=== PATIENT | male | born 1945 | race Caucasian/White ===

== ENCOUNTER 2017-08-08 07:07 | Outpatient (CLI) | payer MEDICARE ==
--- NOTE | 2017-08-08 11:40 | PRG ---
DATE OF SERVICE: 08/08/2017 SUBJECTIVE: This is a 71-year-old male who returns today for right plantar foot ulceration. He has doing well with leaving the dressing in place. Has had Epifix application with Mepitel foam, Aquac el, and Coban. No problems since last week. He did have his transcutaneous oxygen measurement test this morning. OBJECTIVE: Ulceration, right plantar mid foot measuring 1.1 cm x 0.9 cm x 0.3 cm, 100% granulation tissue. Minimal periwound maceration has improved since last visit. No probing to the deeper tissu es or bone. No periwound erythema, edema or warmth. ASSESSMENT: 1. Chronic ulceration to the plantar aspect of the mid foot, right foot with fat layer exposed. 2. Diabetes with foot ulceration. PLAN: 1. Full thickness debridement of subcutaneous tissue layer was performed with the dermal curet and then application of the Epifix, dehydrated amniotic member was applied, nonadherent Adaptic touch dr rock applied over top and then foam dressing with Aquacel, gauze and Coban. 2. He had his transcutaneous oxygen measurements showed some decrease in cutaneous oxygen. This wi ll be evaluated by Dr. Gates and determine if any treatment is deemed necessary or any further jeronimo ting. 3. He will leave this dressing in place for 1 week and follow up with me in 1 week.
--- NOTE | 2017-08-12 13:26 | TCOM ---
TRANSCUTANEOUS OXIMETRY ASSESSMENT DATE OF STUDY: 08/08/2017 CLINICAL INFORMATION: Mr. Braden Brady Jr. is a 71-year-old gentleman with a past medical hist ory significant for diabetes mellitus, hypertension, obstructive sleep apnea, chronic kidney disease , cor pulmonale, and COPD. The patient has an ulceration of the plantar surface of the right midfoo t. He is referred for transcutaneous oxygen mapping of the distal right lower extremity. IMPRESSION: The chest reference value is depressed consistent with a central oxygenation deficiency . All transcutaneous oxygen values of the right foot reflect hypoxia under ambient conditions. The re sponse of all values to hyperoxic challenge is consistent with significant regional ischemia. The above study suggests the healing of the ulceration may be complicated by a compromise in oxygen- dependent wound healing. In view of the marginal response to hyperoxic challenge, vascular evaluati on appears warranted prior to beginning a trial of hyperbaric oxygen therapy.
== END 2017-08-08 07:08 | disposition home or self-care (01) ==
LOC: WCC 07:07
PROVIDERS: ATTEND Podiatrist Foot & Ankle Surgery
DX: E11.621 Type 2 diabetes mellitus with foot ulcer (principal); L97.412 Non-pressure chronic ulcer of right heel and midfoot with fat layer exposed
CPT/HCPCS: 15275; 93923; 97139; C9363

== ENCOUNTER 2017-08-22 07:41 | Outpatient (CLI) | payer MEDICARE ==
--- NOTE | 2017-08-22 09:09 | PRG ---
DATE OF SERVICE: 08/22/2017 SUBJECTIVE: This is a 71-year-old male who returns today for followup of plantar right foot ulcerat ions. They have been doing home dressings, now changing with Aquacel AG 3 times a week. Denies any nausea, vomiting, fevers or chills. They have not received a call from Dr. Kwan's office regardin g his vascular workup, declines any other concerns at this time. OBJECTIVE: Ulceration, plantar midfoot over the right foot measuring 1.1 cm x 1.4 cm x 0.2 cm, 100% granular wound base, less maceration on this visit. Wound does not probe to deeper tissues or bone . No periwound erythema or warmth and no drainage or other signs of infection. ASSESSMENT: 1. Non-pressure chronic ulceration to the right plantar midfoot with fat layer exposed. 2. Diabetes with peripheral neuropathy and foot ulceration. PLAN: Full thickness debridement of subcutaneous tissue layer with dermal curette, removing all non viable tissue, biofilm from the wound base and down to a bleeding granular wound base, approximately 2 mL of blood loss. The patient tolerated the procedure well. Bandage will be applied again today with Aquacel AG, gauze, Kerlix, and Coban. The patient changes the dressing 3 times a week and fol low up with me in 1 week. We did talk with Dr. Kwan's office and they are going to try again to ge t in touch with them in regards with setting up his vascular evaluation.
[2017-08-22] MEDS ORDERED: Sodium Chloride 0.9% 15 ML NEB ONE (11:11)
== END 2017-08-22 07:42 | disposition home or self-care (01) ==
LOC: WCC 07:41
PROVIDERS: ATTEND Podiatrist Foot & Ankle Surgery
DX: E11.621 Type 2 diabetes mellitus with foot ulcer (principal); L97.421 Non-pressure chronic ulcer of left heel and midfoot limited to breakdown of skin; E11.51 Type 2 diabetes mellitus with diabetic peripheral angiopathy without gangrene
CPT/HCPCS: 11042; 36416; A4218

== ENCOUNTER 2017-08-29 07:48 | Outpatient (CLI) | payer MEDICARE ==
--- NOTE | 2017-08-29 10:25 | PRG ---
DATE OF SERVICE: 08/29/2017 SUBJECTIVE: This is a 71-year-old male returns today for followup right foot plantar ulceration. H e has been doing well with Aquacel AG dressing changes 3 times a week. They relate they have seen Jake Kwan, he has evaluated his blood flow and stated that it was sufficient to the right lower extre mity. The patient denies nausea, vomiting, fevers or chills at this time. PHYSICAL EXAMINATION: Ulceration, right plantar foot measuring 1.1 cm x 1.1 cm x 0.2 cm of depth, 1 00% granular wound base. Minimal periwound maceration which has improved since last appointment. N o periwound erythema, edema or warmth. ASSESSMENT: 1. Non-pressure chronic ulceration to the right plantar midfoot. 2. Diabetes with peripheral neuropathy and ulceration. PLAN: 1. Discussed with the patient treatment options including need for hyperbaric oxygen to help with h is microvascular disease. They state that they will be unable to accommodate the [address] [facility] schedule for the hyperbarics. I explained to them that the risks including nonhealing of the w ound, long-term open wound could result in worsening infection and possibly amputation. They unders tand the risks. In the meantime we will continue to perform conservative wound care therapy and hop e to facilitate wound closure. 2. Full thickness debridement of the subcutaneous tissue layer with a dermal curet and removed all periwound hyperkeratotic tissue down to a bleeding granular wound base, approximately 3 mL of blood loss. The patient tolerated the procedure well. 3. We will apply Promogran to the wound base and Aquacel AG covering and then gauze and wrap. The patient will have to this changed twice a week and follow up with me next Friday.
[2017-08-29] MEDS ORDERED: Sodium Chloride 0.9% 15 ML NEB ONE (13:44)
== END 2017-08-29 07:49 | disposition home or self-care (01) ==
LOC: WCC 07:48
PROVIDERS: ATTEND Podiatrist Foot & Ankle Surgery
DX: E11.621 Type 2 diabetes mellitus with foot ulcer (principal); L97.419 Non-pressure chronic ulcer of right heel and midfoot with unspecified severity; E11.51 Type 2 diabetes mellitus with diabetic peripheral angiopathy without gangrene
CPT/HCPCS: 11042; A4218

== ENCOUNTER 2017-09-05 07:43 | Outpatient (CLI) | payer MEDICARE ==
--- NOTE | 2017-09-05 09:13 | PRG ---
DATE OF SERVICE: 09/05/2017 SUBJECTIVE: This 71-year-old male returns today for followup of right plantar foot wound, has been doing dressing changes as I have ordered, Friday and Friday, consisting of Promogran, Aquacel Ag, 4 x 4s, Kerlix, and Coban. We have not started the hyperbaric oxygen treatments as of yet, because of transportation issues with the patient. Patient denies nausea, vomiting, fevers, or chills. PHYSICAL EXAMINATION: Ulcer, right plantar midfoot, full thickness wound, measuring 0.9 cm x 0.9 cm x 0.1 cm. No undermining, no periwound, hyperkeratosis or maceration, no erythema or warmth, no dr hood, does not probe to deep tissues or bone. ASSESSMENT: 1. Non-pressure chronic ulceration to the right plantar midfoot with fat layer exposed. 2. Diabetes with peripheral neuropathy. PLAN: 1. Full thickness debridement of the subcutaneous tissue layer with the dermal curet and 15-blade d own to a bleeding granular wound base, removing all biofilm and nonviable tissue within the wound. 2. I still feel the marked vascular circulation is a hindrance in this wound, although it has impro chelsey in the last week. We will continue to see if there is some place closer to where they live to p doraue the hyperbaric oxygen therapy. 3. Otherwise, he will follow up with me in 2 weeks.
[2017-09-05] MEDS ORDERED: Sodium Chloride 0.9% 15 ML NEB ONE (17:31)
== END 2017-09-05 07:44 | disposition home or self-care (01) ==
LOC: WCC 07:43
PROVIDERS: ATTEND Podiatrist Foot & Ankle Surgery
DX: E11.621 Type 2 diabetes mellitus with foot ulcer (principal); L97.414 Non-pressure chronic ulcer of right heel and midfoot with necrosis of bone; E11.51 Type 2 diabetes mellitus with diabetic peripheral angiopathy without gangrene
CPT/HCPCS: 11042; A4218

== ENCOUNTER 2017-09-26 07:43 | Outpatient (CLI) | payer MEDICARE ==
--- NOTE | 2017-09-26 09:36 | PRG ---
DATE OF SERVICE: 09/26/2017 SUBJECTIVE: This is a 71-year-old male, who returns today for followup of right plantar foot ulcera tion, has been doing daily Promogran and Aquacel Ag dressing changes, has had no problems with the d ressing changes. Denies nausea, vomiting, fevers, or chills. We gave them some secondary options f or places to do hyperbarics, but they continued to refuse to follow through with those appointments. PHYSICAL EXAMINATION: Ulceration of the right plantar midfoot, measuring 0.6 cm x 0.9 x 0.4 cm of d epth, 100% granular wound base. No periwound erythema, edema, or warmth. There is actually less ma ceration this visit than previously. No signs of bacterial infection. ASSESSMENT: Non-pressure chronic ulceration to the right plantar midfoot. PLAN: 1. Full thickness debridement of the subcutaneous tissue layers utilizing dermal curette and tissue nippers down to a bleeding granular base, removing all nonviable tissue and biofilm from the wound surface and at the subcutaneous tissue level. We will continue with daily Promogran, Aquacel Ag, an d gauze dressing changes. 2. I again explained the need for the hyperbaric treatment, which they understand. They also under stand that it may delay the wound healing if this is not carried out. 3. He will follow up with me in 2 weeks.
[2017-09-26] MEDS ORDERED: Sodium Chloride 0.9% 15 ML NEB ONE (17:09)
== END 2017-09-26 07:44 | disposition home or self-care (01) ==
LOC: WCC 07:43
PROVIDERS: ATTEND Podiatrist Foot & Ankle Surgery
DX: L97.419 Non-pressure chronic ulcer of right heel and midfoot with unspecified severity (principal)
CPT/HCPCS: 11042; 36416; A4218

== ENCOUNTER 2017-10-10 07:19 | Outpatient (CLI) | payer MEDICARE ==
--- NOTE | 2017-10-10 08:45 | PRG ---
DATE OF SERVICE: 10/10/2017 SUBJECTIVE: The patient follows up for right plantar midfoot ulceration. No real change since last appointment. Denies nausea, vomiting, fevers, or chills. Still refuses to go to hyperbaric oxygen t reatments. Has done 3 times a week Promogran and Aquacel Ag dressing changes. PHYSICAL EXAMINATION: Ulceration, plantar aspect of the right midfoot, measuring 1.5 cm x 1.8 cm x 0 .4 cm with 0.5 cm of undermining in the 6-12 o'clock position, 100% granular wound base, some minor p eriwound maceration. No malodor, no drainage, no periwound erythema, edema, or warmth. ASSESSMENT: 1. Non-pressure chronic ulceration to the right plantar midfoot. 2. Diabetes with peripheral neuropathy. PLAN: 1. Again, I reiterated that I do not feel that this wound would heal without hyperbaric oxygen treat ment. So, at this time, we are performing palliative care including routine debridements in order to reduce the bacterial load and prevent infection. 2. Full thickness debridement of the subcutaneous tissue layer down to bleeding granular wound base, removing all biofilm from the wound, and all undermining from the periwound area. Patient tolerated the procedure well. 3. We will continue with Promogran and Aquacel Ag dressing changes 3 times a week, and he will follo w up with me in 3 weeks for palliative wound care.
[2017-10-10] MEDS ORDERED: Sodium Chloride 0.9% 15 ML NEB ONE (14:53)
== END 2017-10-10 07:20 | disposition home or self-care (01) ==
LOC: WCC 07:19
PROVIDERS: ATTEND Podiatrist Foot & Ankle Surgery
DX: E11.621 Type 2 diabetes mellitus with foot ulcer (principal); L97.429 Non-pressure chronic ulcer of left heel and midfoot with unspecified severity; E11.51 Type 2 diabetes mellitus with diabetic peripheral angiopathy without gangrene
CPT/HCPCS: 36416; A4218

== ENCOUNTER 2017-10-31 09:27 | Outpatient (CLI) | payer MEDICARE ==
--- NOTE | 2017-10-31 13:01 | PRG ---
DATE OF SERVICE: 10/31/2017 SUBJECTIVE: A 71-year-old male returns today for right plantar foot ulceration. He states last week the foot was increasing in pain and the patient went to urgent care, had blood work done which showe d no leukocytosis and he was placed on Bactrim for 10 days and has been on that for about a week and says that it has felt much better since then. Denies any nausea, vomiting, fevers or chills at this time. PHYSICAL EXAMINATION: Ulceration of the right plantar midfoot measures 2 cm x 2 cm x 0.8 cm of depth . There was a new blistered area over the lateral aspect of the foot which was deroofed and noted ne w epithelium to this area, but no full thickness wound, granular base to the wound is 100% post-debri rivera. No periwound erythema, edema, or warmth, no drainage at this time. He does not probe to yuliya per tissues or bone. ASSESSMENT: 1. Non-pressure chronic ulceration to the right foot. 2. Diabetes with peripheral neuropathy. PLAN: 1. Finished antibiotics. 2. Start just plain Aquacel AG, gauze and Kerlix dressing changes on an every other day basis. 3. Monitor for signs of worsening infection and return immediately if he encounters any. Otherwise, follow up in 1 week.
== END 2017-10-31 09:28 | disposition home or self-care (01) ==
LOC: WCC 09:27
PROVIDERS: ATTEND Podiatrist Foot & Ankle Surgery
DX: E11.621 Type 2 diabetes mellitus with foot ulcer (principal); E11.42 Type 2 diabetes mellitus with diabetic polyneuropathy; L97.519 Non-pressure chronic ulcer of other part of right foot with unspecified severity

== ENCOUNTER 2017-11-07 09:39 | Outpatient (CLI) | payer MEDICARE ==
--- NOTE | 2017-11-07 15:52 | PRG ---
DATE OF SERVICE: 11/07/2017 SUBJECTIVE: A 71-year-old male who returns today for followup of right foot plantar ulceration. ____ _last visit and had just Aquacel AG and dressing changes. He has been taking Cipro for the last week . He has had a little bit of pain on the lateral aspect of the foot. Patient denies nausea, vomitin g, fevers, or chills. PHYSICAL EXAMINATION: Ulceration on the plantar aspect of 1.7 x 1.6 x 0.2 50% granulati on. No periwound erythema, edema, or warmth. The lateral wound is measuring 2.1 x . No periwo und erythema, edema, or warmth. The surrounding tissues do have a bit of fluctuant feel to them. I am not certain if there is a subcutaneous abscess or not that may need to be further evaluated. ASSESSMENT: 1. Non-pressure chronic ulceration to the right plantar foot x2. 2. Diabetes with peripheral neuropathy. 3. Possibility of subcutaneous abscess. PLAN: 1. Full thickness debridement both wounds, removing all nonviable tissue and biofilm from the wound base base. Patient tolerated the procedure well. 2. Continue with Aquacel Ag dressing changes on an [id number] basis. 3. The patient is being sent for MRI of the right foot to evaluate for any possible abscess in the a jessica. He does have some kidney failure. Therefore, we will have to do this MRI without contrast. 4. He will follow up with me in 2 weeks, although if I get his results from his MRI before then and there is anything that we need to change on the treatment plan, I will contact them.
== END 2017-11-07 09:40 | disposition home or self-care (01) ==
LOC: WCC 09:39
PROVIDERS: ATTEND Podiatrist Foot & Ankle Surgery
DX: E11.621 Type 2 diabetes mellitus with foot ulcer (principal); L97.519 Non-pressure chronic ulcer of other part of right foot with unspecified severity; E11.42 Type 2 diabetes mellitus with diabetic polyneuropathy

== ENCOUNTER 2017-11-28 09:51 | Outpatient (CLI) | payer MEDICARE ==
--- NOTE | 2017-11-28 12:18 | PRG ---
DATE OF SERVICE: 11/28/2017 SUBJECTIVE: This 72-year-old male returns for right plantar foot ulceration, doing well since last v isit. He has been continuing to use Aquacel AG dressing changes so that it is no longer hurting and has had no signs of infections since last visit. We have been unable to get his MRI authorized [facility] he does not appear to be having the problems that he was previously which were going to require t he MRI. PHYSICAL EXAMINATION: Ulceration, right plantar midfoot measuring 1.8 cm x 2.0 cm x 0.2 cm of depth, 90% granular tissue, 10% slough. No signs of infection or fluctuance to the foot. ASSESSMENT: 1. Non-pressure chronic ulceration to the right plantar midfoot. 2. Diabetes with peripheral neuropathy. PLAN: 1. Full thickness debridement of the subcutaneous tissue layer removing all nonviable tissue and bio film from the wound base. 2. This wound has been improving over the last several weeks and no longer appears to have any deep tissue abscess, so I will cancel the MRI I ordered. 3. Continue with Aquacel AG dressing changes and follow up with me in 3 weeks.
== END 2017-11-28 09:52 | disposition home or self-care (01) ==
LOC: WCC 09:51
PROVIDERS: ATTEND Podiatrist Foot & Ankle Surgery
DX: E11.621 Type 2 diabetes mellitus with foot ulcer (principal); E11.42 Type 2 diabetes mellitus with diabetic polyneuropathy; L97.419 Non-pressure chronic ulcer of right heel and midfoot with unspecified severity
CPT/HCPCS: 11042

== ENCOUNTER 2017-12-19 09:57 | Outpatient (CLI) | payer MEDICARE ==
--- NOTE | 2017-12-19 11:24 | PRG ---
DATE OF SERVICE: 12/19/2017 SUBJECTIVE: This is a 72-year-old male returns today for followup on multiple right foot ulcerations , nothing has changed since previous visit. They are still unable to go for the hyperbaric oxygen tr eatments. I have been using Aquacel AG, gauze, Kerlix, and Coban since last visit. PHYSICAL EXAMINATION: Ulceration of the right plantar midfoot centrally #1, measuring 1.6 cm x 1.5 c m x 0.2 cm, 80% granulation tissue, 20% slough. No periwound erythema, edema, or warmth. Right plan tar midfoot ulceration on the lateral aspect measuring 1.0 cm x 1.3 cm x 0.2 cm, 80% granulation tiss ue, 20% slough. No periwound erythema, edema, or warmth. Right plantar great toe limited to the lenny akdown of the skin, 90% epithelium measuring 1 cm x 1 cm. No periwound erythema, edema or warmth. ASSESSMENT: 1. Non-pressure chronic ulcerations to the right foot. 2. Diabetes with peripheral neuropathy. PLAN: 1. I again stressed the need for the hyperbaric oxygen treatment, which they are not willing to do. 2. Full thickness debridement of the wound down to a bleeding granular wound base, removing all nonv iable tissue and biofilm from the wound base with dermal curette. The patient tolerated the procedur e well. 3. Continue with Aquacel AG dressing changes and follow up with me in 3-4 weeks.
[2017-12-19] MEDS ORDERED: Sodium Chloride 0.9% 15 ML NEB ONE (15:42)
== END 2017-12-19 09:58 | disposition home or self-care (01) ==
LOC: WCC 09:57
PROVIDERS: ATTEND Podiatrist Foot & Ankle Surgery
DX: E11.621 Type 2 diabetes mellitus with foot ulcer (principal); L97.419 Non-pressure chronic ulcer of right heel and midfoot with unspecified severity; L97.519 Non-pressure chronic ulcer of other part of right foot with unspecified severity; E11.42 Type 2 diabetes mellitus with diabetic polyneuropathy
CPT/HCPCS: A4218

== ENCOUNTER 2018-02-19 21:33 | Inpatient (IN) | payer MEDICARE ==
[2018-02-19] MEDS ORDERED: fentaNYL Citrate/PF 2,000 MCG in Sodium Chloride 0.9% 60 ML IV SCH (21:44)
[2018-02-19 22:29] LABS: pH, Arterial 7.26 (7.35-7.45)
[2018-02-19 22:30] LABS: Actual Bicarbonate (HCO3a) 32.4 mEq/L (22-26); Base Excess (BEa) 3.2 mEq/L (0 (+/-) 2.5); CO2 Tension 74.4 mmHg (35.0-45.0); Hematocrit-ABG 45.1 % (42.0-52.0)
[2018-02-19 22:31] LABS: Analyzer IN Cardio ER; Calcium, Ionized 1.1 mmol/L (1.12-1.30); Hemoglobin (Hb) 12.8 g/dL (14.0-18.0); Puncture Site LRA
[2018-02-19 22:51] LABS: Bilirubin Negative (Negative); Blood, Urine Negative (Negative); Clarity CLOUDY (Clear); Glucose, Urine (Dipstick) Negative (Negative); Leukocyte Small (Negative); Nitrite Negative (Negative); Protein, Urine (Dipstick) 30 mg/dL (Neg-Trace)
[2018-02-19 22:55] LABS: Bacteria/HPF None Seen HPF (None Seen); Pathc Cast-AUWi Flag 29.07 (0-2.49); Yeast-AUWi Flag 152.9 (0-25.0)
[2018-02-19 22:57] LABS: Yeast-All Forms None Seen HPF (None Seen)
[2018-02-19] MEDS ORDERED: Piperacillin/Tazobactam 3.375 GM in Sodium Chloride 0.9% 100 ML IVPB SCH (23:00)
[2018-02-19 23:09] LABS: Actual Bicarbonate (HCO3a) 32.2 mEq/L (22-26); Base Excess (BEa) 3.3 mEq/L (0 (+/-) 2.5); Hemoglobin (Hb) 12.6 g/dL (14.0-18.0); O2 Tension (PaO2) 85.3 mmHg (80.0-100.0); pH, Arterial 7.27 (7.35-7.45)
[2018-02-19 23:10] LABS: Analyzer IN Cardio ER; Calcium, Ionized 1.1 mmol/L (1.12-1.30); Puncture Site LRA
[2018-02-19] MEDS ORDERED: Furosemide 40 MG/4 ML VIAL ONE (23:10)
[2018-02-19] MEDS ORDERED: Acetaminophen 650 MG Suppository ONE (23:10)
[2018-02-19] MEDS ORDERED: Acetaminophen 325 MG Suppository ONE (23:10)
[2018-02-19 23:21] LABS: INR-International Normal Ratio 1.1; PTT 32.6 SEC (22.9-36.1); Prothrombin Time 14.8 SEC (12.0-14.7)
--- NOTE | 2018-02-19 23:37 | RAD ---
SINGLE VIEW OF THE CHEST: 02/19/18 COMPARISON: 02/19/18 HISTORY: Central line placement. FINDINGS: Single view of the chest shows an enlarged cardiomediastinal silhouette. The endotracheal tube appear s unchanged in position. There is a right IJ central venous catheter with its tip in the superior simeon a cava. An NG tube is seen within the stomach. No pneumothorax is seen. There is no evidence of conso lidation, mass or pleural effusion. IMPRESSION: Appropriate position of lines and tubes. POS: JOE
[2018-02-20] MEDS ORDERED: Lorazepam 2 MG/ML VIAL SLOW IVP PRN ×3 (01:23→02:52)
[2018-02-20] MEDS ORDERED: Propofol 1,000 MG/100 ML VIAL IV PRN (01:23)
[2018-02-20] MEDS ORDERED: Morphine 2 MG/ML SYRINGE SLOW IVP PRN ×2 (01:23→02:52)
[2018-02-20] MEDS ORDERED: DISCONTINUE PREVIOUS NARCOTIC PAIN MEDICATIONS AND BENZODIAZEPINES FS SCH ×4 (01:23→02:52)
[2018-02-20] MEDS ORDERED: Fentanyl BOLUS 250 ML IVPB PRN ×4 (01:23→02:52)
[2018-02-20] MEDS ORDERED: Ondansetron ODT 4 MG TAB SL PRN (01:24)
[2018-02-20] MEDS ORDERED: Ondansetron HCl/PF 4 MG/2 ML Vial IVP PRN ×2 (01:24→02:47)
[2018-02-20] MEDS ORDERED: Acetaminophen 325 MG TAB PO PRN (01:24)
[2018-02-20] MEDS ORDERED: Morphine 4 MG/ML VIAL SLOW IVP PRN ×2 (01:30→02:54)
[2018-02-20] MEDS ORDERED: Norepinephrine 8 MG/0.9% NS 250 ML ONE (01:31)
[2018-02-20] MEDS ORDERED: Norepinephrine 8 MG/250 ML BAG IVPB PRN (01:50)
[2018-02-20] MEDS ORDERED: Sodium Chloride 0.9% 1,000 ML IV SCH ×4 (02:00→03:00)
[2018-02-20] MEDS ORDERED: Ondansetron ODT 4 MG TAB PO PRN (02:47)
[2018-02-20] MEDS ORDERED: Dextrose 5% in Water 1,000 ML IV PRN (02:47)
[2018-02-20] MEDS ORDERED: Ventilator Sedation Protocol 1 EACH FS SCH (02:47)
[2018-02-20] MEDS ORDERED: Dextrose 50% Abboject 50 ML SYRINGE SLOW IVP PRN (02:47)
[2018-02-20] MEDS ORDERED: VANCOMYCIN IVPB PRN (03:15)
[2018-02-20] MEDS: Cefepime 1 GM, Admixture Fee 1 EACH in Sodium Chloride 0.9% 10 ML SLOW IVP SCH ×2 (03:16→18:07)
[2018-02-20 03:20] LABS: Band 13 % (5-11); Hemoglobin 11.7 g/dL (14.0-18.0); Lymphocytes 5 % (21-51); MDiff Complete? YES; Mean Corpuscular HGB CONC 31.9 g/dL (32.0-36.0); Mean Corpuscular Volume 87.7 fl (80.0-94.0); Mean Platelet Volume 6.8 fL (7.4-10.4); Monocytes 3 % (0-10); Neutrophil 79 % (42-75); Platelet Count 173 thou/uL (130-400); Red Blood Cell (RBC) Count 4.18 mill/uL (4.70-6.10); White Blood Cell (WBC) Count 15.2 thou/uL (4.8-10.8)
[2018-02-20 03:38] LABS: ALT (SGPT) 22 U/L (8-55); AST (SGOT) 26 U/L (5-34); Albumin 3.2 g/dL (3.4-4.8); Alkaline Phosphatase 45 U/L (40-150); Anion Gap 12 mmol/L (10-20); BUN (Urea Nitrogen) 66 mg/dL (8.4-25.7); Bilirubin, Total 0.4 mg/dL (0.2-1.2); Calc. Creatinine Clearance 39 mL/min (70-130); Carbon Dioxide 30 mmol/L (23-31); Chloride 100 mmol/L (98-107); Estimated GFR-MDRD 17; Globulin 2.6 g/dL (2.4-3.5); Glucose 247 mg/dL (83-110); Potassium 4.2 mmol/L (3.5-5.1); Protein, Total 5.8 g/dL (5.8-8.1); Sodium 138 mmol/L (136-145)
[2018-02-20 03:48] LABS: Troponin I 1.111 ng/mL (< 0.028)
[2018-02-20] MEDS: Clindamycin/D5W 600 MG in Premix Bag 1 BAG IVPB SCH ×3 (04:10→20:15)
[2018-02-20] MEDS: HumaLOG 300 UNITS/3 ML VIAL SC PRN ×5 (04:14→20:57)
--- NOTE | 2018-02-20 05:06 | HP ---
DATE OF ADMISSION: 02/20/2018 PRIMARY CARE PROVIDER: Lisset Hadely M.D. CHIEF COMPLAINT: Altered mental status and lethargy. HISTORY OF PRESENT ILLNESS: This is a 72-year-old male who presents to [facility] Emergency Department by [facility] after patient was noted with increasing lethargy, altered mentation and unresponsiveness per 's report. The patient is obtained after review of [facility] medical records from the emergency room as well as discussions with the at the bedside. The patient apparently had been doing fairly well at home, but over the last several days, had been increasingly lethargic with disrupted sleep patterns. The patient with a history of obstructive sle ep apnea on nocturnal CPAP as well as chronic oxygen supplementation at 3 liters per minute by nasal cannula. denied any recent fever, new medications, travel history or family members with simila r symptoms or illness. The patient had been compliant with his chronic medication regimen according to the . The patient became increasingly lethargic and was evaluated by EMS personnel. The licha ent apparently was noted in respiratory distress and intubated in the field. The patient was placed on [facility] and transferred to [facility] Emergency Room. The patient did receive IV Lasix and nitroglycerin prior to arrival per the flight crew documentation. In the emerge ncy room, patient underwent general evaluation with ET tube in place, placed on mechanical ventilatio n. The patient received broad spectrum IV antibiotic coverage including Zosyn and vancomycin after c oncern for sepsis. The patient received intravenous fluids x1 liter, IV Lasix for a total of 80 mg, Tylenol and fentanyl injections. Portable chest x-ray imaging did not reveal any acute infiltrate wi th chronic changes and appropriate positioning of the endotracheal tube. The patient underwent a rig ht internal jugular vein central catheter placement and placed on Levophed after patient was noted hy potensive. The patient was transferred to the Critical Care Unit for further evaluation and monitori ng. PAST MEDICAL HISTORY: 1. Obstructive sleep apnea on nocturnal CPAP. 2. Chronic hypoxic hypercapnic respiratory failure with oxygen supplementation at 3 liters per minut e by nasal cannula. 3. Morbid obesity. 4. History of pneumonia. 5. Chronic obstructive pulmonary disease. 6. Cor pulmonale. 7. Diabetes mellitus type 2, insulin requiring. 8. Chronic venous stasis with ulcerations to bilateral feet and lower extremities with chronic wound care. 9. Chronic venous insufficiency of the lower extremities. 10. History of ventricular tachycardia status post radiofrequency ablation. 11. Dyslipidemia. 12. Chronic kidney disease stage 3. 13. History of colon cancer. PAST SURGICAL HISTORY: 1. Status post radiofrequency ablation. 2. Status post right hemicolectomy. 3. Status post open reduction and internal fixation of right wrist fracture. 4. Status post multiple debridements of bilateral feet and right foot ulcerations. CURRENT MEDICATIONS: Based on previous admissions in the electronic medical record. 1. Ventolin HFA 2 puffs inhaled q.i.d. p.r.n. 2. Aspirin 81 mg p.o. at bedtime. 3. Symbicort 160/4.5 one puff inhaled at bedtime. 4. Fenofibrate 160 mg p.o. daily. 5. Lasix 40 mg 1 tab p.o. daily. 6. Gabapentin 300 mg p.o. t.i.d. 7. Hydralazine 50 mg p.o. t.i.d. 8. Glargine insulin 40 units subcutaneously daily. 9. Victoza 1.8 mg subcutaneously daily. 10. Lovastatin 20 mg p.o. at bedtime. 11. Meloxicam 7.5 mg p.o. daily. 12. Spiriva HandiHaler 18 mcg inhale at bedtime. ALLERGIES: No known drug allergies. FAMILY HISTORY: Positive for hypertension and diabetes. SOCIAL HISTORY: Greater than [id number] history of smoking, quitting over 15 years prior to this e valuation. No alcohol or illicit drug use. and resides in the [place], [place] area. 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 REVIEW OF SYSTEMS: Unobtainable as patient is on current mechanical ventilation and sedation. PHYSICAL EXAMINATION: VITAL SIGNS: Currently, blood pressure 105/56, pulse 74, respiratory rate 24 on mechanical ventilati on, temperature 97.9 degrees Fahrenheit, O2 saturation 99% on 100% FiO2. GENERAL APPEARANCE: This is a 72-year-old male on current mechanical ventilation and sedat e. HEENT: Pupils are minimally reactive to light and accommodation. No scleral icterus, no conjunctiva l injection. Nares patent. OP is clear. ET tube and OGT tube in place. Nares patent. Scalp atrau matic. NECK: Supple. Right internal jugular central venous catheter in place. No palpable mass. No menin geal signs appreciated. CHEST: Diminished breath sounds in all lung nicole. CARDIOVASCULAR: S1 and S2 distant. ABDOMEN: Obese with difficult to palpate landmarks due to body habitus. No rebound or guarding appr eciated. EXTREMITIES: Warm and dry with fair turgor. Chronic hyperpigmentation changes and venous stasis ronald nges to the lower extremities. A chronic superficial ulceration of the anterior right hager noted. H yperkeratotic changes of bilateral feet on the plantar, lateral and medial aspects of feet. Dystroph ic nails noted. Questionable dry gangrenous changes at multiple distal aspects of the toes. Open ul ceration of the right foot plantar aspect. Pulses are diminished at the dorsalis pedis, posterior ti bial and popliteal arteries. NEUROLOGIC: Sedate on current mechanical ventilation. Occasional spontaneous movement of the right lower extremity noted. PERTINENT LABORATORY DATA AND X-RAY FINDINGS: Sodium 137, potassium 4.7, chloride 95, CO2 of 28, BUN 62, creatinine 3.73 with estimated GFR of 16, glucose 364. Lactic acid level 1.3. Calcium 8.6. LF Ts within normal limits. Troponin I is 1.012. BNP 1076, previously noted 789 on 02/19/2018. CBC sh owed white blood cell count of 12.8, hemoglobin 12.5, hematocrit 40, platelet count 181 with 85% neut rophilia. PT 14.8, INR 1.1, PTT 32.6. ABG dated 02/19/2018 at 2300 showed pH 7.27, pCO2 of 72, pO2 of 85, bicarbonate 32, O2 saturation 96% on 100% FiO2, SIMV. Urinalysis dated 02/19/2018 showed smal l bilirubin, 7-10 wbc's per high powered field and 11-20 hyaline casts. Portable chest x-ray dated 0 02/19/2018 showed appropriate position of lines and tubes. No pneumothorax. No evidence of consolida tion, mass or pleural effusion. Telemetry monitoring shows sinus mechanism with heart rates in the 7 0s. EKG dated 02/19/2018 by my interpretation shows a sinus mechanism with heart rates in the 90s. Premature ventricular complexes noted. Attenuated R waves noted in the precordial leads. Left axis deviation. Normal axis. Q-waves in leads III and F. ASSESSMENT AND PLAN: 1. Septic shock. We will admit to the critical care unit. We will continue sepsis protocol. Mandy l saline bolus x1 liter now. We will continue Levophed infusion to maintain systolic blood pressures greater than 100. We will continue fluid replacement and monitor clinical response. Continue broad spectrum IV antibiotic coverage with vancomycin, cefepime and additional clindamycin after concern f or possible skin etiology. Continue serial lactate monitoring. 2. Acute on chronic hypoxic hypercapnic respiratory failure. We will continue SIMV with ABG monitor ing. Consult Pulmonology Service in the a.m. for ongoing ventilatory management. Repeat ABG in the a.m. Repeat portable chest x-ray in the a.m. Suspect patient's underlying chronic hypoxic respirato ry failure. We will initiate DuoNebs q.4 hours. Consider Solu-Medrol. 3. Acute kidney injury on chronic kidney disease stage 3. We will continue intravenous fluids as ou tlined previously. Avoid nephrotoxic agents and CONTRAST MEDIA. Repeat creatinine in the a.m. Fole y catheter in place. 4. Acute metabolic encephalopathy. Suspect multifactorial given patient's profound sepsis and respi ratory failure. Continue general supportive measures as outlined previously. 5. Diabetes mellitus type 2, insulin requiring. We will provide insulin sliding scale for reflexive coverage. Serial Accu-Cheks. ADA diet when appropriate for p.o. intake. 6. Morbid obesity. Consider dietitian counseling. 7. Chronic venous stasis with chronic ulceration, diabetic ulcers of the bilateral feet. We will co ult Wound Care service for evaluation and local care. 8. Prophylaxis. Sequential compression devices will be held due to lower extremity edema. Heparin 5000 units subcutaneously b.i.d. and Pepcid 20 mg IV q.12 hours. Update pneumonia and flu vaccinatio n. 9. Code status is FULL. Surrogate medical decision maker is patient's spouse. Total critical care time is 60 minutes.
[2018-02-20] MEDS ORDERED: Vancomycin HCl 1.5 GM in Sodium Chloride 0.9% 250 ML 300 ML IVPB SCH (06:00)
[2018-02-20 06:53] LABS: Troponin I 1.203 ng/mL (< 0.028)
[2018-02-20] MEDS ORDERED: Ipratropium Bromide 2.5 ml Neb NEB SCH (07:00)
[2018-02-20 07:47] LABS: Actual Bicarbonate (HCO3a) 31.2 mEq/L (22-26); Base Excess (BEa) 4.9 mEq/L (0 (+/-) 2.5); CO2 Tension 54.7 mmHg (35.0-45.0); Hematocrit-ABG 39.5 % (42.0-52.0); Hemoglobin (Hb) 11.4 g/dL (14.0-18.0); O2 Tension (PaO2) 62.2 mmHg (80.0-100.0); pH, Arterial 7.37 (7.35-7.45)
[2018-02-20 07:48] LABS: ALV-art Gradient 439.825 (0-20); Puncture Site RBA
[2018-02-20] MEDS ORDERED: Cefepime 1 GM in Sodium Chloride 0.9% 100 ML IVPB SCH (09:00)
[2018-02-20] MEDS ORDERED: Vancomycin HCl 1 GM in Sodium Chloride 0.9% 250 ML 250 ML IVPB SCH (09:00)
[2018-02-20] MEDS ORDERED: FLU VACC TS2017-18 (>65YR) 0.5 ML SYRINGE IM ONE (09:00)
[2018-02-20] MEDS ORDERED: Heparin 5,000 UNITS/ML VIAL SC SCH ×2 (09:00)
[2018-02-20] MEDS ORDERED: Prevnar 13-Val Conj/PF 0.5 ML SYRINGE IM ONE (09:00)
[2018-02-20] MEDS: Famotidine 40 MG/4 ML VIAL SLOW IVP SCH (09:15)
--- NOTE | 2018-02-20 09:32 | RAD ---
PORTABLE CHEST 1 VIEW: Date: 02/20/18 Time: 0520 hours HISTORY: Respiratory failure. FINDINGS/IMPRESSION: There has been interval improvement of atelectatic change in right lung base since the previous day's study. Remainder of exam is otherwise stable. POS: JOE
[2018-02-20] MEDS: Propofol 1,000 MG/100 ML VIAL IV PRN (11:29)
--- NOTE | 2018-02-20 11:46 | PQF ---
DATE: 02-24-18 ATTN: DR. LOREN METZGER / DR. DE ANDA Please exercise your independent, professional judgment in responding to the clarification form. Clinical indicators are provided on the bottom of this form for your review Please check appropriate box(s): [ ] Septic Shock related to UTI with Indwelling Catheter [ ] UTI - please specify if due to or related to (as applicable): [ ] Indwelling catheter [ ] Unable to determine etiology [ ] Contaminated urine specimen without UTI [ x ] Other diagnosis _sepsis from cellulitis and mssa bacteremia [ ] Unable to determine In addition, please specify: Present on Admission (POA): [ x ] Yes [ ] No [ ] Unable to determine For continuity of documentation, please document condition throughout progress notes and discharge summary. Thank You. CLINICAL INDICATORS - SIGNS / SYMPTOMS / LABS ER DOCUMENTATION: STARK IN PLACE BY MATHEW,URINE COLLECTED FROM PORT URINE: 02-19-18: URINE PROTEIN 30 H UR LEUKOCYTE ESTERASE SMALL H URINE WBC 7-10 H UR SQUAMOUS EPITH CELLS 7-10 H HYALINE CASTS 11-20 HYALINE CASTS H TEMP: (ER) 100.0, 100.2, 100.4, 100.8, 100.9, 101.1, 101.3, 02-20-18: 100.3, 100.2 RISK FACTORS: ER DOCUMENTATION: STARK IN PLACE BY MATHEW,URINE COLLECTED FROM PORT H&P: SEPTIC SHOCK, ACUTE ENCEPHALOPATHY, ACUTE ON CHRONIC RESP FAILURE, CL[place]ON TREATMENT: (MAR) CLEOCIN, MAXIPIME, VANCOMYCIN, IVF (This form is maintained as a part of the permanent medical record) 2014 [employer]. All Rights Reserved ENRIQUE [email or web address] Office: [phone] LINETTE
--- NOTE | 2018-02-20 12:44 | CON ---
DATE OF CONSULTATION: 02/20/2018 SERVICE: Pulmonary Medicine. REASON FOR CONSULTATION: ICU patient. HISTORY OF PRESENT ILLNESS: The patient is a 72-year-old -[place] male with past medical his tory significant for multiple comorbidities including chronic respiratory failure, morbid obesity, co r pulmonale, and chronic venous stasis changes. He was in his usual state of health until he was fou nd unresponsive. EMS services were contacted and he was subsequently intubated in the field and brou ght to the Emergency Department at [place]. He got 1 dose of Lasix and some nitroglycerin because of elevated blood pressure. He was stuck into the ICU and initiated on broad-spectrum antibiotics, presumptively treating septic shock. Ultimately, he cannot provide any additional elements of the hi story. His oxygen requirements remained quite elevated. PAST MEDICAL HISTORY: 1. Chronic hypoxic respiratory failure. 2. Morbid obesity. 3. Obstructive sleep apnea. 4. Chronic obstructive pulmonary disease. 5. Pulmonary hypertension with history of cor pulmonale. 6. Type 2 diabetes mellitus. 7. History of ventricular tachycardia, status post radiofrequency ablation. 8. Dyslipidemia. 9. History of colon cancer. 10. Chronic kidney disease, stage 3. PAST SURGICAL HISTORY: 1. Right hemicolectomy. 2. Radiofrequency ablation of the ventricle. 3. Open reduction and internal fixation of the right wrist fracture. 4. Debridements of bilateral feet, multiple. ALLERGIES: No known drug allergies. MEDICATIONS: List of his inpatient medications were reviewed. No specific updates were made at this time. FAMILY HISTORY: Noncontributory. SOCIAL HISTORY: He has an extensive smoking history. There is no report of alcohol or illicit drugs . 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 REVIEW OF SYSTEMS: This cannot be obtained as the patient is currently intubated and sedated. PHYSICAL EXAMINATION: VITAL SIGNS: Afebrile with a T-max of 100.3. Pulse 69, blood pressure 110/58, respirations 21, satu ration 96% on 80% FiO2 and a PEEP of 5. GENERAL: The patient is intubated and sedated. HEENT: Normocephalic and atraumatic. Sclerae are white, conjunctivae pink. Oral and nasal mucosa i s moist without lesions. LUNGS: Decent air entry. Dependent crackles are present. There is no wheezing or rhonchi present, however. HEART: Normal rate and regular. ABDOMEN: Soft. Distended. There is no rebound or guarding present. Bowel sounds are present. MUSCULOSKELETAL: No cyanosis or clubbing. Chronic stasis changes are present throughout bilateral l bindu nicole with lesions that have some purulence to him. NEUROLOGIC: Grossly nonfocal. LABORATORY DATA: WBC 15.2, hemoglobin 11.7 and platelets 173,000. INR 1.1. PH of 7.37, pCO2 of 54 and PO2 of 62. This is on 80% FiO2 and a PEEP of 5. Creatinine 3.55. Basic metabolic profile and l iver function studies are otherwise unremarkable. Troponin 1.2 and cortisol 19. Lactate was 1.3. U rinalysis is essentially unremarkable. Blood cultures x2 are unremarkable. IMAGING DATA: There is truthfully not much in the way of massive volume overload. Cardiomegaly is c urrently evident. There was previously atelectasis of the right base, which has resolved. Endotrach eal tube is in good position, 4 cm above the letty. There is an enteric catheter that courses infer iorly, but I cannot see where it terminates. A right IJ terminates in good position. ASSESSMENT: 1. Acute on chronic hypoxic respiratory failure. 2. Septic shock secondary to possible cellulitis. 3. Acute kidney injury on chronic kidney disease stage 3. 4. Metabolic encephalopathy. PLAN: I truthfully cannot explain why the patient's oxygen requirements are so incredibly elevated. The chest x-ray really does not look too terribly concerning. He does have a non-ST elevation NC, b ut it appears that his heart is holding up just fine. He does have a history of cor pulmonale. I am going to empirically initiate him on anticoagulation directed at a pulmonary embolism. Once he stab ilizes or if his oxygen requirements improve, we can consider doing a VQ scan or a CTA of the chest, which I am not currently interested in doing given the fact that he is not currently clinically stabl e enough to leave the ICU. If we cannot turn this around, will be expected during this [facility] stay. Multiple adjustments to the ventilator have been made. We will see if we can wean sedation as much as the patient can tolerate. CRITICAL CARE TIME: 30 minutes.
[2018-02-20] MEDS: Sodium Chloride 0.45% 1,000 ML IV SCH (12:52)
[2018-02-20] MEDS: Norepinephrine 8 MG/0.9% NS 250 ML IVPB SCH ×2 (12:54→23:19)
--- NOTE | 2018-02-20 12:56 | CON ---
DATE OF CONSULTATION: 02/20/2018 CRITICAL CARE NOTE TIME: 30 minutes. HISTORY OF PRESENT ILLNESS: The patient is a 72-year-old gentleman who presents for evaluation of respiratory failure. The patient has a previous history of nonsustained ventricular tachycardia. In 2016, he underwent ablation for ventricular tachycardia. He subsequently had been doing well. The patient' s states that yesterday he started becoming dyspneic. He apparently did not have any fevers or chills. He suddenly developed severe respiratory distress and was brought to the emergency room. He was emergently intubated. The patient did not report having any chest discomfort. PAST MEDICAL HISTORY: 1. History of cor pulmonale. 2. Sleep apnea. 3. Hypertension. 4. Diabetes mellitus. 5. Chronic venous stasis ulcers. 6. Chronic renal failure. PAST SURGICAL HISTORY: Hemicolectomy and debridement of his foot and wounds. MEDICATIONS: See nursing list. ALLERGIES: None. PHYSICAL EXAMINATION: GENERAL/VITAL SIGNS: This is an obese gentleman who is intubated with a blood pressure of 110/58. NECK: Full. LUNGS: Coarse breath sounds bilateral. HEART: Regular rate and rhythm. Normal S1 and S2. ABDOMEN: Distended. EXTREMITIES: Showed severe bilateral edema with chronic wound infections. LABORATORY DATA: Sodium 138, potassium 4.2, chloride 100, bicarbonate 30, BUN 66 and creatinine 3.5. Troponin was 1.2. His white blood cell count is 15.2, hemoglobin 11.7, hematocrit 36.7 and platelet 173. His INR was 1.1. IMAGING DATA: EKG is pending. IMPRESSION: 1. Septic shock. 2. Cor pulmonale. 3. Elevated troponin level, probably secondary to demand ischemia. 4. Diabetes mellitus. 5. Hypertension. 6. Morbid obesity. 7. Chronic wound infection. PLAN: This gentleman presents with septic shock. He is on Levophed and has an evidence of possible infection from his wounds. From a cardiac standpoint, we will check the patient's echocardiogram. We will review the patient's EKG. His elevated troponin level is more likely secondary to his chronic renal failure and demand ischemia rather than an acute myocardial infarction. We will follow this patient with you through his hospitalization. TOTAL TIME SPENT: 30 minutes. LINETTE
[2018-02-20] MEDS: Heparin 10,000 UNITS/ 10 ML VIAL SLOW IVP SCH (12:59)
--- NOTE | 2018-02-20 13:26 | PDOC.PN ---
- Subjective Encounter Start Date: 02/20/18 Encounter Start Time: 13:24 Mr. Brady was seen today in follow-up of respiratory failure and sepsis. He is intubated, but will awake to voice, he did not follow commnads, but was moving all extremities, and appears a bit agitated. - Objective Resuscitation Status: Resuscitation Status FULL:Full Resuscitation MAR Reviewed: Yes Vital Signs & Weight: Vital Signs (12 hours) Temp Pulse Resp BP Pulse Ox 02/20/18 12:00 70 116/55 L 02/20/18 11:54 70 22 H 95 02/20/18 07:45 100.2 F H 71 24 H 94 L 02/20/18 07:30 71 100/50 L 02/20/18 07:18 71 24 H 95 02/20/18 04:00 24 H 02/20/18 03:38 100.3 F H 72 24 H 99 02/20/18 02:15 72 Weight Weight 325 lb 2.909 oz Most Recent Monitor Data Heart Rate from ECG 69 NIBP 110/58 NIBP BP-Mean 67 Respiration from ECG 21 SpO2 96 I&O: 02/19/18 02/20/18 02/21/18 06:59 06:59 06:59 Intake Total 1298 0 Output Total 695 166 Balance 603 -166 Result Diagrams: 02/20/18 02:57 02/20/18 02:57 Additional Labs: Accuchecks 02/20/18 07:34 POC Glucose 235 H Phys Exam - Physical Examination HEENT: PERRLA Respiratory: no wheezing rales at the bases Cardiovascular: RRR, no significant murmur, no rub Gastrointestinal: soft, no distention, positive bowel sounds Musculoskeletal: edema present pedal edema, legs are dressed, mild erythema Dx/Plan (1) Acute respiratory failure with hypoxia and hypercapnia Code(s): J96.01 - ACUTE RESPIRATORY FAILURE WITH HYPOXIA; J96.02 - ACUTE RESPIRATORY FAILURE WITH HYPERCAPNIA Status: Acute (2) Sepsis Code(s): A41.9 - SEPSIS, UNSPECIFIED ORGANISM Status: Acute (3) Diabetes mellitus type 2 in obese Code(s): E11.69 - TYPE 2 DIABETES MELLITUS WITH OTHER SPECIFIED COMPLICATION; E66.9 - OBESITY, UNSPECIFIED Status: Acute (4) Morbid obesity Code(s): E66.01 - MORBID (SEVERE) OBESITY DUE TO EXCESS CALORIES Status: Acute (5) Hypertension Code(s): I10 - ESSENTIAL (PRIMARY) HYPERTENSION Status: Chronic - Plan * Acute respiratory failure - patient currently requires Ventilator support- continue to wean as tolerated by Background Investigator * Patient is empirically being treated for Pulmonary Embolus, until he is more stable to undergo VQ- Heparin drip * NSTEMI- as per Cardiology- this is likely NSTEMI type 2 from demand ischemia- await Echo results * Sepsis- the source of which is from Cellulitis of his lower extremities- Continue Broad Spectrum Antibiotics, including Cefepime, Vancomycin, and Clindamycin, and await culture results- he has required pressor support as well * DM- blood glucose is still elevated- will add a low dose long acting insulin * CKD stage 4- stable * Morbid Obesity- severe with possible Obesity hypoventilation - will complicate his recovery
[2018-02-20] MEDS: Heparin 25,000 units/D5W 500 ML IVPB SCH (13:53)
[2018-02-20] MEDS: fentaNYL Citrate/PF 2,000 MCG in Sodium Chloride 0.9% 60 ML IV SCH (14:42)
[2018-02-20] MEDS ORDERED: Mometasone/Formoterol 120 PUFF INHALER INH SCH (21:00)
[2018-02-21] MEDS: HumaLOG 300 UNITS/3 ML VIAL SC PRN ×5 (00:16→21:12)
[2018-02-21] MEDS: Clindamycin/D5W 600 MG in Premix Bag 1 BAG IVPB SCH ×4 (04:00→20:46)
[2018-02-21] MEDS: Cefepime 1 GM, Admixture Fee 1 EACH in Sodium Chloride 0.9% 10 ML SLOW IVP SCH ×3 (05:00→16:27)
[2018-02-21 06:36] LABS: PTT 115.7 SEC (22.9-36.1)
[2018-02-21 06:38] LABS: Eosinophils 2 % (0-10); Hemoglobin 11.3 g/dL (14.0-18.0); Lymphocytes 9 % (21-51); MDiff Complete? YES; Mean Corpuscular HGB CONC 31.7 g/dL (32.0-36.0); Mean Corpuscular Volume 88.3 fl (80.0-94.0); Mean Platelet Volume 6.8 fL (7.4-10.4); Monocytes 10 % (0-10); Neutrophil 79 % (42-75); Platelet Count 186 thou/uL (130-400); RBC Distribution Width 13.3 % (11.5-14.5); Red Blood Cell (RBC) Count 4.04 mill/uL (4.70-6.10); White Blood Cell (WBC) Count 9.4 thou/uL (4.8-10.8)
[2018-02-21 06:42] LABS: Anion Gap 12 mmol/L (10-20); BUN (Urea Nitrogen) 62 mg/dL (8.4-25.7); Calc. Creatinine Clearance 51 mL/min (70-130); Calcium 8.1 mg/dL (7.8-10.44); Carbon Dioxide 32 mmol/L (23-31); Chloride 100 mmol/L (98-107); Estimated GFR-MDRD 24; Glucose 201 mg/dL (83-110); Magnesium 2.3 mg/dL (1.6-2.6); Phosphorus 4.1 mg/dL (2.3-4.7); Potassium 4.6 mmol/L (3.5-5.1); Sodium 139 mmol/L (136-145)
--- NOTE | 2018-02-21 08:30 | RAD ---
CHEST 1 VIEW: HISTORY: Respiratory failure. COMPARISON: Chest radiograph prior day. FINDINGS: Central venous catheter tip inferior SVC. Heart size is enlarged. Moderate effusions. Mild pulmona ry venous congestion. No large pneumothorax. Endotracheal tube tip is above the letty approximately 3.5 cm. IMPRESSION: 1. Enlarging effusions. Cardiomegaly is similar. Followup recommended. 2. Enteric tube is not well seen. POS: [facility]
--- NOTE | 2018-02-21 09:05 | PDOC.PN ---
- Subjective Encounter Start Date: 02/21/18 Encounter Start Time: 09:03 Mr. Brady was seen today in follow-up. He is intubated, and he will open his eyes to voice, but does not follow commands. - Objective Resuscitation Status: Resuscitation Status FULL:Full Resuscitation MAR Reviewed: Yes Vital Signs & Weight: Vital Signs (12 hours) Temp Pulse Resp BP Pulse Ox 02/21/18 07:50 89 23 H 124/77 97 02/21/18 04:00 100.6 F H 19 02/21/18 02:21 67 18 97 02/21/18 00:00 97.5 F L 21 H 02/20/18 22:17 68 19 96 02/20/18 22:00 19 Weight Admit Weight 325 lb 2.896 oz Weight 332 lb 10.841 oz Most Recent Monitor Data Heart Rate from ECG 67 NIBP 127/68 NIBP BP-Mean 76 Respiration from ECG 19 SpO2 97 I&O: 02/20/18 02/21/18 02/22/18 06:59 06:59 06:59 Intake Total 1298 1230.9 Output Total 695 1421 Balance 603 -190.1 Result Diagrams: 02/21/18 06:00 02/21/18 06:00 Additional Labs: Accuchecks 02/21/18 02/20/18 02/20/18 00:03 20:35 16:56 POC Glucose 210 H 186 H 175 H 02/20/18 13:51 POC Glucose 174 H Phys Exam - Physical Examination HEENT: PERRLA Cardiovascular: RRR, no significant murmur, no rub Gastrointestinal: soft, non-tender, positive bowel sounds Musculoskeletal: edema present + low extremity edema. and chornic venous stasis changes Dx/Plan (1) Acute respiratory failure with hypoxia and hypercapnia Code(s): J96.01 - ACUTE RESPIRATORY FAILURE WITH HYPOXIA; J96.02 - ACUTE RESPIRATORY FAILURE WITH HYPERCAPNIA Status: Acute (2) Sepsis Code(s): A41.9 - SEPSIS, UNSPECIFIED ORGANISM Status: Acute (3) Diabetes mellitus type 2 in obese Code(s): E11.69 - TYPE 2 DIABETES MELLITUS WITH OTHER SPECIFIED COMPLICATION; E66.9 - OBESITY, UNSPECIFIED Status: Acute (4) Morbid obesity Code(s): E66.01 - MORBID (SEVERE) OBESITY DUE TO EXCESS CALORIES Status: Acute (5) Hypertension Code(s): I10 - ESSENTIAL (PRIMARY) HYPERTENSION Status: Chronic (6) [id number] kidney injury Code(s): N17.9 - ACUTE KIDNEY FAILURE, UNSPECIFIED; N18.9 - CHRONIC KIDNEY DISEASE, UNSPECIFIED Status: Acute - Plan * Acute respiratory failure- continue vent support- his oxygen requirements have diminished * Possible Pulmonary Embolus- continue empiric Heparin drip * Sepsis- due to Staph Aureus- Continue Vancomycin, await sensitivities- source probably from the skin- from Cellulitis and leg wounds * Acute on chronic kidney injury- improved * DM- blood glucose has improved- will continue SSI * Nutritional Support?
[2018-02-21] MEDS: Vancomycin HCl 1.5 GM in Sodium Chloride 0.9% 250 ML 300 ML IVPB SCH (09:27)
[2018-02-21] MEDS: Famotidine 40 MG/4 ML VIAL SLOW IVP SCH (09:28)
[2018-02-21] MEDS: fentaNYL Citrate/PF 2,000 MCG in Sodium Chloride 0.9% 60 ML IV SCH (09:30)
[2018-02-21] MEDS: Sodium Chloride 0.45% 1,000 ML IV SCH (09:37)
[2018-02-21] MEDS: Heparin 10,000 UNITS/ 10 ML VIAL SLOW IVP SCH (13:25)
--- NOTE | 2018-02-21 13:49 | PRG ---
DATE OF SERVICE: 02/21/2018 SERVICE: Pulmonary Medicine. INTERVAL HISTORY: The patient is doing a little bit better from a respiratory and neurologic standpo int. His oxygen requirements are improving slightly. He cannot register any specific complaints. T here are no nursing events reported. PHYSICAL EXAMINATION: VITAL SIGNS: T-max 100.6, pulse 100, blood pressure 117/77, respirations 20, saturation 97% on 61% F iO2 and a PEEP of 7 at this point. HEENT: Normocephalic, atraumatic. Sclerae are white, conjunctivae pink. Oral mucosa is moist witho ut lesions. He turns his head seemingly appropriately. He will spontaneously open his eyes. LUNGS: Decent air entry. No crackles, wheezing or rhonchi are present. HEART: Normal rate, regular. ABDOMEN: Soft, nontender, and nondistended. Bowel sounds are positive. MUSCULOSKELETAL: No cyanosis or clubbing. There is no pitting in the bilateral lower extremities. NEUROLOGIC: Grossly nonfocal. LABORATORY DATA: WBC of 9.4, hemoglobin 11.3, and platelets 186,000. Creatinine 2.66 and down trend ing, BUN 66. Basic metabolic profile is otherwise unremarkable. Magnesium and phosphorus fall withi n normal limits. Staph aureus is growing in 2 out of 2 blood cultures. IMAGING: Echocardiogram demonstrates normal ejection fraction of 50%-55%. The left atrium is mildly dilated. Moderately enlarged right ventricle. Aortic stenosis is present. Mild tricuspid regurgit ation. No specific notation of whether or not they were vegetations. Chest x-ray demonstrates impre ssive cardiomegaly, bilateral effusions. Enteric catheter is in place. There is an endotracheal tub e that terminates roughly 4 cm above the level of the letty. ASSESSMENT: 1. Acute on chronic hypoxic respiratory failure. 2. Septic shock secondary to cellulitis and bacteremia. 3. Bacteremia secondary to Staphylococcus aureus, sensitivities pending. 4. Acute kidney injury on chronic kidney disease 3, improving. 5. Metabolic encephalopathy. PLAN: We will continue to wean away the oxygen if tolerated. He will remain on his heparin drip for the time being. I will repeat cultures with any additional fevers. If he is persistently bacteremi c, MESSI will need to be performed as we did not have good visualization of the valves on the transthor acic study. Empiric antibiotics will be continued for the time being to cover MRSA. We are awaiting sensitivities. I will back off on our assistance on mechanical ventilation. He will need to remain on the ventilator for the next 24-48 hours. CRITICAL CARE TIME: 30 minutes.
[2018-02-21] MEDS: Propofol 1,000 MG/100 ML VIAL IV PRN ×2 (13:54→20:00)
[2018-02-21] MEDS: Acetaminophen 650 MG Suppository PR PRN (14:41)
[2018-02-21] MEDS: Heparin 25,000 units/D5W 500 ML IVPB SCH (18:27)
[2018-02-21] MEDS: Norepinephrine 8 MG/0.9% NS 250 ML IVPB SCH (19:50)
[2018-02-22 03:07] LABS: Anion Gap 11 mmol/L (10-20); BUN (Urea Nitrogen) 57 mg/dL (8.4-25.7); Calc. Creatinine Clearance 63 mL/min (70-130); Calcium 8.4 mg/dL (7.8-10.44); Carbon Dioxide 31 mmol/L (23-31); Chloride 104 mmol/L (98-107); Estimated GFR-MDRD 29; Glucose 182 mg/dL (83-110); Potassium 4.9 mmol/L (3.5-5.1); Sodium 141 mmol/L (136-145)
[2018-02-22 03:08] LABS: Band 5 % (5-11); Lymphocytes 11 % (21-51); MDiff Complete? YES; Mean Corpuscular Volume 87.7 fl (80.0-94.0); Mean Platelet Volume 6.6 fL (7.4-10.4); Monocytes 6 % (0-10); Neutrophil 78 % (42-75); Platelet Count 174 thou/uL (130-400); Red Blood Cell (RBC) Count 3.92 mill/uL (4.70-6.10); White Blood Cell (WBC) Count 8.9 thou/uL (4.8-10.8)
[2018-02-22] MEDS: Cefepime 1 GM, Admixture Fee 1 EACH in Sodium Chloride 0.9% 10 ML SLOW IVP SCH (03:26)
[2018-02-22] MEDS: Clindamycin/D5W 600 MG in Premix Bag 1 BAG IVPB SCH (03:36)
[2018-02-22] MEDS: Sodium Chloride 0.45% 1,000 ML IV SCH ×2 (03:40→20:10)
[2018-02-22] MEDS: fentaNYL Citrate/PF 2,000 MCG in Sodium Chloride 0.9% 60 ML IV SCH (06:19)
[2018-02-22] MEDS: Heparin 25,000 units/D5W 500 ML IVPB SCH ×2 (06:25→15:08)
[2018-02-22] MEDS: Vancomycin HCl 1.5 GM in Sodium Chloride 0.9% 250 ML 300 ML IVPB SCH (08:48)
--- NOTE | 2018-02-22 09:15 | RAD ---
CHEST 1 VIEW: HISTORY: Respiratory failure. COMPARISON: Chest 1 view from the prior day. FINDINGS: The patient is intubated with endotracheal tube tip at the level of the clavicles in good position. Enteric tube at the level below the diaphragm out of field of view. Right IJ central venous catheter is in good position. Cardiomegaly is similar as well as layering effusions. Mild edema. IMPRESSION: No significant change in radiographic appearance of the chest. POS: [facility]
[2018-02-22] MEDS: HumaLOG 300 UNITS/3 ML VIAL SC PRN ×4 (09:18→20:58)
[2018-02-22] MEDS: Acetaminophen 650 MG Suppository PR PRN ×2 (09:31→23:01)
[2018-02-22] MEDS ORDERED: Famotidine/PF 20 mg/2ml Vial SLOW IVP SCH (09:45)
[2018-02-22] MEDS ORDERED: Furosemide 40 MG/4 ML VIAL SLOW IVP SCH (11:00)
--- NOTE | 2018-02-22 11:11 | PRG ---
DATE OF SERVICE: 02/22/2018 SERVICE: Pulmonary Medicine. INTERVAL HISTORY: The patient is doing fine from a respiratory standpoint. His oxygen requirements are improving, albeit slightly over the last 24 hours. There has been no interval change to his cond ition today. His blood cultures from yesterday were growing MRSA. As such, he is now on contact pre cautions. There were no overnight events. OBJECTIVE: VITAL SIGNS: Afebrile currently with a T-max of 100.9, pulse 78, blood pressure 130/62, respirations 21, saturation 91% on 47% FiO2 and a PEEP of 7. GENERAL: The patient is intubated and sedated. HEENT: Normocephalic, atraumatic. Sclerae are white, conjunctivae pink. Oral mucosa is moist witho ut lesions. LUNGS: Decent air entry. Crackles are present. HEART: Normal rate, regular. ABDOMEN: Soft, nontender, nondistended. Bowel sounds are positive. MUSCULOSKELETAL: No cyanosis or clubbing. There is no pitting in the bilateral lower extremities. NEUROLOGIC: Grossly nonfocal. LABORATORY DATA: WBC 8.9, hemoglobin 11.0, platelets 174,000. Neutrophil count has improved to 78% with only 5% bands now. PTT 123. Creatinine 2.23 which continues to trend downward, BUN 57 and also down trending. Basic metabolic profile is otherwise unremarkable. Staph aureus is growing in 2 out of 2 blood cultures. Repeat blood cultures are currently pending. This was a methicillin-sensitive organism. IMAGING: Chest x-ray demonstrates no significant change. Bilateral layering effusions are evident. Endotracheal tube remains in good position. ASSESSMENT: 1. Acute on chronic hypoxic respiratory failure. 2. Septic shock secondary to cellulitis and bacteremia. 3. Bacteremia secondary to methicillin-susceptible Staphylococcus aureus. 4. Acute kidney injury on chronic kidney disease 3, resolving to baseline. 5. Metabolic encephalopathy. PLAN: We will continue making efforts at weaning sedation. We will give him a dose of Lasix. Repea t cultures are currently pending. If he fails to clear his MSSA bacteremia, MESSI will be required. Masoud muñoz is currently on a heparin drip empirically treating a pulmonary embolism because I did not have a b trista cause for his severe hypoxemic respiratory failure. I will start a daily dose of Lasix today. We will feed him. I have changed him over to pressure control ventilation as he seems to tolerate t hese settings a touch better. CRITICAL CARE TIME: 30 minutes.
[2018-02-22] MEDS: Nafcillin 2 GM in Sodium Chloride 0.9% 100 ML IVPB SCH ×4 (11:48→23:01)
[2018-02-22] MEDS: Dextrose 5% in Water 1,000 ML IV SCH (12:29)
--- NOTE | 2018-02-22 13:52 | PDOC.PN ---
- Subjective Encounter Start Date: 02/22/18 Encounter Start Time: 12:25 Subjective: on vent, at bedside -: awakens to touch but not oriented - Objective Resuscitation Status: Resuscitation Status FULL:Full Resuscitation MAR Reviewed: Yes Vital Signs & Weight: Vital Signs (12 hours) Temp Pulse Resp BP Pulse Ox 02/22/18 12:00 21 H 92 L 02/22/18 11:40 75 131/60 02/22/18 11:25 74 23 H 90 L 02/22/18 10:00 22 H 02/22/18 08:00 100.9 F H 86 24 H 92 L 02/22/18 06:32 78 123/65 02/22/18 06:27 78 27 H 94 L 02/22/18 06:00 24 H 02/22/18 04:00 20 02/22/18 02:26 72 25 H 95 02/22/18 02:00 20 Weight Admit Weight 325 lb 2.896 oz Weight 330 lb 4.039 oz Most Recent Monitor Data Heart Rate from ECG 75 NIBP 131/62 NIBP BP-Mean 82 Respiration from ECG 20 SpO2 92 I&O: 02/21/18 02/22/18 02/23/18 06:59 06:59 06:59 Intake Total 1230.9 2913.2 812 Output Total 1421 1621 415 Balance -190.1 1292.2 397 Result Diagrams: 02/22/18 02:19 02/22/18 02:19 Additional Labs: Accuchecks 02/22/18 02/22/18 02/22/18 11:42 08:59 00:39 POC Glucose 175 H 181 H 170 H 02/21/18 02/21/18 21:05 16:27 POC Glucose 151 H 184 H Phys Exam - Physical Examination HEENT: PERRLA, sclera anicteric Neck: no JVD, supple Respiratory: no wheezing rhonchi++ Cardiovascular: RRR, no significant murmur Gastrointestinal: soft, non-tender, positive bowel sounds Musculoskeletal: pulses present, edema present Neurological: non-focal, moves all 4 limbs Dx/Plan (1) Acute respiratory failure with hypoxia and hypercapnia Code(s): J96.01 - ACUTE RESPIRATORY FAILURE WITH HYPOXIA; J96.02 - ACUTE RESPIRATORY FAILURE WITH HYPERCAPNIA Status: Acute (2) Sepsis Code(s): A41.9 - SEPSIS, UNSPECIFIED ORGANISM Status: Acute Qualifiers: Sepsis type: methicillin susceptible Staphylococcus aureus Qualified Code(s ): A41.01 - Sepsis due to Methicillin susceptible Staphylococcus aureus (3) MSSA bacteremia Code(s): R78.81 - BACTEREMIA Status: Acute (4) Cellulitis Code(s): L03.90 - CELLULITIS, UNSPECIFIED Status: Acute Qualifiers: Site of cellulitis: extremity Site of cellulitis of extremity: lower extremity Laterality: unspecified laterality Qualified Code(s): L03.119 - Cellulitis of unspecified part of limb (5) [id number]-[id number] kidney injury Code(s): N17.9 - ACUTE KIDNEY FAILURE, UNSPECIFIED; N18.9 - CHRONIC KIDNEY DISEASE, UNSPECIFIED Status: Acute Qualifiers: Acute renal failure type: unspecified (6) Diabetes mellitus type 2 in obese Code(s): E11.69 - TYPE 2 DIABETES MELLITUS WITH OTHER SPECIFIED COMPLICATION; E66.9 - OBESITY, UNSPECIFIED Status: Chronic (7) Morbid obesity Code(s): E66.01 - MORBID (SEVERE) OBESITY DUE TO EXCESS CALORIES Status: Chronic (8) Hypertension Code(s): I10 - ESSENTIAL (PRIMARY) HYPERTENSION Status: Chronic Qualifiers: Hypertension type: essential hypertension Qualified Code(s): I10 - Essential (primary) hypertension - Plan is on clindamycin, vanc and cefepime -: 1/2 NS, enteral nutrition -: bun/cr 57/2.2, is on heparin drip for susp PE due to hypoxia with failure -: gave updates to at bedside -: weaning per pulm advice * . Review of Systems - Medications/Allergies Allergies/Adverse Reactions: Allergies Allergy/AdvReac Type Severity Reaction Status Date / Time No Known Allergies Allergy Verified 02/20/18 01:35 Medications: Current Medications Acetaminophen (Tylenol) 650 mg [place] Q4H PRN PRN Reason: Headache/Fever or Mild Pain Last Admin: 02/22/18 09:31 Dose: 650 mg Albuterol/Ipratropium (Duoneb) 3 ml NEB [id number] MARTA Last Admin: 02/22/18 11:25 Dose: 3 ml Aspirin (Aspirin Chewable) 81 mg PO DAILY MARTA Dextrose/Water (Dextrose 50%) 25 gm SLOW IVP PRN PRN PRN Reason: Hypoglycemia Famotidine (Pepcid) 20 mg PO DAILY MARTA Furosemide (Lasix) 40 mg SLOW IVP 0600 MARTA Glucagon (Glucagon) 1 mg IM PRN PRN PRN Reason: Hypoglycemia Heparin Sodium (Porcine) (Heparin 1,000 Units/Ml (10 Ml)) 0 units SLOW IVP ASDIR MARTA PRN Reason: Protocol Last Admin: 02/21/18 13:25 Dose: 5,900 unit Dextrose/Water (D5w) 1,000 mls @ 0 mls/hr IV .Q0M PRN; As Directed PRN Reason: Hypoglycemia Fentanyl Citrate 2,000 mcg/ (Sodium Chloride) 100 mls @ 0 mls/hr IV INF MARTA; Per Protocol PRN Reason: Protocol Stop: 03/22/18 02:52 Last Admin: 02/22/18 06:19 Dose: 100 mls Fentanyl Citrate (Fentanyl Bolus) 250 mls @ 0 mls/hr IVPB PRN PRN; As Directed PRN Reason: Breakthrough pain Stop: 03/22/18 02:52 Heparin Sodium/Dextrose (Heparin 25,000 Units/D5w 500 Ml) 500 mls @ 0 mls/hr IVPB INF MARTA; Per Protocol PRN Reason: Protocol Last Admin: 02/22/18 06:25 Dose: 500 mls Dextrose/Water (D5w) 1,000 mls @ 50 mls/hr IV .Q20H MARTA Last Admin: 02/22/18 12:29 Dose: 1,000 mls Nafcillin Sodium 2 gm/ Sodium (Chloride) 100 mls @ 100 mls/hr IVPB Q4H [facility] Last Admin: 02/22/18 11:48 Dose: 100 mls Insulin Human Lispro (Humalog) 0 units SC .MILD SLIDING SCALE PRN PRN Reason: Mild Correctional Scale Last Admin: 02/22/18 11:47 Dose: 2 unit Insulin Human Lispro (Humalog) 0 units SC .BEDTIME SLIDING SC PRN PRN Reason: Bedtime Correctional Scale Miscellaneous Medication (Pharmacy To Dose) 1 each IVPB PRN PRN PRN Reason: BACTEREMIA Ondansetron HCl (Zofran Odt) 4 mg PO Q6H PRN PRN Reason: Nausea/Vomiting Ondansetron HCl (Zofran) 4 mg IVP Q6H PRN PRN Reason: Nausea/Vomiting Propofol (Diprivan) 1,000 mg IV INF PRN; Protocol PRN Reason: TO ACHIEVE SHETTY SCORE 2-3 Stop: 03/22/18 02:52 Last Admin: 02/21/18 20:00 Dose: 1,000 mg
[2018-02-22] MEDS: Famotidine 40 MG/4 ML VIAL SLOW IVP SCH (20:10)
[2018-02-22] MEDS: Propofol 1,000 MG/100 ML VIAL IV PRN (23:01)
[2018-02-23] MEDS: Heparin 25,000 units/D5W 500 ML IVPB SCH ×3 (01:55→21:27)
[2018-02-23] MEDS: Nafcillin 2 GM in Sodium Chloride 0.9% 100 ML IVPB SCH ×4 (03:07→21:26)
[2018-02-23] MEDS: Propofol 1,000 MG/100 ML VIAL IV PRN ×5 (05:01→21:26)
[2018-02-23] MEDS: HumaLOG 300 UNITS/3 ML VIAL SC PRN ×4 (05:02→21:30)
[2018-02-23] MEDS: Dextrose 5% in Water 1,000 ML IV SCH ×2 (05:15→21:50)
[2018-02-23 05:59] LABS: Anion Gap 12 mmol/L (10-20); BUN (Urea Nitrogen) 82 mg/dL (8.4-25.7); Calc. Creatinine Clearance 45 mL/min (70-130); Calcium 8.1 mg/dL (7.8-10.44); Carbon Dioxide 32 mmol/L (23-31); Chloride 102 mmol/L (98-107); Estimated GFR-MDRD 20; Glucose 216 mg/dL (83-110); Magnesium 2.7 mg/dL (1.6-2.6); Phosphorus 6.6 mg/dL (2.3-4.7); Potassium 4.7 mmol/L (3.5-5.1); Sodium 141 mmol/L (136-145)
[2018-02-23] MEDS ORDERED: Furosemide 40 MG/4 ML VIAL SLOW IVP SCH (06:00)
[2018-02-23] MEDS ORDERED: Famotidine/PF 20 mg/2ml Vial SLOW IVP SCH (09:00)
[2018-02-23] MEDS ORDERED: cefTRIAXone\\ROCEPHIN 1 GM in Sodium Chloride 0.9% 100 ML IVPB SCH (09:00)
[2018-02-23] MEDS: Famotidine 20 MG TAB PO SCH (09:12)
[2018-02-23] MEDS: cefTRIAXone\\ROCEPHIN 1 GM, Syringe 0.4 ML in Sterile Water 9.6 ML SLOW IVP SCH (09:44)
--- NOTE | 2018-02-23 09:44 | CON ---
DATE OF CONSULTATION: 02/23/2018 He is a 72-year-old morbidly obese gentleman, intubated on the vent, progressive respiratory failure. He has a diagnosis of diastolic dysfunction and recent echo done and once again shows EF 55%, moderat denzel enlarged right ventricular cavity. His states he has limitation to activity because of his severe sores on his feet. Though he has been walking with the help of a walker. His states that as per his previous history he has smoked, but none recently. Quit smoking in 1999, a pack a day smoker. Denies any coughing or wheezing. He was diagnosed with sleep apnea. Nocturnal CPAP he is compliant with it. PAST MEDICAL HISTORY: COPD, sleep apnea, cor pulmonale, diabetes, chronic stasis. Previous history of cardiac arrhythmia, status post ablation by [place] physician, renal failure, colon cancer. PAST SURGICAL HISTORY: Ablation, colectomy for colon cancer, multiple feet related surgeries, wrist fracture. ALLERGIES: None. 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 MEDICATIONS: He has a list of medicine from home includes Naprosyn, aspirin, albuterol, tramadol, Sp iriva, Mobic, lovastatin, Victoza, insulin, gabapentin, Lasix, TriCor, Symbicort. REVIEW OF SYSTEMS: Otherwise 10 point unremarkable. His is here at the bedside gives all histo ry. PHYSICAL EXAMINATION: VITAL SIGNS: Sats 100%, pulse 70, blood pressure 130/60. CHEST: Decreased breath sounds, no wheezing. CARDIAC: Normal S1, S2, no gallops. ABDOMEN: Soft. No masses. LABORATORY: His last chest x-ray shows a questionable right-sided infiltrate. His creatinine is elevated at 3, baseline creatinine is about 1.5. He is barely having nutrition on board. Additional lab, his glucose is 216, PTT 72. IMPRESSION: 1. Respiratory failure. 2. Morbid obesity. 3. Sleep apnea. 4. Diastolic dysfunction. 5. Status post ablation. 6. Diabetes. 7. Renal failure. PLAN: He is on nafcillin 2 grams q.4h., this needs to be just for his renal failure. Clindamycin wa s discontinued. He is on Lasix daily. His EF was normal. As noted has got right-sided failure. I would hold his Lasix for the time being. He is on a heparin drip, unclear the reason for the heparin . The vent is being adjusted. He is not weanable at this time. Will follow. Nutrition and PT. One-half hour critical care time.
[2018-02-23 10:36] LABS: Actual Bicarbonate (HCO3a) 30.5 mEq/L (22-26); Base Excess (BEa) 4.5 mEq/L (0 (+/-) 2.5); CO2 Tension 52.1 mmHg (35.0-45.0); Hematocrit-ABG 34.5 % (42.0-52.0); Hemoglobin (Hb) 10.5 g/dL (14.0-18.0); O2 Tension (PaO2) 56.1 mmHg (80.0-100.0); pH, Arterial 7.39 (7.35-7.45)
[2018-02-23 10:37] LABS: ALV-art Gradient 126.575 (0-20); Puncture Site LR
--- NOTE | 2018-02-23 13:21 | PDOC.PN ---
- Subjective Encounter Start Date: 02/23/18 Encounter Start Time: 11:40 Subjective: on vent, not awake - Objective Resuscitation Status: Resuscitation Status FULL:Full Resuscitation MAR Reviewed: Yes Vital Signs & Weight: Vital Signs (12 hours) Temp Pulse Resp BP Pulse Ox 02/23/18 13:14 85 161/56 H 02/23/18 12:00 34 H 02/23/18 10:24 80 144/57 H 02/23/18 10:00 30 H 02/23/18 08:56 35 H 02/23/18 08:00 99.5 F 71 27 H 92 L 02/23/18 07:24 83 140/62 02/23/18 06:00 24 H 02/23/18 04:00 24 H 02/23/18 02:17 65 16 99 02/23/18 02:00 16 Weight Admit Weight 325 lb 2.896 oz Weight 330 lb 4.039 oz Most Recent Monitor Data Heart Rate from ECG 84 NIBP 161/56 NIBP BP-Mean 78 Respiration from ECG 18 SpO2 94 I&O: 02/22/18 02/23/18 02/24/18 06:59 06:59 06:59 Intake Total 2913.2 4670.9 Output Total 1621 2467 1055 Balance 1292.2 2203.9 -1055 Result Diagrams: 02/22/18 02:19 02/23/18 04:45 Additional Labs: Accuchecks 02/23/18 02/23/18 02/23/18 11:59 08:17 04:48 POC Glucose 199 H 190 H 188 H 02/23/18 02/22/18 02/22/18 00:35 20:59 17:20 POC Glucose 163 H 170 H 196 H Phys Exam - Physical Examination HEENT: PERRLA, moist MMs Neck: no JVD, supple Respiratory: no wheezing, no rales Cardiovascular: RRR, no significant murmur Gastrointestinal: soft, non-tender, positive bowel sounds Musculoskeletal: pulses present b/l chronic ulcers over leg, has thickening of skin over toes and plantar Neurological: non-focal Dx/Plan (1) Acute respiratory failure with hypoxia and hypercapnia Code(s): J96.01 - ACUTE RESPIRATORY FAILURE WITH HYPOXIA; J96.02 - ACUTE RESPIRATORY FAILURE WITH HYPERCAPNIA Status: Acute (2) Sepsis Code(s): A41.9 - SEPSIS, UNSPECIFIED ORGANISM Status: Acute Qualifiers: Sepsis type: methicillin susceptible Staphylococcus aureus Qualified Code(s ): A41.01 - Sepsis due to Methicillin susceptible Staphylococcus aureus (3) MSSA bacteremia Code(s): R78.81 - BACTEREMIA Status: Acute (4) Cellulitis Code(s): L03.90 - CELLULITIS, UNSPECIFIED Status: Acute Qualifiers: Site of cellulitis: extremity Site of cellulitis of extremity: lower extremity Laterality: unspecified laterality Qualified Code(s): L03.119 - Cellulitis of unspecified part of limb (5) Zjesn-et-payrtzo kidney injury Code(s): N17.9 - ACUTE KIDNEY FAILURE, UNSPECIFIED; N18.9 - CHRONIC KIDNEY DISEASE, UNSPECIFIED Status: Acute Qualifiers: Acute renal failure type: unspecified (6) Diabetes mellitus type 2 in obese Code(s): E11.69 - TYPE 2 DIABETES MELLITUS WITH OTHER SPECIFIED COMPLICATION; E66.9 - OBESITY, UNSPECIFIED Status: Chronic (7) Morbid obesity Code(s): E66.01 - MORBID (SEVERE) OBESITY DUE TO EXCESS CALORIES Status: Chronic (8) Hypertension Code(s): I10 - ESSENTIAL (PRIMARY) HYPERTENSION Status: Chronic Qualifiers: Hypertension type: essential hypertension Qualified Code(s): I10 - Essential (primary) hypertension - Plan is on nafcillin 2g q6h and ceftriaxone -: on asp, lasix -: renal function gradually worsoning, renal consult -: prognosis guarded, on heparin drip for suspected PE -: weaning per pulm advice * . Review of Systems - Medications/Allergies Allergies/Adverse Reactions: Allergies Allergy/AdvReac Type Severity Reaction Status Date / Time No Known Allergies Allergy Verified 02/20/18 01:35 Medications: Current Medications Acetaminophen (Tylenol) 650 mg AR Q4H PRN PRN Reason: Headache/Fever or Mild Pain Last Admin: 02/22/18 23:01 Dose: 650 mg Albuterol/Ipratropium (Duoneb) 3 ml NEB [id number] MARTA Last Admin: 02/23/18 10:23 Dose: 3 ml Aspirin (Aspirin Chewable) 81 mg PO DAILY MARTA Last Admin: 02/23/18 09:12 Dose: 81 mg Dextrose/Water (Dextrose 50%) 25 gm SLOW IVP PRN PRN PRN Reason: Hypoglycemia Famotidine (Pepcid) 20 mg PO DAILY MARTA Last Admin: 02/23/18 09:12 Dose: 20 mg Glucagon (Glucagon) 1 mg IM PRN PRN PRN Reason: Hypoglycemia Heparin Sodium (Porcine) (Heparin 1,000 Units/Ml (10 Ml)) 0 units SLOW IVP ASDIR MARTA PRN Reason: Protocol Last Admin: 02/21/18 13:25 Dose: 5,900 unit Dextrose/Water (D5w) 1,000 mls @ 0 mls/hr IV .Q0M PRN; As Directed PRN Reason: Hypoglycemia Fentanyl Citrate 2,000 mcg/ (Sodium Chloride) 100 mls @ 0 mls/hr IV INF MARTA; Per Protocol PRN Reason: Protocol Stop: 03/22/18 02:52 Last Admin: 02/22/18 06:19 Dose: 100 mls Fentanyl Citrate (Fentanyl Bolus) 250 mls @ 0 mls/hr IVPB PRN PRN; As Directed PRN Reason: Breakthrough pain Stop: 03/22/18 02:52 Heparin Sodium/Dextrose (Heparin 25,000 Units/D5w 500 Ml) 500 mls @ 0 mls/hr IVPB INF MARTA; Per Protocol PRN Reason: Protocol Last Admin: 02/23/18 11:03 Dose: 500 mls Dextrose/Water (D5w) 1,000 mls @ 50 mls/hr IV .Q20H MARTA Last Admin: 02/23/18 05:15 Dose: 1,000 mls Nafcillin Sodium 2 gm/ Sodium (Chloride) 100 mls @ 100 mls/hr IVPB 0200,0800, 1400,2000 MARTA Ceftriaxone Sodium 1 gm/ (Syringe 0.4 ml/ Sterile Water) 10 mls @ 120 mls/hr SLOW IVP 0900 MARTA Last Admin: 02/23/18 09:44 Dose: 10 mls Insulin Human Lispro (Humalog) 0 units SC .MILD SLIDING SCALE PRN PRN Reason: Mild Correctional Scale Last Admin: 02/23/18 11:58 Dose: 2 unit Insulin Human Lispro (Humalog) 0 units SC .BEDTIME SLIDING SC PRN PRN Reason: Bedtime Correctional Scale Ondansetron HCl (Zofran Odt) 4 mg PO Q6H PRN PRN Reason: Nausea/Vomiting Ondansetron HCl (Zofran) 4 mg IVP Q6H PRN PRN Reason: Nausea/Vomiting Propofol (Diprivan) 1,000 mg IV INF PRN; Protocol PRN Reason: TO ACHIEVE SHETTY SCORE 2-3 Stop: 03/22/18 02:52 Last Admin: 02/23/18 11:55 Dose: 1,000 mg
[2018-02-24] MEDS: Metoclopramide HCl 10 MG/2 ML VIAL IVP SCH ×4 (00:41→21:11)
[2018-02-24] MEDS: Nafcillin 2 GM in Sodium Chloride 0.9% 100 ML IVPB SCH ×3 (02:45→14:22)
[2018-02-24] MEDS: HumaLOG 300 UNITS/3 ML VIAL SC PRN ×4 (04:39→22:29)
[2018-02-24 05:46] LABS: #Eosinphils 0.2 thou/uL (0.0-0.7); #Lymphocytes 0.6 thou/uL (1.20-3.40); #Monocytes 0.6 thou/uL (0.11-0.59); #Neutrophils 6.3 thou/uL (1.40-6.50); %Basophils 0.3 % (0.0-1.0); %Eosinophils 3.2 % (0.0-10.0); %Lymphocytes 8.3 % (21.0-51.0); %Monocytes 7.4 % (0.0-10.0); %Neutrophils 80.9 % (42.0-75.0); Hemoglobin 10.3 g/dL (14.0-18.0); Mean Corpuscular HGB CONC 30.9 g/dL (32.0-36.0); Mean Corpuscular Hemoglobin 27.7 pg (27.0-31.0); Mean Corpuscular Volume 89.7 fl (80.0-94.0); Mean Platelet Volume 7.1 fL (7.4-10.4); Platelet Count 186 thou/uL (130-400); RBC Distribution Width 12.9 % (11.5-14.5); White Blood Cell (WBC) Count 7.8 thou/uL (4.8-10.8)
[2018-02-24 05:48] LABS: Anion Gap 16 mmol/L (10-20); BUN (Urea Nitrogen) 83 mg/dL (8.4-25.7); Calc. Creatinine Clearance 41 mL/min (70-130); Calcium 8.1 mg/dL (7.8-10.44); Carbon Dioxide 30 mmol/L (23-31); Chloride 101 mmol/L (98-107); Estimated GFR-MDRD 18; Glucose 171 mg/dL (83-110); Magnesium 2.6 mg/dL (1.6-2.6); Phosphorus 6.6 mg/dL (2.3-4.7); Potassium 4.7 mmol/L (3.5-5.1); Sodium 142 mmol/L (136-145)
[2018-02-24 07:08] LABS: CO2 Tension 54.9 mmHg (35.0-45.0); pH, Arterial 7.39 (7.35-7.45)
[2018-02-24 07:09] LABS: Actual Bicarbonate (HCO3a) 32.2 mEq/L (22-26); Hemoglobin (Hb) 10.7 g/dL (14.0-18.0); O2 Tension (PaO2) 61.7 mmHg (80.0-100.0)
[2018-02-24 07:10] LABS: ALV-art Gradient 154.875 (0-20); Puncture Site L.R.
[2018-02-24] MEDS: Heparin 25,000 units/D5W 500 ML IVPB SCH ×2 (07:43→16:49)
--- NOTE | 2018-02-24 07:51 | RAD ---
SINGLE VIEW CHEST: Date: 02/24/18 COMPARISON: 02/22/18. HISTORY: Ventilated patient with respiratory failure. FINDINGS: Single view of chest shows an enlarged, but stable cardiomediastinal silhouette. Lines and tubes are unchanged in position. There is a moderate right pleural effusion. No significant change has occurred compared to the prior exam. IMPRESSION: Cardiomegaly and right pleural effusion. POS: [facility]
[2018-02-24] MEDS ORDERED: DC Sedation Protocol FS ONE (09:18)
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
[2018-02-24] MEDS: cefTRIAXone\\ROCEPHIN 1 GM, Syringe 0.4 ML in Sterile Water 9.6 ML SLOW IVP SCH (09:40)
[2018-02-24] MEDS: Albumin 25% 25 GM/100 ML BOT IVPB SCH ×2 (12:09→18:03)
[2018-02-24] MEDS: Famotidine 20 MG TAB PO SCH (12:09)
[2018-02-24] MEDS: Dextrose 5 %-0.45 % NaCl 1,000 ML IV SCH (12:12)
[2018-02-24] MEDS: hydrALAZINE 20 MG/ML VIAL SLOW IVP PRN ×3 (12:23→22:30)
--- NOTE | 2018-02-24 12:48 | PDOC.PN ---
- Subjective Encounter Start Date: 02/24/18 Encounter Start Time: 12:00 Subjective: got extubated this am -: not oriented -: has cough+ - Objective Resuscitation Status: Resuscitation Status FULL:Full Resuscitation MAR Reviewed: Yes Vital Signs & Weight: Vital Signs (12 hours) Temp Pulse Pulse Pulse Resp BP BP 02/24/18 12:23 82 02/24/18 11:13 77 78 198/71 H 02/24/18 11:09 77 34 H 02/24/18 11:06 77 34 H 02/24/18 08:10 99.1 F 81 30 H 02/24/18 06:51 81 185/63 H 02/24/18 06:49 79 29 H 02/24/18 04:00 32 H 02/24/18 02:29 71 159/57 H 02/24/18 02:00 26 H BP Pulse Ox Pulse Ox Pulse Ox 02/24/18 12:23 02/24/18 11:13 202/94 H 94 L 94 L 02/24/18 11:09 97 02/24/18 11:06 97 02/24/18 08:10 92 L 02/24/18 06:51 02/24/18 06:49 96 02/24/18 04:00 02/24/18 02:29 02/24/18 02:00 Weight Admit Weight 325 lb 2.896 oz Weight 324 lb 8.327 oz Most Recent Monitor Data Heart Rate from ECG 80 NIBP 198/71 NIBP BP-Mean 128 Respiration from ECG 36 SpO2 90 I&O: 02/23/18 02/24/18 02/25/18 06:59 06:59 06:59 Intake Total 4670.9 4238.1 100 Output Total 2467 5400 1080 Balance 2203.9 -1161.9 -980 Result Diagrams: 02/24/18 04:09 02/24/18 04:09 Additional Labs: Accuchecks 02/24/18 02/24/18 02/24/18 08:28 04:09 00:58 POC Glucose 180 H 165 H 138 H 02/23/18 02/23/18 21:26 16:22 POC Glucose 151 H 198 H Phys Exam - Physical Examination HEENT: PERRLA, sclera anicteric dry mucosa Neck: no JVD, supple Respiratory: no wheezing, no rales rhonchi+ Cardiovascular: RRR, no significant murmur Gastrointestinal: soft, non-tender, positive bowel sounds Musculoskeletal: pulses present, edema present Neurological: non-focal, moves all 4 limbs Dx/Plan (1) Acute respiratory failure with hypoxia and hypercapnia Code(s): J96.01 - ACUTE RESPIRATORY FAILURE WITH HYPOXIA; J96.02 - ACUTE RESPIRATORY FAILURE WITH HYPERCAPNIA Status: Acute Comment: extubated (2) Sepsis Code(s): A41.9 - SEPSIS, UNSPECIFIED ORGANISM Status: Acute Qualifiers: Sepsis type: methicillin susceptible Staphylococcus aureus Qualified Code(s ): A41.01 - Sepsis due to Methicillin susceptible Staphylococcus aureus (3) MSSA bacteremia Code(s): R78.81 - BACTEREMIA Status: Acute (4) Cellulitis Code(s): L03.90 - CELLULITIS, UNSPECIFIED Status: Acute Qualifiers: Site of cellulitis: extremity Site of cellulitis of extremity: lower extremity Laterality: unspecified laterality Qualified Code(s): L03.119 - Cellulitis of unspecified part of limb (5) [id number] kidney injury Code(s): N17.9 - ACUTE KIDNEY FAILURE, UNSPECIFIED; N18.9 - CHRONIC KIDNEY DISEASE, UNSPECIFIED Status: Acute Qualifiers: Acute renal failure type: unspecified (6) Diabetes mellitus type 2 in obese Code(s): E11.69 - TYPE 2 DIABETES MELLITUS WITH OTHER SPECIFIED COMPLICATION; E66.9 - OBESITY, UNSPECIFIED Status: Chronic (7) Morbid obesity Code(s): E66.01 - MORBID (SEVERE) OBESITY DUE TO EXCESS CALORIES Status: Chronic (8) Hypertension Code(s): I10 - ESSENTIAL (PRIMARY) HYPERTENSION Status: Chronic Qualifiers: Hypertension type: essential hypertension Qualified Code(s): I10 - Essential (primary) hypertension - Plan gentle iv hydration -: watch for resp status, is lethargic and not oriented, awakens easily though -: on heparin drip for suspected PE per pulm advice -: nafcillin 2g qid and ceftriaxone -: d/w , aspiration precautions, prognosis guarded * . Review of Systems - Medications/Allergies Allergies/Adverse Reactions: Allergies Allergy/AdvReac Type Severity Reaction Status Date / Time No Known Allergies Allergy Verified 02/20/18 01:35 Medications: Current Medications Acetaminophen (Tylenol) 650 mg MI Q4H PRN PRN Reason: Headache/Fever or Mild Pain Last Admin: 02/22/18 23:01 Dose: 650 mg Albumin Human (Albumin 25%) 25 gm IVPB Q6HR [facility] Stop: 02/26/18 12:01 Last Admin: 02/24/18 12:09 Dose: 25 gm Albuterol/Ipratropium (Duoneb) 3 ml NEB [id number] [facility] Last Admin: 02/24/18 11:09 Dose: 3 ml Aspirin (Ecotrin) 81 mg PO HS [facility] Dextrose/Water (Dextrose 50%) 25 gm SLOW IVP PRN PRN PRN Reason: Hypoglycemia Famotidine (Pepcid) 20 mg PO DAILY [facility] Last Admin: 02/24/18 12:09 Dose: Not Given Gabapentin (Neurontin) 300 mg PO TID [facility] Glucagon (Glucagon) 1 mg IM PRN PRN PRN Reason: Hypoglycemia Heparin Sodium (Porcine) (Heparin 1,000 Units/Ml (10 Ml)) 0 units SLOW IVP ASDIR [facility] PRN Reason: Protocol Last Admin: 02/21/18 13:25 Dose: 5,900 unit Hydralazine HCl (Apresoline) 50 mg PO TID [facility] Hydralazine HCl (Apresoline) 10 mg SLOW IVP Q4H PRN PRN Reason: Blood Pressure Last Admin: 02/24/18 12:23 Dose: 10 mg Dextrose/Water (D5w) 1,000 mls @ 0 mls/hr IV .Q0M PRN; As Directed PRN Reason: Hypoglycemia Heparin Sodium/Dextrose (Heparin 25,000 Units/D5w 500 Ml) 500 mls @ 0 mls/hr IVPB INF MARTA; Per Protocol PRN Reason: Protocol Last Admin: 02/24/18 07:43 Dose: 500 mls Nafcillin Sodium 2 gm/ Sodium (Chloride) 100 mls @ 100 mls/hr IVPB 0200,0800, 1400,2000 [facility] Last Admin: 02/24/18 09:40 Dose: 100 mls Ceftriaxone Sodium 1 gm/ (Syringe 0.4 ml/ Sterile Water) 10 mls @ 120 mls/hr SLOW IVP 0900 [facility] Last Admin: 02/24/18 09:40 Dose: 10 mls Dextrose/Sodium Chloride (D5 1/2 Ns) 1,000 mls @ 75 mls/hr IV .[id number] [facility] Last Admin: 02/24/18 12:12 Dose: 1,000 mls Insulin Human Lispro (Humalog) 0 units SC .MILD SLIDING SCALE PRN PRN Reason: Mild Correctional Scale Last Admin: 02/24/18 12:44 Dose: 3 unit Insulin Human Lispro (Humalog) 0 units SC .BEDTIME SLIDING SC PRN PRN Reason: Bedtime Correctional Scale Metoclopramide HCl (Reglan) 10 mg IVP Q8HR [facility] Last Admin: 02/24/18 06:21 Dose: 10 mg Ondansetron HCl (Zofran Odt) 4 mg PO Q6H PRN PRN Reason: Nausea/Vomiting Ondansetron HCl (Zofran) 4 mg IVP Q6H PRN PRN Reason: Nausea/Vomiting
[2018-02-24 14:27] LABS: pH, Arterial 7.42 (7.35-7.45)
[2018-02-24 14:28] LABS: Actual Bicarbonate (HCO3a) 30.4 mEq/L (22-26); CO2 Tension 48.5 mmHg (35.0-45.0); Hematocrit-ABG 33.8 % (42.0-52.0); O2 Tension (PaO2) 67.6 mmHg (80.0-100.0)
[2018-02-24 14:29] LABS: Calcium, Ionized 1.1 mmol/L (1.12-1.30); Hemoglobin (Hb) 10.7 g/dL (14.0-18.0)
[2018-02-24 14:30] LABS: ALV-art Gradient 99.935 (0-20); Puncture Site L.B.
[2018-02-24] MEDS: hydrALAZINE 25 MG TAB PO SCH ×2 (14:30→20:52)
[2018-02-24] MEDS: Gabapentin 300 MG CAP PO SCH ×2 (14:30→20:51)
[2018-02-24] MEDS: Aspirin 81 mg Enteric Coated Tablet PO SCH (20:51)
[2018-02-25] MEDS ORDERED: Lorazepam 2 MG/ML VIAL ONE (00:11)
[2018-02-25 00:26] LABS: Actual Bicarbonate (HCO3a) 29.6 mEq/L (22-26); CO2 Tension 48.8 mmHg (35.0-45.0); Calcium, Ionized 1.1 mmol/L (1.12-1.30); Hematocrit-ABG 34.2 % (42.0-52.0); Hemoglobin (Hb) 10.8 g/dL (14.0-18.0); O2 Tension (PaO2) 69.8 mmHg (80.0-100.0); Puncture Site LRA
[2018-02-25] MEDS ORDERED: Lorazepam 2 MG/ML VIAL SLOW IVP SCH (00:30)
[2018-02-25] MEDS ORDERED: Amiodarone HCl 150 MG, Admixture Fee 1 EACH in Dextrose 5% in Water 100 ML IVPB SCH ×3 (02:00)
[2018-02-25] MEDS: Amiodarone HCl 450 MG, Admixture Fee 1 EACH in Dextrose 5% in Water 250 ML IVPB SCH ×6 (02:46→09:23)
[2018-02-25] MEDS: Albumin 25% 25 GM/100 ML BOT IVPB SCH ×5 (03:36→23:28)
[2018-02-25] MEDS: Heparin 25,000 units/D5W 500 ML IVPB SCH (03:36)
[2018-02-25] MEDS: Dextrose 5 %-0.45 % NaCl 1,000 ML IV SCH ×2 (04:08→13:57)
[2018-02-25 06:18] LABS: #Eosinphils 0.3 thou/uL (0.0-0.7); #Lymphocytes 0.7 thou/uL (1.20-3.40); #Monocytes 0.7 thou/uL (0.11-0.59); %Basophils 0.3 % (0.0-1.0); %Lymphocytes 7.8 % (21.0-51.0); %Monocytes 7.8 % (0.0-10.0); %Neutrophils 80.1 % (42.0-75.0); Hemoglobin 11.1 g/dL (14.0-18.0); Mean Corpuscular HGB CONC 31.3 g/dL (32.0-36.0); Mean Corpuscular Hemoglobin 27.6 pg (27.0-31.0); Mean Corpuscular Volume 88.1 fl (80.0-94.0); Mean Platelet Volume 6.7 fL (7.4-10.4); Platelet Count 210 thou/uL (130-400); RBC Distribution Width 13.2 % (11.5-14.5); Red Blood Cell (RBC) Count 4.01 mill/uL (4.70-6.10); White Blood Cell (WBC) Count 8.7 thou/uL (4.8-10.8)
[2018-02-25 06:36] LABS: Anion Gap 17 mmol/L (10-20); BUN (Urea Nitrogen) 77 mg/dL (8.4-25.7); Calc. Creatinine Clearance 44 mL/min (70-130); Calcium 8.7 mg/dL (7.8-10.44); Carbon Dioxide 28 mmol/L (23-31); Chloride 104 mmol/L (98-107); Estimated GFR-MDRD 19; Glucose 242 mg/dL (83-110); Magnesium 2.8 mg/dL (1.6-2.6); Phosphorus 5.4 mg/dL (2.3-4.7); Potassium 3.9 mmol/L (3.5-5.1); Sodium 145 mmol/L (136-145)
[2018-02-25] MEDS: Metoclopramide HCl 10 MG/2 ML VIAL IVP SCH (07:32)
[2018-02-25] MEDS: Famotidine 20 MG TAB PO SCH (07:32)
[2018-02-25] MEDS: Gabapentin 300 MG CAP PO SCH ×4 (07:33→20:26)
[2018-02-25] MEDS: hydrALAZINE 25 MG TAB PO SCH ×4 (07:33→20:26)
--- NOTE | 2018-02-25 08:15 | PRG ---
DATE OF SERVICE: 02/25/2018 Mr. Brady had a rough day yesterday multiple times with agitation and confusion, off and on BiPAP . This morning he has been on BiPAP overnight. PHYSICAL EXAMINATION: VITAL SIGNS: Sats are 95-96%, taken on the BiPAP 4 liters sats are 94, blood pressure is 150/63, res pirations 35. He is afebrile. His I's and O's are 4238 in, 5400 out. CHEST: Chest reveals decreased breath sounds without any wheezing. CARDIAC: Normal S1, S2. ABDOMEN: Soft, no masses. LABORATORY: White count 8000, H&H 9 and 34, platelet count 210. His blood gas yesterday showed a PO 2 69, pCO2 40%. He was agitated on BiPAP. Creatinine 3.16. BUN 77. BNP is 496. IMPRESSION: 1. Azotemia, somewhat improved. 2. Renal failure, acute on chronic. 3. Congestive heart failure. 4. Cor pulmonale. 5. Diastolic dysfunction. 6. Morbid obesity. 7. Sleep apnea. 8. Sepsis syndrome. PLAN: He is on Rocephin for his sepsis. Amiodarone for his SVT and neb treatments, steroids. Start diet, PT and supportive care. I will follow. This is a one-half hour critical care time.
--- NOTE | 2018-02-25 08:44 | RAD ---
CHEST 1 VIEW: HISTORY: Dyspnea. Followup. COMPARISON: 02/24/18. FINDINGS: Cardiac silhouette remains magnified and enlarged. Pulmonary vasculature remains engorged with patch y bilateral perihilar and bibasilar infiltrates. Mediastinum is midline. Endotracheal catheter and nasogastric tube are no longer visible. Right internal jugular central venous catheter remains in pl bria. traffic monitor specialist leads overlie the chest. IMPRESSION: 1. Interval removal of the endotracheal catheter and nasogastric tube. 2. Cardiomegaly and pulmonary vascular congestion are unchanged. POS: [facility]
[2018-02-25] MEDS: HumaLOG 300 UNITS/3 ML VIAL SC PRN ×5 (08:59→23:33)
[2018-02-25] MEDS: hydrALAZINE 20 MG/ML VIAL SLOW IVP PRN ×2 (09:02→13:52)
--- NOTE | 2018-02-25 09:16 | PRG ---
DATE OF SERVICE: 02/24/2018 SUBJECTIVE: He is intubated on the vent, awake, alert, and responsive. OBJECTIVE: VITAL SIGNS: Sats 93%, 5 of PEEP. Blood pressure 185/65, respiratory rate 18. I's and O's are 4238 in, 5400 out. GENERAL: Awake, responsive. Denies any pain. CHEST: Decreased breath sounds, no wheezing. CARDIAC: Normal S1 and S2. No gallops. ABDOMEN: Soft. No masses. LABORATORY DATA: Blood culture is growing Staph aureus, sensitive to nafcillin and Rocephin. Platelet count 186. PO2 of 56, pCO2 52, pH 7.39. BUN and creatinine 83 and 3.6 respectively. Glucose 171. X-ray shows a small right-sided pleural effusion. IMPRESSION: 1. Morbid obesity, chronic obstructive pulmonary disease, sleep apnea. 2. Respiratory failure. 3. Acute on chronic renal failure. 4. sepsis.syndrome 5. Legs cellulitis. PLAN: He will be extubated today. Continue antibiotics, Rocephin and nafcillin. Slow hydration. Nocturnal BiPAP. We will follow. [id number] critical care time. [facility]
[2018-02-25] MEDS: cefTRIAXone\\ROCEPHIN 1 GM, Syringe 0.4 ML in Sterile Water 9.6 ML SLOW IVP SCH (09:23)
--- NOTE | 2018-02-25 09:41 | PRG ---
DATE OF SERVICE: 02/25/2018 RENAL MEDICINE SUBJECTIVE: Mr. Brady is a 72-year-old white male who was initially admitted for mental status c hange, lethargy with subsequent bacteremia and CHF. We were consulted for his acute kidney injury. At that time, I felt that he had some prerenal azotemia. We started him on salt poor albumin 25 gram s IV q.6. Due to his CHF/COPD, he was managed conservatively. No new complaints today. He sStill has this baseline shortness of breath. PHYSICAL EXAMINATION: VITAL SIGNS: Blood pressure is 183/76 with heart rate of 90, respiratory rate 14, pulse ox 99%. GENERAL: The patient is awake, sitting, morbidly obese. SKIN: Adequate turgor. HEENT: He has pinkish conjunctivae. Anicteric sclerae. NECK: No neck mass, no carotid bruits, no JVD. CHEST: No deformities. LUNGS: Decreased breath sounds. Positive for wheezing. HEART: Normal sinus rhythm. No murmurs, no gallops, no rubs. ABDOMEN: Globular, soft, nontender, no masses. EXTREMITIES: Positive for edema and chronic venous stasis. MEDICATIONS: Medications of 02/25/2018 reviewed. LABORATORY DATA: Laboratories of 02/25/2018; white count 8.7, hemoglobin 11.1. Sodium 145, potassiu m 3.9, chloride 104, carbon dioxide 28, BUN 77, creatinine 3.16, glucose 242, phosphorus 5.4, magnesi um 2.8 and BNP 495. ASSESSMENT AND PLAN: 1. Acute kidney injury - this is hemodynamically mediated renal dysfunction. Currently, on salt poo r albumin IV q.6. Creatinine is slightly improved from value of 3.36 to most recent value of 3.16. We will continue current management. No indication for any dialytic intervention. 2. Shortness of breath - multifactorial - most likely from an underlying chronic obstructive pulmona ry disease exacerbation. The chest x-ray on 02/25/2018 still showed some increased lung markings. F or the moment, we will continue current management. I have not excluded in restarting back on low do se Lasix. Overall, agree with current management.
[2018-02-25] MEDS: Heparin 5,000 UNITS/ML VIAL SC SCH ×6 (10:27→20:26)
[2018-02-25] MEDS: predniSONE 20 MG TAB PO SCH ×2 (11:33→17:40)
[2018-02-25] MEDS: Furosemide 40 MG/4 ML VIAL SLOW IVP SCH (12:26)
--- NOTE | 2018-02-25 12:52 | PDOC.PN ---
- Subjective Encounter Start Date: 02/25/18 Encounter Start Time: 12:25 Subjective: is awake, not fully oriented -: responds to few questions but mostly doesn't -: at bedside - Objective Resuscitation Status: Resuscitation Status FULL:Full Resuscitation MAR Reviewed: Yes Vital Signs & Weight: Vital Signs (12 hours) Temp Pulse Pulse Pulse Resp BP BP 02/25/18 11:00 98.4 F 02/25/18 10:41 90 29 H 02/25/18 09:02 97 02/25/18 08:58 100 133 H 183/76 H 198/97 H 02/25/18 08:00 99.0 F 97 36 H 02/25/18 07:33 97 02/25/18 06:39 97 35 H 02/25/18 06:38 109 H 39 H 02/25/18 03:00 101 H 36 H Pulse Ox Pulse Ox Pulse Ox Pulse Ox 02/25/18 11:00 02/25/18 10:41 95 02/25/18 09:02 02/25/18 08:58 88 L 90 L 90 L 02/25/18 08:00 88 L 02/25/18 07:33 02/25/18 06:39 95 02/25/18 06:38 94 L 02/25/18 03:00 98 Weight Admit Weight 325 lb 2.896 oz Weight 326 lb 8.073 oz Most Recent Monitor Data Heart Rate from ECG 74 NIBP 148/60 NIBP BP-Mean 86 Respiration from ECG 31 SpO2 96 I&O: 02/24/18 02/25/18 02/26/18 06:59 06:59 06:59 Intake Total 4238.1 1588 1993 Output Total 5400 3090 695 Balance -1161.9 -1502 1298 Result Diagrams: 02/25/18 06:11 02/25/18 06:11 Additional Labs: Accuchecks 02/25/18 02/25/18 02/24/18 08:56 04:45 21:40 POC Glucose 236 H 220 H 215 H 02/24/18 02/24/18 16:48 12:45 POC Glucose 177 H 204 H Phys Exam - Physical Examination HEENT: PERRLA, moist MMs Neck: no JVD, supple Respiratory: no wheezing, no rales rhonchi++ Cardiovascular: RRR, no significant murmur Gastrointestinal: soft, non-tender, positive bowel sounds Musculoskeletal: pulses present, edema present Neurological: non-focal, moves all 4 limbs Dx/Plan (1) Acute respiratory failure with hypoxia and hypercapnia Code(s): J96.01 - ACUTE RESPIRATORY FAILURE WITH HYPOXIA; J96.02 - ACUTE RESPIRATORY FAILURE WITH HYPERCAPNIA Status: Acute Comment: extubated (2) Sepsis Code(s): A41.9 - SEPSIS, UNSPECIFIED ORGANISM Status: Acute Qualifiers: Sepsis type: methicillin susceptible Staphylococcus aureus Qualified Code(s ): A41.01 - Sepsis due to Methicillin susceptible Staphylococcus aureus (3) MSSA bacteremia Code(s): R78.81 - BACTEREMIA Status: Acute (4) Cellulitis Code(s): L03.90 - CELLULITIS, UNSPECIFIED Status: Acute Qualifiers: Site of cellulitis: extremity Site of cellulitis of extremity: lower extremity Laterality: unspecified laterality Qualified Code(s): L03.119 - Cellulitis of unspecified part of limb (5) Zpevq-ip-lumvics kidney injury Code(s): N17.9 - ACUTE KIDNEY FAILURE, UNSPECIFIED; N18.9 - CHRONIC KIDNEY DISEASE, UNSPECIFIED Status: Acute Qualifiers: Acute renal failure type: unspecified (6) Diabetes mellitus type 2 in obese Code(s): E11.69 - TYPE 2 DIABETES MELLITUS WITH OTHER SPECIFIED COMPLICATION; E66.9 - OBESITY, UNSPECIFIED Status: Chronic (7) Morbid obesity Code(s): E66.01 - MORBID (SEVERE) OBESITY DUE TO EXCESS CALORIES Status: Chronic (8) Hypertension Code(s): I10 - ESSENTIAL (PRIMARY) HYPERTENSION Status: Chronic Qualifiers: Hypertension type: essential hypertension Qualified Code(s): I10 - Essential (primary) hypertension - Plan is on ceftriaxone -: off and on bipap -: still has encephalopathy -: on amiodarone drip from last night, gentle iv hydration -: asp, nebs, hydralazine tid * . d/w and gave an update, revisited code status, she wants everything done for now Prognosis guarded Review of Systems - Medications/Allergies Allergies/Adverse Reactions: Allergies Allergy/AdvReac Type Severity Reaction Status Date / Time No Known Allergies Allergy Verified 02/20/18 01:35 Medications: Current Medications Acetaminophen (Tylenol) 650 mg MO Q4H PRN PRN Reason: Headache/Fever or Mild Pain Last Admin: 02/22/18 23:01 Dose: 650 mg Albumin Human (Albumin 25%) 25 gm IVPB Q6HR [facility] Stop: 02/26/18 12:01 Last Admin: 02/25/18 12:27 Dose: 25 gm Albuterol/Ipratropium (Duoneb) 3 ml NEB [id number] [facility] Last Admin: 02/25/18 10:41 Dose: 3 ml Aspirin (Ecotrin) 81 mg PO HS [facility] Last Admin: 02/24/18 20:51 Dose: Not Given Dextrose/Water (Dextrose 50%) 25 gm SLOW IVP PRN PRN PRN Reason: Hypoglycemia Famotidine (Pepcid) 20 mg PO DAILY [facility] Last Admin: 02/25/18 07:32 Dose: Not Given Furosemide (Lasix) 40 mg SLOW IVP 0600,1400 [facility] Last Admin: 02/25/18 12:26 Dose: 40 mg Gabapentin (Neurontin) 300 mg PO TID [facility] Last Admin: 02/25/18 07:33 Dose: Not Given Glucagon (Glucagon) 1 mg IM PRN PRN PRN Reason: Hypoglycemia Heparin Sodium (Porcine) (Heparin) 5,000 units SC TID [facility] Last Admin: 02/25/18 10:27 Dose: Not Given Hydralazine HCl (Apresoline) 50 mg PO TID [facility] Last Admin: 02/25/18 07:33 Dose: Not Given Hydralazine HCl (Apresoline) 10 mg SLOW IVP Q4H PRN PRN Reason: Blood Pressure Last Admin: 02/25/18 09:02 Dose: 10 mg Dextrose/Water (D5w) 1,000 mls @ 0 mls/hr IV .Q0M PRN; As Directed PRN Reason: Hypoglycemia Ceftriaxone Sodium 1 gm/ (Syringe 0.4 ml/ Sterile Water) 10 mls @ 120 mls/hr SLOW IVP 0900 [facility] Last Admin: 02/25/18 09:23 Dose: 10 mls Dextrose/Sodium Chloride (D5 1/2 Ns) 1,000 mls @ 75 mls/hr IV .[id number] [facility] Last Admin: 02/25/18 04:08 Dose: 1,000 mls Amiodarone HCl 450 mg/Miscellaneous Medication 1 each/ Dextrose/Water 259 mls @ 0 mls/hr IVPB INF MARTA; As Directed PRN Reason: Protocol Last Admin: 02/25/18 09:23 Dose: 259 mls Insulin Human Lispro (Humalog) 0 units SC .MILD SLIDING SCALE PRN PRN Reason: Mild Correctional Scale Last Admin: 02/25/18 12:42 Dose: 3 unit Insulin Human Lispro (Humalog) 0 units SC .BEDTIME SLIDING SC PRN PRN Reason: Bedtime Correctional Scale Last Admin: 02/24/18 22:29 Dose: 2 unit Mometasone Furoate/Formoterol Fumar (Dulera 200 Mcg/5 Mcg Inhaler) 2 puff INH BID-RT [facility] Ondansetron HCl (Zofran Odt) 4 mg PO Q6H PRN PRN Reason: Nausea/Vomiting Ondansetron HCl (Zofran) 4 mg IVP Q6H PRN PRN Reason: Nausea/Vomiting Prednisone (Prednisone) 20 mg PO QAM-[facility] Last Admin: 02/25/18 11:33 Dose: Not Given
[2018-02-25] MEDS: Mometasone/Formoterol 120 PUFF INHALER INH SCH (18:24)
[2018-02-25] MEDS: Aspirin 81 mg Enteric Coated Tablet PO SCH (20:26)
[2018-02-26] MEDS: Amiodarone HCl 450 MG, Admixture Fee 1 EACH in Dextrose 5% in Water 250 ML IVPB SCH ×6 (02:08→15:40)
[2018-02-26] MEDS: Dextrose 5 %-0.45 % NaCl 1,000 ML IV SCH ×2 (02:11→14:32)
[2018-02-26] MEDS: HumaLOG 300 UNITS/3 ML VIAL SC PRN ×5 (03:37→20:39)
[2018-02-26 04:40] LABS: #Eosinphils 0.2 thou/uL (0.0-0.7); #Lymphocytes 0.5 thou/uL (1.20-3.40); #Monocytes 0.5 thou/uL (0.11-0.59); %Basophils 0.1 % (0.0-1.0); %Eosinophils 3.4 % (0.0-10.0); %Lymphocytes 8.1 % (21.0-51.0); %Monocytes 8.4 % (0.0-10.0); Mean Corpuscular HGB CONC 31.4 g/dL (32.0-36.0); Mean Corpuscular Hemoglobin 27.8 pg (27.0-31.0); Mean Corpuscular Volume 88.4 fl (80.0-94.0); Mean Platelet Volume 6.9 fL (7.4-10.4); Platelet Count 193 thou/uL (130-400); RBC Distribution Width 13.1 % (11.5-14.5); White Blood Cell (WBC) Count 6.3 thou/uL (4.8-10.8)
[2018-02-26 04:53] LABS: Anion Gap 14 mmol/L (10-20); BUN (Urea Nitrogen) 73 mg/dL (8.4-25.7); Calc. Creatinine Clearance 50 mL/min (70-130); Calcium 8.8 mg/dL (7.8-10.44); Carbon Dioxide 32 mmol/L (23-31); Chloride 105 mmol/L (98-107); Estimated GFR-MDRD 23; Glucose 220 mg/dL (83-110); Potassium 3.9 mmol/L (3.5-5.1); Sodium 147 mmol/L (136-145)
[2018-02-26] MEDS: hydrALAZINE 20 MG/ML VIAL SLOW IVP PRN ×2 (05:06→22:09)
[2018-02-26] MEDS: Furosemide 40 MG/4 ML VIAL SLOW IVP SCH ×2 (05:26→09:46)
[2018-02-26] MEDS: Albumin 25% 25 GM/100 ML BOT IVPB SCH ×2 (05:26→12:25)
[2018-02-26] MEDS: Mometasone/Formoterol 120 PUFF INHALER INH SCH ×2 (08:03→19:29)
[2018-02-26] MEDS: predniSONE 20 MG TAB PO SCH (09:00)
[2018-02-26] MEDS: hydrALAZINE 25 MG TAB PO SCH ×3 (09:00→20:17)
[2018-02-26] MEDS: Gabapentin 300 MG CAP PO SCH ×3 (09:03→20:17)
[2018-02-26] MEDS: Famotidine 20 MG TAB PO SCH (09:04)
[2018-02-26] MEDS: Heparin 5,000 UNITS/ML VIAL SC SCH ×6 (09:04→20:16)
[2018-02-26] MEDS: cefTRIAXone\\ROCEPHIN 1 GM, Syringe 0.4 ML in Sterile Water 9.6 ML SLOW IVP SCH (09:33)
--- NOTE | 2018-02-26 09:34 | PRG ---
DATE OF SERVICE: 02/26/2018 SUBJECTIVE: Mr. Brady is a 72-year-old white man initially admitted for mental status change, shen bsequent bacteremia and was found to have congestive heart failure. We were also consulted for his a cute kidney injury on top of his chronic renal failure. We have started him on salt poor albumin wit h some improvement in the renal function. This morning he tells me he is breathing better. No new c omplaints. PHYSICAL EXAMINATION: VITAL SIGNS: Blood pressure is 175/80 with a heart rate of 85, respiratory rate 29, pulse ox 100%, t emperature 98.4. GENERAL: Awake, supine, comfortable, obese, not in overt distress. SKIN: Adequate turgor. HEENT: Pinkish conjunctivae, anicteric sclerae. NECK: No neck mass, no carotid bruits, no JVD. CHEST: No deformities. LUNGS: Decreased breath sounds, occasional wheezing. HEART: Normal sinus rhythm. No murmur, no gallops, no rubs. ABDOMEN: Globular, soft, nontender, no masses. EXTREMITIES: Positive for edema. Positive for chronic venous stasis. MEDICATIONS: 02/26/2018 - Reviewed. LABORATORIES: 02/26/2018 - White count 6.3, hemoglobin 10. Sodium 147, potassium 4.9, chloride 105 , carbon dioxide 32, BUN 73, creatinine 2.69, glucose 220, calcium 8.8. ASSESSMENT AND PLAN: 1. Shortness of breath, much improved. I would suggest we decrease the Lasix to 40 mg IV daily. 2. Acute kidney injury on top of his chronic renal failure. Superimposed prerenal azotemia. Slowly improving renal function. Continue salt poor albumin and decrease Lasix to 40 mg IV daily. 3. Mild hypernatremia. Continue to observe. Increase free water intake. 4. Shortness of breath. Again, this is multifactorial - underlying chronic obstructive pulmonary di sease and congestive heart failure.
--- NOTE | 2018-02-26 10:10 | RAD ---
SINGLE VIEW CHEST: Date: 02/26/18 INDICATION: Intubation. COMPARISON: None. FINDINGS: Since the comparison study dated 02/25/18, cardiomegaly and pulmonary vascular congestion is worse. T here is now worsening small right pleural effusion. There is increased atelectasis in the right lung base. No pneumothorax is evident. IMPRESSION: 1. Findings suggesting either worsening volume overload or decompensated CHF. 2. Stable right IJ central venous catheter. POS: [facility]
--- NOTE | 2018-02-26 10:44 | PRG ---
DATE OF SERVICE: 02/26/2018 SUBJECTIVE: Mr. Tiffani Brady remains intubated on the vent. He is on BiPAP for at least 12 hours a day if not more. This morning, he is off the BiPAP. He denie d any pain or discomfort. He said he was hungry. OBJECTIVE: VITAL SIGNS: His sats are 96% on supplemental oxygen, pulse 86, blood pressure is 165/59. His I's a nd O's show that he has got 1588 in, 3090 out. CHEST: Chest reveals decreased breath sounds, prolonged expiration. No crackles. CARDIAC: Normal S1, S2. No gallops. ABDOMEN: Massive. NOSE AND THROAT: Unremarkable. EXTREMITIES: Reveal 2+ edema. NEUROLOGIC: He is awake, responsive. Grossly obese. LABORATORY DATA AND X-RAY FINDINGS: X-ray shows right-sided pneumonia. White count 6000, H&H is 10 and 31, platelet count 193, creatinine is 2.6. IMPRESSION: 1. Staph aureus in his blood, not methicillin resistant Staphylococcus aureus, sensitive to Rocephin , which is on just for his renal failure. 2. Staph sepsis probably secondary to cellulitis, morbid obesity, sleep apnea, chronic obstructive pu lmonary disease. 3. Renal failure. 4. Supraventricular tachycardia 5. Pneumonia. 6. Severe deconditioning. PLAN: The patient remains marginal. He can be transferred out of the ICU. He is on amiodarone, Dilan ephin, antibiotics, steroids. He wants all supportive care. His discussed with her at length. If condition gets worse, he wa nts to be intubated, more than likely, we will trach him at that time. Continue to follow up in the ICU. One-half hour of critical care time.
--- NOTE | 2018-02-26 14:08 | PDOC.PN ---
- Subjective Encounter Start Date: 02/26/18 Encounter Start Time: 11:15 Subjective: is sitting in neuro chair -: is more alert and awake -: at bedside - Objective Resuscitation Status: Resuscitation Status FULL:Full Resuscitation MAR Reviewed: Yes Vital Signs & Weight: Vital Signs (12 hours) Temp Pulse Resp BP Pulse Ox 02/26/18 12:00 96 02/26/18 10:43 82 22 H 02/26/18 09:00 85 181/84 H 02/26/18 08:03 88 23 H 02/26/18 08:00 98.4 F 82 24 H 02/26/18 05:06 96 02/26/18 04:28 96 25 H 100 02/26/18 04:00 25 H 98 02/26/18 02:08 74 30 H 96 Weight Admit Weight 325 lb 2.896 oz Weight 321 lb 3.416 oz Most Recent Monitor Data Heart Rate from ECG 78 NIBP 172/72 NIBP BP-Mean 107 Respiration from ECG 22 SpO2 97 I&O: 02/25/18 02/26/18 02/27/18 06:59 06:59 06:59 Intake Total 1588 4868 370 Output Total 3090 3291 770 Balance -1502 1577 -400 Result Diagrams: 02/26/18 04:32 02/26/18 04:32 Additional Labs: Accuchecks 02/26/18 02/26/18 02/26/18 11:33 08:33 03:36 POC Glucose 269 H 212 H 219 H 02/25/18 02/25/18 02/25/18 23:33 20:26 17:37 POC Glucose 214 H 210 H 198 H Phys Exam - Physical Examination HEENT: PERRLA dry mucosa Neck: no JVD, supple Respiratory: no wheezing, no rales rhonchi++ Cardiovascular: RRR, no significant murmur Gastrointestinal: soft, non-tender, positive bowel sounds Musculoskeletal: pulses present, edema present Neurological: non-focal, moves all 4 limbs Dx/Plan (1) Acute respiratory failure with hypoxia and hypercapnia Code(s): J96.01 - ACUTE RESPIRATORY FAILURE WITH HYPOXIA; J96.02 - ACUTE RESPIRATORY FAILURE WITH HYPERCAPNIA Status: Acute Comment: extubated (2) Sepsis Code(s): A41.9 - SEPSIS, UNSPECIFIED ORGANISM Status: Acute Qualifiers: Sepsis type: methicillin susceptible Staphylococcus aureus Qualified Code(s ): A41.01 - Sepsis due to Methicillin susceptible Staphylococcus aureus (3) MSSA bacteremia Code(s): R78.81 - BACTEREMIA Status: Acute (4) Cellulitis Code(s): L03.90 - CELLULITIS, UNSPECIFIED Status: Acute Qualifiers: Site of cellulitis: extremity Site of cellulitis of extremity: lower extremity Laterality: unspecified laterality Qualified Code(s): L03.119 - Cellulitis of unspecified part of limb (5) Jksti-ob-lnudofa kidney injury Code(s): N17.9 - ACUTE KIDNEY FAILURE, UNSPECIFIED; N18.9 - CHRONIC KIDNEY DISEASE, UNSPECIFIED Status: Acute Qualifiers: Acute renal failure type: unspecified (6) Diabetes mellitus type 2 in obese Code(s): E11.69 - TYPE 2 DIABETES MELLITUS WITH OTHER SPECIFIED COMPLICATION; E66.9 - OBESITY, UNSPECIFIED Status: Chronic (7) Morbid obesity Code(s): E66.01 - MORBID (SEVERE) OBESITY DUE TO EXCESS CALORIES Status: Chronic (8) Hypertension Code(s): I10 - ESSENTIAL (PRIMARY) HYPERTENSION Status: Chronic Qualifiers: Hypertension type: essential hypertension Qualified Code(s): I10 - Essential (primary) hypertension - Plan is on ceftriaxone -: nebs, gentle iv hydration, sod is 147 -: renal function is slowly trending down -: gave a full update to at bedside, d/w his PCP over phone -: mentation appears to be better this am, still has multiple organ issues/obe * . -sity and severe deconditioning. Finished course of alb infusions, has started him on iv lasix daily PT to mobilize and work on exercises on bed, to keep him more awake. May try nephro if he likes 1 can tid. At baseline pt has sob on min exertion due to morbid obesity per who knows pt well. His encephalopathy is clearing up and hopefully he will participate more with PT Review of Systems - Medications/Allergies Allergies/Adverse Reactions: Allergies Allergy/AdvReac Type Severity Reaction Status Date / Time No Known Allergies Allergy Verified 02/20/18 01:35 Medications: Current Medications Acetaminophen (Tylenol) 650 mg VA Q4H PRN PRN Reason: Headache/Fever or Mild Pain Last Admin: 02/22/18 23:01 Dose: 650 mg Albuterol/Ipratropium (Duoneb) 3 ml NEB [id number] [facility] Last Admin: 02/26/18 10:43 Dose: 3 ml Aspirin (Ecotrin) 81 mg PO HS [facility] Last Admin: 02/25/18 20:26 Dose: 81 mg Dextrose/Water (Dextrose 50%) 25 gm SLOW IVP PRN PRN PRN Reason: Hypoglycemia Famotidine (Pepcid) 20 mg PO DAILY [facility] Last Admin: 02/26/18 09:04 Dose: 20 mg Furosemide (Lasix) 40 mg SLOW IVP DAILY [facility] Last Admin: 02/26/18 09:46 Dose: Not Given Gabapentin (Neurontin) 300 mg PO TID [facility] Last Admin: 02/26/18 09:03 Dose: 300 mg Glucagon (Glucagon) 1 mg IM PRN PRN PRN Reason: Hypoglycemia Heparin Sodium (Porcine) (Heparin) 5,000 units SC TID [facility] Last Admin: 02/26/18 09:04 Dose: 5,000 units Hydralazine HCl (Apresoline) 50 mg PO TID [facility] Last Admin: 02/26/18 09:00 Dose: 50 mg Hydralazine HCl (Apresoline) 10 mg SLOW IVP Q4H PRN PRN Reason: Blood Pressure Last Admin: 02/26/18 05:06 Dose: 10 mg Dextrose/Water (D5w) 1,000 mls @ 0 mls/hr IV .Q0M PRN; As Directed PRN Reason: Hypoglycemia Ceftriaxone Sodium 1 gm/ (Syringe 0.4 ml/ Sterile Water) 10 mls @ 120 mls/hr SLOW IVP 0900 [facility] Last Admin: 02/26/18 09:33 Dose: 10 mls Dextrose/Sodium Chloride (D5 1/2 Ns) 1,000 mls @ 75 mls/hr IV .[id number] [facility] Last Admin: 02/26/18 02:11 Dose: 1,000 mls Amiodarone HCl 450 mg/Miscellaneous Medication 1 each/ Dextrose/Water 259 mls @ 0 mls/hr IVPB INF [facility]; As Directed PRN Reason: Protocol Last Admin: 02/26/18 02:08 Dose: 259 mls Insulin Human Lispro (Humalog) 0 units SC .MILD SLIDING SCALE PRN PRN Reason: Mild Correctional Scale Last Admin: 02/26/18 12:04 Dose: 4 unit Insulin Human Lispro (Humalog) 0 units SC .BEDTIME SLIDING SC PRN PRN Reason: Bedtime Correctional Scale Last Admin: 02/26/18 03:37 Dose: 2 unit Mometasone Furoate/Formoterol Fumar (Dulera 200 Mcg/5 Mcg Inhaler) 2 puff INH BID-RT [facility] Last Admin: 02/26/18 08:03 Dose: 2 puff Ondansetron HCl (Zofran Odt) 4 mg PO Q6H PRN PRN Reason: Nausea/Vomiting Ondansetron HCl (Zofran) 4 mg IVP Q6H PRN PRN Reason: Nausea/Vomiting Prednisone (Prednisone) 20 mg PO QAM[facility] Last Admin: 02/26/18 09:00 Dose: 20 mg
[2018-02-26] MEDS: Aspirin 81 mg Enteric Coated Tablet PO SCH (20:17)
[2018-02-27] MEDS: HumaLOG 300 UNITS/3 ML VIAL SC PRN ×6 (00:40→21:28)
[2018-02-27] MEDS: hydrALAZINE 20 MG/ML VIAL SLOW IVP PRN ×5 (03:30→21:45)
[2018-02-27 04:55] LABS: #Eosinphils 0.4 thou/uL (0.0-0.7); #Lymphocytes 0.7 thou/uL (1.20-3.40); #Monocytes 0.6 thou/uL (0.11-0.59); #Neutrophils 8.2 thou/uL (1.40-6.50); %Basophils 0.2 % (0.0-1.0); %Eosinophils 4.3 % (0.0-10.0); %Lymphocytes 6.8 % (21.0-51.0); %Monocytes 6.3 % (0.0-10.0); %Neutrophils 82.4 % (42.0-75.0); Hemoglobin 10.5 g/dL (14.0-18.0); Mean Corpuscular HGB CONC 31.1 g/dL (32.0-36.0); Mean Corpuscular Hemoglobin 27.7 pg (27.0-31.0); Mean Corpuscular Volume 89.1 fl (80.0-94.0); Mean Platelet Volume 6.8 fL (7.4-10.4); Platelet Count 242 thou/uL (130-400); RBC Distribution Width 13.2 % (11.5-14.5)
[2018-02-27 05:01] LABS: Anion Gap 11 mmol/L (10-20); BUN (Urea Nitrogen) 66 mg/dL (8.4-25.7); Calc. Creatinine Clearance 57 mL/min (70-130); Calcium 9.2 mg/dL (7.8-10.44); Carbon Dioxide 34 mmol/L (23-31); Chloride 104 mmol/L (98-107); Estimated GFR-MDRD 27; Glucose 239 mg/dL (83-110); Potassium 3.9 mmol/L (3.5-5.1); Sodium 145 mmol/L (136-145)
[2018-02-27] MEDS: Mometasone/Formoterol 120 PUFF INHALER INH SCH ×2 (07:13→18:38)
--- NOTE | 2018-02-27 08:23 | PRG ---
DATE OF SERVICE: 02/27/2018 He is awake, alert, responsive on the BiPAP. PHYSICAL EXAMINATION: VITAL SIGNS: Blood pressure is 190/70, sats 93% with 3 liters nasal O2, respiratory 15, temperature 98. I's and O's are 486 in, 3291 out. CHEST: Chest revealed decreased breath sounds without wheezing. CARDIAC: Normal S1-S2. No gallops. ABDOMEN: Soft. No masses. IMPRESSION: 1. Morbid obesity. 2. Sleep apnea. 3. Staph sepsis. 4. Right lung pneumonia. 5. Renal failure. PLAN: Continue nocturnal ventilation. Avoid BiPAP during the daytime. Aggressive PT, supportive care. He is still not ready to be transferred out of the ICU. We will fol low. One-half hour of critical care time.
[2018-02-27] MEDS: Furosemide 40 MG/4 ML VIAL SLOW IVP SCH (08:24)
[2018-02-27] MEDS: Gabapentin 300 MG CAP PO SCH ×3 (08:25→21:19)
[2018-02-27] MEDS: predniSONE 20 MG TAB PO SCH (08:25)
[2018-02-27] MEDS: hydrALAZINE 25 MG TAB PO SCH ×3 (08:25→21:19)
[2018-02-27] MEDS: Famotidine 20 MG TAB PO SCH (08:26)
[2018-02-27] MEDS: Heparin 5,000 UNITS/ML VIAL SC SCH ×6 (08:26→21:20)
[2018-02-27] MEDS: Dextrose 5 %-0.45 % NaCl 1,000 ML IV SCH ×2 (08:27→18:21)
[2018-02-27] MEDS: cefTRIAXone\\ROCEPHIN 1 GM, Syringe 0.4 ML in Sterile Water 9.6 ML SLOW IVP SCH (08:29)
--- NOTE | 2018-02-27 09:49 | PDOC.PN ---
- Subjective Encounter Start Date: 02/27/18 Encounter Start Time: 09:47 Mr. Brady was seen today in follow-up. He is up with PT now. He does not have any complaints. - Objective Resuscitation Status: Resuscitation Status FULL:Full Resuscitation MAR Reviewed: Yes Vital Signs & Weight: Vital Signs (12 hours) Temp Pulse Resp BP Pulse Ox 02/27/18 08:26 75 195/81 H 02/27/18 08:25 75 195/81 H 02/27/18 07:38 98.9 F 75 25 H 90 L 02/27/18 07:12 96 02/27/18 07:10 75 24 H 95 02/27/18 04:00 98.4 F 02/27/18 03:30 80 190/90 H 02/27/18 02:46 78 23 H 96 02/27/18 00:00 98.8 F 02/26/18 22:39 63 24 H 94 L 02/26/18 22:09 66 242/92 H Weight Admit Weight 325 lb 2.896 oz Weight 322 lb 8.58 oz Most Recent Monitor Data Heart Rate from ECG 78 NIBP 191/75 NIBP BP-Mean 108 Respiration from ECG 23 SpO2 93 I&O: 02/26/18 02/27/18 02/28/18 06:59 06:59 06:59 Intake Total 4868 3272 Output Total 3291 2155 Balance 1577 1117 Result Diagrams: 02/27/18 04:41 02/27/18 04:41 Additional Labs: Accuchecks 02/27/18 02/27/18 02/27/18 09:06 04:12 00:20 POC Glucose 265 H 211 H 223 H 02/26/18 02/26/18 02/26/18 20:26 18:14 11:33 POC Glucose 303 H 256 H 269 H 02/26/18 08:33 POC Glucose 212 H Phys Exam - Physical Examination HEENT: PERRLA Respiratory: no wheezing, no rales + coarse breath sounds Cardiovascular: RRR, no significant murmur Gastrointestinal: soft, non-tender, no distention, positive bowel sounds Musculoskeletal: edema present + non- pitting edema Dx/Plan (1) Acute respiratory failure with hypoxia and hypercapnia Code(s): J96.01 - ACUTE RESPIRATORY FAILURE WITH HYPOXIA; J96.02 - ACUTE RESPIRATORY FAILURE WITH HYPERCAPNIA Status: Acute Comment: extubated (2) Sepsis Code(s): A41.9 - SEPSIS, UNSPECIFIED ORGANISM Status: Acute Qualifiers: Sepsis type: methicillin susceptible Staphylococcus aureus Qualified Code(s ): A41.01 - Sepsis due to Methicillin susceptible Staphylococcus aureus (3) Diabetes mellitus type 2 in obese Code(s): E11.69 - TYPE 2 DIABETES MELLITUS WITH OTHER SPECIFIED COMPLICATION; E66.9 - OBESITY, UNSPECIFIED Status: Chronic (4) Morbid obesity Code(s): E66.01 - MORBID (SEVERE) OBESITY DUE TO EXCESS CALORIES Status: Chronic (5) Hypertension Code(s): I10 - ESSENTIAL (PRIMARY) HYPERTENSION Status: Chronic Qualifiers: Hypertension type: essential hypertension Qualified Code(s): I10 - Essential (primary) hypertension (6) Jfakd-lg-hddnkex kidney injury Code(s): N17.9 - ACUTE KIDNEY FAILURE, UNSPECIFIED; N18.9 - CHRONIC KIDNEY DISEASE, UNSPECIFIED Status: Acute Qualifiers: Acute renal failure type: unspecified - Plan * Acute respiratory failure- improved * Likely from COPD exacerbation and Pneumonia- continue Rocephin, and Duonebs, and Dulera * HTN- blood pressure is labile, but more elevated- continue Hydralazine, and monitor the trend * Acute renal failure- stable * AFIB-her heart rate is stable- continue Amiodarone drip * MSSA bacteremia- likely from leg cellulitis- continue Rocephin as well * Morbid Obesity- and Obesity Hypoventilation- continue BiPAP, and his obesity complicates his recovery * Severe Deconditioning- continue PT/OT and suspect he may need Rehab or skilled prior to going home
--- NOTE | 2018-02-27 10:18 | PRG ---
DATE OF SERVICE: 02/27/2018. SUBJECTIVE: Mr. Brady is a 72-year-old white male who was seen for his acute kidney injury. He has received salt poor albumin. He is doing better. Diuretics have been adjusted in the past. No new complaints. Please note this patient was also noted to have CHF, but is now clinically much impr aamir. His shortness of breath is noted to be multifactorial. PHYSICAL EXAMINATION: VITAL SIGNS: Blood pressure is 195/81, heart rate 75, respiratory 25, temperature 98.9, pulse ox 90% . GENERAL: Noted to be awake, alert, not in overt distress. SKIN: Adequate turgor. He is morbidly obese. HEENT: Pinkish conjunctivae, anicteric sclerae. NECK: No neck mass, no carotid bruits, no JVD. CHEST: No deformities. LUNGS: Decreased breath sounds. Occasional wheezing. HEART: Normal sinus rhythm. No murmur, no gallops, no rubs. ABDOMEN: Globular, soft, nontender, no masses. EXTREMITIES: Positive for edema. Positive for chronic venous stasis. MEDICATIONS: 02/27/2018 - Reviewed. LABORATORY: 02/27/2018 - White count 10, hemoglobin 10.5, sodium 145, potassium 3.9, chloride 104, c arbon dioxide 34, BUN 66, creatinine 2.39, glucose 239, calcium 9.2. ASSESSMENT AND PLAN: 1. Acute kidney injury on top of possible chronic renal failure, much improved creatinine. Please n ote creatinine peaked at 3.16. It is now currently 2.39. He is status post assault poor albumin inf usion. Continue judicious use of diuretics. Please note diuretics have been adjusted downwards in t he recent past. 2. Shortness of breath, multifactorial, underlying chronic obstructive pulmonary disease/congestive heart failure. Continue supportive care. Continue physical therapy. I agree with current management.
[2018-02-27] MEDS: Amiodarone HCl 450 MG, Admixture Fee 1 EACH in Dextrose 5% in Water 250 ML IVPB SCH ×3 (11:20)
[2018-02-27] MEDS ORDERED: Amlodipine 10 MG TAB PO SCH (20:45)
[2018-02-27] MEDS: Aspirin 81 mg Enteric Coated Tablet PO SCH (21:20)
[2018-02-28 06:30] LABS: #Eosinphils 0.4 thou/uL (0.0-0.7); #Lymphocytes 0.8 thou/uL (1.20-3.40); #Monocytes 0.6 thou/uL (0.11-0.59); #Neutrophils 7.2 thou/uL (1.40-6.50); %Basophils 0.3 % (0.0-1.0); %Eosinophils 4.1 % (0.0-10.0); %Lymphocytes 9.1 % (21.0-51.0); %Monocytes 7.1 % (0.0-10.0); %Neutrophils 79.4 % (42.0-75.0); Hemoglobin 10.2 g/dL (14.0-18.0); Mean Corpuscular HGB CONC 30.4 g/dL (32.0-36.0); Mean Corpuscular Hemoglobin 27.1 pg (27.0-31.0); Mean Corpuscular Volume 89.3 fl (80.0-94.0); Mean Platelet Volume 6.1 fL (7.4-10.4); Platelet Count 216 thou/uL (130-400); RBC Distribution Width 13.3 % (11.5-14.5); Red Blood Cell (RBC) Count 3.76 mill/uL (4.70-6.10)
[2018-02-28 06:41] LABS: Anion Gap 9 mmol/L (10-20); BUN (Urea Nitrogen) 63 mg/dL (8.4-25.7); Calc. Creatinine Clearance 58 mL/min (70-130); Calcium 9.2 mg/dL (7.8-10.44); Carbon Dioxide 34 mmol/L (23-31); Chloride 102 mmol/L (98-107); Estimated GFR-MDRD 27; Glucose 276 mg/dL (83-110); Sodium 141 mmol/L (136-145)
[2018-02-28] MEDS: HumaLOG 300 UNITS/3 ML VIAL SC PRN ×4 (07:20→21:34)
[2018-02-28] MEDS: Furosemide 40 MG/4 ML VIAL SLOW IVP SCH (08:29)
[2018-02-28] MEDS: Heparin 5,000 UNITS/ML VIAL SC SCH ×6 (08:30→21:26)
[2018-02-28] MEDS: Famotidine 20 MG TAB PO SCH (08:30)
[2018-02-28] MEDS: hydrALAZINE 25 MG TAB PO SCH ×3 (08:30→21:25)
[2018-02-28] MEDS: predniSONE 20 MG TAB PO SCH (08:30)
[2018-02-28] MEDS: Gabapentin 300 MG CAP PO SCH ×3 (08:31→21:26)
[2018-02-28] MEDS ORDERED: Amlodipine 10 MG TAB PO SCH (09:00)
--- NOTE | 2018-02-28 09:00 | RAD ---
CHEST 1 VIEW: Date: 02/28/18 HISTORY: Dyspnea. Follow-up. COMPARISON: 02/26/18. FINDINGS: Cardiac silhouette remains magnified and enlarged. Pulmonary vasculature is less engorged than on the prior study. Mediastinum is midline. Right internal jugular central venous catheter remains in place . Calcifications apparent within the aorta. Infiltrate and fluid at the right base is similar in appe arance to the prior study. IMPRESSION: 1. Slight interval decrease in radiographic degree of pulmonary edema. 2. Persistent right pleural fluid and basilar infiltrate. POS: [facility]
[2018-02-28] MEDS ORDERED: Sodium Chloride 0.45% 1,000 ML IV SCH (09:30)
--- NOTE | 2018-02-28 09:36 | PDOC.PN ---
- Subjective Encounter Start Date: 02/28/18 Encounter Start Time: 09:35 Mr. Brady was seen today in follow-up. He does not have any complaints. He says he is still very weak. He says he was barely able to stand with PT yesterday. - Objective Resuscitation Status: Resuscitation Status FULL:Full Resuscitation MAR Reviewed: Yes Vital Signs & Weight: Vital Signs (12 hours) Temp Pulse Resp BP Pulse Ox 02/28/18 08:31 78 179/79 H 02/28/18 08:30 78 179/79 H 02/28/18 07:43 98.4 F 78 23 H 94 L 02/28/18 07:02 78 23 H 92 L 02/28/18 07:00 76 22 H 93 L 02/28/18 04:00 98.2 F 02/28/18 02:16 77 22 H 93 L 02/28/18 00:00 98.0 F 02/27/18 22:23 88 27 H 90 L 02/27/18 21:45 80 187/90 H Weight Admit Weight 325 lb 2.896 oz Weight 322 lb 8.58 oz Most Recent Monitor Data Heart Rate from ECG 72 NIBP 167/82 NIBP BP-Mean 93 Respiration from ECG 24 SpO2 94 I&O: 02/27/18 02/28/18 03/01/18 06:59 06:59 06:59 Intake Total 3272 3837 Output Total 2155 1482 Balance 1117 2355 Result Diagrams: 02/28/18 06:22 02/28/18 06:22 Additional Labs: Accuchecks 02/27/18 02/27/18 02/27/18 21:29 16:19 11:26 POC Glucose 241 H 256 H 270 H Phys Exam - Physical Examination HEENT: PERRLA Respiratory: no wheezing + coarse breath sounds, and decreased sounds at the bases Cardiovascular: RRR, no significant murmur, no rub Gastrointestinal: soft, non-tender, no distention, positive bowel sounds Musculoskeletal: edema present + lower extremity edema, and both legs are dressed Neurological: non-focal, moves all 4 limbs Dx/Plan (1) Acute respiratory failure with hypoxia and hypercapnia Code(s): J96.01 - ACUTE RESPIRATORY FAILURE WITH HYPOXIA; J96.02 - ACUTE RESPIRATORY FAILURE WITH HYPERCAPNIA Status: Acute Comment: extubated (2) Sepsis Code(s): A41.9 - SEPSIS, UNSPECIFIED ORGANISM Status: Acute Qualifiers: Sepsis type: methicillin susceptible Staphylococcus aureus Qualified Code(s ): A41.01 - Sepsis due to Methicillin susceptible Staphylococcus aureus (3) Diabetes mellitus type 2 in obese Code(s): E11.69 - TYPE 2 DIABETES MELLITUS WITH OTHER SPECIFIED COMPLICATION; E66.9 - OBESITY, UNSPECIFIED Status: Chronic (4) Morbid obesity Code(s): E66.01 - MORBID (SEVERE) OBESITY DUE TO EXCESS CALORIES Status: Chronic (5) Hypertension Code(s): I10 - ESSENTIAL (PRIMARY) HYPERTENSION Status: Chronic Qualifiers: Hypertension type: essential hypertension Qualified Code(s): I10 - Essential (primary) hypertension (6) Gqvfx-kb-ljyehzh kidney injury Code(s): N17.9 - ACUTE KIDNEY FAILURE, UNSPECIFIED; N18.9 - CHRONIC KIDNEY DISEASE, UNSPECIFIED Status: Acute Qualifiers: Acute renal failure type: unspecified - Plan * Acute on chronic hypoxic respiratory failure- slowly improving * COPD exacerbation- resolving * MSSA sepsis- from lower extremity cellulitis- continue Rocephin- repeat blood cultures are negative so far * AFIB- his heart rate is stable on Amiodarone drip * HTN- blood pressure continues to fluctuate- Amlodipine was added, and will continue hydralazine * Acute renal failure- improving * Severe deconditioning- continue PT/OT
[2018-02-28] MEDS: Sodium Chloride 0.45% 1,000 ML IV SCH (10:05)
[2018-02-28] MEDS: cefTRIAXone\\ROCEPHIN 1 GM, Syringe 0.4 ML in Sterile Water 9.6 ML SLOW IVP SCH (10:09)
[2018-02-28] MEDS: Mometasone/Formoterol 120 PUFF INHALER INH SCH ×2 (12:22→18:25)
--- NOTE | 2018-02-28 14:22 | PRG ---
DATE OF SERVICE: 02/28/2018 SUBJECTIVE: Mr. Brady is a 72-year-old white male, who was admitted for shortness of breath. Et iology of his shortness of breath is multifactorial. He was also found to be in some mild CHF. He h as been diuresed. He is diuresing well with improvement of the shortness of breath. In addition, he is on around the clock neb treatment. The Renal Service has been following up for his acute kidney injury that was hemodynamically mediated. This morning, he is feeling a little better. Chest x-ray shows improvement with the CHF. No other complaints. PHYSICAL EXAMINATION: VITAL SIGNS: Blood pressure 168/70, heart rate 79, pulse ox 90%. GENERAL: Supine, comfortable, not in distress, morbidly obese. SKIN: Adequate turgor. HEENT: Pinkish conjunctivae, anicteric sclerae. NECK: No neck mass, no carotid bruits, no JVD. CHEST: No deformities. LUNGS: Decreased breath sounds. Occasional wheezing. HEART: Normal sinus rhythm. No murmur, no gallops, no rubs. ABDOMEN: Globular, soft, nontender, no masses. EXTREMITIES: Positive for edema. Positive for chronic venous stasis. MEDICATIONS: Medications of 02/28/2018 reviewed. LABORATORY DATA: Laboratories of 02/28/2018, white count 9, hemoglobin 10.2. Sodium 141, potassium 4, chloride 102, carbon dioxide 34, BUN 63, creatinine 2.36, glucose 276, calcium 9.2. ASSESSMENT AND PLAN: 1. Acute kidney injury on top of his chronic renal failure -- superimposed hemodynamically mediated renal dysfunction. Much improved. The patient is status post albumin infusion. Continue current di uretic use. Currently on Lasix 40 mg IV q.12 hours. 2. Shortness of breath, multifactorial, chronic obstructive pulmonary disease plus congestive heart failure. Congestive heart failure is clinically improving as suggested by improving clinical conditi on and improvement of the chest x-ray. For the moment, I agree with current management. There is no indication for any dialytic intervention. Awaiting rehab placement.
[2018-02-28] MEDS: hydrALAZINE 20 MG/ML VIAL SLOW IVP PRN (17:10)
[2018-02-28] MEDS: Amiodarone HCl 450 MG, Admixture Fee 1 EACH in Dextrose 5% in Water 250 ML IVPB SCH ×3 (20:20)
[2018-02-28] MEDS: Aspirin 81 mg Enteric Coated Tablet PO SCH (21:26)
[2018-03-01 04:40] LABS: #Eosinphils 0.3 thou/uL (0.0-0.7); #Lymphocytes 0.8 thou/uL (1.20-3.40); #Monocytes 0.4 thou/uL (0.11-0.59); #Neutrophils 6.3 thou/uL (1.40-6.50); %Basophils 0.5 % (0.0-1.0); %Eosinophils 3.6 % (0.0-10.0); %Lymphocytes 9.7 % (21.0-51.0); %Monocytes 5.2 % (0.0-10.0); Hemoglobin 9.8 g/dL (14.0-18.0); Mean Corpuscular Hemoglobin 28.3 pg (27.0-31.0); Mean Corpuscular Volume 91.3 fl (80.0-94.0); Mean Platelet Volume 6.8 fL (7.4-10.4); Platelet Count 233 thou/uL (130-400); RBC Distribution Width 13.3 % (11.5-14.5); Red Blood Cell (RBC) Count 3.46 mill/uL (4.70-6.10); White Blood Cell (WBC) Count 7.8 thou/uL (4.8-10.8)
[2018-03-01 04:41] LABS: Anion Gap 10 mmol/L (10-20); BUN (Urea Nitrogen) 57 mg/dL (8.4-25.7); Calc. Creatinine Clearance 64 mL/min (70-130); Calcium 8.8 mg/dL (7.8-10.44); Carbon Dioxide 33 mmol/L (23-31); Chloride 102 mmol/L (98-107); Estimated GFR-MDRD 31; Glucose 220 mg/dL (83-110); Potassium 3.9 mmol/L (3.5-5.1); Sodium 141 mmol/L (136-145)
[2018-03-01] MEDS: Sodium Chloride 0.45% 1,000 ML IV SCH (05:37)
[2018-03-01] MEDS: HumaLOG 300 UNITS/3 ML VIAL SC PRN ×4 (05:44→20:45)
[2018-03-01] MEDS: Mometasone/Formoterol 120 PUFF INHALER INH SCH ×2 (07:33→18:37)
--- NOTE | 2018-03-01 07:45 | RAD ---
CHEST 1 VIEW: Date: 03/01/18 HISTORY: Dyspnea. Follow-up. COMPARISON: 02/28/17. FINDINGS: Cardiac silhouette remains magnified and enlarged. Pulmonary vasculature is more engorged. Patchy bib asilar infiltrates have increased. Right pleural fluid is again demonstrated. Mediastinum is midline with right internal jugular central venous catheter. IMPRESSION: Continued worsening of radiographic findings of pulmonary edema. POS: [facility]
[2018-03-01] MEDS: Furosemide 40 MG/4 ML VIAL SLOW IVP SCH (08:26)
[2018-03-01] MEDS: Heparin 5,000 UNITS/ML VIAL SC SCH ×6 (08:26→20:45)
[2018-03-01] MEDS: predniSONE 20 MG TAB PO SCH (08:27)
[2018-03-01] MEDS: Gabapentin 300 MG CAP PO SCH ×3 (08:27→20:44)
[2018-03-01] MEDS: Famotidine 20 MG TAB PO SCH (08:27)
[2018-03-01] MEDS: hydrALAZINE 25 MG TAB PO SCH ×3 (08:27→20:44)
[2018-03-01] MEDS: cefTRIAXone\\ROCEPHIN 1 GM, Syringe 0.4 ML in Sterile Water 9.6 ML SLOW IVP SCH (08:41)
[2018-03-01] MEDS ORDERED: Insulin Detemir 100 UNITS/ML 20 UNITS in Pre-Filled Syringe 1 EACH SC SCH (09:15)
--- NOTE | 2018-03-01 09:18 | PDOC.PN ---
- Subjective Encounter Start Date: 03/01/18 Encounter Start Time: 09:16 Mr. Brady was seen today in follow-up. He does not have any complaints. He says he is breathing ok. He denies any chest pain - Objective Resuscitation Status: Resuscitation Status FULL:Full Resuscitation MAR Reviewed: Yes Vital Signs & Weight: Vital Signs (12 hours) Temp Pulse Resp BP Pulse Ox 03/01/18 08:27 72 148/49 H 03/01/18 07:30 69 24 H 92 L 03/01/18 04:00 98.8 F 03/01/18 02:01 71 24 H 95 03/01/18 00:00 98.0 F 95 02/28/18 22:29 80 28 H 94 L 02/28/18 21:25 72 180/91 H Weight Admit Weight 325 lb 2.896 oz Weight 322 lb 8.58 oz Most Recent Monitor Data Heart Rate from ECG 69 NIBP 148/49 NIBP BP-Mean 67 Respiration from ECG 28 SpO2 88 I&O: 02/28/18 03/01/18 03/02/18 06:59 06:59 06:59 Intake Total 3837 2629.6 Output Total 1482 1945 Balance 2355 684.6 Result Diagrams: 03/01/18 04:25 03/01/18 04:25 Additional Labs: Accuchecks 03/01/18 02/28/18 02/28/18 05:45 21:34 16:22 POC Glucose 221 H 257 H 252 H 02/28/18 11:16 POC Glucose 274 H Phys Exam - Physical Examination HEENT: PERRLA + rales at the bases, and decreased breath sounds at the bases Cardiovascular: RRR, no significant murmur, no rub Gastrointestinal: soft, non-tender, no distention, positive bowel sounds Musculoskeletal: edema present 1+ edema in the lower extremities, and venous stasis changes Dx/Plan (1) Acute respiratory failure with hypoxia and hypercapnia Code(s): J96.01 - ACUTE RESPIRATORY FAILURE WITH HYPOXIA; J96.02 - ACUTE RESPIRATORY FAILURE WITH HYPERCAPNIA Status: Acute Comment: extubated (2) Sepsis Code(s): A41.9 - SEPSIS, UNSPECIFIED ORGANISM Status: Acute Qualifiers: Sepsis type: methicillin susceptible Staphylococcus aureus Qualified Code(s ): A41.01 - Sepsis due to Methicillin susceptible Staphylococcus aureus (3) Diabetes mellitus type 2 in obese Code(s): E11.69 - TYPE 2 DIABETES MELLITUS WITH OTHER SPECIFIED COMPLICATION; E66.9 - OBESITY, UNSPECIFIED Status: Chronic (4) Morbid obesity Code(s): E66.01 - MORBID (SEVERE) OBESITY DUE TO EXCESS CALORIES Status: Chronic (5) Hypertension Code(s): I10 - ESSENTIAL (PRIMARY) HYPERTENSION Status: Chronic Qualifiers: Hypertension type: essential hypertension Qualified Code(s): I10 - Essential (primary) hypertension (6) Bdmuc-hn-dicsjyn kidney injury Code(s): N17.9 - ACUTE KIDNEY FAILURE, UNSPECIFIED; N18.9 - CHRONIC KIDNEY DISEASE, UNSPECIFIED Status: Acute Qualifiers: Acute renal failure type: unspecified - Plan * Acute on chronic respiratory failure- due to diastolic CHF, and COPD- improving * MSSA sepsis from lower extremity cellulitis- repeat blood cultures have been negative- continue Rocphin * AFIB- his heart rate has been controlled on Amiodarone drip * Acute renal failure- improving- creatinine is down to 2.13 from 3.36 * DM- blood glucose is elevated- will re-start scheduled insulin, at half his home dose and titrate * HTN- blood pressure is still labile- continue Hydralazine, and prn medication * CHF- chest X-ray demonstrates worsening infiltrates- however his weight has been stable at 322 pounds for the past few days- will await further recommendations from Cardiology * Severe deconditioning- continue PT/OT.
[2018-03-01] MEDS: Losartan 25 MG TAB PO SCH ×4 (09:34→20:44)
--- NOTE | 2018-03-01 11:08 | PRG ---
DATE OF SERVICE: 02/28/2018 SUBJECTIVE: This morning, he is much more awake and responsive. OBJECTIVE: VITAL SIGNS: Blood pressure is 160/70, pulse 94, respiration rate 18, temperature 98. I's & O's have been 3272 in,1750 out. NEUROLOGIC: He is awake, responsive, much appropriate. EXTREMITIES: Reveal 2+ edema. CHEST:bilateral rhonchi. CARDIAC: Normal S1, S2, no gallops. ABDOMEN: Massive. LABORATORY DATA: His lab shows white count 9000, H&H is 10 and 33, platelet count is normal. Creatinine is down to 2.36. IMPRESSION: Respiratory failure, chronic renal failure, pneumonia, sleep apnea , chronic obstructive pulmonary disease, supraventricular tachycardia. PLAN: If he is eating, we can probably try and switch him over to oral amiodarone per Cardiology. Continue antibiotics for Staph sepsis. Nocturnal BiPAP. Aggressive PT. One-half hour critical care time. MTDD
--- NOTE | 2018-03-01 13:33 | PRG ---
DATE OF SERVICE: 03/01/2018 SERVICE: Renal Medicine. SUBJECTIVE: Mr. Brady a 72-year-old white man seen by the Renal Service for his acute kidney inj ury on top of his chronic renal failure. He was initially admitted for shortness of breath. Etiolog y is multifactorial, which includes chronic obstructive pulmonary disease exacerbation, CHF. He has been diuresed. He is evolving infusion. He is getting a little stronger. His shortness of breath i s stabilizing. No other new complaints today. OBJECTIVE: VITAL SIGNS: Blood pressure 144/47, heart rate 81, respiratory 26 and pulse ox ranging from 89% to 9 1%. GENERAL: Awake, supine, comfortable and morbidly obese. SKIN: Adequate turgor HEENT: He has pinkish conjunctivae, anicteric sclerae. NECK: No neck mass, no carotid bruits, no JVD. CHEST: No deformities. LUNGS: Decreased breath sounds. Occasional wheezing. HEART: Normal sinus rhythm. No murmur, no gallops, no rubs. ABDOMEN: Globular, soft and nontender. No masses. EXTREMITIES: Positive for edema. Positive for chronic venous stasis. MEDICATIONS: Medications of 03/01/2018 was reviewed. LABORATORY DATA: Laboratories of 03/01/2018; white count 7.8, hemoglobin 9.8 and hematocrit 31.6. S odium 141, potassium 4.9, chloride 102, carbon dioxide 33, BUN 57, creatinine 2.13, glucose 220 and c alcium 8.8. ASSESSMENT AND PLAN: 1. Acute kidney injury on top of his chronic renal failure, stabilizing renal function. Please note his creatinine is much improved. Most recent creatinine is now 2.13. He is also on a once a day IV Lasix. He has also been started on losartan to 50 mg p.o. b.i.d. We will continue to monitor renal function carefully with the introduction of the ARB. No indication for any dialytic intervention. Continue supportive care. 3. Shortness of breath, multifactorial, slowly improving. The patient undergoing physical therapy f or eventual rehab placement. 4. No indication for dialysis. Agree with current management.
[2018-03-01] MEDS: hydrALAZINE 20 MG/ML VIAL SLOW IVP PRN ×2 (15:05→22:15)
[2018-03-01] MEDS: Amiodarone HCl 450 MG, Admixture Fee 1 EACH in Dextrose 5% in Water 250 ML IVPB SCH ×3 (16:52)
[2018-03-01] MEDS: Aspirin 81 mg Enteric Coated Tablet PO SCH (20:45)
[2018-03-02] MEDS: Sodium Chloride 0.45% 1,000 ML IV SCH (00:59)
[2018-03-02 04:10] LABS: #Basophils 0.1 thou/uL (0.0-0.2); #Eosinphils 0.3 thou/uL (0.0-0.7); #Lymphocytes 0.8 thou/uL (1.20-3.40); #Monocytes 0.5 thou/uL (0.11-0.59); #Neutrophils 7.8 thou/uL (1.40-6.50); %Basophils 0.6 % (0.0-1.0); %Eosinophils 2.7 % (0.0-10.0); %Lymphocytes 8.2 % (21.0-51.0); %Monocytes 5.1 % (0.0-10.0); %Neutrophils 83.4 % (42.0-75.0); Mean Corpuscular HGB CONC 31.2 g/dL (32.0-36.0); Mean Corpuscular Hemoglobin 27.8 pg (27.0-31.0); Mean Corpuscular Volume 89.2 fl (80.0-94.0); Mean Platelet Volume 6.4 fL (7.4-10.4); Platelet Count 245 thou/uL (130-400); RBC Distribution Width 13.2 % (11.5-14.5); Red Blood Cell (RBC) Count 3.59 mill/uL (4.70-6.10); White Blood Cell (WBC) Count 9.3 thou/uL (4.8-10.8)
[2018-03-02 04:21] LABS: Anion Gap 8 mmol/L (10-20); BUN (Urea Nitrogen) 56 mg/dL (8.4-25.7); Calc. Creatinine Clearance 66 mL/min (70-130); Calcium 8.9 mg/dL (7.8-10.44); Carbon Dioxide 35 mmol/L (23-31); Chloride 101 mmol/L (98-107); Estimated GFR-MDRD 32; Glucose 175 mg/dL (83-110); Potassium 4.1 mmol/L (3.5-5.1); Sodium 140 mmol/L (136-145)
[2018-03-02] MEDS: HumaLOG 300 UNITS/3 ML VIAL SC PRN ×4 (06:00→20:47)
[2018-03-02] MEDS: Mometasone/Formoterol 120 PUFF INHALER INH SCH ×2 (07:10→19:10)
[2018-03-02] MEDS: predniSONE 20 MG TAB PO SCH (07:47)
[2018-03-02] MEDS: hydrALAZINE 25 MG TAB PO SCH ×3 (07:47→20:45)
[2018-03-02] MEDS: Gabapentin 300 MG CAP PO SCH ×3 (07:47→20:45)
[2018-03-02] MEDS: Losartan 25 MG TAB PO SCH ×4 (07:48→20:45)
[2018-03-02] MEDS: Furosemide 40 MG/4 ML VIAL SLOW IVP SCH (07:48)
[2018-03-02] MEDS: Heparin 5,000 UNITS/ML VIAL SC SCH ×6 (07:50→20:46)
[2018-03-02] MEDS: Insulin Detemir 100 UNITS/ML 20 UNITS in Pre-Filled Syringe 1 EACH SC SCH (07:53)
[2018-03-02] MEDS: cefTRIAXone\\ROCEPHIN 1 GM, Syringe 0.4 ML in Sterile Water 9.6 ML SLOW IVP SCH (07:54)
[2018-03-02] MEDS: Famotidine 20 MG TAB PO SCH (07:58)
--- NOTE | 2018-03-02 08:15 | RAD ---
SINGLE VIEW OF THE CHEST: COMPARISON: 03/01/18. HISTORY: Ventilated patient with respiratory failure. FINDINGS: A single view of the chest shows an enlarged but stable cardiomediastinal silhouette. There is a mod erate right pleural effusion. The central venous catheter is unchanged in position. IMPRESSION: Stable Cardiomegaly and right pleural effusion. POS: [facility]
--- NOTE | 2018-03-02 09:09 | PRG ---
DATE OF SERVICE: 03/02/2018 He is awake, alert, responsive. PHYSICAL EXAMINATION: VITAL SIGNS: This morning his sats on nasal O2 at 4 liters are 95%, respiration 24, pulse 64, blood pressure is 170/76. He denies any pain or discomfort. EXTREMITIES: Extremities reveal 2+ edema. CHEST: Chest revealed bilateral rhonchi and crackles. CARDIAC: Normal S1, S2, no gallops. ABDOMEN: Soft. NEUROLOGIC: Unremarkable. LABORATORY: White count 9000, H&H 10 and 32, platelet count 245, BUN and creatinine are much improve d 56 and 2.07. X-RAY FINDINGS: X-ray of the chest shows a persistent right-sided infiltrate, pleural effusion. IMPRESSION: 1. Morbid obesity. 2. Sleep apnea. 3. Chronic obstructive pulmonary disease. 4. Renal failure. 5. Respiratory failure. 6. Supraventricular tachycardia. PLAN: Switch over to oral medication. Discontinue IV fluids. Continue Rocephin for Staph sepsis fo r 2 weeks. Aggressive PT and nutrition. Nocturnal ventilation. One-half hour critical care time.
[2018-03-02] MEDS: Amiodarone 200 MG TAB PO SCH ×2 (09:30→20:46)
--- NOTE | 2018-03-02 10:56 | PRG ---
DATE OF SERVICE: 03/01/2018 SUBJECTIVE: This morning, awake, alert, responsive. OBJECTIVE: VITAL SIGNS: Sats are 92% on 3 liters, respiratory rate 24, temperature is 99, and blood pressure 17 6/72. CHEST: Reveals bilateral rhonchi. CARDIAC: Normal S1 and S2. No gallops. ABDOMEN: Massive. EXTREMITIES: 2+ edema. NECK: Unremarkable. NEUROLOGIC: He is awake, responsive, moves all 4 extremities. LABORATORY DATA: His BUN and creatinine improved substantially to 57 and 2.13, probably at his basel ine level. IMPRESSION AND PLAN: Cultures, staph from line. Not MRSA. in the ICU, still precariuos pulmo nary status. He is still FULL CODE, another 24 hours in the ICU, avoid noninvasive ventilation excep t at nighttime for his sleep apnea. Switch over his amiodarone to p.o. He has got somewhat increasi ng right-sided pleural effusion. We will follow. One-half hour critical care time.
--- NOTE | 2018-03-02 12:34 | PRG ---
DATE OF SERVICE: 03/02/2018 SERVICE: Renal Medicine. SUBJECTIVE: Mr. Brady is a 72-year-old white male, who was seen by the Renal Service for his acu te kidney injury that was hemodynamically mediated renal dysfunction. He is slowly improving. He de nies any chest pain or shortness of breath today. The patient continues to diurese. OBJECTIVE: VITAL SIGNS: Blood pressure is currently at 150/76, heart rate 68, respiratory rate 25, pulse ox 94% . GENERAL EXAM: Noted to be awake, alert, supine, obese, not in distress. SKIN: Adequate turgor. HEENT: Pinkish conjunctivae, anicteric sclerae. NECK: No neck mass, no carotid bruits, no JVD. CHEST: No deformities. LUNGS: Decreased breath sounds with occasional wheezing. HEART: Normal sinus rhythm. No murmur, no gallops, no rubs. ABDOMEN: Globular, soft, nontender. EXTREMITIES: Positive for chronic venous stasis. Medications of 03/02/2018 reviewed. LABORATORY DATA: Laboratories of 03/02/2018, white count 9.3, hemoglobin 10. Sodium 140, potassium 4.1, chloride 101, carbon dioxide 35, glucose 175, calcium 8.9. ASSESSMENT AND PLAN: 1. Acute kidney injury - hemodynamically mediated renal dysfunction, slowly improving over time. To lerating current diuretic regimen. No changes to be made. There is no indication for any dialytic i ntervention. 2. Shortness of breath - multifactorial, combined chronic obstructive pulmonary disease exacerbation and congestive heart failure. Currently on diuretic regimen. Continue currently IV Lasix as tolera fredis. So far, renal function is remaining stable.
--- NOTE | 2018-03-02 14:23 | PDOC.PN ---
- Subjective Encounter Start Date: 03/02/18 Encounter Start Time: 14:21 Patient seen and examined, states that he doesn't like his bipap mask as its too small for his face, requesting a larger mask, at bedside, no new issues otherwise, all questions answered. - Objective Resuscitation Status: Resuscitation Status FULL:Full Resuscitation Vital Signs & Weight: Vital Signs (12 hours) Temp Pulse Pulse Pulse Resp BP BP 03/02/18 11:00 97.8 F 03/02/18 10:26 72 18 03/02/18 09:03 75 76 188/76 H 137/50 L 03/02/18 08:00 97.6 F 64 25 H 03/02/18 07:47 64 03/02/18 07:13 03/02/18 07:10 64 24 H 03/02/18 07:00 97.6 F 03/02/18 04:00 98.9 F 03/02/18 02:55 70 30 H 03/02/18 02:24 76 27 H Pulse Ox Pulse Ox Pulse Ox 03/02/18 11:00 03/02/18 10:26 90 L 03/02/18 09:03 92 L 92 L 03/02/18 08:00 95 03/02/18 07:47 03/02/18 07:13 95 03/02/18 07:10 95 03/02/18 07:00 03/02/18 04:00 03/02/18 02:55 92 L 03/02/18 02:24 90 L Weight Admit Weight 325 lb 2.896 oz Weight 322 lb 8.58 oz Most Recent Monitor Data Heart Rate from ECG 73 NIBP 167/57 NIBP BP-Mean 82 Respiration from ECG 25 SpO2 90 I&O: 03/01/18 03/02/18 03/03/18 06:59 06:59 06:59 Intake Total 2629.6 3315 1149 Output Total 1945 2945 1510 Balance 684.6 370 -361 Result Diagrams: 03/02/18 04:04 03/02/18 04:04 Additional Labs: Accuchecks 03/02/18 03/02/18 03/01/18 11:04 05:58 20:36 POC Glucose 245 H 191 H 207 H 03/01/18 17:30 POC Glucose 246 H Phys Exam - Physical Examination Constitutional: NAD obese HEENT: PERRLA, moist MMs, sclera anicteric Neck: no nodes, no JVD, supple Respiratory: wheezing present coarse breath sounds B/L Cardiovascular: RRR, no significant murmur, no rub Gastrointestinal: soft, non-tender, no distention Musculoskeletal: pulses present, edema present (1+) Dx/Plan (1) Acute respiratory failure with hypoxia and hypercapnia Code(s): J96.01 - ACUTE RESPIRATORY FAILURE WITH HYPOXIA; J96.02 - ACUTE RESPIRATORY FAILURE WITH HYPERCAPNIA Status: Acute Comment: extubated (2) Cellulitis Code(s): L03.90 - CELLULITIS, UNSPECIFIED Status: Acute Qualifiers: Site of cellulitis: extremity Site of cellulitis of extremity: lower extremity Laterality: unspecified laterality Qualified Code(s): L03.119 - Cellulitis of unspecified part of limb (3) Diabetes mellitus type 2 in obese Code(s): E11.69 - TYPE 2 DIABETES MELLITUS WITH OTHER SPECIFIED COMPLICATION; E66.9 - OBESITY, UNSPECIFIED Status: Chronic (4) Morbid obesity Code(s): E66.01 - MORBID (SEVERE) OBESITY DUE TO EXCESS CALORIES Status: Chronic (5) Pneumonia Code(s): J18.9 - PNEUMONIA, UNSPECIFIED ORGANISM Status: Acute (6) Hypertension Code(s): I10 - ESSENTIAL (PRIMARY) HYPERTENSION Status: Chronic Qualifiers: Hypertension type: essential hypertension Qualified Code(s): I10 - Essential (primary) hypertension - Plan * will see if patient can get a larger bipap mask * continue current plan of care * cont steroids * diuretics for edema * patient in chair, continue PT * labs stable * pulmonary following * case and plan d/w patient and at length, they understand and agree with this plan
[2018-03-02] MEDS: Aspirin 81 mg Enteric Coated Tablet PO SCH (20:46)
[2018-03-03 05:21] LABS: #Eosinphils 0.1 thou/uL (0.0-0.7); #Lymphocytes 0.6 thou/uL (1.20-3.40); #Monocytes 0.5 thou/uL (0.11-0.59); #Neutrophils 7.9 thou/uL (1.40-6.50); %Basophils 0.3 % (0.0-1.0); %Eosinophils 1.4 % (0.0-10.0); %Lymphocytes 6.8 % (21.0-51.0); %Monocytes 5.2 % (0.0-10.0); %Neutrophils 86.3 % (42.0-75.0); Hemoglobin 10.1 g/dL (14.0-18.0); Mean Corpuscular Hemoglobin 27.7 pg (27.0-31.0); Mean Corpuscular Volume 89.2 fl (80.0-94.0); Platelet Count 244 thou/uL (130-400); RBC Distribution Width 13.3 % (11.5-14.5); Red Blood Cell (RBC) Count 3.66 mill/uL (4.70-6.10); White Blood Cell (WBC) Count 9.1 thou/uL (4.8-10.8)
[2018-03-03 05:31] LABS: Anion Gap 8 mmol/L (10-20); BUN (Urea Nitrogen) 49 mg/dL (8.4-25.7); Calc. Creatinine Clearance 67 mL/min (70-130); Carbon Dioxide 36 mmol/L (23-31); Chloride 100 mmol/L (98-107); Estimated GFR-MDRD 32; Glucose 207 mg/dL (83-110); Potassium 4.4 mmol/L (3.5-5.1); Sodium 140 mmol/L (136-145)
[2018-03-03] MEDS: HumaLOG 300 UNITS/3 ML VIAL SC PRN ×4 (06:18→20:29)
[2018-03-03] MEDS: Mometasone/Formoterol 120 PUFF INHALER INH SCH ×2 (08:23→18:27)
[2018-03-03] MEDS: Amiodarone 200 MG TAB PO SCH ×2 (08:52→20:22)
[2018-03-03] MEDS: Famotidine 20 MG TAB PO SCH (08:52)
[2018-03-03] MEDS: Gabapentin 300 MG CAP PO SCH ×3 (08:52→20:21)
[2018-03-03] MEDS: hydrALAZINE 25 MG TAB PO SCH ×3 (08:52→20:21)
[2018-03-03] MEDS: predniSONE 20 MG TAB PO SCH (08:52)
[2018-03-03] MEDS: Furosemide 40 MG/4 ML VIAL SLOW IVP SCH (08:53)
[2018-03-03] MEDS: Heparin 5,000 UNITS/ML VIAL SC SCH ×6 (08:53→20:27)
[2018-03-03] MEDS: Losartan 25 MG TAB PO SCH ×4 (08:53→20:22)
--- NOTE | 2018-03-03 08:55 | PRG ---
DATE OF SERVICE: 03/03/2018 He is doing well. He had a rough night. He had difficulty tolerating his mask from his BiPAP. PHYSICAL EXAMINATION: VITAL SIGNS: Sats are 95% on 4 liters, respirations 17, temperature is 98, blood pressure is 159/74. His I's and O's are 3315 in, 2945 out. CHEST: Chest reveals decreased breath sounds without any wheezing, minimal crackles. CARDIAC: Normal S1, S2, no gallops. ABDOMEN: Massive, soft. EXTREMITIES: His extremities are with 1+ edema. LABORATORY: His creatinine is at baseline 2.03. IMPRESSION: 1. Multiorgan failure. 2. Respiratory failure. 3. Diastolic dysfunction. 4. Sepsis. 5. Cellulitis. 6. Sleep apnea. 7. Diabetes. PLAN: Continue aggressive PT. Continue nocturnal BiPAP. Eventually home.
[2018-03-03] MEDS: Insulin Detemir 100 UNITS/ML 20 UNITS in Pre-Filled Syringe 1 EACH SC SCH (08:56)
[2018-03-03] MEDS: cefTRIAXone\\ROCEPHIN 1 GM, Syringe 0.4 ML in Sterile Water 9.6 ML SLOW IVP SCH (10:01)
--- NOTE | 2018-03-03 14:12 | PDOC.PN ---
- Subjective Encounter Start Date: 03/03/18 Encounter Start Time: 14:20 Subjective: Patient doing better with larger mask today. No other complaints. - Objective Resuscitation Status: Resuscitation Status FULL:Full Resuscitation MAR Reviewed: Yes Vital Signs & Weight: Vital Signs (12 hours) Temp Pulse Pulse Resp BP BP BP 03/03/18 11:22 66 25 H 03/03/18 11:14 98.7 F 65 25 H 163/73 H 03/03/18 09:15 66 189/78 H 03/03/18 08:52 75 03/03/18 08:37 75 28 H 03/03/18 08:23 03/03/18 08:21 75 22 H 03/03/18 08:00 98.7 F 75 28 H 03/03/18 07:39 98.7 F 65 17 159/75 H 03/03/18 04:06 98.7 F 74 26 H 175/80 H 03/03/18 02:16 Pulse Ox Pulse Ox 03/03/18 11:22 94 L 03/03/18 11:14 92 L 03/03/18 09:15 97 03/03/18 08:52 03/03/18 08:37 94 L 03/03/18 08:23 95 03/03/18 08:21 95 03/03/18 08:00 96 03/03/18 07:39 95 03/03/18 04:06 96 03/03/18 02:16 88 L Weight Admit Weight 325 lb 2.896 oz Weight 302 lb 8 oz Most Recent Monitor Data Heart Rate from ECG 73 NIBP 174/81 NIBP BP-Mean 91 Respiration from ECG 20 SpO2 93 I&O: 03/02/18 03/03/18 03/04/18 06:59 06:59 06:59 Intake Total 3315 1749 960 Output Total 2945 3085 Balance 370 -1336 960 Result Diagrams: 03/03/18 05:09 03/03/18 03:30 Additional Labs: Accuchecks 03/03/18 03/03/18 03/02/18 10:37 05:36 20:19 POC Glucose 220 H 192 H 228 H 03/02/18 03/02/18 18:25 15:43 POC Glucose 208 H 234 H Phys Exam - Physical Examination Constitutional: NAD HEENT: moist MMs Respiratory: no rales, no rhonchi scattered wheezes, on BiPap currently Cardiovascular: RRR, no significant murmur Gastrointestinal: soft, positive bowel sounds Neurological: non-focal, moves all 4 limbs Psychiatric: normal affect, A&O x 3 Dx/Plan (1) Acute respiratory failure with hypoxia and hypercapnia Code(s): J96.01 - ACUTE RESPIRATORY FAILURE WITH HYPOXIA; J96.02 - ACUTE RESPIRATORY FAILURE WITH HYPERCAPNIA Status: Acute Comment: extubated (2) Cellulitis Code(s): L03.90 - CELLULITIS, UNSPECIFIED Status: Acute Qualifiers: Site of cellulitis: extremity Site of cellulitis of extremity: lower extremity Laterality: unspecified laterality Qualified Code(s): L03.119 - Cellulitis of unspecified part of limb (3) MSSA bacteremia Code(s): R78.81 - BACTEREMIA Status: Resolved (4) Sepsis Code(s): A41.9 - SEPSIS, UNSPECIFIED ORGANISM Status: Resolved Qualifiers: Sepsis type: methicillin susceptible Staphylococcus aureus Qualified Code(s ): A41.01 - Sepsis due to Methicillin susceptible Staphylococcus aureus (5) Diabetes mellitus type 2 in obese Code(s): E11.69 - TYPE 2 DIABETES MELLITUS WITH OTHER SPECIFIED COMPLICATION; E66.9 - OBESITY, UNSPECIFIED Status: Chronic (6) Morbid obesity Code(s): E66.01 - MORBID (SEVERE) OBESITY DUE TO EXCESS CALORIES Status: Chronic (7) Pneumonia Code(s): J18.9 - PNEUMONIA, UNSPECIFIED ORGANISM Status: Acute (8) Hypertension Code(s): I10 - ESSENTIAL (PRIMARY) HYPERTENSION Status: Chronic Qualifiers: Hypertension type: essential hypertension Qualified Code(s): I10 - Essential (primary) hypertension (9) Iffbd-rh-pzywbdr kidney injury Code(s): N17.9 - ACUTE KIDNEY FAILURE, UNSPECIFIED; N18.9 - CHRONIC KIDNEY DISEASE, UNSPECIFIED Status: Resolved Qualifiers: Acute renal failure type: unspecified Comment: Back to baseline creatinine of 2.0 - Plan cont current plan of care, continue antibiotics, PT/OT, respiratory therapy Bipap at night * . - Discharge Day Encounter end time: 14:35
[2018-03-03] MEDS: Aspirin 81 mg Enteric Coated Tablet PO SCH (20:21)
[2018-03-04] MEDS: Acetaminophen 325 MG TAB PO PRN ×2 (01:16→13:27)
[2018-03-04] MEDS: HumaLOG 300 UNITS/3 ML VIAL SC PRN ×2 (06:13→17:39)
[2018-03-04] MEDS: Mometasone/Formoterol 120 PUFF INHALER INH SCH ×2 (07:30→19:34)
[2018-03-04] MEDS ORDERED: predniSONE 20 MG TAB PO SCH ×2 (08:34→08:45)
--- NOTE | 2018-03-04 08:53 | PRG ---
DATE OF SERVICE: 03/04/2018 This morning he is awake, alert, responsive, sitting at the side of the bed. PHYSICAL EXAMINATION: VITAL SIGNS: Sats 100%, respirations 22, pulse 68, temperature 98, blood pressure 170/88. Urine out put has been good with 3085 out. CHEST: Chest revealed decreased breath sounds without any wheezing. CARDIAC: Normal S1-S2. No gallops. ABDOMEN: Soft, no masses. IMPRESSION: 1. Respiratory failure. 2. Congestive heart failure. 3. Morbid obesity. 4. Sepsis. 5. Sleep apnea. 6. Severe deconditioning. PLAN: Day 12 in the hospital with IV antibiotics. Trying to arrange for outpatient rehab versus kathleen e with home health. It is unclear whether he is going to be able to walk at home. I am going to switch him over to oral antibiotics for another several days, although 10 days should be more than adequate for his Staph sep sis which is not MRSA. Long-term prognosis is still guarded. Continue nocturnal BiPAP.
[2018-03-04] MEDS: Insulin Detemir 100 UNITS/ML 20 UNITS in Pre-Filled Syringe 1 EACH SC SCH (09:02)
[2018-03-04] MEDS: Famotidine 20 MG TAB PO SCH (09:02)
[2018-03-04] MEDS: Amiodarone 200 MG TAB PO SCH ×2 (09:03→20:50)
[2018-03-04] MEDS: Losartan 25 MG TAB PO SCH ×4 (09:03→20:50)
[2018-03-04] MEDS: hydrALAZINE 25 MG TAB PO SCH ×3 (09:03→20:50)
[2018-03-04] MEDS: Gabapentin 300 MG CAP PO SCH ×3 (09:03→20:49)
[2018-03-04] MEDS: Cefuroxime Axetil 250 MG TAB PO SCH ×2 (09:04→20:57)
[2018-03-04] MEDS: Heparin 5,000 UNITS/ML VIAL SC SCH ×6 (09:04→20:55)
[2018-03-04] MEDS: predniSONE 20 MG TAB PO SCH (09:15)
--- NOTE | 2018-03-04 09:21 | PDOC.PN ---
- Subjective Encounter Start Date: 03/04/18 Encounter Start Time: 12:40 Subjective: Patient sitting up in chair. Tolerated Bipap overnight, now on NC. -: No complaints. - Objective Resuscitation Status: Resuscitation Status FULL:Full Resuscitation MAR Reviewed: Yes Vital Signs & Weight: Vital Signs (12 hours) Temp Pulse Resp BP BP BP Pulse Ox 03/04/18 09:03 68 178/88 H 03/04/18 08:00 98.5 F 68 22 H 100 03/04/18 07:42 98.5 F 68 22 H 178/88 H 100 03/04/18 07:28 86 24 H 96 03/04/18 04:25 98.8 F 67 27 H 157/67 H 99 03/04/18 00:13 98.5 F 71 26 H 168/82 H 95 03/04/18 00:00 100 03/03/18 21:51 76 30 H 100 03/03/18 21:41 70 22 H 97 Weight Admit Weight 325 lb 2.896 oz Weight 308 lb 8 oz Most Recent Monitor Data Heart Rate from ECG 73 NIBP 174/81 NIBP BP-Mean 91 Respiration from ECG 20 SpO2 93 I&O: 03/03/18 03/04/18 03/05/18 06:59 06:59 06:59 Intake Total 1749 1550 Output Total 3085 2800 Balance -1336 -1250 Result Diagrams: 03/03/18 05:09 03/03/18 03:30 Additional Labs: Accuchecks 03/04/18 03/03/18 03/03/18 05:49 20:23 16:42 POC Glucose 171 H 266 H 239 H 03/03/18 10:37 POC Glucose 220 H Phys Exam - Physical Examination Constitutional: NAD HEENT: moist MMs Respiratory: no rales, no rhonchi occ wheeze, decent air movement bilaterally Cardiovascular: RRR Gastrointestinal: soft, positive bowel sounds Neurological: non-focal, moves all 4 limbs Psychiatric: normal affect Dx/Plan (1) Acute respiratory failure with hypoxia and hypercapnia Code(s): J96.01 - ACUTE RESPIRATORY FAILURE WITH HYPOXIA; J96.02 - ACUTE RESPIRATORY FAILURE WITH HYPERCAPNIA Status: Acute Comment: extubated (2) Cellulitis Code(s): L03.90 - CELLULITIS, UNSPECIFIED Status: Acute Qualifiers: Site of cellulitis: extremity Site of cellulitis of extremity: lower extremity Laterality: unspecified laterality Qualified Code(s): L03.119 - Cellulitis of unspecified part of limb (3) MSSA bacteremia Code(s): R78.81 - BACTEREMIA Status: Resolved (4) Sepsis Code(s): A41.9 - SEPSIS, UNSPECIFIED ORGANISM Status: Resolved Qualifiers: Sepsis type: methicillin susceptible Staphylococcus aureus Qualified Code(s ): A41.01 - Sepsis due to Methicillin susceptible Staphylococcus aureus (5) Diabetes mellitus type 2 in obese Code(s): E11.69 - TYPE 2 DIABETES MELLITUS WITH OTHER SPECIFIED COMPLICATION; E66.9 - OBESITY, UNSPECIFIED Status: Chronic (6) Morbid obesity Code(s): E66.01 - MORBID (SEVERE) OBESITY DUE TO EXCESS CALORIES Status: Chronic (7) Pneumonia Code(s): J18.9 - PNEUMONIA, UNSPECIFIED ORGANISM Status: Acute (8) Hypertension Code(s): I10 - ESSENTIAL (PRIMARY) HYPERTENSION Status: Chronic Qualifiers: Hypertension type: essential hypertension Qualified Code(s): I10 - Essential (primary) hypertension (9) Ssqsj-vu-lzntowf kidney injury Code(s): N17.9 - ACUTE KIDNEY FAILURE, UNSPECIFIED; N18.9 - CHRONIC KIDNEY DISEASE, UNSPECIFIED Status: Resolved Qualifiers: Acute renal failure type: unspecified Comment: Back to baseline creatinine of 2.0 - Plan cont current plan of care, continue antibiotics, PT/OT switched to oral abx -: patient will need rehab, but adamant he will go home * . - Discharge Day Encounter end time: 12:50
[2018-03-04] MEDS: traMADol HCl 50 MG TAB PO SCH ×2 (15:46→20:56)
[2018-03-04] MEDS: Aspirin 81 mg Enteric Coated Tablet PO SCH (20:50)
--- NOTE | 2018-03-04 22:59 | EKG ---
Test Reason : Blood Pressure : / mmHG Vent. Rate : 072 BPM Atrial Rate : 072 BPM P-R Int : 188 ms QRS Dur : 114 ms QT Int : 396 ms P-R-T Axes : 035 038 125 degrees QTc Int : 433 ms Normal sinus rhythm Inferior infarct , age undetermined T wave abnormality, consider lateral ischemia Abnormal ECG When compared with ECG of 15-DEC-2015 08:17, Inferior infarct is now Present Inverted T waves have replaced nonspecific T wave abnormality in Anterior leads Confirmed by Dana LAKE ([id number]) on 03/04/2018 10:59:04 PM Referred By: RICKIE Confirmed By:Dana LAKE
[2018-03-05] MEDS: Mometasone/Formoterol 120 PUFF INHALER INH SCH ×2 (07:48→18:52)
--- NOTE | 2018-03-05 08:28 | PDOC.PN ---
- Subjective Encounter Start Date: 03/05/18 Encounter Start Time: 08:26 Subjective: alert, cooperative, no complaints - Objective Resuscitation Status: Resuscitation Status FULL:Full Resuscitation MAR Reviewed: Yes Vital Signs & Weight: Vital Signs (12 hours) Temp Pulse Resp BP BP BP Pulse Ox 03/05/18 07:44 98.8 F 63 21 H 192/89 H 96 03/05/18 06:00 98.1 F 66 20 163/83 H 97 03/05/18 05:00 66 24 H 170/73 H 97 03/05/18 04:00 98.5 F 66 24 H 180/76 H 98 03/05/18 00:00 97.6 F 66 26 H 156/69 H 96 03/04/18 22:15 84 22 H 03/04/18 20:50 68 157/70 H Weight Admit Weight 325 lb 2.896 oz Weight 302 lb 9.6 oz Most Recent Monitor Data Heart Rate from ECG 73 NIBP 174/81 NIBP BP-Mean 91 Respiration from ECG 20 SpO2 93 I&O: 03/04/18 03/05/18 03/06/18 06:59 06:59 06:59 Intake Total 1550 1470 Output Total 2800 2420 Balance -1250 -950 Result Diagrams: 03/03/18 05:09 03/03/18 03:30 Additional Labs: Accuchecks 03/05/18 03/04/18 03/04/18 06:15 20:56 16:27 POC Glucose 155 H 187 H 208 H 03/04/18 10:34 POC Glucose 200 H Phys Exam - Physical Examination Neck: no JVD Respiratory: clear to auscultation bilateral Cardiovascular: RRR, no significant murmur Gastrointestinal: soft, non-tender, positive bowel sounds lymphedema Dx/Plan (1) Acute respiratory failure with hypoxia and hypercapnia Code(s): J96.01 - ACUTE RESPIRATORY FAILURE WITH HYPOXIA; J96.02 - ACUTE RESPIRATORY FAILURE WITH HYPERCAPNIA Status: Acute Comment: extubated (2) Cellulitis Code(s): L03.90 - CELLULITIS, UNSPECIFIED Status: Acute Qualifiers: Site of cellulitis: extremity Site of cellulitis of extremity: lower extremity Laterality: unspecified laterality Qualified Code(s): L03.119 - Cellulitis of unspecified part of limb (3) Diabetes mellitus type 2 in obese Code(s): E11.69 - TYPE 2 DIABETES MELLITUS WITH OTHER SPECIFIED COMPLICATION; E66.9 - OBESITY, UNSPECIFIED Status: Chronic (4) Morbid obesity Code(s): E66.01 - MORBID (SEVERE) OBESITY DUE TO EXCESS CALORIES Status: Chronic (5) Barfn-tr-gmgmedw kidney injury Code(s): N17.9 - ACUTE KIDNEY FAILURE, UNSPECIFIED; N18.9 - CHRONIC KIDNEY DISEASE, UNSPECIFIED Status: Resolved Qualifiers: Acute renal failure type: unspecified Comment: Back to baseline creatinine of 2.0 (6) MSSA bacteremia Code(s): R78.81 - BACTEREMIA Status: Resolved (7) Sepsis Code(s): A41.9 - SEPSIS, UNSPECIFIED ORGANISM Status: Resolved Qualifiers: Sepsis type: methicillin susceptible Staphylococcus aureus Qualified Code(s ): A41.01 - Sepsis due to Methicillin susceptible Staphylococcus aureus (8) Diabetes Code(s): E11.9 - TYPE 2 DIABETES MELLITUS WITHOUT COMPLICATIONS Status: Chronic (9) Hypertension Code(s): I10 - ESSENTIAL (PRIMARY) HYPERTENSION Status: Chronic Qualifiers: Hypertension type: essential hypertension Qualified Code(s): I10 - Essential (primary) hypertension - Plan cont iv antibx -: cont nebs, O2, etc -: cont ASA, amiodaronr, ARB, hydralazine -: discuss with pulmonology * .
[2018-03-05] MEDS: Famotidine 20 MG TAB PO SCH (08:59)
[2018-03-05] MEDS: Losartan 25 MG TAB PO SCH ×4 (09:00→20:42)
[2018-03-05] MEDS: hydrALAZINE 25 MG TAB PO SCH ×3 (09:00→20:42)
[2018-03-05] MEDS: predniSONE 20 MG TAB PO SCH (09:00)
[2018-03-05] MEDS: Gabapentin 300 MG CAP PO SCH ×4 (09:00→20:42)
[2018-03-05] MEDS: Amiodarone 200 MG TAB PO SCH ×2 (09:01→20:43)
[2018-03-05] MEDS: traMADol HCl 50 MG TAB PO SCH ×3 (09:01→20:43)
[2018-03-05] MEDS: Cefuroxime Axetil 250 MG TAB PO SCH ×2 (09:02→21:57)
[2018-03-05] MEDS: Heparin 5,000 UNITS/ML VIAL SC SCH ×6 (09:02→20:41)
[2018-03-05] MEDS: Furosemide 40 MG TAB PO SCH (09:02)
--- NOTE | 2018-03-05 09:31 | PRG ---
DATE OF SERVICE: 03/05/2018 HISTORY: This morning he is doing much better, less short of breath, less coughing, less wheezing, s itting on the side of the bed. PHYSICAL EXAMINATION: VITAL SIGNS: Blood pressure 184/79, sats are 93 on 3 liters, temperature 98, respiration rate 18. CHEST: Chest revealed decreased breath sounds, no wheezing. CARDIAC: Normal S1, S2. No gallops. ABDOMEN: Soft. EXTREMITIES: Trace edema. IMPRESSION: 1. Cor pulmonale. 2. Diastolic dysfunction. 3. Chronic obstructive pulmonary disease. 4. Morbid obesity. 5 Sleep apnea. 6. Severe deconditioning. PLAN: Awaiting placement at a rehab skilled unit. In the meantime, continue supportive weight loss. Hopefully, continue home CPAP.
[2018-03-05 10:36] LABS: Anion Gap 11 mmol/L (10-20); BUN (Urea Nitrogen) 39 mg/dL (8.4-25.7); Calc. Creatinine Clearance 75 mL/min (70-130); Carbon Dioxide 32 mmol/L (23-31); Chloride 100 mmol/L (98-107); Estimated GFR-MDRD 40; Glucose 196 mg/dL (83-110); Potassium 4.4 mmol/L (3.5-5.1); Sodium 139 mmol/L (136-145)
[2018-03-05] MEDS: Insulin Detemir 100 UNITS/ML 20 UNITS in Pre-Filled Syringe 1 EACH SC SCH (11:29)
[2018-03-05] MEDS: HumaLOG 300 UNITS/3 ML VIAL SC PRN (16:45)
[2018-03-05] MEDS: Aspirin 81 mg Enteric Coated Tablet PO SCH (20:43)
[2018-03-06] MEDS: hydrALAZINE 20 MG/ML VIAL SLOW IVP PRN (00:45)
--- NOTE | 2018-03-06 08:31 | PRG ---
DATE OF SERVICE: 03/06/2018 This morning he is awake, alert, responsive. He has still got a [place], still got an IJ. PHYSICAL EXAMINATION: VITAL SIGNS: Sats are 90 on 3 liters, respirations 17, temperature 97, blood pressure elevated 190/8 2. CHEST: Chest reveals decreased breath sounds, no wheezing. CARDIAC: Normal S1, S2. ABDOMEN: Soft, no masses. Creatinine 1.7, baseline. IMPRESSION: 1. Status post sepsis. 2. Renal failure. 3. Chronic pain. 4. Chronic stasis. 5. Morbid obesity. 6. Sleep apnea. PLAN: Continue nocturnal BiPAP, neb treatments and supportive care, eventually placement. I will follow.
[2018-03-06] MEDS: Famotidine 20 MG TAB PO SCH (08:34)
[2018-03-06] MEDS: hydrALAZINE 25 MG TAB PO SCH ×3 (08:34→20:06)
[2018-03-06] MEDS: Cefuroxime Axetil 250 MG TAB PO SCH ×2 (08:34→20:05)
[2018-03-06] MEDS: Furosemide 40 MG TAB PO SCH (08:34)
[2018-03-06] MEDS: Losartan 25 MG TAB PO SCH ×4 (08:39→20:05)
[2018-03-06] MEDS: predniSONE 20 MG TAB PO SCH (08:39)
[2018-03-06] MEDS: Gabapentin 300 MG CAP PO SCH ×3 (08:39→20:06)
[2018-03-06] MEDS: Amiodarone 200 MG TAB PO SCH ×2 (08:40→20:06)
[2018-03-06] MEDS: traMADol HCl 50 MG TAB PO SCH ×3 (08:40→20:06)
[2018-03-06] MEDS: Heparin 5,000 UNITS/ML VIAL SC SCH ×6 (08:41→20:05)
[2018-03-06] MEDS: Insulin Detemir 100 UNITS/ML 20 UNITS in Pre-Filled Syringe 1 EACH SC SCH (08:41)
[2018-03-06] MEDS: Mometasone/Formoterol 120 PUFF INHALER INH SCH ×2 (09:23→18:55)
[2018-03-06] MEDS: HumaLOG 300 UNITS/3 ML VIAL SC PRN ×2 (11:02→18:09)
--- NOTE | 2018-03-06 11:12 | PDOC.PN ---
- Subjective Encounter Start Date: 03/06/18 Encounter Start Time: 11:10 Subjective: alert, no specific complaints - Objective Resuscitation Status: Resuscitation Status FULL:Full Resuscitation MAR Reviewed: Yes Vital Signs & Weight: Vital Signs (12 hours) Temp Pulse Resp BP BP BP Pulse Ox 03/06/18 09:23 68 16 03/06/18 09:17 94 L 03/06/18 09:13 68 16 03/06/18 08:34 68 199/102 H 03/06/18 07:21 97.5 F L 68 26 H 90 L 03/06/18 07:12 97.5 F L 68 26 H 199/102 H 90 L 03/06/18 04:13 98.3 F 65 22 H 97 03/06/18 02:12 64 20 158/69 H 92 L 03/06/18 00:53 70 20 92 L 03/06/18 00:20 98.8 F 67 22 H 179/79 H 96 Weight Admit Weight 325 lb 2.896 oz Weight 316 lb 9 oz Most Recent Monitor Data Heart Rate from ECG 73 NIBP 174/81 NIBP BP-Mean 91 Respiration from ECG 20 SpO2 93 I&O: 03/05/18 03/06/18 03/07/18 06:59 06:59 06:59 Intake Total 1470 1360 Output Total 2420 3000 Balance -950 -1640 Result Diagrams: 03/03/18 05:09 03/05/18 09:34 Additional Labs: Accuchecks 03/06/18 03/06/18 03/05/18 10:19 06:05 21:41 POC Glucose 225 H 145 H 156 H 03/05/18 16:31 POC Glucose 211 H Phys Exam - Physical Examination Neck: no JVD Respiratory: clear to auscultation bilateral Cardiovascular: RRR, no significant murmur Gastrointestinal: soft, non-tender, positive bowel sounds 4+ lymphedema Dx/Plan (1) Acute respiratory failure with hypoxia and hypercapnia Code(s): J96.01 - ACUTE RESPIRATORY FAILURE WITH HYPOXIA; J96.02 - ACUTE RESPIRATORY FAILURE WITH HYPERCAPNIA Status: Acute Comment: extubated (2) Cellulitis Code(s): L03.90 - CELLULITIS, UNSPECIFIED Status: Acute Qualifiers: Site of cellulitis: extremity Site of cellulitis of extremity: lower extremity Laterality: unspecified laterality Qualified Code(s): L03.119 - Cellulitis of unspecified part of limb (3) Diabetes mellitus type 2 in obese Code(s): E11.69 - TYPE 2 DIABETES MELLITUS WITH OTHER SPECIFIED COMPLICATION; E66.9 - OBESITY, UNSPECIFIED Status: Chronic (4) Morbid obesity Code(s): E66.01 - MORBID (SEVERE) OBESITY DUE TO EXCESS CALORIES Status: Chronic (5) [id number] kidney injury Code(s): N17.9 - ACUTE KIDNEY FAILURE, UNSPECIFIED; N18.9 - CHRONIC KIDNEY DISEASE, UNSPECIFIED Status: Resolved Qualifiers: Acute renal failure type: unspecified Comment: Back to baseline creatinine of 2.0 (6) MSSA bacteremia Code(s): R78.81 - BACTEREMIA Status: Resolved (7) Sepsis Code(s): A41.9 - SEPSIS, UNSPECIFIED ORGANISM Status: Resolved Qualifiers: Sepsis type: methicillin susceptible Staphylococcus aureus Qualified Code(s ): A41.01 - Sepsis due to Methicillin susceptible Staphylococcus aureus (8) Diabetes Code(s): E11.9 - TYPE 2 DIABETES MELLITUS WITHOUT COMPLICATIONS Status: Chronic Qualifiers: Diabetes mellitus type: type 2 Diabetes mellitus complication status: with kidney complications Diabetes mellitus complication detail: with chronic kidney disease Chronic kidney disease stage: stage 3 (moderate) (9) Hypertension Code(s): I10 - ESSENTIAL (PRIMARY) HYPERTENSION Status: Chronic Qualifiers: Hypertension type: essential hypertension Qualified Code(s): I10 - Essential (primary) hypertension - Plan cont resp tx -: cont antibx, steroids -: cont lasix, amiodarone, hydralazine -: cont accu/ss/detemir * .
[2018-03-06] MEDS: Aspirin 81 mg Enteric Coated Tablet PO SCH (20:06)
[2018-03-07] MEDS: Acetaminophen 325 MG TAB PO PRN ×2 (05:57→21:22)
[2018-03-07] MEDS: hydrALAZINE 25 MG TAB PO SCH ×3 (07:52→21:24)
[2018-03-07] MEDS: Losartan 25 MG TAB PO SCH ×4 (07:52→21:24)
[2018-03-07] MEDS: Cefuroxime Axetil 250 MG TAB PO SCH ×2 (07:52→21:25)
[2018-03-07] MEDS: Famotidine 20 MG TAB PO SCH (07:53)
[2018-03-07] MEDS: Amiodarone 200 MG TAB PO SCH ×2 (07:53→21:25)
[2018-03-07] MEDS: predniSONE 20 MG TAB PO SCH (07:53)
[2018-03-07] MEDS: Furosemide 40 MG TAB PO SCH (07:53)
[2018-03-07] MEDS: traMADol HCl 50 MG TAB PO SCH ×3 (07:53→21:25)
[2018-03-07] MEDS: Gabapentin 300 MG CAP PO SCH ×3 (07:54→21:25)
[2018-03-07] MEDS: Heparin 5,000 UNITS/ML VIAL SC SCH ×6 (07:54→21:23)
[2018-03-07] MEDS: Insulin Detemir 100 UNITS/ML 20 UNITS in Pre-Filled Syringe 1 EACH SC SCH (07:54)
[2018-03-07] MEDS: Mometasone/Formoterol 120 PUFF INHALER INH SCH ×2 (09:05→18:47)
[2018-03-07 10:22] LABS: #Eosinphils 0.2 thou/uL (0.0-0.7); #Lymphocytes 0.8 thou/uL (1.20-3.40); #Monocytes 0.3 thou/uL (0.11-0.59); #Neutrophils 7.5 thou/uL (1.40-6.50); %Basophils 0.2 % (0.0-1.0); %Lymphocytes 8.7 % (21.0-51.0); %Monocytes 3.8 % (0.0-10.0); %Neutrophils 85.4 % (42.0-75.0); Hemoglobin 10.8 g/dL (14.0-18.0); Mean Corpuscular HGB CONC 31.1 g/dL (32.0-36.0); Mean Corpuscular Hemoglobin 27.9 pg (27.0-31.0); Mean Corpuscular Volume 89.8 fl (80.0-94.0); Mean Platelet Volume 6.4 fL (7.4-10.4); Platelet Count 228 thou/uL (130-400); RBC Distribution Width 14.5 % (11.5-14.5); Red Blood Cell (RBC) Count 3.87 mill/uL (4.70-6.10); White Blood Cell (WBC) Count 8.8 thou/uL (4.8-10.8)
--- NOTE | 2018-03-07 10:38 | PDOC.PN ---
- Subjective Encounter Start Date: 03/07/18 Encounter Start Time: 10:37 Subjective: no real change - Objective Resuscitation Status: Resuscitation Status FULL:Full Resuscitation MAR Reviewed: Yes Vital Signs & Weight: Vital Signs (12 hours) Temp Pulse Resp BP Pulse Ox 03/07/18 08:25 72 18 89 L 03/07/18 08:00 98.5 F 63 18 89 L 03/07/18 07:59 98.5 F 63 18 191/85 H 89 L 03/07/18 07:52 69 03/07/18 04:00 97.9 F 69 21 H 162/73 H 94 L 03/07/18 02:40 69 23 H 94 L 03/07/18 02:15 62 22 H 156/66 H 92 L 03/06/18 23:52 98.0 F 61 20 120/47 L 96 03/06/18 23:15 65 93 L 03/06/18 23:14 65 23 H 97 Weight Admit Weight 325 lb 2.896 oz Weight 316 lb 9 oz Most Recent Monitor Data Heart Rate from ECG 73 NIBP 174/81 NIBP BP-Mean 91 Respiration from ECG 20 SpO2 93 I&O: 03/06/18 03/07/18 03/08/18 06:59 06:59 06:59 Intake Total 1360 1550 Output Total 3000 1600 Balance -1640 -50 Result Diagrams: 03/07/18 10:13 03/05/18 09:34 Additional Labs: Accuchecks 03/07/18 03/06/18 03/06/18 05:48 20:04 16:30 POC Glucose 147 H 197 H 212 H Phys Exam - Physical Examination Neck: no JVD Respiratory: clear to auscultation bilateral Cardiovascular: RRR, no significant murmur Gastrointestinal: soft, positive bowel sounds 3+ lymphedema Dx/Plan (1) Acute respiratory failure with hypoxia and hypercapnia Code(s): J96.01 - ACUTE RESPIRATORY FAILURE WITH HYPOXIA; J96.02 - ACUTE RESPIRATORY FAILURE WITH HYPERCAPNIA Status: Acute Comment: extubated (2) Cellulitis Code(s): L03.90 - CELLULITIS, UNSPECIFIED Status: Acute Qualifiers: Site of cellulitis: extremity Site of cellulitis of extremity: lower extremity Laterality: unspecified laterality Qualified Code(s): L03.119 - Cellulitis of unspecified part of limb (3) Diabetes mellitus type 2 in obese Code(s): E11.69 - TYPE 2 DIABETES MELLITUS WITH OTHER SPECIFIED COMPLICATION; E66.9 - OBESITY, UNSPECIFIED Status: Chronic (4) Morbid obesity Code(s): E66.01 - MORBID (SEVERE) OBESITY DUE TO EXCESS CALORIES Status: Chronic (5) Fdsjf-es-[id number] kidney injury Code(s): N17.9 - ACUTE KIDNEY FAILURE, UNSPECIFIED; N18.9 - CHRONIC KIDNEY DISEASE, UNSPECIFIED Status: Resolved Qualifiers: Acute renal failure type: unspecified Comment: Back to baseline creatinine of 2.0 (6) MSSA bacteremia Code(s): R78.81 - BACTEREMIA Status: Resolved (7) Sepsis Code(s): A41.9 - SEPSIS, UNSPECIFIED ORGANISM Status: Resolved Qualifiers: Sepsis type: methicillin susceptible Staphylococcus aureus Qualified Code(s ): A41.01 - Sepsis due to Methicillin susceptible Staphylococcus aureus (8) Diabetes Code(s): E11.9 - TYPE 2 DIABETES MELLITUS WITHOUT COMPLICATIONS Status: Chronic Qualifiers: Diabetes mellitus type: type 2 Diabetes mellitus complication status: with kidney complications Diabetes mellitus complication detail: with chronic kidney disease Chronic kidney disease stage: stage 3 (moderate) (9) Hypertension Code(s): I10 - ESSENTIAL (PRIMARY) HYPERTENSION Status: Chronic Qualifiers: Hypertension type: essential hypertension Qualified Code(s): I10 - Essential (primary) hypertension - Plan O2 sat 89 on O2 todat- rpt cxr, cbc, bmp -: discuss with pulmonology * .
[2018-03-07 10:48] LABS: Anion Gap 15 mmol/L (10-20); BUN (Urea Nitrogen) 29 mg/dL (8.4-25.7); Calc. Creatinine Clearance 82 mL/min (70-130); Calcium 8.9 mg/dL (7.8-10.44); Carbon Dioxide 29 mmol/L (23-31); Chloride 96 mmol/L (98-107); Estimated GFR-MDRD 42; Glucose 177 mg/dL (83-110); Potassium 4.4 mmol/L (3.5-5.1); Sodium 136 mmol/L (136-145)
--- NOTE | 2018-03-07 13:12 | RAD ---
AP VIEW OF THE CHEST: INDICATION: Hypoxemia. COMPARISON: Prior exam dated 03/02/18. FINDINGS: Previously seen right internal jugular central venous catheter has been removed. There is moderate c ardiomegaly with mild pulmonary vascular congestion. There is stable moderate right pleural effusion . No pneumothorax evident. IMPRESSION: Stable exam. POS: [facility]
--- NOTE | 2018-03-07 16:54 | PDOC.EVN ---
Event Note - Event Note Event Note: cxr,cbc, cmp unrevealing. cont current tx
[2018-03-07] MEDS: Aspirin 81 mg Enteric Coated Tablet PO SCH (21:25)
--- NOTE | 2018-03-07 21:28 | PRG ---
DATE OF SERVICE: 03/07/2018 SUBJECTIVE: Mr. Brady is awake and in no distress. OBJECTIVE: VITAL SIGNS: He is afebrile, heart rate is 67, respiratory rate is 20, and oximetry is 97 on 3 liter s, intermittently hypertensive. LUNGS: Clear. HEART: Regular rhythm. ABDOMEN: Soft. No new positive cultures. Cultures from the th were positive, cultures from the were negative at 5 days. IMPRESSION: 1. Staphylococcus bacteremia. 2. Obesity. 3. Deconditioning. 4. Sleep apnea. Continue with nocturnal BiPAP. 5. Cellulitis. 6. Diabetes. 7. Acute on chronic kidney injury that has recovered. 8. Hypertension, still not completely controlled. PLAN: Continue nocturnal BiPAP. Continue antimicrobial therapy, steroids, diuresis, and attempts to controlling blood pressure.
[2018-03-08] MEDS: Mometasone/Formoterol 120 PUFF INHALER INH SCH ×2 (06:06→18:34)
[2018-03-08] MEDS: Losartan 25 MG TAB PO SCH ×4 (08:55→20:01)
[2018-03-08] MEDS: Famotidine 20 MG TAB PO SCH (08:55)
[2018-03-08] MEDS: Cefuroxime Axetil 250 MG TAB PO SCH ×2 (08:56→20:01)
[2018-03-08] MEDS: traMADol HCl 50 MG TAB PO SCH ×3 (08:56→21:15)
[2018-03-08] MEDS: Gabapentin 300 MG CAP PO SCH ×3 (08:56→20:01)
[2018-03-08] MEDS: predniSONE 20 MG TAB PO SCH (08:56)
[2018-03-08] MEDS: Amiodarone 200 MG TAB PO SCH ×2 (08:56→20:01)
[2018-03-08] MEDS: hydrALAZINE 25 MG TAB PO SCH ×3 (08:56→20:01)
[2018-03-08] MEDS: Furosemide 40 MG TAB PO SCH (08:58)
[2018-03-08] MEDS: Heparin 5,000 UNITS/ML VIAL SC SCH ×6 (08:58→20:05)
[2018-03-08] MEDS: Insulin Detemir 100 UNITS/ML 20 UNITS in Pre-Filled Syringe 1 EACH SC SCH (08:58)
--- NOTE | 2018-03-08 12:15 | PDOC.PN ---
- Subjective Encounter Start Date: 03/08/18 Encounter Start Time: 12:13 Patient seen and examined, no new issues or complaints, admits to feeling better but still complains about his mask. at bedside, all questions answered. - Objective Resuscitation Status: Resuscitation Status FULL:Full Resuscitation Vital Signs & Weight: Vital Signs (12 hours) Temp Pulse Resp BP BP Pulse Ox 03/08/18 11:06 98.5 F 03/08/18 10:30 63 20 153/64 H 89 L 03/08/18 08:56 65 03/08/18 08:20 98.2 F 65 24 H 93 L 03/08/18 07:14 98.2 F 65 24 H 175/82 H 95 03/08/18 06:04 69 22 H 94 L 03/08/18 04:16 98.8 F 67 28 H 126/64 93 L 03/08/18 03:30 79 30 H 185/75 H 94 L 03/08/18 00:25 60 21 H 93 L Weight Admit Weight 325 lb 2.896 oz Weight 317 lb 1 oz Most Recent Monitor Data Heart Rate from ECG 73 NIBP 174/81 NIBP BP-Mean 91 Respiration from ECG 20 SpO2 93 I&O: 03/07/18 03/08/18 03/09/18 06:59 06:59 06:59 Intake Total 1550 1860 240 Output Total 1600 750 Balance -50 1110 240 Result Diagrams: 03/07/18 10:13 03/07/18 10:13 Additional Labs: Accuchecks 03/08/18 03/08/18 03/07/18 11:06 05:56 21:18 POC Glucose 153 H 151 H 162 H 03/07/18 16:54 POC Glucose 192 H Phys Exam - Physical Examination Constitutional: NAD obese HEENT: PERRLA, moist MMs, sclera anicteric Neck: no nodes, no JVD, supple Respiratory: no wheezing, no rales, no rhonchi Cardiovascular: RRR, no significant murmur, no rub Gastrointestinal: soft, non-tender, no distention Musculoskeletal: pulses present, edema present (1+pitting) decreased sensation B/L LE Dx/Plan (1) Acute respiratory failure with hypoxia and hypercapnia Code(s): J96.01 - ACUTE RESPIRATORY FAILURE WITH HYPOXIA; J96.02 - ACUTE RESPIRATORY FAILURE WITH HYPERCAPNIA Status: Acute Comment: extubated (2) Cellulitis Code(s): L03.90 - CELLULITIS, UNSPECIFIED Status: Acute Qualifiers: Site of cellulitis: extremity Site of cellulitis of extremity: lower extremity Laterality: unspecified laterality Qualified Code(s): L03.119 - Cellulitis of unspecified part of limb (3) Diabetes mellitus type 2 in obese Code(s): E11.69 - TYPE 2 DIABETES MELLITUS WITH OTHER SPECIFIED COMPLICATION; E66.9 - OBESITY, UNSPECIFIED Status: Chronic (4) Morbid obesity Code(s): E66.01 - MORBID (SEVERE) OBESITY DUE TO EXCESS CALORIES Status: Chronic (5) Pneumonia Code(s): J18.9 - PNEUMONIA, UNSPECIFIED ORGANISM Status: Acute (6) Hypertension Code(s): I10 - ESSENTIAL (PRIMARY) HYPERTENSION Status: Chronic Qualifiers: Hypertension type: essential hypertension Qualified Code(s): I10 - Essential (primary) hypertension - Plan * ok to move to floor if ok with pulmonary team, patient's O2 sats were in the upper 80s yesterday, will benefit from telemetry monitoring if patient moved to floor, will await pulmonary recs prior to transfer * continue current plan of care otherwise with no changes for now * case and plan d/w patient and at length, they understand and agree with this plan
--- NOTE | 2018-03-08 15:07 | PRG ---
DATE OF SERVICE: 03/08/2018 Caitlyn is afebrile, heart rate 65, respiratory rate 24, oximetry is 95 on 4 liters, blood pressure 153/64. His lungs are clear. Heart is regular rhythm. Abdomen is soft. He did wear CPAP/BiPAP last night. IMPRESSION: 1. Staphylococcus aureus bacteremia. 2. Obesity. 3. Deconditioning. 4. Sleep apnea. 5. Cellulitis. 6. Diabetes. 7. Acute on chronic kidney disease, it has improved. 8. Hypertension. PLAN: Continue nocturnal BiPAP. Physical therapy, antimicrobial care. He is stable to move out of the intermediate care unit in my opinion.
[2018-03-08] MEDS: HumaLOG 300 UNITS/3 ML VIAL SC PRN (16:25)
[2018-03-08] MEDS: Aspirin 81 mg Enteric Coated Tablet PO SCH (20:02)
[2018-03-09] MEDS: Acetaminophen 325 MG TAB PO PRN (05:13)
[2018-03-09] MEDS: HYDROcodone/Acetaminophen 5/325 mg Tablet PO PRN ×2 (06:40→20:29)
[2018-03-09] MEDS ORDERED: predniSONE 20 MG TAB PO SCH (08:22)
--- NOTE | 2018-03-09 08:40 | PRG ---
DATE OF SERVICE: 03/09/2018 This morning, the patient is awake, alert, responsive, in no distress. PHYSICAL EXAMINATION: VITAL SIGNS: Sats are 90% on 3 liters, respiration 22, temperature 97, blood pressure 150/71. CHEST: Chest revealed decreased breath sounds, no wheezing. CARDIAC: Normal S1, S2. ABDOMEN: Soft, no masses. IMPRESSION: 1. Chronic obstructive pulmonary disease. 2. Congestive heart failure. 3. Obstructive sleep apnea, improved. 4. Morbid obesity. 5. Diabetes. PLAN: From the pulmonary standpoint of view, he awaiting placement. Continue weight loss. Continue nocturnal BiPAP. Prognosis is guarded.
[2018-03-09] MEDS: Mometasone/Formoterol 120 PUFF INHALER INH SCH ×2 (08:41→19:23)
[2018-03-09] MEDS: predniSONE 5 MG TAB PO SCH (10:02)
[2018-03-09] MEDS: Losartan 25 MG TAB PO SCH ×4 (10:02→20:28)
[2018-03-09] MEDS: Amiodarone 200 MG TAB PO SCH ×2 (10:03→20:26)
[2018-03-09] MEDS: hydrALAZINE 25 MG TAB PO SCH ×3 (10:03→20:27)
[2018-03-09] MEDS: Furosemide 40 MG TAB PO SCH (10:03)
[2018-03-09] MEDS: Famotidine 20 MG TAB PO SCH (10:03)
[2018-03-09] MEDS: traMADol HCl 50 MG TAB PO SCH ×3 (10:04→20:28)
[2018-03-09] MEDS: Gabapentin 300 MG CAP PO SCH ×3 (10:04→20:27)
[2018-03-09] MEDS: Heparin 5,000 UNITS/ML VIAL SC SCH ×6 (10:05→20:27)
[2018-03-09] MEDS: Cefuroxime Axetil 250 MG TAB PO SCH (10:06)
[2018-03-09] MEDS: Insulin Detemir 100 UNITS/ML 20 UNITS in Pre-Filled Syringe 1 EACH SC SCH (10:08)
[2018-03-09] MEDS: predniSONE 20 MG TAB PO SCH (10:19)
[2018-03-09 13:14] VITALS: BMI 41.5
[2018-03-09] MEDS: HumaLOG 300 UNITS/3 ML VIAL SC PRN (17:55)
[2018-03-09] MEDS: Aspirin 81 mg Enteric Coated Tablet PO SCH (20:26)
--- NOTE | 2018-03-09 21:48 | PDOC.PN ---
- Subjective Encounter Start Date: 03/09/18 Encounter Start Time: 15:30 Patient seen and examined. No new complaints. No overnight events - Objective Resuscitation Status: Resuscitation Status FULL:Full Resuscitation MAR Reviewed: Yes Vital Signs & Weight: Vital Signs (12 hours) Temp Pulse Resp BP BP BP BP 03/09/18 20:27 67 159/73 H 03/09/18 20:00 97.7 F 67 20 159/73 H 03/09/18 19:23 72 22 H 03/09/18 19:20 72 22 H 03/09/18 18:20 74 22 H 03/09/18 16:00 98.0 F 73 20 159/73 H 03/09/18 14:51 69 169/75 H 03/09/18 12:00 97.9 F 61 20 154/72 H 03/09/18 11:30 69 22 H 03/09/18 10:03 71 168/69 H Pulse Ox 03/09/18 20:27 03/09/18 20:00 98 03/09/18 19:23 95 03/09/18 19:20 95 03/09/18 18:20 95 03/09/18 16:00 92 L 03/09/18 14:51 03/09/18 12:00 93 L 03/09/18 11:30 93 L 03/09/18 10:03 Weight Admit Weight 325 lb 2.896 oz Weight 314 lb 12.8 oz Most Recent Monitor Data Heart Rate from ECG 73 NIBP 174/81 NIBP BP-Mean 91 Respiration from ECG 20 SpO2 93 I&O: 03/08/18 03/09/18 03/10/18 06:59 06:59 06:59 Intake Total 1860 1440 Output Total 750 1450 600 Balance 1110 -10 -600 Result Diagrams: 03/10/18 04:44 03/10/18 04:44 Additional Labs: Accuchecks 03/09/18 03/09/18 03/09/18 20:26 16:42 11:04 POC Glucose 150 H 192 H 155 H 03/09/18 06:22 POC Glucose 145 H Phys Exam - Physical Examination Constitutional: NAD Respiratory: no wheezing, no rhonchi Cardiovascular: RRR, no rub Gastrointestinal: soft, non-tender, positive bowel sounds Musculoskeletal: edema present Dx/Plan - Plan DVT proph w/SCDs IMPRESSON: 1. Septic shock/Acute hypoxic-hypercapnic respiratory failure/Toxic Metabolic Encephalopathy - improving 2. RILEY - on CPAP at home 3. Staph bacteremia - ?source - prob from cellulitis 4. Morbid obesity BMI 41.7 5. [place] on CKD 3 / DM2/ HTN / Other issues per previous note PLAN: * * Cont noctural BIPAP. * Dr Yvonne chris with home CPAP at [facility] * Will d/w Dr Figueroa if he needs suppressive antibiotics prior to discharge (Per Dr He's note 02/21 - patient may need MESSI) * Cont current meds as below Review of Systems - Review of Systems Respiratory: SOB with Excertion. negative: Cough, Dry, Shortness of Breath, Hemoptysis, Pleuritic Pain, Sputum, Wheezing Cardiovascular: negative: chest pain, palpitations, orthopnea, paroxysmal nocturnal dyspnea, edema, light headedness, other - Medications/Allergies Allergies/Adverse Reactions: Allergies Allergy/AdvReac Type Severity Reaction Status Date / Time No Known Allergies Allergy Verified 02/20/18 01:35 Medications: Current Medications Acetaminophen (Tylenol) 650 mg MS Q4H PRN PRN Reason: Headache/Fever or Mild Pain Last Admin: 02/22/18 23:01 Dose: 650 mg Acetaminophen (Tylenol) 650 mg PO Q6H PRN PRN Reason: Headache/Fever or Pain Last Admin: 03/09/18 05:13 Dose: 650 mg Hydrocodone Bitart/Acetaminophen ([place] 5/325) 1 tab PO Q4H PRN PRN Reason: Pain Last Admin: 03/09/18 20:29 Dose: 1 tab Albuterol/Ipratropium (Duoneb) 3 ml NEB [id number] MARTA Last Admin: 03/09/18 19:20 Dose: 3 ml Amiodarone HCl (Cordarone) 200 mg PO BID MARTA Last Admin: 03/09/18 20:26 Dose: 200 mg Aspirin (Ecotrin) 81 mg PO HS MARTA Last Admin: 03/09/18 20:26 Dose: 81 mg Dextrose/Water (Dextrose 50%) 25 gm SLOW IVP PRN PRN PRN Reason: Hypoglycemia Famotidine (Pepcid) 20 mg PO DAILY MARTA Last Admin: 03/09/18 10:03 Dose: 20 mg Furosemide (Lasix) 40 mg PO DAILY-AC MARTA Last Admin: 03/09/18 10:03 Dose: 40 mg Gabapentin (Neurontin) 300 mg PO TID [facility] Last Admin: 03/09/18 20:27 Dose: 300 mg Glucagon (Glucagon) 1 mg IM PRN PRN PRN Reason: Hypoglycemia Heparin Sodium (Porcine) (Heparin) 5,000 units SC TID [facility] Last Admin: 03/09/18 20:27 Dose: 5,000 units Hydralazine HCl (Apresoline) 50 mg PO TID [facility] Last Admin: 03/09/18 20:27 Dose: 50 mg Hydralazine HCl (Apresoline) 10 mg SLOW IVP Q4H PRN PRN Reason: Blood Pressure Last Admin: 03/06/18 00:45 Dose: 10 mg Dextrose/Water (D5w) 1,000 mls @ 0 mls/hr IV .Q0M PRN; As Directed PRN Reason: Hypoglycemia Insulin Detemir 20 units/ (Miscellaneous Medication) 0.2 mls @ 0 mls/hr SC QAM [facility] Last Admin: 03/09/18 10:08 Dose: 0.2 mls Insulin Human Lispro (Humalog) 0 units SC .MILD SLIDING SCALE PRN PRN Reason: Mild Correctional Scale Last Admin: 03/09/18 17:55 Dose: 2 unit Insulin Human Lispro (Humalog) 0 units SC .BEDTIME SLIDING SC PRN PRN Reason: Bedtime Correctional Scale Last Admin: 03/03/18 20:29 Dose: 3 unit Losartan Potassium (Cozaar) 50 mg PO BID [facility] Last Admin: 03/09/18 20:28 Dose: 50 mg Mometasone Furoate/Formoterol Fumar (Dulera 200 Mcg/5 Mcg Inhaler) 2 puff INH BID-RT [facility] Last Admin: 03/09/18 19:23 Dose: 2 puff Ondansetron HCl (Zofran Odt) 4 mg PO Q6H PRN PRN Reason: Nausea/Vomiting Ondansetron HCl (Zofran) 4 mg IVP Q6H PRN PRN Reason: Nausea/Vomiting Prednisone (Prednisone) 5 mg PO DAILY [facility] Stop: 03/10/18 09:01 Last Admin: 03/09/18 10:02 Dose: 5 mg Sodium Chloride (Flush - Normal Saline) 10 ml IVF Q12HR [facility] Last Admin: 03/09/18 20:28 Dose: 10 ml Sodium Chloride (Flush - Normal Saline) 10 ml IVF PRN PRN PRN Reason: Saline Flush Tramadol HCl (Ultram) 50 mg PO TID [facility] Last Admin: 03/09/18 20:28 Dose: 50 mg
[2018-03-10 05:15] LABS: #Eosinphils 0.1 thou/uL (0.0-0.7); #Lymphocytes 0.5 thou/uL (1.20-3.40); #Monocytes 0.4 thou/uL (0.11-0.59); #Neutrophils 4.2 thou/uL (1.40-6.50); %Basophils 0.5 % (0.0-1.0); %Lymphocytes 9.8 % (21.0-51.0); %Monocytes 7.6 % (0.0-10.0); %Neutrophils 80.2 % (42.0-75.0); Hemoglobin 9.9 g/dL (14.0-18.0); Mean Corpuscular HGB CONC 31.1 g/dL (32.0-36.0); Mean Corpuscular Hemoglobin 28.4 pg (27.0-31.0); Mean Corpuscular Volume 91.3 fl (80.0-94.0); Platelet Count 161 thou/uL (130-400); RBC Distribution Width 14.9 % (11.5-14.5); Red Blood Cell (RBC) Count 3.49 mill/uL (4.70-6.10); White Blood Cell (WBC) Count 5.2 thou/uL (4.8-10.8)
[2018-03-10 05:42] LABS: Albumin 3.5 g/dL (3.4-4.8); Anion Gap 11 mmol/L (10-20); BUN (Urea Nitrogen) 24 mg/dL (8.4-25.7); BUN/Creatinine Ratio 15.29; Calc. Creatinine Clearance 85 mL/min (70-130); Calcium 8.6 mg/dL (7.8-10.44); Carbon Dioxide 36 mmol/L (23-31); Chloride 95 mmol/L (98-107); Estimated GFR-MDRD 44; Glucose 127 mg/dL (83-110); Magnesium 1.7 mg/dL (1.6-2.6); Phosphorus 3.9 mg/dL (2.3-4.7); Potassium 4.2 mmol/L (3.5-5.1); Sodium 138 mmol/L (136-145)
[2018-03-10] MEDS: Mometasone/Formoterol 120 PUFF INHALER INH SCH (06:57)
[2018-03-10] MEDS: predniSONE 5 MG TAB PO SCH (07:54)
[2018-03-10] MEDS: hydrALAZINE 25 MG TAB PO SCH ×2 (07:55→14:33)
[2018-03-10] MEDS: Losartan 25 MG TAB PO SCH ×2 (07:55)
[2018-03-10] MEDS: Furosemide 40 MG TAB PO SCH (07:55)
[2018-03-10] MEDS: Gabapentin 300 MG CAP PO SCH ×2 (07:56→14:34)
[2018-03-10] MEDS: Amiodarone 200 MG TAB PO SCH (07:56)
[2018-03-10] MEDS: traMADol HCl 50 MG TAB PO SCH ×2 (07:56→14:33)
[2018-03-10] MEDS: Heparin 5,000 UNITS/ML VIAL SC SCH ×4 (07:57→14:34)
[2018-03-10] MEDS: Famotidine 20 MG TAB PO SCH (10:04)
[2018-03-10] MEDS: Insulin Detemir 100 UNITS/ML 20 UNITS in Pre-Filled Syringe 1 EACH SC SCH (10:05)
[2018-03-10] MEDS: HumaLOG 300 UNITS/3 ML VIAL SC PRN (12:09)
--- NOTE | 2018-03-10 12:09 | PDOC.PN ---
- Subjective Encounter Start Date: 03/10/18 Encounter Start Time: 12:08 Subjective: up, comfortable on O2 per NC - Objective Resuscitation Status: Resuscitation Status FULL:Full Resuscitation MAR Reviewed: Yes Vital Signs & Weight: Vital Signs (12 hours) Temp Pulse Resp BP BP Pulse Ox 03/10/18 08:00 97.9 F 67 20 93 L 03/10/18 07:55 67 154/72 H 03/10/18 07:49 97.9 F 67 20 154/72 H 03/10/18 06:58 80 16 03/10/18 04:26 96 03/10/18 04:17 70 23 H 96 03/10/18 00:49 70 21 H 96 Weight Admit Weight 325 lb 2.896 oz Weight 316 lb 4.8 oz Most Recent Monitor Data Heart Rate from ECG 73 NIBP 174/81 NIBP BP-Mean 91 Respiration from ECG 20 SpO2 93 I&O: 03/09/18 03/10/18 03/11/18 06:59 06:59 06:59 Intake Total 1440 60 Output Total 1450 700 Balance -10 -640 Result Diagrams: 03/10/18 04:44 03/10/18 04:44 Additional Labs: Accuchecks 03/10/18 03/10/18 03/09/18 11:33 05:26 20:26 POC Glucose 179 H 141 H 150 H 03/09/18 16:42 POC Glucose 192 H Phys Exam - Physical Examination Neck: no JVD dacreased BS, no focal Cardiovascular: RRR, no significant murmur Gastrointestinal: soft, positive bowel sounds marked lymphedema Dx/Plan (1) Acute respiratory failure with hypoxia and hypercapnia Code(s): J96.01 - ACUTE RESPIRATORY FAILURE WITH HYPOXIA; J96.02 - ACUTE RESPIRATORY FAILURE WITH HYPERCAPNIA Status: Acute Comment: extubated (2) Cellulitis Code(s): L03.90 - CELLULITIS, UNSPECIFIED Status: Acute Qualifiers: Site of cellulitis: extremity Site of cellulitis of extremity: lower extremity Laterality: unspecified laterality Qualified Code(s): L03.119 - Cellulitis of unspecified part of limb (3) Diabetes mellitus type 2 in obese Code(s): E11.69 - TYPE 2 DIABETES MELLITUS WITH OTHER SPECIFIED COMPLICATION; E66.9 - OBESITY, UNSPECIFIED Status: Chronic (4) Morbid obesity Code(s): E66.01 - MORBID (SEVERE) OBESITY DUE TO EXCESS CALORIES Status: Chronic (5) [id number] kidney injury Code(s): N17.9 - ACUTE KIDNEY FAILURE, UNSPECIFIED; N18.9 - CHRONIC KIDNEY DISEASE, UNSPECIFIED Status: Resolved Qualifiers: Acute renal failure type: unspecified Comment: Back to baseline creatinine of 2.0 (6) MSSA bacteremia Code(s): R78.81 - BACTEREMIA Status: Resolved (7) Sepsis Code(s): A41.9 - SEPSIS, UNSPECIFIED ORGANISM Status: Resolved Qualifiers: Sepsis type: methicillin susceptible Staphylococcus aureus Qualified Code(s ): A41.01 - Sepsis due to Methicillin susceptible Staphylococcus aureus (8) Diabetes Code(s): E11.9 - TYPE 2 DIABETES MELLITUS WITHOUT COMPLICATIONS Status: Chronic Qualifiers: Diabetes mellitus type: type 2 Diabetes mellitus complication status: with kidney complications Diabetes mellitus complication detail: with chronic kidney disease Chronic kidney disease stage: stage 3 (moderate) (9) Hypertension Code(s): I10 - ESSENTIAL (PRIMARY) HYPERTENSION Status: Chronic Qualifiers: Hypertension type: essential hypertension Qualified Code(s): I10 - Essential (primary) hypertension - Plan cont amiodarone, lasix, ARB -: cont nbs, Nocturnal BIPAP -: DC planning * .
--- NOTE | 2018-03-10 12:46 | PRG ---
DATE OF SERVICE: 03/10/2018 SUBJECTIVE: Mr. Tiffani Brady is doing much better, walking around the bed. OBJECTIVE: VITAL SIGNS: Sats are 96% on 4 liters, respiratory rate 20, temperature is 97, blood pressure 154/72 . CHEST: Reveals decreased breath sounds, no wheezing. CARDIAC: Normal S1 and S2. ABDOMEN: Soft. EXTREMITIES: Revealed chronic stasis changes. IMPRESSION: 1. Staph sepsis. Received 2 weeks of IV antibiotics, which has been more than adequate. 2. Diastolic dysfunction. 3. Morbid obesity. 4. Obstructive sleep apnea PLAN: He needs to go to the rehabilitation. Eventually, home thereafter. Continue antibiotics as prescribed.
--- NOTE | 2018-03-10 14:17 | DIS ---
TRANSFER OF CARE NOTE DATE OF ADMISSION: 02/20/2018 DATE OF DISCHARGE: 03/10/2018 DISCHARGE DISPOSITION: Discharged to [facility] bed. PRIMARY CARE PROVIDER: Dr. Lisset Hadley FINAL DIAGNOSES: 1. Acute on chronic respiratory failure. 2. Bacteremia with methicillin-susceptible Staphylococcus aureus. 3. Diabetes mellitus type 2. 4. Acute kidney failure on chronic kidney disease. 5. Hypertension. 6. Obstructive sleep apnea. 7. History of V-tach. 8. Hypertension. 9. Pneumonia. 10. Septic shock. DISCHARGE MEDICATIONS: Aspirin 81 mg a day, hydralazine 50 mg 3 times a day, Spiriva HandiHaler 18 m cg daily, lovastatin 20 mg a day, Neurontin 300 mg 3 times a day, TriCor 160 mg a day, tramadol 50 mg p.o. t.i.d. p.r.n., Cozaar 50 mg p.o. b.i.d., DuoNeb 3 mL q.6 hours p.r.n., detemir 20 units subcu q .a.m., gabapentin 300 mg p.o. t.i.d., Lasix 40 mg a day, Pepcid 20 mg a day, amiodarone 200 mg twice a day, Tylenol 650 mg p.o. q.4. p.r.n., hydrocodone 5/325 one q.4h. p.r.n. ALLERGIES: No known drug allergies. PENDING AT THE TIME OF DISCHARGE: Nothing. CODE STATUS: Full resuscitation. HOSPITAL COURSE: The patient was admitted to [facility] through the emergency department to the [facility]. The patient presented with altered mental status, mult iple medical problems, was found to be in septic shock. He was admitted to the Critical Care Unit, started on sepsis protocol with saline bolus, Levophed infusion to maintain blood pressure. He was i ntubated, placed on SIMV. He had acute kidney injury on top of chronic kidney disease stage 5 with a creatinine of 3.55. He was encephalopathic. He was placed on Accu-Cheks, sliding scale. He was se en in consultation by Dr. Jalil Richard, Cardiology, Dr. Good He, Pulmonology and eventually Jake Franklin, Nephrology. On day 2 of his hospital stay he was responsive. His white count was 15.2, he was continued on ventilation support. The patient was being empirically treated for pulmona ry embolus until he could undergo a VQ scan. The patient had elevated troponins. Echo was ordered o n 02/22/2018. The patient was still ventilated, temperatures as high as 100.9. Cultures grew out MS BRYAN, treated with appropriate antibiotics. Continued monitoring and aggressive treatment of pulmonary status. On 02/25/2018 the patient had been extubated. Discontinued antibiotics. His white count w as down to 8.7, creatinine dropped to 3.16. Ceftriaxone was continued. He was still encephalopathic . Blood pressure was treated aggressively. On 02/28/2018 he was weak. He was able to stand, but he was alert. His white count was still normal. Creatinine was down to 2.36. He had coarse breath so unds, decreased at the bases. His x-rays were never read as definite pneumonia; however, Pulmonology and myself saw changes in the right lower lobe we considered infiltrate and I consider that this pat ient's sepsis was from pneumonia; however, it was felt that his MSSA bacteremia came from his legs. He has marked lymphedema with some open lesions. By 03/06/2018 the patient was alert with no complai nts. Blood pressure was still a bit labile. He was afebrile. White count was still low at 9.1. Cr eatinine was down to 1.70. The patient was on BiPAP at night, O2 4 liters nasal cannula in the dayti me. Chest had some decreased breath sounds with rhonchi, but no focal findings at that time. Willy camacho, the patient is alert, sitting on the side of the bed, desirous of getting out of the hospital. However, he is not at status such he could go home and he is being moved to the [facility] unde r the care of his primary care provider, Dr. Lisset Hadley. He is in no distress. His bloo d sugars are running 141-179. His blood pressure is controlled. He is off antibiotics with no evide nce of fever or recurrence. No procedures were done. The patient is being transferred to [facility] under the care of Dr. Hadley. He will be followed there. Further follow up will be per Dr. Hadley. Thirty-five minutes spent preparing this discharge.
[2018-03-10 14:28] VITALS: BP 147/67; TEMP 97.6
== END 2018-03-10 15:41 | disposition swing bed (61) | DRG 870 ==
LOC: ERS 21:33 → CCU 02-20 00:11 → IMCU/EMU 03-02 16:24 → T4-B 03-09 08:51
PROVIDERS: ADMIT Family Medicine; ATTEND Family Medicine
PROC: 02HV33Z Insertion of Infusion Device into Superior Vena Cava, Percutaneous Approach (ICD-10-PCS; principal; 2018-02-20)
PROC: 5A1955Z Respiratory Ventilation, Greater than 96 Consecutive Hours (ICD-10-PCS; 2018-02-20)
DX: A41.01 Sepsis due to Methicillin susceptible Staphylococcus aureus (principal); J96.21 Acute and chronic respiratory failure with hypoxia; R65.21 Severe sepsis with septic shock; J18.9 Pneumonia, unspecified organism; G93.41 Metabolic encephalopathy; I50.33 Acute on chronic diastolic (congestive) heart failure; N17.9 Acute kidney failure, unspecified; I13.0 Hypertensive heart and chronic kidney disease with heart failure and stage 1 through stage 4 chronic kidney disease, or unspecified chronic kidney disease; J96.22 Acute and chronic respiratory failure with hypercapnia; L89.893 Pressure ulcer of other site, stage 3; I47.1 Supraventricular tachycardia; Z68.41 Body mass index [BMI] 40.0-44.9, adult; J44.0 Chronic obstructive pulmonary disease with (acute) lower respiratory infection; E87.0 Hyperosmolality and hypernatremia; L03.116 Cellulitis of left lower limb; L03.115 Cellulitis of right lower limb; I24.8 Other forms of acute ischemic heart disease; J44.1 Chronic obstructive pulmonary disease with (acute) exacerbation; E11.22 Type 2 diabetes mellitus with diabetic chronic kidney disease; I95.9 Hypotension, unspecified; E11.621 Type 2 diabetes mellitus with foot ulcer; E66.01 Morbid (severe) obesity due to excess calories; I27.81 Cor pulmonale (chronic); Z99.81 Dependence on supplemental oxygen; N18.3 Chronic kidney disease, stage 3 (moderate); G47.33 Obstructive sleep apnea (adult) (pediatric); Z79.4 Long term (current) use of insulin; E78.5 Hyperlipidemia, unspecified; Z85.038 Personal history of other malignant neoplasm of large intestine; Z79.82 Long term (current) use of aspirin; Z79.51 Long term (current) use of inhaled steroids; Z87.891 Personal history of nicotine dependence; I87.8 Other specified disorders of veins; L97.529 Non-pressure chronic ulcer of other part of left foot with unspecified severity; L97.519 Non-pressure chronic ulcer of other part of right foot with unspecified severity; I07.1 Rheumatic tricuspid insufficiency; Z78.1 Physical restraint status; L89.892 Pressure ulcer of other site, stage 2
CPT/HCPCS: 36415; 36416; 36556; 71045; 80048; 80053; 80069; 80202; 82533; 82570; 82805; 83605; 83735; 83880; 84100; 84300; 84443; 84484; 85007; 85025; 85027; 85610; 85730; 87040; 87077; 87086; 87149; 87186; 90471; 90670; 90682; 93005; 93010; 93306; 94002; 94003; 94150; 94640; 94660; 94664; 96361; 96365; 96374; 96375; 99292; A4216; G0008; G0009; G8978-GP-CM; G8978-GP-CN; G8979-GP-CK; G8979-GP-CL; G8987-GO-CL; G8988-GO-CJ; J0282; J0360; J0692; J0696; J1644; J1815; J1940; J2060; J2270; J2543; J2704; J2765; J3010; J3370; J7050; J7070; J7506; J7620; P9047; Q2036; S0032

== ENCOUNTER 2018-03-11 07:29 | Inpatient (IN) | payer MEDICARE ==
[2018-03-11 08:12] LABS: #Eosinphils 0.1 thou/uL (0.0-0.7); #Lymphocytes 0.4 thou/uL (1.20-3.40); #Monocytes 0.3 thou/uL (0.11-0.59); #Neutrophils 5.5 thou/uL (1.40-6.50); %Basophils 0.1 % (0.0-1.0); %Eosinophils 1.2 % (0.0-10.0); %Lymphocytes 5.6 % (21.0-51.0); %Monocytes 5.3 % (0.0-10.0); %Neutrophils 87.8 % (42.0-75.0); Hemoglobin 11.2 g/dL (14.0-18.0); Mean Corpuscular HGB CONC 30.1 g/dL (32.0-36.0); Mean Corpuscular Hemoglobin 27.8 pg (27.0-31.0); Mean Corpuscular Volume 92.3 fl (80.0-94.0); Mean Platelet Volume 6.1 fL (7.4-10.4); Platelet Count 157 thou/uL (130-400); Red Blood Cell (RBC) Count 4.03 mill/uL (4.70-6.10); White Blood Cell (WBC) Count 6.3 thou/uL (4.8-10.8)
[2018-03-11 08:31] LABS: Troponin I 0.015 ng/mL (< 0.028)
[2018-03-11 08:38] LABS: CKMB 9.4 ng/mL (0-6.6)
[2018-03-11 08:57] LABS: Actual Bicarbonate (HCO3a) 39.8 mEq/L (22-26); Base Excess (BEa) 11.3 mEq/L (0 (+/-) 2.5); CO2 Tension 78.7 mmHg (35.0-45.0); O2 Tension (PaO2) 65.2 mmHg (80.0-100.0); pH, Arterial 7.32 (7.35-7.45)
[2018-03-11 08:58] LABS: ALV-art Gradient 121.625 (0-20); Analyzer IN Cardio ER; Calcium, Ionized 1.1 mmol/L (1.12-1.30); Hematocrit-ABG 37.1 % (42.0-52.0); Hemoglobin (Hb) 10.3 g/dL (14.0-18.0); Puncture Site RRA
--- NOTE | 2018-03-11 09:20 | RAD ---
PORTABLE AP CHEST RADIOGRAPH: Date: 03-11-18 History: Dyspnea. CHF exacerbation, increasing shortness of breath/hypoxia. Comparison: 03-11-18 FINDINGS: Patient is rotated to the right which accentuates the cardiac silhouette and mediastinal structures, but the cardiac silhouette does remain enlarged. The thoracic aorta is ectatic. Again noted is pulmon negrito vascular congestion as well as increase in interstitial densities. There is moderate sized right pleural effusion and atelectasis. Given differences in patient rotation and technique, the chest is o verall stable from prior exam. IMPRESSION: 1. Cardiomegaly with evidence of CHF and mild pulmonary edema. 2. Right pleural effusion. POS: [facility]
[2018-03-11] MEDS ORDERED: Dextrose 50% Abboject 50 ML SYRINGE SLOW IVP PRN (11:27)
[2018-03-11] MEDS ORDERED: Dextrose 5% in Water 1,000 ML IV PRN (11:27)
[2018-03-11] MEDS ORDERED: Ondansetron ODT 4 MG TAB PO PRN (11:45)
--- NOTE | 2018-03-11 12:21 | HP ---
PRIMARY CARE PROVIDER: Dr. Lisset Hadley. The [facility] after transfer from [place] [facility] to [facility] Room. HISTORY OF PRESENT ILLNESS: Patient was discharged in stable condition yesterday from [facility] t o [facility] under the care of Dr. Lisset Hadley. A Doc to Doc conversation between m hemaelf and Dr. Hadley occurred. Apparently, the patient's CPAP mask did not work. There was n o CPAP or BiPAP available at [facility]. The patient was taken to the emergency room, he was a rousable, but did not respond appropriately, short of breath. No fever, chills, sweats, etc., were r eported. Laboratories there revealed a normal white count of 6.3, hemoglobin 11.2, platelet count 15 7,000. No chemistries were done. Two troponins were done, which were normal. A BNP for heart failu re was minimal at 131. PH was 732, CO2 was 78.7, and O2 was 65.2 on arterial blood gas. He was constanza fredis with BiPAP after transfer and is more alert and appropriate at the present time. PAST MEDICAL HISTORY: Pertinent for diabetes mellitus, type 2; with chronic kidney disease, stage 3; hypertension; COPD; diastolic heart failure; lymphedema; sleep apnea. CURRENT MEDICATIONS: At discharge and at the swing bed were acetaminophen 650 mg q.4 hours p.r.n., a miodarone 200 mg a day, aspirin 81 mg a day, famotidine 20 mg a day, TriCor 160 mg a day, Lasix 40 mg a day, gabapentin 300 mg 3 times a day, hydralazine 50 mg 3 times a day, detemir 20 units in the mor clinton, DuoNeb 3 mL q.6 hours, losartan 50 mg b.i.d., lovastatin 20 mg at bedtime, Spiriva once daily, tramadol 50 mg t.i.d. p.r.n. ALLERGIES: No medication allergies. CODE STATUS: FULL RESUSCITATION. SOCIAL HISTORY: Greater than [id number] history of smoking, quit 15 years ago. No alcohol or illi cit drug use. Resides in [facility]. FAMILY HISTORY: Positive for hypertension and diabetes. REVIEW OF SYSTEMS: Constitutional: The patient is currently awake and alert. He denies any dizzine ss, fever, or chills. Eyes: No blurred vision or flashing lights. Ears: No ear pain or drainage. No nasal bleeding. No trouble swallowing. Cardiac: No chest pain or orthopnea. Respirations: He has shortness of breath, dry cough, history of COPD. Gastrointestinal: No nausea, vomiting, diarrhe a, or constipation. Genitourinary: No hematuria or dysuria. Musculoskeletal: Chronic lymphedema i n his legs. No muscle or joint pains. Neurological: No strokes or seizures. Psychiatric: No anxie ty or depression. Skin: Easy bruising, no rash. Heme/Lymph: No tender or swollen lymph nodes in axilla, inguinal, or cervical area. PHYSICAL EXAMINATION: GENERAL: Mr. Brady is sedated, but responsive. His is grossly oriented x3. VITAL SIGNS: Blood pressure 140/60, pulse 70, respirations 16-22, currently on BiPAP, temperature 97 .9. HEENT: Examination of his head, eyes, ears, nose, and throat reveal pupils equal and round. Extraoc ular movements are intact. Sclerae are white. Tympanic membranes clear. Nose is clear. Oral mucou s membranes are wet. Dental hygiene is fair. NECK: No jugular venous distention, adenopathy or thyromegaly. CHEST: Clear to percussion. Coarse breath sounds with occasional rhonchi. No focal findings. HEART: Regular rate and rhythm. First and second heart sounds clear. No murmurs or gallops. ABDOMEN: Protuberant. Bowel sounds normal. No mass. No hepatosplenomegaly, no bruits. EXTREMITIES: 4+ lymphedema, no cyanosis, no clubbing. PULSES: Carotid, radial, and femoral pulses intact. Pedal pulses not palpable through edema. SKIN: Warm and dry. Some ecchymoses on his arms. Chronic stasis changes on both legs from midcalf down. HEME/LYMPH: Lymphatic survey, no tender or swollen lymph nodes in axilla, inguinal or cervical area. NEUROLOGIC: Cranial nerves II-XII are intact. Deep tendon reflexes are diffusely diminished. Sensa tion intact. LABORATORY AND X-RAY FINDINGS: Chest x-ray, supine film, cardiomegaly, pulmonary vascular congestion , probably right pleural effusion, reviewed by me. EKG: Regular sinus rhythm, Q-waves in VT, wide Q RS, no acute ST-T abnormality, reviewed by me. LABORATORY DATA: As given in the present illness. ADMITTING DIAGNOSES: 1. Acute on chronic respiratory failure, exacerbated by lack of ordered CPAP/BiPAP last p.m. 2. Diastolic heart failure, no evidence of acute exacerbation. 3. Chronic obstructive pulmonary disease. 4. Diabetes mellitus, type 2, with chronic kidney disease, stage 3. 5. Obstructive sleep apnea. 6. Lymphedema. PLAN: 1. Reinstitute nocturnal BiPAP/CPAP. 2. Continue nebulizer therapy. 3. CT scan of the chest ordered by Dr. Russell. 4. Continue O2 to keep sats greater than 90. 5. Accu-Chek, sliding scale. 6. Continue nebulizer therapy. 7. Continue Lasix, amiodarone, hydralazine, and losartan. 8. Comprehensive metabolic profile. 9. Cephalexin 250 mg p.o. q.6 hours. 10. Accu-Cheks, sliding scale and detemir. 11. Low dose prednisone 20 mg a day. 12. Consultation with Dr. Russell.
[2018-03-11 12:29] LABS: ALT (SGPT) 39 U/L (8-55); AST (SGOT) 29 U/L (5-34); Albumin 3.6 g/dL (3.4-4.8); Alkaline Phosphatase 62 U/L (40-150); BUN (Urea Nitrogen) 25 mg/dL (8.4-25.7); Bilirubin, Total 0.7 mg/dL (0.2-1.2); Calc. Creatinine Clearance 86 mL/min (70-130); Calcium 8.9 mg/dL (7.8-10.44); Estimated GFR-MDRD 45; Globulin 2.5 g/dL (2.4-3.5); Glucose 147 mg/dL (83-110); Protein, Total 6.1 g/dL (5.8-8.1)
[2018-03-11 12:38] LABS: Anion Gap 13 mmol/L (10-20); Carbon Dioxide 36 mmol/L (23-31); Chloride 95 mmol/L (98-107); Potassium 4.3 mmol/L (3.5-5.1); Sodium 140 mmol/L (136-145)
--- NOTE | 2018-03-11 15:01 | CON ---
DATE OF CONSULTATION: 03/11/2018 HISTORY OF PRESENT ILLNESS: A 72-year-old morbidly obese gentleman, 143 kg, was transferred from [facility] to [facility] after he apparently developed shortness of breath, do not have his CPAP machine, apparently it has broken. His has never wanted to tell us that the machine was broken. It is my understanding that he go to the [facility] before rehabilitation placed to wear his machine every night. Unfortunately, this was not done here, but initially he fell in the residential in [place], became confused. X-ray was taken, which showed the pleural effusion and h e was given 50 of Lasix and started on neb treatments and he was transferred back here on BiPAP. He is now in the MICU, somewhat agitated, but appropriate. He denies any chest pain, chills or sweat s. He has chronic stasis edema. Appears most of his laboratory values are at baseline, except he clearl y has respiratory acidosis and his baseline chest x-ray shows a pleural effusion. Extensive history is well outlined. PAST MEDICAL HISTORY: Diastolic dysfunction, respiratory failure, chronic obstructive pulmonary dise ase, sleep apnea, renal failure, previous colon cancer, diabetes, severe deconditioning, noncomplianc e. PAST SURGICAL HISTORY: Colon resection, previous intubation. ALCOHOL: None. TOBACCO: None. SOCIAL HISTORY: Former smoker. Quit in 1999. His recent discharge medication to have included amiodarone 200 mg twice a day for SVT, insulin 20 un its, gabapentin 300 mg three times a day, Lasix 40, Pepcid 20, hydrocodone for chronic pain, nebulize r several times a day, hydralazine 50 three times a day, low flow O2 to keep his sats 98% about 3 lit ers and nocturnal CPAP. He also had a non-MRSA Staph sepsis. He received minimum of 2 weeks of anti biotics if not longer and he has been afebrile for several days. PHYSICAL EXAMINATION: GENERAL: He is somewhat agitated, moderate distress. VITAL SIGNS: Blood pressure 140/70, sats are 96% on BiPAP, pulse 88, respiration rate 18. EXTREMITIES: Chronic stasis edema, no worse than before. CHEST: Decreased breath sounds without any obvious wheezing. CARDIAC: Normal S1, S2, no gallops. ABDOMEN: Massive. NEUROLOGIC: He is awake, responsive. His sats are 93% on 4 L. LABORATORY DATA: White count is 6,000, hemoglobin and hematocrit is 11 and 37, platelet 157, pO2 of 65, pCO2 ____ on a BiPAP. Creatinine 1.5 and is on baseline. His CK-MB is 9.4. BMP, sodium 139. IMPRESSION: 1. Persistent right-sided pleural effusion, possibly secondary to diastolic dysfunction. 2. Acute on chronic respiratory failure, sleep apnea, obstructive sleep apnea, chronic right renal f ailure, previous Staph sepsis, diabetes, severe deconditioning, poor compliance. PLAN: Put him back on his baseline home medication, neb treatment, low dose steroids, antibiotics, B iPAP at night time. I will order a CT of his chest to assess the right-sided effusion, infiltrate. He may need a thoracentesis. His is not here at the bedside. We will discuss when she comes. This is one-half hour critical care time with this patient who was just discharged from the hospital yesterday. If condition gets worse, he may require reintubation. One-half hour critical care time.
[2018-03-11] MEDS: hydrALAZINE 25 MG TAB PO SCH ×2 (15:17→23:50)
[2018-03-11] MEDS: Gabapentin 300 MG CAP PO SCH ×2 (15:18→20:30)
[2018-03-11] MEDS: traMADol HCl 50 MG TAB PO SCH ×2 (15:18→20:35)
[2018-03-11] MEDS: Cephalexin 250 MG CAP PO SCH ×3 (15:18→23:50)
--- NOTE | 2018-03-11 18:18 | CT ---
NONCONTRAST CT THORAX: 03/11/18 HISTORY: Persistent right pleural effusion. Retaining CO2. COMPARISON: CT angiogram thorax on 12/09/15. FINDINGS: There are moderate sized bilateral pleural effusions, larger in size on the right with associated par enchymal consolidation also again larger on the right. The areas of consolidation may represent bibas ilar atelectasis, but pneumonia at the right lung base is a differential consideration. There is a fi lling defect seen within a right lower lobe bronchus, and findings could be related to postobstructiv e changes and aspiration or possibly mucoid impaction. There is an irregular patchy parenchymal opacity seen within the left upper lobe as well as additiona l air space opacity within the posterior aspect of the left upper lobe which could be related to mult ifocal areas of pneumonitis. Ground glass densities are seen in the right upper lobe and to a lesser extent left upper lobe, but this exam is obtained in expiratory phase of imaging and these findings c ould be related to volume loss. Vascular calcifications are seen in the coronary arteries and involving the thoracic aorta. The hear t is enlarged. A small calculus is seen within the gallbladder lumen. No enlarged lymph nodes are seen by CT size criteria. Remote right sided rib fractures, but there is also a fracture involving the posterolateral right 8th rib without significant callus formation adjacent to this fracture and this may actually represent a more recent nondisplaced but fracture. IMPRESSION: 1. Moderate sized bilateral pleural effusions, larger in size on the right. 2. Bibasilar areas of consolidation again greater on the right. In addition, there is a filling defect in a right lower lobe bronchus, and findings could be related to postobstructive atelectasis o r postobstructive pneumonitis versus pneumonia at the right lung base. 3. Patchy air space opacities within the left upper lobe which could be related to multifocal pn eumonia. Followup to resolution is recommended. 4. Cardiomegaly. 5. Cholelithiasis. 6. Remote right sided rib fractures, but there is also a fracture involving the posterolateral r ight 8th rib without significant callus formation adjacent to this fracture, and this may actually re present a more recent nondisplaced but fracture. POS: [facility]
[2018-03-11] MEDS: Amiodarone 200 MG TAB PO SCH (20:30)
[2018-03-11] MEDS: Aspirin 81 mg Enteric Coated Tablet PO SCH (20:31)
[2018-03-11] MEDS: Lovastatin 20 MG TAB PO SCH (20:33)
[2018-03-11] MEDS ORDERED: Spiriva 18 MCG CAP (Box of 5 Caps) INH SCH (21:00)
[2018-03-11] MEDS: Losartan 25 MG TAB PO SCH (21:05)
[2018-03-12 04:03] LABS: BUN (Urea Nitrogen) 27 mg/dL (8.4-25.7); Calc. Creatinine Clearance 78 mL/min (70-130); Calcium 9.2 mg/dL (7.8-10.44); Estimated GFR-MDRD 40; Glucose 136 mg/dL (83-110)
[2018-03-12 04:12] LABS: Anion Gap 10 mmol/L (10-20); Carbon Dioxide 39 mmol/L (23-31); Chloride 94 mmol/L (98-107); Potassium 4.1 mmol/L (3.5-5.1); Sodium 139 mmol/L (136-145)
[2018-03-12] MEDS: Cephalexin 250 MG CAP PO SCH ×4 (05:51→23:49)
[2018-03-12] MEDS ORDERED: Furosemide 40 MG TAB PO SCH (07:30)
[2018-03-12] MEDS: Famotidine 20 MG TAB PO SCH (08:57)
[2018-03-12] MEDS: Fenofibrate Nanocrystallized 145 MG TAB PO SCH (08:57)
[2018-03-12] MEDS: hydrALAZINE 25 MG TAB PO SCH ×3 (08:57→21:06)
[2018-03-12] MEDS: Gabapentin 300 MG CAP PO SCH ×3 (08:57→21:05)
[2018-03-12] MEDS: Amiodarone 200 MG TAB PO SCH ×2 (08:58→21:06)
[2018-03-12] MEDS: traMADol HCl 50 MG TAB PO SCH ×3 (08:58→21:07)
[2018-03-12] MEDS: predniSONE 20 MG TAB PO SCH (08:58)
[2018-03-12] MEDS: AcetaZOLAMIDE 250 MG TAB PO SCH ×2 (08:59→21:05)
[2018-03-12] MEDS ORDERED: Enoxaparin Sodium 40 MG/0.4 ML SYRINGE SC SCH (09:00)
[2018-03-12] MEDS: Enoxaparin Sodium 40 MG/0.4 ML SYRINGE SC SCH (09:00)
[2018-03-12] MEDS: Insulin Detemir 100 UNITS/ML 20 UNITS in Pre-Filled Syringe 1 EACH SC SCH (09:00)
[2018-03-12] MEDS: Losartan 25 MG TAB PO SCH ×2 (09:04→21:07)
[2018-03-12] MEDS ORDERED: Furosemide 20 MG TAB PO SCH (10:00)
--- NOTE | 2018-03-12 11:38 | PDOC.PN ---
- Subjective Encounter Start Date: 03/12/18 Encounter Start Time: 11:36 Subjective: off BIPAP, no sob - Objective Resuscitation Status: Resuscitation Status FULL:Full Resuscitation MAR Reviewed: Yes Vital Signs & Weight: Vital Signs (12 hours) Temp Pulse Resp BP BP Pulse Ox 03/12/18 11:32 98.8 F 70 23 H 125/51 L 98 03/12/18 08:57 69 03/12/18 08:10 97.8 F 69 22 H 92 L 03/12/18 07:32 97.8 F 69 22 H 130/53 L 100 03/12/18 06:50 76 22 H 99 03/12/18 05:07 100 03/12/18 04:00 98 03/12/18 03:58 98.0 F 76 23 H 124/49 L 95 03/12/18 02:50 72 100 03/12/18 01:24 75 20 98 03/12/18 00:00 100 03/11/18 23:50 69 133/60 03/11/18 23:48 98.2 F 67 21 H 133/60 99 Weight Weight 314 lb I&O: 03/11/18 03/12/18 03/13/18 06:59 06:59 06:59 Intake Total 350 Output Total 1300 Balance -950 Result Diagrams: 03/11/18 08:02 03/12/18 03:29 Additional Labs: Accuchecks 03/12/18 03/12/18 03/11/18 10:39 05:35 21:02 POC Glucose 194 H 145 H 220 H Phys Exam - Physical Examination Neck: no JVD grossly clear, no focal abnomality Cardiovascular: RRR, no significant murmur Gastrointestinal: soft, positive bowel sounds lymphedema Dx/Plan (1) Acute respiratory failure with hypoxia and hypercapnia Code(s): J96.01 - ACUTE RESPIRATORY FAILURE WITH HYPOXIA; J96.02 - ACUTE RESPIRATORY FAILURE WITH HYPERCAPNIA Status: Acute Comment: extubated (2) Diabetes mellitus type 2 in obese Code(s): E11.69 - TYPE 2 DIABETES MELLITUS WITH OTHER SPECIFIED COMPLICATION; E66.9 - OBESITY, UNSPECIFIED Status: Chronic (3) Hypertension Code(s): I10 - ESSENTIAL (PRIMARY) HYPERTENSION Status: Chronic Qualifiers: Hypertension type: essential hypertension Qualified Code(s): I10 - Essential (primary) hypertension (4) Morbid obesity Code(s): E66.01 - MORBID (SEVERE) OBESITY DUE TO EXCESS CALORIES Status: Chronic (5) COPD (chronic obstructive pulmonary disease) Status: Chronic Qualifiers: Emphysema type: unspecified (6) RILEY (obstructive sleep apnea) Code(s): G47.33 - OBSTRUCTIVE SLEEP APNEA (ADULT) (PEDIATRIC) Status: Chronic - Plan cont nocturnal CPAP/BIPAP -: cont nebs , O2 , etc -: cont ASA, amiodarone, lasix -: discuss CT chest with pulmonology * .
[2018-03-12] MEDS: Furosemide 20 MG TAB PO SCH (11:49)
--- NOTE | 2018-03-12 12:48 | PRG ---
DATE OF SERVICE: 03/12/2018 SUBJECTIVE: Last night, he said he put his own CPAP on with hospital mask to which he said he is not getting enough pressure, but his who slept at the bedside stated that he did not put the manny e on for a long period of time. OBJECTIVE: VITAL SIGNS: His sats at 95-96 on 3 liters this morning, his blood pressure is improved at 130/57, t emperature 97, pulse 69. CHEST: Reveals decreased breath sounds without any wheezing. CARDIAC: Normal S1, S2. No gallops. ABDOMEN: Soft, no masses. LABORATORY DATA: Creatinine 1.69, BUN 27, glucose 145. IMPRESSION: 1. Acute on chronic respiratory failure. 2. Bilateral pleural effusion. 3. Sleep apnea. 4. Severe deconditioning. 5. Renal failure. PLAN: I have started Diamox for a few days. Continue neb treatments, supportive care and PT. If he puts his home CPAP mask tonight and he is able to tolerate it, we will sent him back to the [facility] again tomorrow.
[2018-03-12] MEDS: Lovastatin 20 MG TAB PO SCH (21:05)
[2018-03-12] MEDS: Aspirin 81 mg Enteric Coated Tablet PO SCH (21:07)
[2018-03-13] MEDS: Cephalexin 250 MG CAP PO SCH ×4 (05:20→23:16)
[2018-03-13] MEDS: Insulin Detemir 100 UNITS/ML 20 UNITS in Pre-Filled Syringe 1 EACH SC SCH (08:55)
[2018-03-13] MEDS: predniSONE 20 MG TAB PO SCH (08:56)
[2018-03-13] MEDS: Famotidine 20 MG TAB PO SCH (08:56)
[2018-03-13] MEDS: Enoxaparin Sodium 40 MG/0.4 ML SYRINGE SC SCH (08:56)
[2018-03-13] MEDS: AcetaZOLAMIDE 250 MG TAB PO SCH ×2 (08:56→20:36)
[2018-03-13] MEDS: hydrALAZINE 25 MG TAB PO SCH ×3 (08:56→20:37)
[2018-03-13] MEDS: Fenofibrate Nanocrystallized 145 MG TAB PO SCH (08:56)
[2018-03-13] MEDS: Losartan 25 MG TAB PO SCH ×2 (08:57→20:40)
[2018-03-13] MEDS: Amiodarone 200 MG TAB PO SCH (08:57)
[2018-03-13] MEDS: Furosemide 20 MG TAB PO SCH (08:57)
[2018-03-13] MEDS: Gabapentin 300 MG CAP PO SCH ×3 (08:57→20:38)
--- NOTE | 2018-03-13 08:57 | PRG ---
DATE OF SERVICE: 03/13/2018 He is doing well, he is back at his baseline. PHYSICAL EXAMINATION: VITAL SIGNS: Sats are 97 on 3 liters, respiration 22, temperature 98, blood pressure 138/57. Stasis edema. CHEST: Chest revealed decreased breath sounds without any wheezing. CARDIAC: Normal S1, S2, no gallops. ABDOMEN: Soft, no masses. IMPRESSION: 1. Supraventricular tachycardia. 2. Diastolic dysfunction. 3. Bilateral pleural effusion. 4. Morbid obesity. 5. Chronic renal failure. PLAN: He will get transferred back to the [place] if he can try and get him a BiPAP machine. It is unclear whether he will be able to obtain one in the next day or two. He does not need to be in the IMCU, he can be transferred out to a regular unmonitored bed. We will follow and discussed wi th the social media editor ongoing issues.
[2018-03-13] MEDS: traMADol HCl 50 MG TAB PO SCH ×3 (08:58→20:37)
--- NOTE | 2018-03-13 09:32 | PDOC.PN ---
- Subjective Encounter Start Date: 03/13/18 Encounter Start Time: 09:35 Subjective: stable on noctunal CPAP - Objective Resuscitation Status: Resuscitation Status FULL:Full Resuscitation MAR Reviewed: Yes Vital Signs & Weight: Vital Signs (12 hours) Temp Pulse Resp BP BP BP Pulse Ox 03/13/18 08:56 66 138/57 L 03/13/18 07:00 98.1 F 68 22 H 138/57 L 99 03/13/18 06:58 63 20 100 03/13/18 04:00 97.8 F 63 20 130/54 L 99 03/13/18 01:12 18 97 03/13/18 01:11 65 18 97 03/13/18 00:00 98.2 F 64 20 129/62 99 Weight Weight 314 lb 6.4 oz I&O: 03/12/18 03/13/18 03/14/18 06:59 06:59 06:59 Intake Total 350 380 Output Total 1300 3100 Balance -950 -0530 Result Diagrams: 03/11/18 08:02 03/12/18 03:29 Additional Labs: Accuchecks 03/13/18 03/12/18 03/12/18 06:05 21:03 16:31 POC Glucose 116 H 175 H 196 H 03/12/18 10:39 POC Glucose 194 H Phys Exam - Physical Examination Neck: no JVD Respiratory: clear to auscultation bilateral Cardiovascular: RRR, no significant murmur Gastrointestinal: soft, positive bowel sounds lymphedema Dx/Plan (1) Acute respiratory failure with hypoxia and hypercapnia Code(s): J96.01 - ACUTE RESPIRATORY FAILURE WITH HYPOXIA; J96.02 - ACUTE RESPIRATORY FAILURE WITH HYPERCAPNIA Status: Acute Comment: extubated (2) Diabetes mellitus type 2 in obese Code(s): E11.69 - TYPE 2 DIABETES MELLITUS WITH OTHER SPECIFIED COMPLICATION; E66.9 - OBESITY, UNSPECIFIED Status: Chronic (3) Hypertension Code(s): I10 - ESSENTIAL (PRIMARY) HYPERTENSION Status: Chronic Qualifiers: Hypertension type: essential hypertension Qualified Code(s): I10 - Essential (primary) hypertension (4) Morbid obesity Code(s): E66.01 - MORBID (SEVERE) OBESITY DUE TO EXCESS CALORIES Status: Chronic (5) COPD (chronic obstructive pulmonary disease) Status: Chronic Qualifiers: Emphysema type: unspecified (6) RILEY (obstructive sleep apnea) Code(s): G47.33 - OBSTRUCTIVE SLEEP APNEA (ADULT) (PEDIATRIC) Status: Chronic - Plan cont nocturnal CPAP -: cont nebs, steroids, antibx, etc -: cont ASA, amioderone, ARB, hydralazine * .
[2018-03-13] MEDS: HumaLOG 300 UNITS/3 ML VIAL SC PRN (16:59)
[2018-03-13] MEDS: Aspirin 81 mg Enteric Coated Tablet PO SCH (20:37)
[2018-03-13] MEDS: Lovastatin 20 MG TAB PO SCH (20:38)
[2018-03-14] MEDS: Cephalexin 250 MG CAP PO SCH ×3 (07:30→17:55)
[2018-03-14] MEDS: Famotidine 20 MG TAB PO SCH (08:15)
[2018-03-14] MEDS: Gabapentin 300 MG CAP PO SCH ×3 (08:15→20:50)
[2018-03-14] MEDS: hydrALAZINE 25 MG TAB PO SCH ×3 (08:15→20:50)
[2018-03-14] MEDS: Losartan 25 MG TAB PO SCH ×2 (08:15→20:50)
[2018-03-14] MEDS: predniSONE 20 MG TAB PO SCH (08:16)
[2018-03-14] MEDS: Furosemide 20 MG TAB PO SCH (08:16)
[2018-03-14] MEDS: Fenofibrate Nanocrystallized 145 MG TAB PO SCH (08:16)
[2018-03-14] MEDS: traMADol HCl 50 MG TAB PO SCH ×3 (08:16→20:48)
[2018-03-14] MEDS: AcetaZOLAMIDE 250 MG TAB PO SCH (08:16)
[2018-03-14] MEDS: Amiodarone 200 MG TAB PO SCH (08:16)
[2018-03-14] MEDS: Enoxaparin Sodium 40 MG/0.4 ML SYRINGE SC SCH (08:17)
[2018-03-14] MEDS: Insulin Detemir 100 UNITS/ML 20 UNITS in Pre-Filled Syringe 1 EACH SC SCH (08:17)
--- NOTE | 2018-03-14 09:35 | PDOC.PN ---
- Subjective Encounter Start Date: 03/14/18 Encounter Start Time: 09:33 Subjective: some sob - Objective Resuscitation Status: Resuscitation Status FULL:Full Resuscitation MAR Reviewed: Yes Vital Signs & Weight: Vital Signs (12 hours) Temp Pulse Resp BP BP Pulse Ox 03/14/18 08:00 97.6 F 78 18 139/60 92 L 03/14/18 06:52 16 03/14/18 05:42 96 03/14/18 04:00 97.3 F L 73 21 H 148/68 H 93 L 03/14/18 00:00 96.7 F L 70 18 164/74 H 03/13/18 23:38 93 L Weight Weight 314 lb 6.4 oz I&O: 03/13/18 03/14/18 03/15/18 06:59 06:59 06:59 Intake Total 380 240 Output Total 3100 2975 Balance -7681 -0644 Result Diagrams: 03/11/18 08:02 03/12/18 03:29 Additional Labs: Accuchecks 03/14/18 03/13/18 03/13/18 06:22 20:55 16:29 POC Glucose 134 H 177 H 246 H 03/13/18 10:33 POC Glucose 151 H Phys Exam - Physical Examination Neck: no JVD Respiratory: clear to auscultation bilateral Cardiovascular: RRR, no significant murmur Gastrointestinal: soft, non-tender, positive bowel sounds Musculoskeletal: edema present Dx/Plan (1) Acute respiratory failure with hypoxia and hypercapnia Code(s): J96.01 - ACUTE RESPIRATORY FAILURE WITH HYPOXIA; J96.02 - ACUTE RESPIRATORY FAILURE WITH HYPERCAPNIA Status: Resolved Comment: extubated 02/24 (2) Diabetes mellitus type 2 in obese Code(s): E11.69 - TYPE 2 DIABETES MELLITUS WITH OTHER SPECIFIED COMPLICATION; E66.9 - OBESITY, UNSPECIFIED Status: Chronic (3) Hypertension Code(s): I10 - ESSENTIAL (PRIMARY) HYPERTENSION Status: Chronic Qualifiers: Hypertension type: essential hypertension Qualified Code(s): I10 - Essential (primary) hypertension (4) Morbid obesity Code(s): E66.01 - MORBID (SEVERE) OBESITY DUE TO EXCESS CALORIES Status: Chronic (5) COPD (chronic obstructive pulmonary disease) Status: Chronic Qualifiers: Emphysema type: unspecified (6) RILEY (obstructive sleep apnea) Code(s): G47.33 - OBSTRUCTIVE SLEEP APNEA (ADULT) (PEDIATRIC) Status: Chronic (7) Chronic respiratory failure with hypoxia and hypercapnia Code(s): J96.11 - CHRONIC RESPIRATORY FAILURE WITH HYPOXIA; J96.12 - CHRONIC RESPIRATORY FAILURE WITH HYPERCAPNIA Status: Acute - Plan cont CPAP/BIPAP, O2, nebs, steroids -: cont amiodarone , ASA, etc -: cont accu/ss/detemir * .
[2018-03-14 10:39] LABS: #Eosinphils 0.1 thou/uL (0.0-0.7); #Lymphocytes 0.5 thou/uL (1.20-3.40); #Monocytes 0.5 thou/uL (0.11-0.59); #Neutrophils 5.3 thou/uL (1.40-6.50); %Basophils 0.2 % (0.0-1.0); %Eosinophils 2.3 % (0.0-10.0); %Lymphocytes 7.9 % (21.0-51.0); %Monocytes 7.3 % (0.0-10.0); %Neutrophils 82.4 % (42.0-75.0); Hemoglobin 10.4 g/dL (14.0-18.0); Mean Corpuscular HGB CONC 30.8 g/dL (32.0-36.0); Mean Corpuscular Hemoglobin 28.7 pg (27.0-31.0); Mean Corpuscular Volume 93.2 fl (80.0-94.0); Platelet Count 125 thou/uL (130-400); RBC Distribution Width 15.5 % (11.5-14.5); Red Blood Cell (RBC) Count 3.62 mill/uL (4.70-6.10); White Blood Cell (WBC) Count 6.5 thou/uL (4.8-10.8)
[2018-03-14 10:56] LABS: ALT (SGPT) 39 U/L (8-55); AST (SGOT) 32 U/L (5-34); Albumin 3.7 g/dL (3.4-4.8); Alkaline Phosphatase 62 U/L (40-150); Anion Gap 12 mmol/L (10-20); BUN (Urea Nitrogen) 26 mg/dL (8.4-25.7); Bilirubin, Total 0.5 mg/dL (0.2-1.2); Calc. Creatinine Clearance 79 mL/min (70-130); Calcium 8.6 mg/dL (7.8-10.44); Carbon Dioxide 34 mmol/L (23-31); Chloride 94 mmol/L (98-107); Estimated GFR-MDRD 40; Globulin 2.5 g/dL (2.4-3.5); Glucose 249 mg/dL (83-110); Potassium 4.5 mmol/L (3.5-5.1); Protein, Total 6.2 g/dL (5.8-8.1); Sodium 135 mmol/L (136-145)
[2018-03-14] MEDS ORDERED: Succinylcholine Chloride 20 MG/ML 10 ml SYRINGE FS ONE (11:11)
--- NOTE | 2018-03-14 14:39 | PRG ---
DATE OF SERVICE: 03/14/2018 SUBJECTIVE: The patient is awaiting rehab placement. Apparently, there is difficulty setting up of home BiPAP machine. PHYSICAL EXAMINATION: VITAL SIGNS: Temperature is 97.5, pulse 68, respirations 18, O2 sat 96% on 3 liters. HEENT: Unremarkable. NECK: No JVD. LUNGS: Diminished breath sounds. CARDIAC: S1 and S2 regular. ABDOMEN: Soft. EXTREMITIES: Edematous. LABORATORY DATA: White blood cell count 6.5, hematocrit 33.8, platelet count 125. Sodium 135, potas sium 4.5, chloride 94, CO2 34, BUN 26, creatinine 1.7, glucose 249. ASSESSMENT: 1. Obstructive sleep apnea. 2. Obesity hypoventilation syndrome. 3. Diastolic dysfunction. PLAN: Need to see if we can locate old sleep studies and to see if he followed up with compliance fo r Medicare criteria. If he did, then he will be eligible for a new machine. He essentially is gretchen bah run around from the [employer] companies regarding the machine. The alternative would be to see if he will qualify for a Trilogy machine.
[2018-03-14] MEDS: Lovastatin 20 MG TAB PO SCH (20:50)
[2018-03-14] MEDS: Aspirin 81 mg Enteric Coated Tablet PO SCH (20:50)
[2018-03-14] MEDS ORDERED: Ondansetron ODT 4 MG TAB PO PRN (21:37)
[2018-03-14] MEDS ORDERED: Bisacodyl 10 MG SUPP PR SCH (21:45)
[2018-03-15] MEDS ORDERED: Bisacodyl 5 MG TAB PO SCH (00:15)
[2018-03-15] MEDS: Cephalexin 250 MG CAP PO SCH (00:46)
[2018-03-15] MEDS ORDERED: Propofol 1,000 MG/100 ML VIAL IV ONE (03:39)
[2018-03-15] MEDS ORDERED: Propofol BOLUS 1,000 MG/100 ML VIAL IV PRN (03:43)
[2018-03-15] MEDS ORDERED: Morphine 4 MG/ML VIAL SLOW IVP PRN (03:43)
[2018-03-15] MEDS ORDERED: Fentanyl BOLUS 250 ML IVPB PRN (03:43)
[2018-03-15] MEDS ORDERED: DISCONTINUE PREVIOUS NARCOTIC PAIN MEDICATIONS AND BENZODIAZEPINES FS SCH (03:43)
[2018-03-15] MEDS ORDERED: Ventilator Sedation Protocol 1 EACH FS SCH (03:45)
--- NOTE | 2018-03-15 04:04 | PDOC.EVN ---
Event Note - Event Note Event Note: Code melinda was called just before 3am when patient was non-responsive, rhythm on telemetry was AIVR. Chest compressions were started, 1 dose of epi was given. ROSC was obtained at 3:07. Rhythm was vtach with pulses at one point, but converted to NSR. Patient was intubated soon after with 7.5 tube at 26 @ the lips after suctioning. Confirmed with color change. Patient was then transferred to ICU. was outside room, situation was explained, no questions from her.
[2018-03-15] MEDS ORDERED: Furosemide 20 MG/2 ML VIAL SLOW IVP SCH (04:15)
[2018-03-15] MEDS ORDERED: Norepinephrine 8 MG/0.9% NS 250 ML ONE (04:31)
[2018-03-15] MEDS ORDERED: EPINEPHrine 1 MG/10 ML Abboject SYRINGE ONE (05:00)
[2018-03-15 05:06] LABS: Actual Bicarbonate (HCO3a) 40.8 mEq/L (22-26); CO2 Tension 141.9 mmHg (35.0-45.0); O2 Tension (PaO2) 66.9 mmHg (80.0-100.0); pH, Arterial 7.08 (7.35-7.45)
[2018-03-15 05:07] LABS: Base Excess (BEa) 7.2 mEq/L (0 (+/-) 2.5); Hematocrit-ABG 41.4 % (42.0-52.0)
[2018-03-15 05:08] LABS: ALV-art Gradient 463.725 (0-20); Calcium, Ionized 1.2 mmol/L (1.12-1.30); Puncture Site LBA
--- NOTE | 2018-03-15 05:27 | PDOC.EVN ---
Event Note - Event Note Event Note: Attended Code Blue. Pt had ROSC, now intubated and in CCU. Had central line placed and is on levophed now. Discussed with family members in waiting area, updated them.
--- NOTE | 2018-03-15 05:30 | OP ---
PROCEDURE: Central line placement. PREOPERATIVE DIAGNOSIS: Poor IV access. POSTOPERATIVE DIAGNOSIS: Successful right subclavian central line placement. ANESTHESIA: 1% lidocaine without epinephrine. DESCRIPTION OF PROCEDURE: Informed consent was obtained from the patient's . The patient was pl aced in Trendelenburg position. The right subclavian area was cleansed with chlorhexidine and draped sterilely. 1% lidocaine was used to anesthetize the entry site. Using the modified Seldinger techn ique, a triple-lumen central line was placed in the right subclavian vein without difficulty on the f irst stick. Three ports flushed venous blood. Chest x-ray confirmed appropriate placement.
[2018-03-15] MEDS ORDERED: Rocuronium Bromide 50 MG/5 ML VIAL IVP PRN (05:32)
[2018-03-15] MEDS ORDERED: Furosemide 100 MG/10 ML VIAL SLOW IVP SCH ×2 (05:45→16:15)
[2018-03-15 05:54] LABS: #Basophils 0.1 thou/uL (0.0-0.2); #Eosinphils 0.3 thou/uL (0.0-0.7); #Lymphocytes 3.7 thou/uL (1.20-3.40); #Monocytes 0.9 thou/uL (0.11-0.59); #Neutrophils 6.8 thou/uL (1.40-6.50); %Basophils 0.6 % (0.0-1.0); %Lymphocytes 31.1 % (21.0-51.0); %Monocytes 7.8 % (0.0-10.0); %Neutrophils 57.6 % (42.0-75.0); Hemoglobin 11.6 g/dL (14.0-18.0); Mean Corpuscular HGB CONC 30.1 g/dL (32.0-36.0); Mean Corpuscular Hemoglobin 28.9 pg (27.0-31.0); Mean Corpuscular Volume 96.1 fl (80.0-94.0); Mean Platelet Volume 7.4 fL (7.4-10.4); Platelet Count 142 thou/uL (130-400); RBC Distribution Width 15.7 % (11.5-14.5); Red Blood Cell (RBC) Count 4.01 mill/uL (4.70-6.10); White Blood Cell (WBC) Count 11.8 thou/uL (4.8-10.8)
[2018-03-15 06:13] LABS: ALT (SGPT) 38 U/L (8-55); AST (SGOT) 30 U/L (5-34); Albumin 3.8 g/dL (3.4-4.8); Alkaline Phosphatase 70 U/L (40-150); Anion Gap 14 mmol/L (10-20); BUN (Urea Nitrogen) 28 mg/dL (8.4-25.7); Bilirubin, Total 0.6 mg/dL (0.2-1.2); Calc. Creatinine Clearance 70 mL/min (70-130); Calcium 9.3 mg/dL (7.8-10.44); Carbon Dioxide 34 mmol/L (23-31); Chloride 95 mmol/L (98-107); Estimated GFR-MDRD 35; Globulin 2.8 g/dL (2.4-3.5); Glucose 160 mg/dL (83-110); Potassium 4.9 mmol/L (3.5-5.1); Protein, Total 6.6 g/dL (5.8-8.1); Sodium 138 mmol/L (136-145); Troponin I Less than 0.010 ng/mL (< 0.028)
--- NOTE | 2018-03-15 07:10 | PRG ---
PULMONARY CRITICAL CARE PROGRESS NOTE DATE OF SERVICE: 03/13/2018 This is one hour critical care time independent of procedures performed earlier. Mr. Brady had a code blue arrest earlier tonight, apparently his who taken his BiPAP mask of f and he developed atrial fibrillation, ventricular tachycardia, he was down for about minutes. He h ad return of spontaneous circulation. He is actually now awake, now mechanical ventilation, able to follow commands. PHYSICAL EXAMINATION: VITAL SIGNS: Pulse is 72, blood pressure 114/70 with the help of Levophed drip, O2 sat around 90%, r espiratory rate 19. A 24-hour intake 240, output 2975. HEENT: Unremarkable. NECK: No adenopathy or JVD. LUNGS: Absent breath sounds on the right, clear on the left. CARDIAC: S1 and S2 regular. ABDOMEN: Soft. EXTREMITIES: Edematous throughout. LABORATORY AND DIAGNOSTIC DATA: A pH 7.08, pCO2 of 141, pO2 of 66 on SIMV rate of 20, tidal volume 5 50, PEEP 5, pressure support 10, FiO2 100%. Chem-7 and CBC are pending. Chest x-ray shows almost co mplete white out of the right chest. ASSESSMENT: 1. Status post cardiac arrest - may be secondary to the massive right-sided pleural effusion. 2. Acute respiratory failure, requiring mechanical ventilation. 3. Underlying severe obstructive sleep apnea. 4. Recent renal failure with baseline creatinine of 1.6. 5. Hyperglycemia. PLAN: 1. Central line was placed so that we can get the patient Levophed - see separate operative report. 2. Bronchoscopy was performed to rule out endobronchial obstruction in the right lower lobe, given t he results of recent CT - no obstruction was found. 3. Thoracentesis will be performed on the right pleural effusion. 4. The patient is being started on broad spectrum IV antibiotics for the mucoid frothy secretions fo und in the right lower lobe. 5. I have adjusted mechanical ventilation settings and will recheck ABG. 6. Awaiting results of laboratory data obtained earlier today. 7. We will update the family.
[2018-03-15 07:17] LABS: Fluid, Triglycerides 21 mg/dL (Not Available); Pleural Fluid, Amylase Less than 30 U/L (Not Available); Pleural Fluid, Glucose 198 mg/dL; Pleural Fluid, LDH 157 U/L (Not Available); Pleural Fluid, Protein 2.2 g/dL
[2018-03-15 08:12] LABS: BF Color Pink; Body Fluid Source THORACENTESIS FLD; Clarity Hazy (Clear); Tube # EDTA
[2018-03-15 08:13] LABS: RBC Count-Automated 11000 /cumm
[2018-03-15 08:29] LABS: CO2 Tension 56.7 mmHg (35.0-45.0); pH, Arterial 7.38 (7.35-7.45)
[2018-03-15 08:30] LABS: Actual Bicarbonate (HCO3a) 32.6 mEq/L (22-26); Base Excess (BEa) 6.1 mEq/L (0 (+/-) 2.5); Hematocrit-ABG 39.9 % (42.0-52.0); Hemoglobin (Hb) 10.9 g/dL (14.0-18.0)
[2018-03-15 08:31] LABS: Calcium, Ionized 1.1 mmol/L (1.12-1.30); Puncture Site LRA
[2018-03-15 08:32] LABS: ALV-art Gradient 597.125 (0-20)
[2018-03-15] MEDS: Piperacillin/Tazobactam 3.375 GM in Sodium Chloride 0.9% 100 ML IVPB SCH ×3 (08:52→17:10)
[2018-03-15] MEDS: Enoxaparin Sodium 40 MG/0.4 ML SYRINGE SC SCH (08:57)
[2018-03-15] MEDS: Amiodarone 200 MG TAB PO SCH (08:57)
[2018-03-15] MEDS: Pantoprazole 40 MG VIAL IVP SCH (08:57)
[2018-03-15] MEDS: Insulin Detemir 100 UNITS/ML 20 UNITS in Pre-Filled Syringe 1 EACH SC SCH (08:58)
--- NOTE | 2018-03-15 09:36 | OP ---
DATE OF SERVICE: 03/15/2018 PROCEDURE: Bronchoscopy. PREOPERATIVE DIAGNOSIS: Right lung wide out, possible right lower lobe endobronchial obstruction by CT done earlier in the week. ANESTHESIA: None. DESCRIPTION OF PROCEDURE: An adaptor was placed in the patient's endotracheal tube and he was placed on 100% oxygen. A Pentax bronchoscope was placed through the endotracheal tube. The patient's airw ays were surveyed. There were mucoid secretions present in the right lower lobe. There was no evide nce of endobronchial obstruction in the right lower lobe, right middle lobe, right upper lobe. The l eft airways were clear. The procedure was tolerated well.
--- NOTE | 2018-03-15 09:52 | RAD ---
FRONTAL RADIOGRAPH CHEST: Date: 03/15/18 COMPARISON: 03/11/18. HISTORY: Evaluate chest following line placement. FINDINGS: Right-sided vascular catheter present, distal tip overlying the expected location of the cavoatrial j unction. There is extensive nonspecific linear interstitial density throughout the left hemithorax with focal opacification of medial left base. There is near complete opacification of the right hemithorax sugge sting a combination of nonspecific pleural and parenchymal opacity. Endotracheal tube overlies the tr acheal air column and proper position. IMPRESSION: Extensive pleural and parenchymal opacity throughout the right hemithorax with near complete opacific ation. Nonspecific pleural and parenchymal opacity within left base with diffuse left-sided interstit ial opacity. POS: [facility]
--- NOTE | 2018-03-15 10:15 | CON ---
DATE OF SERVICE: 03/15/2018 CARDIOLOGY CONSULTATION REASON FOR CONSULTATION: Respiratory failure and history of ventricular tachycardia. PRIMARY PIPELINE SUPERINTENDENT DIVISION: Dr. Jalil Richard. HISTORY OF PRESENT ILLNESS: Mr. Brady is a 72-year-old gentleman. He was in the hospital here w ith respiratory insufficiency and he had worsening of his status last night, required emergency intub ation and emergency thoracentesis. The patient had a Cardiology consultation in view of history of v entricular tachycardia and previously being seen by Dr. Jalil Richard. The patient has normal left ventricular ejection fraction, lower range of normal 50%-55%. He is curr ently intubated on the ventilator, unable to give any history. PAST MEDICAL HISTORY: 1. History of ventricular tachycardia. 2. History of respiratory insufficiency. 3. Large pleural effusion. MEDICATIONS: 1. Currently the patient is on Amiodarone. 2. Aspirin. 3. Diamox was stopped. 4. Keflex. 5. Enoxaparin. 6. Furosemide. 7. Gabapentin. 8. Losartan was stopped. 9. Lovastatin 10. Methylprednisolone. ALLERGIES: None known per the chart. REVIEW OF SYSTEMS: Not obtainable. He is intubated on the ventilator. The patient is unable to giv e any other further history as he is admitted on the ventilator. PHYSICAL EXAMINATION: GENERAL APPEARANCE: Stable appearing gentleman. He is currently sedated and resting. VITAL SIGNS: Blood pressure 135/65, pulse 66 regular. EYES: Nonicteric. NECK: Neck veins are not distended. LUNGS: Few rhonchi, no wheezing. Decreased breath sounds in the right. CARDIAC: I do not hear murmur, rub or gallop. ABDOMEN: Soft, nontender, no hepatosplenomegaly. EXTREMITIES: Warm and dry. No clubbing or cyanosis. There is moderate edema. There are chronic ve nous stasis changes with discoloration of his ankles and feet. PERTINENT LABORATORY DATA AND IMAGING DATA: Hemoglobin is 4.9, creatinine 1.89. PH this morning was 7.08. Troponin levels were negative. Chest x-ray shows massive pleural effusion on the right. ASSESSMENT: 1. History of ventricular arrhythmia. 2. Massive pleural effusion. 3. Respiratory failure. 4. Renal failure stage 3. PLAN: 1. He is intubated and sedated, being ventilated. 2. He is on intravenous diuretics. 3. We will follow with you. Dr. Richard will resume care tomorrow.
--- NOTE | 2018-03-15 10:17 | OP ---
DATE OF PROCEDURE: 03/15/2018 PROCEDURE PERFORMED: Right thoracentesis. PREOPERATIVE DIAGNOSIS: Right pleural effusion. POSTOPERATIVE DIAGNOSIS: Right pleural effusion. ANESTHESIA: A 1% lidocaine without epinephrine. DESCRIPTION OF PROCEDURE: The patient was placed in the left lateral decubitus position. His head o f the bed was slightly raised. I cleansed them at the 5th-6th interspace posteriorly just lateral to the spine. Sterile drape was applied. A 1% lidocaine was used to anesthetize the entry site. A Sa [id number] catheter was inserted in the chest, approximately 1.1 liters of red tinged transudative type fluid was removed and sent for appropriate studies. The procedure was tolerated well.
[2018-03-15 10:27] LABS: BF WBC/Nonhematics Ct. - Manua 28 /cumm
--- NOTE | 2018-03-15 10:36 | RAD ---
SUPINE FRONTAL CHEST RADIOGRAPH: Date: 03/15/18 Time: 0251 hours COMPARISON: 03/11/18. HISTORY: Endotracheal tube placement. FINDINGS: New endotracheal tube projects over the tracheal air column terminating at the level of the clavicula r heads. There is extensive nonspecific interstitial opacity throughout the left hemithorax with a pe rihilar and basilar predominance. There is dense opacification of the right hemithorax suggesting lar ge right pleural effusion and nonspecific diffuse air space disease, worsened. IMPRESSION: Extensive pleural and parenchymal opacities, nonspecific, right greater than left. Endotracheal tube in place. POS: [facility]
--- NOTE | 2018-03-15 10:49 | PDOC.PN ---
- Subjective Encounter Start Date: 03/15/18 Encounter Start Time: 10:48 Patient seen and examined, intubated, per nursing staff he had no urine output after 80mg of lasix, full code per family. No family at bedside. - Objective Resuscitation Status: Resuscitation Status FULL:Full Resuscitation Vital Signs & Weight: Vital Signs (12 hours) Temp Pulse Resp BP BP Pulse Ox 03/15/18 08:49 61 26 H 90 L 03/15/18 07:37 67 135/65 03/15/18 04:55 26 H 03/15/18 04:00 97.8 F 67 26 H 95 03/15/18 00:25 97 03/15/18 00:00 97.9 F 71 18 113/56 L 98 03/14/18 23:08 97 03/14/18 23:07 96 Weight Weight 314 lb 6.4 oz I&O: 03/14/18 03/15/18 03/16/18 06:59 06:59 06:59 Intake Total 240 Output Total 7225 1150 Balance -2735 -1150 Result Diagrams: 03/15/18 03:10 03/15/18 03:10 Additional Labs: Accuchecks 03/14/18 20:47 POC Glucose 198 H Phys Exam - Physical Examination Constitutional: NAD HEENT: PERRLA intubated Neck: no nodes, no JVD coarse breath sounds Cardiovascular: RRR, no significant murmur Gastrointestinal: soft, non-tender Musculoskeletal: pulses present, edema present (2+ peripheral pulses) Dx/Plan (1) Oligouria Code(s): R34 - ANURIA AND OLIGURIA Status: Acute (2) Acute kidney failure Status: Acute (3) Chronic respiratory failure with hypoxia and hypercapnia Code(s): J96.11 - CHRONIC RESPIRATORY FAILURE WITH HYPOXIA; J96.12 - CHRONIC RESPIRATORY FAILURE WITH HYPERCAPNIA Status: Acute (4) COPD (chronic obstructive pulmonary disease) Status: Chronic Qualifiers: Emphysema type: unspecified (5) Pneumonia Code(s): J18.9 - PNEUMONIA, UNSPECIFIED ORGANISM Status: Acute (6) Diabetes mellitus type 2 in obese Code(s): E11.69 - TYPE 2 DIABETES MELLITUS WITH OTHER SPECIFIED COMPLICATION; E66.9 - OBESITY, UNSPECIFIED Status: Chronic (7) Hypertension Code(s): I10 - ESSENTIAL (PRIMARY) HYPERTENSION Status: Chronic Qualifiers: Hypertension type: essential hypertension Qualified Code(s): I10 - Essential (primary) hypertension (8) Morbid obesity Code(s): E66.01 - MORBID (SEVERE) OBESITY DUE TO EXCESS CALORIES Status: Chronic (9) S/P ablation of ventricular arrhythmia Code(s): Z98.89 - OTHER SPECIFIED POSTPROCEDURAL STATES * DO NOT USE *; Z86.79 - PERSONAL HISTORY OF OTHER DISEASES OF THE CIRCULATORY SYSTEM Status: Chronic - Plan * s/p code in crab steamer * [place] likely from [facility], high dose lasix given with no increased in urine output, will consult nephrology for likely need of HD if urin eoutput doesn't improve * intubated - pulmonary monitoring * BP acceptable * no family at bedside
[2018-03-15] MEDS: Lorazepam 2 MG/ML VIAL SLOW IVP PRN (11:41)
[2018-03-15] MEDS ORDERED: Norepinephrine 8 MG/250 ML BAG IVPB PRN (11:44)
[2018-03-15] MEDS: HumaLOG 300 UNITS/3 ML VIAL SC PRN ×3 (11:49→22:09)
--- NOTE | 2018-03-15 12:56 | RAD ---
CHEST 1 VIEW: Date: 03/15/18 HISTORY: Post thoracentesis. COMPARISON: Radiograph same date. FINDINGS: Similar appearance large right pleural effusion. There is a complete whiteout right hemithorax. Patie nt is intubated with endotracheal tube tip just below the level of the clavicles. Layering left effusion is present with basilar atelectasis. There is rightward mediastinal shift. IMPRESSION: Continued right near complete whiteout right hemithorax, combination of fluid and atelectasis and rosamaria g collapse. POS: [facility]
[2018-03-15 13:04] LABS: BF Segmented Neutrophils 52 %; Cell Count Non Hematic 4 %; Lymphocytes 44 %
[2018-03-15] MEDS ORDERED: Albumin 25% 25 GM/100 ML BOT IVPB SCH (16:30)
[2018-03-15] MEDS: Propofol 1,000 MG/100 ML VIAL IV PRN ×2 (17:23→22:50)
--- NOTE | 2018-03-15 18:19 | PRG ---
DATE OF SERVICE: 03/15/2018 SUBJECTIVE: Mr. Brady is a 72-year-old white male who was seen by the renal service several week s ago for an acute kidney injury on top of his chronic renal failure. He was readmitted recently due to exacerbation of COPD. Last night, he was said to have gone to cardiac arrest. He is now intubat ed on ventilator support. We are now being consulted due to his decreased urine output. Of interest , his most recent creatinine was noted at 1.89, which is slightly higher from yesterday of 1.68. Ple ase note, he has also been noted to have decreased urine output. We are now being consulted for his chronic renal failure and decreased urine output. I have started him on salt poor albumin with incre ased dose of Lasix at 120 mg IV q.12. Decreased urine output may be a reflection of the recent cardi orespiratory usually relating to some degree of ? of ischemic acute tubular necrosis. REVIEW OF SYSTEMS: Not obtainable since the patient is intubated and ventilator support. MEDICATIONS: Of 03/15/2018 was reviewed. LABORATORY: Of 03/15/2018 showed the following: Sodium 135, potassium 4.5, chloride 94, carbon diox pearl 34, BUN 26, creatinine 1.68, glucose 249, calcium 8.6, AST 32, ALT 39. White count 11.8, hemoglo bin 11.6. On 03/15/2018, chest x-ray showed right hemothorax with fluid atelectasis. ASSESSMENT AND PLAN: 1. Status post cardiorespiratory arrest - continue supportive care. Please note this patient is sta tus post right thoracentesis last chest tube placement. 2. Pulmonary is following. 3. Acute kidney injury on top of his chronic renal failure, slightly higher creatinine. I suspect s ome prerenal component is possible. However, with the decreased urine output, I could not rule out c ompletely the possibility of a superimposed ischemic acute tubular necrosis. Agree with current ronald hill. I started this patient salt poor albumin 25 grams IV q.6. Continue current diuretic regimen. There is no indication for any dialytic intervention. 4. Chronic obstructive pulmonary disease/end end-stage lung disease - continue supportive care. His overall prognosis remains guarded. We will discuss with the .
[2018-03-15] MEDS: Lovastatin 20 MG TAB PO SCH (22:07)
[2018-03-15] MEDS: Aspirin 81 mg Enteric Coated Tablet PO SCH (22:07)
[2018-03-15] MEDS: Albumin 25% 25 GM/100 ML BOT IVPB SCH (22:07)
[2018-03-16] MEDS: Piperacillin/Tazobactam 3.375 GM in Sodium Chloride 0.9% 100 ML IVPB SCH ×5 (00:18→23:08)
[2018-03-16] MEDS: Albumin 25% 25 GM/100 ML BOT IVPB SCH ×4 (04:12→22:54)
[2018-03-16] MEDS: Propofol 1,000 MG/100 ML VIAL IV PRN ×6 (04:12→23:20)
[2018-03-16] MEDS: Furosemide 100 MG/10 ML VIAL SLOW IVP SCH ×2 (04:12→15:46)
[2018-03-16 05:20] LABS: Anion Gap 15 mmol/L (10-20); BUN (Urea Nitrogen) 49 mg/dL (8.4-25.7); Calc. Creatinine Clearance 43 mL/min (70-130); Calcium 8.2 mg/dL (7.8-10.44); Carbon Dioxide 31 mmol/L (23-31); Chloride 95 mmol/L (98-107); Estimated GFR-MDRD 20; Glucose 205 mg/dL (83-110); Potassium 4.9 mmol/L (3.5-5.1); Sodium 136 mmol/L (136-145)
[2018-03-16 05:41] LABS: #Lymphocytes 0.4 thou/uL (1.20-3.40); #Monocytes 0.3 thou/uL (0.11-0.59); #Neutrophils 5.3 thou/uL (1.40-6.50); %Basophils 0.3 % (0.0-1.0); %Eosinophils 0.5 % (0.0-10.0); %Lymphocytes 6.7 % (21.0-51.0); %Monocytes 5.1 % (0.0-10.0); %Neutrophils 87.5 % (42.0-75.0); Anisocytosis SLIGHT = 6-15 cells (100X) (0-5/hpf); Band 6 % (5-11); Hemoglobin 9.1 g/dL (14.0-18.0); Lymphocytes 10 % (21-51); MDiff Complete? YES; Mean Corpuscular HGB CONC 31.9 g/dL (32.0-36.0); Mean Corpuscular Hemoglobin 29.1 pg (27.0-31.0); Mean Corpuscular Volume 91.3 fl (80.0-94.0); Mean Platelet Volume 6.9 fL (7.4-10.4); Metamyelocyte 1 % (0-0); Monocytes 1 % (0-10); Neutrophil 82 % (42-75); PLT Morphology Comment Appears Decreased; Platelet Count 118 thou/uL (130-400); RBC Distribution Width 15.8 % (11.5-14.5); Red Blood Cell (RBC) Count 3.13 mill/uL (4.70-6.10)
[2018-03-16] MEDS: HumaLOG 300 UNITS/3 ML VIAL SC PRN ×4 (06:41→23:28)
[2018-03-16 07:41] LABS: Actual Bicarbonate (HCO3a) 32.5 mEq/L (22-26); Base Excess (BEa) 7.4 mEq/L (0 (+/-) 2.5); CO2 Tension 50.2 mmHg (35.0-45.0); Hematocrit-ABG 28.5 % (42.0-52.0); Hemoglobin (Hb) 7.7 g/dL (14.0-18.0); O2 Tension (PaO2) 72.6 mmHg (80.0-100.0); pH, Arterial 7.43 (7.35-7.45)
[2018-03-16 07:42] LABS: Puncture Site RRA
--- NOTE | 2018-03-16 08:33 | ADD-PRG ---
ADDENDUM PHYSICAL EXAMINATION: VITAL SIGNS: Blood pressure of 121/58, heart rate 67, respiratory rate 26, O2 sats 95%. GENERAL: Sedated and intubated on ventilator support. HEENT: Pinkish conjunctivae, anicteric sclerae. NECK: No neck mass, no carotid bruits, no JVD. CHEST: No deformities. LUNGS: Decreased breath sounds. HEART: Normal sinus rhythm. No murmur, no gallops, no rubs. ABDOMEN: Globular, soft, nontender, no masses. EXTREMITIES: Positive for edema.
--- NOTE | 2018-03-16 09:01 | RAD ---
AP VIEW CHEST: HISTORY: Ventilator-dependent patient. FINDINGS: AP view chest was obtained on 03/16/18. Comparison is made to a previous exam from 03/15/18. AP view chest demonstrates EKG leads seen over the chest. The patient is intubated. A nasogastric t ube is in place. There is a right subclavian central line in place. Extensive pulmonary vascular congestion is seen. Diffuse airspace opacity is again seen. There is i mproved aeration in the right lung. The right-sided pleural effusion has decreased since the previou s comparison exam. IMPRESSION: 1. Decreased right-sided pleural effusion. 2. Cardiomegaly, pulmonary vascular congestion, and diffuse airspace opacities concerning for bilate ral pneumonia or pulmonary edema. POS: [facility]
--- NOTE | 2018-03-16 09:03 | PRG ---
A 72-year-old morbidly obese gentleman who was intubated with progressive respiratory failure, had a very large amount of pleural effusion that developed rather acutely. He apparently has developed atrial fibrillation and ventricular tachycardia that is down from a fair time. He had a massive pleural effusion that developed which was tapped, it appears to be transudate. His renal function is going worse. He is presently awake, responsive, on the vent, but he is sedated. OBJECTIVE: VITAL SIGNS: Blood pressure 134/41. His pulse is 80, respirations are 20. His I's and O's 1776 in, 1335 out. CHEST: Decreased breath sounds without any wheezing. CARDIAC: Normal S1, S2, no gallops. ABDOMEN: Massive. EXTREMITIES: Chronic stasis. LABORATORY: White count 6000, H&H 9 and 28, platelet count 118, pO2 72, pCO2 51.43, rate of 26, 70%, 500 tidal volume, PEEP of 10. BUN and creatinine 49 and 3.1. His chest x-ray shows bilateral pleural effusion, though somewhat better. IMPRESSION: 1. Multiorgan failure. 2. Status post right-sided thoracentesis, transudate, massive pleural effusion. 3. Renal failure. 4. Respiratory failure. 5. Hypertension. 6. Sleep apnea. PLAN: At this stage, he is not weanable. He is on amiodarone 200 a day. He is on Lasix, broad-spec trum antibiotics. I will discuss with when she arrives. Otherwise, long-term prognosis is guarded. Clearly will try and avoid doing a trach, but that may be his best option with eventually long-term placement. In the meantime, today we are going to start nutrition. One-half hour critical care time.
--- NOTE | 2018-03-16 09:11 | PRG ---
DATE OF SERVICE: 03/16/2018 SUBJECTIVE: Mr. Brady is a 72-year-old white male with severe COPD, chronic renal failure and be ing followed by the Renal Service for his initial decreased urine output and chronic renal failure. He was started on Lasix 80 mg IV q.12. At the same time, I started him on salt poor albumin. In the last 24 hours he has improved his urine output to several liters of urine. However, creatinine has worsened to currently from 1.8 to 3.3. No acute events noted last night. PHYSICAL EXAMINATION: VITAL SIGNS: Blood pressure is 134/61 with a heart rate of 65, respiratory rate 27, pulse ox 95%. GENERAL: The patient is awake and following commands, intubated on ventilator support. SKIN: Adequate turgor. HEENT: He has pinkish conjunctivae, anicteric sclerae. NECK: No neck mass, no carotid bruits, no JVD. CHEST: No deformities. LUNGS: Decreased breath sounds. No wheezing, no crackles. HEART: Normal sinus rhythm. No murmur, no gallops or rubs. ABDOMEN: Globular, soft, nontender, no masses. EXTREMITIES: Positive for edema, no deformities. LABORATORY: 03/16/2018 - White count 6, hemoglobin 9.1, hematocrit 28.6. Sodium 136, potassium 4.9, chloride 95, carbon dioxide 31, BUN 49, creatinine 3.11, GFR 20 mL per minute, glucose 205, calcium 8.2. Urinalysis is currently pending. Chest x-ray is pending. ASSESSMENT AND PLAN: 1. Acute kidney injury - I suspect hemodynamically mediated renal dysfunction. This is probably sec ondary to his recent cardiorespiratory arrest as well as the current diuretic regimen. I will be rev iewing the chest x-ray. If the chest x-ray shows significant fluid consider leaving the current dose of Lasix. If not, consider decreasing Lasix to 40 mg IV q.12h. Please note the patient is diuresing well. There is no indication for any dialytic intervention. 2. Status post acute respiratory arrest - secondary probably to his underlying severe chronic obstru ctive pulmonary disease. Currently, the patient is intubated. Pulmonary is following. His overall prognosis remains poor due to his severe underlying chronic obstructive pulmonary disease . I agree with current management. Awaiting results of urinalysis and chest x-ray.
[2018-03-16] MEDS: Insulin Detemir 100 UNITS/ML 20 UNITS in Pre-Filled Syringe 1 EACH SC SCH (09:28)
[2018-03-16] MEDS: risperiDONE 0.25 MG TAB PO SCH ×2 (09:30→22:55)
[2018-03-16] MEDS: Enoxaparin Sodium 40 MG/0.4 ML SYRINGE SC SCH (09:30)
[2018-03-16] MEDS: Pantoprazole 40 MG VIAL IVP SCH (09:30)
[2018-03-16] MEDS: Amiodarone 200 MG TAB PO SCH (09:31)
--- NOTE | 2018-03-16 10:32 | PDOC.PN ---
- Subjective Encounter Start Date: 03/16/18 Encounter Start Time: 11:48 -: non-verbal Subjective: intubated, sedated but follows simple commands and nods head/ shakes -: head to yes/no questions - Objective Resuscitation Status: Resuscitation Status FULL:Full Resuscitation Vital Signs & Weight: Vital Signs (12 hours) Temp Pulse BP 03/16/18 10:30 71 131/69 03/16/18 08:00 98.9 F 03/16/18 07:13 65 134/61 03/16/18 04:00 99.3 F 03/16/18 02:35 51 L 03/16/18 00:00 99.3 F 03/15/18 23:02 56 L 118/64 Weight Weight 314 lb 6.4 oz Most Recent Monitor Data Heart Rate from ECG 71 NIBP 133/54 NIBP BP-Mean 67 Respiration from ECG 24 SpO2 92 I&O: 03/15/18 03/16/18 03/17/18 06:59 06:59 06:59 Intake Total 1776 Output Total 1150 1335 600 Balance -1150 441 -600 Result Diagrams: 03/16/18 04:41 03/16/18 04:41 Additional Labs: Accuchecks 03/16/18 03/15/18 03/15/18 04:19 22:10 16:44 POC Glucose 207 H 196 H 208 H 03/15/18 03/15/18 11:39 08:16 POC Glucose 233 H 222 H Phys Exam - Physical Examination Constitutional: NAD lying in hospital bed HEENT: sclera anicteric, oral pharynx no lesions ETT in place coarse ventilator sounds throughout, limited anterior exam Cardiovascular: RRR, no significant murmur, no rub Gastrointestinal: soft, no distention, positive bowel sounds Musculoskeletal: pulses present 2+ b/l LE edema Dx/Plan - Plan (1) Oligouria post code blue/ ACLS protocol apprec nephrology c/s currently on lasix 80mg IV BID continue to monitor I/O (2) Acute kidney failure see above had mild CLIFTON on admission which has markedly progressed post ACLS protocol does have continued UOP albeit less than prior to code event (3) Chronic respiratory failure with hypoxia and hypercapnia apprec pulmonary critical care c/s currently intubated and sedated on ventilator support (4) COPD (chronic obstructive pulmonary disease) see above IV methylprednisolone, SSI to start TF today (5) Pneumonia empiric piperacillin-tazobactam (6) Diabetes mellitus type 2 in obese SSI (7) Hypertension continue to monitor for hemodynamic stability (8) Morbid obesity (9) S/P ablation of ventricular arrhythmia - Plan * overall very guarded prognosis * awaiting family availability to discuss prognosis in detail Review of Systems - Medications/Allergies Allergies/Adverse Reactions: Allergies Allergy/AdvReac Type Severity Reaction Status Date / Time No Known Allergies Allergy Verified 03/11/18 11:01 Medications: Current Medications Acetaminophen (Tylenol) 650 mg PO Q4H PRN PRN Reason: Headache/Fever or Pain Albumin Human (Albumin 25%) 25 gm IVPB 0400,1000,1600,2200 [facility] Stop: 03/17/18 22:01 Last Admin: 03/16/18 09:33 Dose: 25 gm Albuterol/Ipratropium (Duoneb) 3 ml NEB S1CL-AR [facility] Last Admin: 03/16/18 07:09 Dose: 3 ml Amiodarone HCl (Cordarone) 200 mg PO DAILY [facility] Last Admin: 03/16/18 09:31 Dose: 200 mg Aspirin (Ecotrin) 81 mg PO HS [facility] Last Admin: 03/15/18 22:07 Dose: 81 mg Dextrose/Water (Dextrose 50%) 25 gm SLOW IVP PRN PRN PRN Reason: Hypoglycemia Enoxaparin Sodium (Lovenox) 40 mg SC 0900 [facility] Last Admin: 03/16/18 09:30 Dose: 40 mg Furosemide (Lasix) 80 mg SLOW IVP 0400,1600 [facility] Last Admin: 03/16/18 04:12 Dose: 80 mg Glucagon (Glucagon) 1 mg IM PRN PRN PRN Reason: Hypoglycemia Insulin Detemir 20 units/ (Miscellaneous Medication) 0.2 mls @ 0 mls/hr SC QAM [facility] Last Admin: 03/16/18 09:28 Dose: 0.2 mls Dextrose/Water (D5w) 1,000 mls @ 0 mls/hr IV .Q0M PRN; As Directed PRN Reason: Hypoglycemia Fentanyl Citrate 2,000 mcg/ (Sodium Chloride) 100 mls @ 0 mls/hr IV INF [facility]; Per Protocol PRN Reason: Protocol Stop: 04/14/18 03:43 Fentanyl Citrate (Fentanyl Bolus) 250 mls @ 0 mls/hr IVPB PRN PRN; As Directed PRN Reason: Breakthrough pain/agitation Stop: 04/14/18 03:43 Piperacillin Sod/Tazobactam (Sod 3.375 gm/ Sodium Chloride) 100 mls @ 200 mls/ hr IVPB Q6HR [facility] Last Admin: 03/16/18 06:40 Dose: 100 mls Norepinephrine Bitartrate (Levophed) 250 mls @ 0 mls/hr IVPB INF PRN; Protocol ; Titrate PRN Reason: Blood Pressure Last Admin: 03/15/18 12:07 Dose: 250 mls Insulin Human Lispro (Humalog) 0 units SC .MILD SLIDING SCALE PRN PRN Reason: Mild Correctional Scale Last Admin: 03/16/18 06:41 Dose: 3 unit Lorazepam (Ativan) 2 mg SLOW IVP Q1H PRN PRN Reason: Breakthrough agitation Stop: 04/14/18 03:43 Last Admin: 03/15/18 11:41 Dose: 2 mg Lovastatin (Mevacor) 20 mg PO HS [facility] Last Admin: 03/15/18 22:07 Dose: 20 mg Methylprednisolone Sodium Succinate (Solu-Medrol) 20 mg IVP Q6HR [facility] Last Admin: 03/16/18 06:40 Dose: 20 mg Miscellaneous Medication (Ventilator Sedation Protocol) 1 each FS ONE [facility] Stop: 04/14/18 03:46 Morphine Sulfate (Morphine) 2 mg SLOW IVP Q1H PRN PRN Reason: breakthrough pain/agitation Stop: 04/14/18 03:43 Discontinue Previous Narcotic Pain Medications And Benzodiazepines 1 each FS .ONE [facility] Stop: 04/14/18 03:43 Pantoprazole Sodium (Protonix) 40 mg IVP DAILY [facility] Last Admin: 03/16/18 09:30 Dose: 40 mg Propofol (Diprivan) 1,000 mg IV INF PRN; Protocol PRN Reason: TO ACHIEVE GOAL RASS Stop: 04/14/18 03:43 Last Admin: 03/16/18 07:28 Dose: 1,000 mg Propofol (Diprivan Bolus) 20 mg IV Q5MIN PRN PRN Reason: BREAKTHROUGH AGITATION Stop: 04/14/18 03:43 Risperidone (Risperidone) 0.25 mg PO BID [facility] Last Admin: 03/16/18 09:30 Dose: 0.25 mg Sodium Chloride (Flush - Normal Saline) 10 ml IVF Q12HR [facility] Last Admin: 03/16/18 09:30 Dose: 10 ml Sodium Chloride (Flush - Normal Saline) 10 ml IVF PRN PRN PRN Reason: Saline Flush
[2018-03-16 11:42] VITALS: BMI 43.8
[2018-03-16 14:35] LABS: Bilirubin Negative (Negative); Blood, Urine Negative (Negative); Clarity CLEAR (Clear); Glucose, Urine (Dipstick) Negative (Negative); Leukocyte Negative (Negative); Nitrite Negative (Negative); Protein, Urine (Dipstick) Negative (Neg-Trace); Specific Gravity, Urine 1.012 (1.002-1.036)
[2018-03-16 14:38] LABS: Bacteria/HPF None Seen HPF (None Seen); Hyaline Casts/LPF 4-6 HYALINE CAST LPF (0-3 Hyaline); Squamous Epithelial 0-3 HPF (0-3)
[2018-03-16 14:59] LABS: Yeast-AUWi Flag 29.6 (0-25.0)
[2018-03-16 15:04] LABS: RBC/HPF 0-3 HPF (0-3); Yeast-All Forms None Seen HPF (None Seen)
[2018-03-16] MEDS ORDERED: Bisacodyl 10 MG SUPP PR SCH (16:30)
--- NOTE | 2018-03-16 17:52 | PRG ---
DATE OF SERVICE: 03/16/2018 SUBJECTIVE: Mr. Brady remains on the ventilator, intubated and sedated. OBJECTIVE: VITAL SIGNS: His blood pressure is 135/57, pulse is in the 50s, sinus. LUNGS: Clear. CARDIAC: Normal S1 and S2. ABDOMEN: Soft, nontender. EXTREMITIES: Venous stasis changes. Extremities are warm and dry. ASSESSMENT: 1. Congestive heart failure, mostly I suspect right heart failure secondary to obesity hypoventilati on. 2. Transudative effusion. 3. Mild diastolic heart failure, but mostly right ventricular failure due to obesity hypoventilation . 4. History of ventricular tachycardia. PLAN: Continue current medical regimen. Also, has renal failure. Prognosis guarded in this gentlem an.
[2018-03-16] MEDS: Lorazepam 2 MG/ML VIAL SLOW IVP PRN (19:38)
[2018-03-16] MEDS: Aspirin 81 mg Enteric Coated Tablet PO SCH (22:55)
[2018-03-16] MEDS: Lovastatin 20 MG TAB PO SCH (22:55)
[2018-03-16] MEDS: Docusate 100 MG CAP PO SCH (22:55)
[2018-03-17] MEDS: Furosemide 40 MG/4 ML VIAL SLOW IVP SCH ×2 (04:47→15:14)
[2018-03-17] MEDS: Propofol 1,000 MG/100 ML VIAL IV PRN ×5 (04:47→20:48)
[2018-03-17] MEDS: Albumin 25% 25 GM/100 ML BOT IVPB SCH ×4 (04:47→21:59)
[2018-03-17 05:32] LABS: #Lymphocytes 0.3 thou/uL (1.20-3.40); #Monocytes 0.3 thou/uL (0.11-0.59); #Neutrophils 3.7 thou/uL (1.40-6.50); %Basophils 0.2 % (0.0-1.0); %Eosinophils 0.3 % (0.0-10.0); %Lymphocytes 5.9 % (21.0-51.0); %Monocytes 7.6 % (0.0-10.0); %Neutrophils 86.1 % (42.0-75.0); Hemoglobin 7.9 g/dL (14.0-18.0); Mean Corpuscular HGB CONC 32.9 g/dL (32.0-36.0); Mean Corpuscular Hemoglobin 29.5 pg (27.0-31.0); Mean Corpuscular Volume 89.6 fl (80.0-94.0); Mean Platelet Volume 6.8 fL (7.4-10.4); Platelet Count 94 thou/uL (130-400); RBC Distribution Width 15.6 % (11.5-14.5); Red Blood Cell (RBC) Count 2.68 mill/uL (4.70-6.10); White Blood Cell (WBC) Count 4.3 thou/uL (4.8-10.8)
[2018-03-17 05:36] LABS: Anion Gap 15 mmol/L (10-20); BUN (Urea Nitrogen) 58 mg/dL (8.4-25.7); Calc. Creatinine Clearance 45 mL/min (70-130); Calcium 8.5 mg/dL (7.8-10.44); Carbon Dioxide 33 mmol/L (23-31); Chloride 96 mmol/L (98-107); Estimated GFR-MDRD 21; Glucose 231 mg/dL (83-110); Potassium 4.4 mmol/L (3.5-5.1); Sodium 140 mmol/L (136-145)
[2018-03-17] MEDS: Piperacillin/Tazobactam 3.375 GM in Sodium Chloride 0.9% 100 ML IVPB SCH ×4 (06:12→23:59)
[2018-03-17] MEDS: HumaLOG 300 UNITS/3 ML VIAL SC PRN ×4 (06:16→23:02)
[2018-03-17 07:33] LABS: Actual Bicarbonate (HCO3a) 34.7 mEq/L (22-26); Base Excess (BEa) 9.4 mEq/L (0 (+/-) 2.5); CO2 Tension 52.5 mmHg (35.0-45.0); Calcium, Ionized 1.1 mmol/L (1.12-1.30); Hematocrit-ABG 25.8 % (42.0-52.0); Hemoglobin (Hb) 7.5 g/dL (14.0-18.0); O2 Tension (PaO2) 68.5 mmHg (80.0-100.0); Puncture Site L.R.; pH, Arterial 7.44 (7.35-7.45)
[2018-03-17 07:34] LABS: ALV-art Gradient 222.375 (0-20)
--- NOTE | 2018-03-17 08:09 | PRG ---
DATE OF SERVICE: 03/17/2018 SUBJECTIVE: Mr. Brady is a 72-year-old white male with known history of severe COPD, chronic re nal failure and was readmitted due to an acute cardiorespiratory distress. He was initially oliguric and he was started on IV Lasix at 80 mg IV q.12h. He did make significant urine output and for that reason in the background of worsening renal dysfunction Lasix was adjusted down to 40 mg IV q.12h. He continues to diurese. No acute events noted last night. PHYSICAL EXAMINATION: VITAL SIGNS: Blood pressure 147/60, heart rate 51, respiratory rate 20, pulse ox 96%. GENERAL: The patient is sedated and intubated on ventilator support. SKIN: Adequate turgor. HEENT: He has slightly pale conjunctivae, anicteric sclerae. NECK: No neck mass, no carotid bruits, no JVD. CHEST: No deformities. LUNGS: Decreased breath sounds, no wheezing. HEART: Normal sinus rhythm. No murmur, no gallops or rubs. ABDOMEN: Globular, soft, nontender. No masses. EXTREMITIES: No edema, no deformities. EXTREMITIES: Positive for edema, no deformities. MEDICATIONS: 03/17/2018 - Reviewed. LABORATORY: 03/17/2018 - Sodium 140, potassium 4.4, chloride 96, carbon dioxide 33, BUN 58, creatini ne 2.92, glucose 231, calcium 8.5. White count 4.3, hemoglobin 7.9. ASSESSMENT AND PLAN: 1. Acute kidney injury on top of his chronic renal failure, stabilizing renal function. Lasix adjus fredis. Due to the history of congestive heart failure we will maintain current IV Lasix as is. There is no indication for any dialytic intervention with this patient. 2. Acute respiratory failure, currently intubated and on ventilator support. Continue supportive ca re. Pulmonary is following. I agree with current management.
--- NOTE | 2018-03-17 08:24 | RAD ---
PORTABLE CHEST: History: Respiratory distress. Comparison: 03-16-18 FINDINGS: Endotracheal tube is in satisfactory position. The distal end of the NG tube is not seen on this exam . Right subclavian line appears unchanged in position. The pulmonary edema type changes with effusion s and opacification to the right base. These changes are all fairly similar to the prior study. IMPRESSION: Essentially stable exam. POS: OFF
--- NOTE | 2018-03-17 08:55 | PRG ---
DATE OF SERVICE: 03/17/2018 He is sedated on Diprivan. PHYSICAL EXAMINATION: VITAL SIGNS: Blood pressure is 147/60, pulse 87, blood pressure 149/63, respirations 20. His I's an d O's have been 2171 in, 5105 out. X-ray still shows large bilateral pleural effusions, left greater than right. CARDIAC: Normal S1, S2, no gallops. ABDOMEN: Soft. CHEST: Chest reveals no wheezing or crackles. ABDOMEN: Distended. NEUROLOGIC: Sedated. EXTREMITIES: Reveal trace edema. LABORATORY DATA: White count 4000, H&H 7 and 24, platelet count is low at 94,000. His pO2 is 68, pC O2 of 57.44, rate of 20, 50%, 10 of PEEP. His creatinine is 2.92. His BUN is 58. Both are slightly increased. IMPRESSION: 1. Respiratory failure. 2. Bilateral pleural effusion. 3. Diastolic dysfunction. 4. Morbid obesity. 5. Ventricular supraventricular arrhythmias. PLAN: Discussed with the ongoing issues. I am not clear whether he is at this stage going to b e weanable. Considering his multiple cardiac events off his noninvasive ventilation. The best option would be a trach which obviously will be discussed with his . In the meantime, a concern about his thrombocytopenia, could be medication related. Vent is being ad justed. Nutrition, PT, and supportive care. We had to cut back on his Lasix since his renal functions are getting somewhat revealing. We will continue to follow. One-half hour critical care time.
[2018-03-17] MEDS: Amiodarone 200 MG TAB PO SCH (10:11)
[2018-03-17] MEDS: Enoxaparin Sodium 40 MG/0.4 ML SYRINGE SC SCH (10:11)
[2018-03-17] MEDS: Docusate 100 MG CAP PO SCH ×2 (10:11→21:59)
[2018-03-17] MEDS: Insulin Detemir 100 UNITS/ML 20 UNITS in Pre-Filled Syringe 1 EACH SC SCH (10:12)
[2018-03-17] MEDS: risperiDONE 0.25 MG TAB PO SCH ×2 (10:14→21:59)
[2018-03-17] MEDS: fentaNYL Citrate/PF 2,000 MCG in Sodium Chloride 0.9% 60 ML IV SCH (10:14)
[2018-03-17] MEDS: Pantoprazole 40 MG VIAL IVP SCH (10:14)
--- NOTE | 2018-03-17 15:59 | PDOC.PN ---
- Subjective Encounter Start Date: 03/17/18 Encounter Start Time: 15:58 -: non-verbal Subjective: intubated, sedated, family @ bedside - Objective Resuscitation Status: Resuscitation Status FULL:Full Resuscitation Vital Signs & Weight: Vital Signs (12 hours) Temp Pulse Resp BP Pulse Ox 03/17/18 15:30 63 163/68 H 03/17/18 15:20 15 03/17/18 14:00 14 03/17/18 13:39 58 L 159/65 H 03/17/18 13:38 58 L 16 99 03/17/18 13:00 98.5 F 03/17/18 11:49 98.8 F 16 03/17/18 11:34 53 L 149/58 H 03/17/18 08:00 98.5 F 69 18 99 03/17/18 07:01 51 L 147/60 H 03/17/18 07:00 98.8 F 51 L 20 96 03/17/18 05:19 66 163/69 H 03/17/18 04:00 99.3 F Weight Admit Weight 314 lb Weight 314 lb 6.4 oz Most Recent Monitor Data Heart Rate from ECG 64 NIBP 165/67 NIBP BP-Mean 96 Respiration from ECG 15 SpO2 99 I&O: 03/16/18 03/17/18 03/18/18 06:59 06:59 06:59 Intake Total 1776 2171 260 Output Total 1335 5105 1680 Balance 491 -9165 -7179 Result Diagrams: 03/20/18 04:15 03/20/18 04:15 Additional Labs: Accuchecks 03/17/18 03/17/18 03/16/18 10:09 04:54 21:38 POC Glucose 204 H 235 H 229 H 03/16/18 03/16/18 17:12 12:11 POC Glucose 180 H 210 H Phys Exam - Physical Examination Constitutional: NAD intubated, sedated HEENT: moist MMs, oral pharynx no lesions Respiratory: no wheezing, no rales, no rhonchi limited ant exam, coarse ventilator breath sounds b/l Cardiovascular: RRR, no significant murmur, no rub Gastrointestinal: soft, no distention, positive bowel sounds Musculoskeletal: pulses present Dx/Plan - Plan (1) Oligouria post code blue/ ACLS protocol apprec nephrology c/s currently on lasix 80mg IV BID continue to monitor I/O (2) Acute kidney failure see above had mild CLIFTON on admission which has markedly progressed post ACLS protocol does have continued UOP albeit less than prior to code event (3) Chronic respiratory failure with hypoxia and hypercapnia apprec pulmonary critical care c/s currently intubated and sedated on ventilator support family would like to pursue a trach and have discussed with with pulmonary critical care (4) COPD (chronic obstructive pulmonary disease) see above IV methylprednisolone, SSI to start TF today (5) Pneumonia empiric piperacillin-tazobactam (6) Diabetes mellitus type 2 in obese SSI (7) Hypertension continue to monitor for hemodynamic stability (8) Morbid obesity (9) S/P ablation of ventricular arrhythmia apprec card c/s - Plan * overall very guarded prognosis Review of Systems - Medications/Allergies Allergies/Adverse Reactions: Allergies Allergy/AdvReac Type Severity Reaction Status Date / Time No Known Allergies Allergy Verified 03/11/18 11:01 Medications: Current Medications Acetaminophen (Tylenol) 650 mg PO Q4H PRN PRN Reason: Headache/Fever or Pain Albumin Human (Albumin 25%) 25 gm IVPB 0400,1000,1600,2200 [facility] Stop: 03/17/18 22:01 Last Admin: 03/17/18 15:14 Dose: 25 gm Albuterol/Ipratropium (Duoneb) 3 ml NEB [id number] [facility] Last Admin: 03/17/18 13:38 Dose: 3 ml Amiodarone HCl (Cordarone) 200 mg PO DAILY [facility] Last Admin: 03/17/18 10:11 Dose: 200 mg Aspirin (Ecotrin) 81 mg PO HS [facility] Last Admin: 03/16/18 22:55 Dose: 81 mg Dextrose/Water (Dextrose 50%) 25 gm SLOW IVP PRN PRN PRN Reason: Hypoglycemia Docusate Sodium (Colace) 100 mg PO BID [facility] Last Admin: 03/17/18 10:11 Dose: 100 mg Enoxaparin Sodium (Lovenox) 40 mg SC 0900 [facility] Last Admin: 03/17/18 10:11 Dose: Not Given Furosemide (Lasix) 40 mg SLOW IVP 0400,1600 [facility] Last Admin: 03/17/18 15:14 Dose: 40 mg Glucagon (Glucagon) 1 mg IM PRN PRN PRN Reason: Hypoglycemia Insulin Detemir 20 units/ (Miscellaneous Medication) 0.2 mls @ 0 mls/hr SC QAM [facility] Last Admin: 03/17/18 10:12 Dose: 0.2 mls Dextrose/Water (D5w) 1,000 mls @ 0 mls/hr IV .Q0M PRN; As Directed PRN Reason: Hypoglycemia Fentanyl Citrate 2,000 mcg/ (Sodium Chloride) 100 mls @ 0 mls/hr IV INF [facility]; Per Protocol PRN Reason: Protocol Stop: 04/14/18 03:43 Last Admin: 03/17/18 10:14 Dose: 100 mls Fentanyl Citrate (Fentanyl Bolus) 250 mls @ 0 mls/hr IVPB PRN PRN; As Directed PRN Reason: Breakthrough pain/agitation Stop: 04/14/18 03:43 Piperacillin Sod/Tazobactam (Sod 3.375 gm/ Sodium Chloride) 100 mls @ 200 mls/ hr IVPB Q6HR [facility] Last Admin: 03/17/18 11:04 Dose: 100 mls Norepinephrine Bitartrate (Levophed) 250 mls @ 0 mls/hr IVPB INF PRN; Protocol ; Titrate PRN Reason: Blood Pressure Last Admin: 03/15/18 12:07 Dose: 250 mls Insulin Human Lispro (Humalog) 0 units SC .MILD SLIDING SCALE PRN PRN Reason: Mild Correctional Scale Last Admin: 03/17/18 10:12 Dose: 3 unit Lorazepam (Ativan) 2 mg SLOW IVP Q1H PRN PRN Reason: Breakthrough agitation Stop: 04/14/18 03:43 Last Admin: 03/16/18 19:38 Dose: 2 mg Lovastatin (Mevacor) 20 mg PO HS [facility] Last Admin: 03/16/18 22:55 Dose: 20 mg Methylprednisolone Sodium Succinate (Solu-Medrol) 20 mg IVP Q6HR [facility] Last Admin: 03/17/18 11:04 Dose: 20 mg Morphine Sulfate (Morphine) 2 mg SLOW IVP Q1H PRN PRN Reason: breakthrough pain/agitation Stop: 04/14/18 03:43 Pantoprazole Sodium (Protonix) 40 mg IVP DAILY [facility] Last Admin: 03/17/18 10:14 Dose: 40 mg Propofol (Diprivan) 1,000 mg IV INF PRN; Protocol PRN Reason: TO ACHIEVE GOAL RASS Stop: 04/14/18 03:43 Last Admin: 03/17/18 11:47 Dose: 1,000 mg Propofol (Diprivan Bolus) 20 mg IV Q5MIN PRN PRN Reason: BREAKTHROUGH AGITATION Stop: 04/14/18 03:43 Risperidone (Risperidone) 0.25 mg PO BID [facility] Last Admin: 03/17/18 10:14 Dose: 0.25 mg Sodium Chloride (Flush - Normal Saline) 10 ml IVF Q12HR [facility] Last Admin: 03/17/18 10:13 Dose: 10 ml Sodium Chloride (Flush - Normal Saline) 10 ml IVF PRN PRN PRN Reason: Saline Flush
[2018-03-17] MEDS: Aspirin 81 mg Enteric Coated Tablet PO SCH (21:59)
[2018-03-17] MEDS: Lovastatin 20 MG TAB PO SCH (21:59)
[2018-03-18] MEDS: Propofol 1,000 MG/100 ML VIAL IV PRN ×4 (04:40→22:00)
[2018-03-18] MEDS: Furosemide 40 MG/4 ML VIAL SLOW IVP SCH ×2 (04:40→15:35)
[2018-03-18] MEDS: HumaLOG 300 UNITS/3 ML VIAL SC PRN ×3 (04:52→16:07)
[2018-03-18 05:30] LABS: Anion Gap 12 mmol/L (10-20); BUN (Urea Nitrogen) 62 mg/dL (8.4-25.7); Calc. Creatinine Clearance 53 mL/min (70-130); Calcium 8.9 mg/dL (7.8-10.44); Carbon Dioxide 37 mmol/L (23-31); Chloride 97 mmol/L (98-107); Estimated GFR-MDRD 25; Glucose 234 mg/dL (83-110); Potassium 4.5 mmol/L (3.5-5.1); Sodium 141 mmol/L (136-145)
[2018-03-18 05:34] LABS: #Lymphocytes 0.2 thou/uL (1.20-3.40); #Monocytes 0.4 thou/uL (0.11-0.59); #Neutrophils 4.1 thou/uL (1.40-6.50); %Eosinophils 0.3 % (0.0-10.0); %Lymphocytes 4.6 % (21.0-51.0); %Monocytes 8.1 % (0.0-10.0); Hemoglobin 8.3 g/dL (14.0-18.0); Mean Corpuscular HGB CONC 31.8 g/dL (32.0-36.0); Mean Corpuscular Hemoglobin 29.2 pg (27.0-31.0); Mean Corpuscular Volume 91.6 fl (80.0-94.0); Mean Platelet Volume 6.2 fL (7.4-10.4); Platelet Count 95 thou/uL (130-400); RBC Distribution Width 15.3 % (11.5-14.5); Red Blood Cell (RBC) Count 2.84 mill/uL (4.70-6.10); White Blood Cell (WBC) Count 4.7 thou/uL (4.8-10.8)
[2018-03-18] MEDS: Piperacillin/Tazobactam 3.375 GM in Sodium Chloride 0.9% 100 ML IVPB SCH ×4 (06:42→23:31)
[2018-03-18 07:27] LABS: Actual Bicarbonate (HCO3a) 38.9 mEq/L (22-26); Base Excess (BEa) 11.8 mEq/L (0 (+/-) 2.5); Hematocrit-ABG 26.5 % (42.0-52.0); O2 Tension (PaO2) 72.7 mmHg (80.0-100.0); pH, Arterial 7.36 (7.35-7.45)
[2018-03-18 07:28] LABS: Calcium, Ionized 1.1 mmol/L (1.12-1.30); Puncture Site L.R.
[2018-03-18] MEDS: Pantoprazole 40 MG VIAL IVP SCH (08:36)
[2018-03-18] MEDS: Enoxaparin Sodium 40 MG/0.4 ML SYRINGE SC SCH (08:36)
[2018-03-18] MEDS: Amiodarone 200 MG TAB PO SCH (08:36)
[2018-03-18] MEDS: Docusate 100 MG CAP PO SCH ×2 (08:36→20:32)
[2018-03-18] MEDS: Insulin Detemir 100 UNITS/ML 20 UNITS in Pre-Filled Syringe 1 EACH SC SCH (08:37)
[2018-03-18] MEDS: risperiDONE 0.25 MG TAB PO SCH ×2 (08:41→20:33)
--- NOTE | 2018-03-18 09:02 | PRG ---
DATE OF SERVICE: 03/18/2018 This morning he is intubated on the Diprivan. PHYSICAL EXAMINATION: VITAL SIGNS: Pulse is 57, temperature 98, sats 98%. Blood pressure 137/60. I's and O's are 2006 i n, 4963 out. CHEST: Chest revealed decreased breath sounds without any wheezing. CARDIAC: Normal S1, S2, no gallops. ABDOMEN: Soft, distended. LABORATORY: White count 4000, H&H 8 and 26, platelet count is 95, pO2 is 72, pCO2 39%, 36, rate of 1 2, 50%, 500 tidal volume, PEEP of 7. Creatinine is 2.5, BUN is 62. IMPRESSION: 1. Acute on chronic respiratory failure. 2. Chronic obstructive pulmonary disease. 3. Morbid obesity. 4. Bilateral pleural effusion. 5. Diastolic dysfunction. 6. Renal failure. PLAN: At this stage with history of recurrent SVT best option at this time is to try and consider a trach and long-term placement. All cultures are so far negative. We are going to continue antibiotics, neb treatments, supportive c are. One-half hour critical care time.
--- NOTE | 2018-03-18 09:05 | PRG ---
DATE OF SERVICE: 03/18/2018 SUBJECTIVE: Mr. Brady is a 72-year-old white male who was admitted for acute respiratory failure due to severe COPD exacerbation. He was initially seen by the Renal Service due to the worsening re nal dysfunction. He was also noted to be oliguric at that time. He was diuresed initially with Lasi x at 80 mg IV q.12h. and this has been adjusted due to the worsening renal dysfunction. This morning his renal function is actually slightly improved. He seems to be tolerating the current diuretic re gimen. The patient remains unchanged. OBJECTIVE: VITAL SIGNS: Blood pressure is noted at 137/60 with a heart rate 56, respiratory rate 17, pulse ox 9 7%. GENERAL: Awake, can follow simple commands, intubated on ventilator support. SKIN: Adequate turgor. HEENT: He has slightly pale conjunctivae, anicteric sclerae. NECK: No neck mass, no carotid bruits, no JVD. CHEST: No deformities. LUNGS: Decreased breath sounds, occasional wheezing. HEART: Normal sinus rhythm. No murmur, no gallops, no rubs. ABDOMEN: Globular, soft, nontender, no masses. EXTREMITIES: Positive for chronic venous stasis. MEDICATIONS: 03/18/2018 - Reviewed. LABORATORY: 03/18/2018 - White count 4.7, hemoglobin 8.3, hematocrit 26, sodium 141, potassium 4.5, chloride 97, carbon dioxide 37, BUN 62, creatinine 2.51, glucose 234, calcium 8.9. ASSESSMENT AND PLAN: 1. Acute kidney injury - superimposed hemodynamically mediated renal dysfunction on top of his chron ic renal failure. Slowly improving renal function. He seems to be tolerating current diuretic regim en. He is on a decreased dose of Lasix 40 mg IV q.12h. There is no indication for any dialytic inter vention. 2. Acute respiratory failure - patient intubated and ventilator support. Pulmonary is following. A ttempt for weaning will be done. Although there is a concern that he may not be weanable. 3. Chronic anemia, stable. Continue to observe.
--- NOTE | 2018-03-18 09:37 | RAD ---
CHEST ONE VIEW: History: Ventilated patient. Comparison: Prior day. FINDINGS: Endotracheal tube tip is above the letty approximately 5.5 cm. Heart size is markedly enlarged. Laye ring effusions. There are opacities throughout the lungs. No pneumothorax. IJ central venous catheter is at the right atrium. IMPRESSION: No significant change in the radiographic appearance of the chest. POS: TPC
--- NOTE | 2018-03-18 09:41 | PRG ---
DATE OF SERVICE: 03/18/2018 SUBJECTIVE: Caitlyn remains on the ventilator today. They are considering a tracheostomy. REVIEW OF SYSTEMS: Not available. He is intubated. OBJECTIVE: VITAL SIGNS: Blood pressure 137/60, pulse is in the mid 50s and sinus. LUNGS: Clear. CARDIAC: Normal S1 and S2. ASSESSMENT: 1. Obstructive sleep apnea. 2. Anemia. 3. Right heart failure. PLAN: Continue current medical regimen, consideration for tracheostomy has been given.
[2018-03-18] MEDS: fentaNYL Citrate/PF 2,000 MCG in Sodium Chloride 0.9% 60 ML IV SCH (10:37)
[2018-03-18] MEDS ORDERED: Insulin Detemir 100 UNITS/ML 25 UNITS in Pre-Filled Syringe 1 EACH SC SCH (10:45)
[2018-03-18] MEDS ORDERED: Insulin Detemir 100 UNITS/ML 5 UNITS in Pre-Filled Syringe 1 EACH SC SCH (10:45)
[2018-03-18] MEDS: Fluconazole 10 mg/ml Oral Suspension PO SCH (12:47)
[2018-03-18] MEDS: Aspirin 81 mg Enteric Coated Tablet PO SCH (20:32)
[2018-03-18] MEDS: Lovastatin 20 MG TAB PO SCH (20:33)
--- NOTE | 2018-03-18 22:27 | PDOC.PN ---
- Subjective Encounter Start Date: 03/18/18 Encounter Start Time: 14:00 -: non-verbal Subjective: pt intubated and sedated -: d/w bedside nsg - pt has elev glc despite SSI - Objective Resuscitation Status: Resuscitation Status FULL:Full Resuscitation Vital Signs & Weight: Vital Signs (12 hours) Temp Pulse Resp BP Pulse Ox 03/18/18 20:00 98.3 F 57 L 12 96 03/18/18 19:41 13 03/18/18 18:20 57 L 11 L 98 03/18/18 18:00 14 03/18/18 16:00 98.7 F 12 03/18/18 15:45 56 L 148/58 H 03/18/18 14:00 12 03/18/18 13:28 51 L 139/62 03/18/18 13:27 52 L 11 L 97 03/18/18 12:00 98.2 F 12 03/18/18 10:45 55 L 159/60 H Weight Admit Weight 314 lb Weight 314 lb 6.4 oz Most Recent Monitor Data Heart Rate from ECG 51 NIBP 136/59 NIBP BP-Mean 72 Respiration from ECG 12 SpO2 98 I&O: 03/17/18 03/18/18 03/19/18 06:59 06:59 06:59 Intake Total 2171 2060 645 Output Total 5105 9921 2990 [id number] Result Diagrams: 03/20/18 04:15 03/20/18 04:15 Additional Labs: Accuchecks 03/18/18 03/18/18 03/18/18 21:57 16:01 10:04 POC Glucose 134 H 180 H 241 H 03/18/18 03/17/18 04:46 22:54 POC Glucose 237 H 225 H Phys Exam - Physical Examination Constitutional: NAD lying in hospital bed HEENT: sclera anicteric, oral pharynx no lesions slightly dry mm Respiratory: no wheezing, no rales, no rhonchi coarse ventilator sounds bilat limited ant exam Cardiovascular: RRR, no significant murmur, no rub Gastrointestinal: soft, no distention, positive bowel sounds Musculoskeletal: pulses present Dx/Plan - Plan (1) Oligouria post code blue/ ACLS protocol apprec nephrology c/s continue to monitor I/O (2) Acute kidney failure see above had mild CLIFTON on admission which has markedly progressed post ACLS protocol does have continued UOP albeit less than prior to code event (3) Chronic respiratory failure with hypoxia and hypercapnia apprec pulmonary critical care c/s currently intubated and sedated on ventilator support family would like to pursue a trach and have discussed with with pulmonary critical care (4) COPD (chronic obstructive pulmonary disease) see above IV methylprednisolone, SSI to start TF today (5) Pneumonia empiric piperacillin-tazobactam (6) Diabetes mellitus type 2 in obese SSI persistent hyperglycemia, increased long acting insulin (7) Hypertension continue to monitor for hemodynamic stability (8) Morbid obesity (9) S/P ablation of ventricular arrhythmia apprec card c/s - Plan * overall very guarded prognosis Review of Systems - Medications/Allergies Allergies/Adverse Reactions: Allergies Allergy/AdvReac Type Severity Reaction Status Date / Time No Known Allergies Allergy Verified 03/11/18 11:01 Medications: Current Medications Acetaminophen (Tylenol) 650 mg PO Q4H PRN PRN Reason: Headache/Fever or Pain Albuterol/Ipratropium (Duoneb) 3 ml NEB [id number] [facility] Last Admin: 03/18/18 18:20 Dose: 3 ml Amiodarone HCl (Cordarone) 200 mg PO DAILY [facility] Last Admin: 03/18/18 08:36 Dose: 200 mg Aspirin (Ecotrin) 81 mg PO HS [facility] Last Admin: 03/18/18 20:32 Dose: 81 mg Dextrose/Water (Dextrose 50%) 25 gm SLOW IVP PRN PRN PRN Reason: Hypoglycemia Docusate Sodium (Colace) 100 mg PO BID [facility] Last Admin: 03/18/18 20:32 Dose: 100 mg Enoxaparin Sodium (Lovenox) 40 mg SC 0900 [facility] Last Admin: 03/18/18 08:36 Dose: 40 mg Fluconazole (Diflucan) 10 mg PO 1200 [facility] Last Admin: 03/18/18 12:47 Dose: 10 mg Furosemide (Lasix) 40 mg SLOW IVP 0400,1600 [facility] Last Admin: 03/18/18 15:35 Dose: 40 mg Glucagon (Glucagon) 1 mg IM PRN PRN PRN Reason: Hypoglycemia Dextrose/Water (D5w) 1,000 mls @ 0 mls/hr IV .Q0M PRN; As Directed PRN Reason: Hypoglycemia Fentanyl Citrate 2,000 mcg/ (Sodium Chloride) 100 mls @ 0 mls/hr IV INF [facility]; Per Protocol PRN Reason: Protocol Stop: 04/14/18 03:43 Last Admin: 03/18/18 10:37 Dose: 100 mls Fentanyl Citrate (Fentanyl Bolus) 250 mls @ 0 mls/hr IVPB PRN PRN; As Directed PRN Reason: Breakthrough pain/agitation Stop: 04/14/18 03:43 Piperacillin Sod/Tazobactam (Sod 3.375 gm/ Sodium Chloride) 100 mls @ 200 mls/ hr IVPB Q6HR [facility] Last Admin: 03/18/18 17:38 Dose: 100 mls Norepinephrine Bitartrate (Levophed) 250 mls @ 0 mls/hr IVPB INF PRN; Protocol ; Titrate PRN Reason: Blood Pressure Last Admin: 03/15/18 12:07 Dose: 250 mls Insulin Detemir 25 units/ (Miscellaneous Medication) 0.25 mls @ 0.25 mls/hr SC QAM [facility] PRN Reason: 25 UNITS/HR Insulin Human Lispro (Humalog) 0 units SC .MILD SLIDING SCALE PRN PRN Reason: Mild Correctional Scale Last Admin: 03/18/18 16:07 Dose: 2 unit Lorazepam (Ativan) 2 mg SLOW IVP Q1H PRN PRN Reason: Breakthrough agitation Stop: 04/14/18 03:43 Last Admin: 03/16/18 19:38 Dose: 2 mg Lovastatin (Mevacor) 20 mg PO HS [facility] Last Admin: 03/18/18 20:33 Dose: 20 mg Methylprednisolone Sodium Succinate (Solu-Medrol) 20 mg IVP BID [facility] Last Admin: 03/18/18 20:32 Dose: 20 mg Morphine Sulfate (Morphine) 2 mg SLOW IVP Q1H PRN PRN Reason: breakthrough pain/agitation Stop: 04/14/18 03:43 Pantoprazole Sodium (Protonix) 40 mg IVP DAILY [facility] Last Admin: 03/18/18 08:36 Dose: 40 mg Propofol (Diprivan) 1,000 mg IV INF PRN; Protocol PRN Reason: TO ACHIEVE GOAL RASS Stop: 04/14/18 03:43 Last Admin: 03/18/18 16:09 Dose: 1,000 mg Propofol (Diprivan Bolus) 20 mg IV Q5MIN PRN PRN Reason: BREAKTHROUGH AGITATION Stop: 04/14/18 03:43 Risperidone (Risperidone) 0.25 mg PO BID [facility] Last Admin: 03/18/18 20:33 Dose: 0.25 mg Sodium Chloride (Flush - Normal Saline) 10 ml IVF Q12HR [facility] Last Admin: 03/18/18 20:33 Dose: 10 ml Sodium Chloride (Flush - Normal Saline) 10 ml IVF PRN PRN PRN Reason: Saline Flush
[2018-03-19 04:43] LABS: #Lymphocytes 0.3 thou/uL (1.20-3.40); #Monocytes 0.4 thou/uL (0.11-0.59); #Neutrophils 4.2 thou/uL (1.40-6.50); %Eosinophils 0.5 % (0.0-10.0); %Lymphocytes 5.6 % (21.0-51.0); %Monocytes 7.3 % (0.0-10.0); %Neutrophils 86.7 % (42.0-75.0); Hemoglobin 8.8 g/dL (14.0-18.0); Mean Corpuscular HGB CONC 31.5 g/dL (32.0-36.0); Mean Corpuscular Hemoglobin 29.1 pg (27.0-31.0); Mean Corpuscular Volume 92.2 fl (80.0-94.0); Mean Platelet Volume 6.8 fL (7.4-10.4); Platelet Count 102 thou/uL (130-400); RBC Distribution Width 15.3 % (11.5-14.5); Red Blood Cell (RBC) Count 3.01 mill/uL (4.70-6.10); White Blood Cell (WBC) Count 4.8 thou/uL (4.8-10.8)
[2018-03-19 05:06] LABS: BUN (Urea Nitrogen) 69 mg/dL (8.4-25.7); Calc. Creatinine Clearance 57 mL/min (70-130); Calcium 8.7 mg/dL (7.8-10.44); Estimated GFR-MDRD 28; Glucose 197 mg/dL (83-110)
[2018-03-19 05:15] LABS: Anion Gap 14 mmol/L (10-20); Carbon Dioxide 36 mmol/L (23-31); Chloride 98 mmol/L (98-107); Potassium 4.3 mmol/L (3.5-5.1); Sodium 144 mmol/L (136-145)
[2018-03-19] MEDS: Piperacillin/Tazobactam 3.375 GM in Sodium Chloride 0.9% 100 ML IVPB SCH ×4 (05:50→23:19)
[2018-03-19] MEDS: Furosemide 40 MG/4 ML VIAL SLOW IVP SCH ×2 (05:50→16:07)
[2018-03-19] MEDS: HumaLOG 300 UNITS/3 ML VIAL SC PRN ×4 (05:51→22:00)
[2018-03-19 07:26] LABS: Actual Bicarbonate (HCO3a) 41.6 mEq/L (22-26); Base Excess (BEa) 14.3 mEq/L (0 (+/-) 2.5); CO2 Tension 72.6 mmHg (35.0-45.0); O2 Tension (PaO2) 68.5 mmHg (80.0-100.0); pH, Arterial 7.38 (7.35-7.45)
[2018-03-19 07:27] LABS: Hematocrit-ABG 29.3 % (42.0-52.0); Hemoglobin (Hb) 8.7 g/dL (14.0-18.0); Puncture Site RRA
--- NOTE | 2018-03-19 08:59 | PRG ---
DATE OF SERVICE: 03/19/2018 He remains intubated on the vent, agitated. He is on Fentanyl and Diprivan both. PHYSICAL EXAMINATION: VITAL SIGNS: Blood pressure is 144/65, pulse 60, O2 sats 92% on PEEP of 7 on 40 % FiO2. His I's and O's are 2068 in, 4962 out. CHEST: Chest reveals decreased breath sounds without any wheezing. CARDIAC: Normal S1, S2, no gallops. ABDOMEN: Massive. EXTREMITIES: Trace edema. NEUROLOGIC: Encephalopathic. LABORATORY: Creatinine 4.8, H&H 8 and 27, platelet count is low 102, pO2 68, pCO2 of 72, pH 7.3 8, chronic respiratory failure, compensated. BUN and creatinine are 69 and 2.33. X-ray shows bilateral large pleural effusion. IMPRESSION: 1. Morbid obesity. 2. Sleep apnea. 3. Diastolic dysfunction. 4. Renal failure. 5. Encephalopathy. PLAN: He clearly is not weanable at this stage. Continue gentle diuretics. Lasix, neb treatments, empiric antibiotics. We are calling General Surgery to see the patient regarding a trach and a PEG. One-half hour critical care time. [facility]
--- NOTE | 2018-03-19 09:16 | RAD ---
PORTABLE AP CHEST RADIOGRAPH: Date: 03-19-18 History: On ventilator. Follow up evaluation. Comparison: 03-18-18 FINDINGS: The endotracheal tube and right subclavian central venous catheter remain in place and unchanged in p osition. Cardiac silhouette remains largely enlarged. There is pulmonary vascular congestion and bila teral alveolar opacities in the perihilar region suggesting mild pulmonary edema. There are bilateral pleural effusions and associated passive atelectasis. No other interval change. IMPRESSION: 1. Marked cardiomegaly with pulmonary vascular congestion which may be related to pulmonary edema. 2. Bilateral pleural effusions and atelectasis. POS: [facility]
[2018-03-19] MEDS: Amiodarone 200 MG TAB PO SCH (09:24)
[2018-03-19] MEDS: risperiDONE 0.25 MG TAB PO SCH ×2 (09:24→20:47)
[2018-03-19] MEDS: Docusate 100 MG CAP PO SCH ×2 (09:24→20:47)
[2018-03-19] MEDS: Enoxaparin Sodium 40 MG/0.4 ML SYRINGE SC SCH (09:24)
[2018-03-19] MEDS: Pantoprazole 40 MG VIAL IVP SCH (09:25)
[2018-03-19] MEDS: Insulin Detemir 100 UNITS/ML 25 UNITS in Pre-Filled Syringe 1 EACH SC SCH (09:25)
[2018-03-19] MEDS: AcetaZOLAMIDE 250 MG TAB PO SCH (09:33)
--- NOTE | 2018-03-19 09:46 | PRG ---
DATE OF SERVICE: 03/19/2018 SERVICE: Renal Medicine. SUBJECTIVE: Mr. Brady is a 72-year-old white male who was seen for his acute kidney injury on to p of his chronic renal failure. He had a superimposed hemodynamically mediated renal dysfunction at that time. The patient remains intubated. OBJECTIVE: VITAL SIGNS: Blood pressure is 144/65, heart rate 62, respiratory rate 16, pulse ox 97%. GENERAL: Patient is arousable, intubated on ventilatory support, obese. SKIN: Adequate turgor. HEENT: Slightly pale conjunctivae, anicteric sclerae. NECK: No neck mass, no carotid bruits, no JVD. CHEST: No deformities. LUNGS: Decreased breath sounds. Occasional wheezing. HEART: Normal sinus rhythm. No murmur, no gallops, no rubs. ABDOMEN: Globular, soft, nontender, no masses. EXTREMITIES: Positive for chronic venous stasis. MEDICATIONS: Of 03/19/2018 was reviewed. LABORATORY DATA: Of 03/19/2018, white count 4.8, hemoglobin 8.8. Sodium 144, potassium 4.3, chlorid e 98, carbon dioxide 36, BUN 69, creatinine 2.33, glucose 197, calcium is 8.7. ASSESSMENT AND PLAN: 1. Acute kidney injury - superimposed hemodynamically mediated renal dysfunction. The patient's crispin al function continues to improve. There is no indication for any dialytic intervention. Continue ju dicious use of diuretics. 2. Acute respiratory failure - multifactorial - congestive heart failure with combined chronic obstr uctive pulmonary disease exacerbation. Continue supportive care. Pulmonary is following. 3. Anemia, continue to observe - p.r.n. blood transfusion.
--- NOTE | 2018-03-19 10:32 | PRG ---
DATE OF SERVICE: 03/19/2018 Mr. Brady is on the ventilator. They are planning on doing a tracheostomy tomorrow. PHYSICAL EXAMINATION: VITAL SIGNS: Blood pressure 155/71, pulse 70s, it is sinus. LUNGS: Clear. CARDIAC: Normal S1, S2. ABDOMEN: Obese. EXTREMITIES: Mild edema, chronic. ASSESSMENT: 1. Obstructive sleep apnea. 2. Hypoventilation. PLAN: Tracheostomy tomorrow.
[2018-03-19] MEDS: fentaNYL Citrate/PF 2,000 MCG in Sodium Chloride 0.9% 60 ML IV SCH (11:52)
[2018-03-19] MEDS: Propofol 1,000 MG/100 ML VIAL IV PRN (11:55)
[2018-03-19] MEDS: Fluconazole 10 mg/ml Oral Suspension PO SCH (12:11)
[2018-03-19 13:25] LABS: Bilirubin Negative (Negative); Blood, Urine Small (Negative); Clarity CLEAR (Clear); Glucose, Urine (Dipstick) Negative (Negative); Leukocyte Negative (Negative); Nitrite Negative (Negative); Protein, Urine (Dipstick) 30 mg/dL (Neg-Trace); Specific Gravity, Urine 1.016 (1.002-1.036); Urobilinogen 0.2 mg/dL (0.2-1.0); pH, Urine 6.5 (5.0-9.0)
[2018-03-19 13:27] LABS: Bacteria/HPF None Seen HPF (None Seen); Hyaline Casts/LPF 0-3 HYALINE CAST LPF (0-3 Hyaline); Pathc Cast-AUWi Flag 0.58 (0-2.49); Squamous Epithelial None Seen HPF (0-3); WBC/HPF 0-3 HPF (0-3)
[2018-03-19] MEDS ORDERED: Sodium Bicarbonate Tab 325 MG TAB PER TUBE PRN (14:42)
[2018-03-19] MEDS ORDERED: Pancrelipase DR 12000 1 CAP FS PRN (14:42)
[2018-03-19] MEDS: Aspirin 81 mg Enteric Coated Tablet PO SCH (20:47)
[2018-03-19] MEDS: Lovastatin 20 MG TAB PO SCH (20:47)
--- NOTE | 2018-03-19 22:08 | PDOC.PN ---
- Subjective Encounter Start Date: 03/19/18 Encounter Start Time: 12:00 -: non-verbal Subjective: pt intubated, sedated, family () @ bedside inquiring if he might be -: able to use a speaking valve in the future - Objective Resuscitation Status: Resuscitation Status FULL:Full Resuscitation Vital Signs & Weight: Vital Signs (12 hours) Temp Pulse Resp BP Pulse Ox 03/19/18 20:00 100.6 F H 19 03/19/18 18:40 62 18 96 03/19/18 18:00 16 03/19/18 16:00 99.1 F 18 03/19/18 15:11 61 144/57 H 03/19/18 14:00 15 03/19/18 13:00 100 F H 64 160/89 H 03/19/18 12:57 64 21 H 94 L 03/19/18 12:00 101.4 F H 22 H 96 Weight Admit Weight 314 lb Weight 314 lb 6.4 oz Most Recent Monitor Data Heart Rate from ECG 68 NIBP 143/66 NIBP BP-Mean 80 Respiration from ECG 21 SpO2 95 I&O: 03/18/18 03/19/18 03/20/18 06:59 06:59 06:59 Intake Total 2060 1665 1012.4 Output Total 4960 4785 4140 Balance -2900 -3120 -3127.6 Result Diagrams: 03/20/18 04:15 03/20/18 04:15 Additional Labs: Accuchecks 03/19/18 03/19/18 03/19/18 16:21 09:59 03:37 POC Glucose 250 H 172 H 168 H Phys Exam - Physical Examination Constitutional: NAD lying in hopsital bed HEENT: moist MMs ETT in place Respiratory: no wheezing, no rales, no rhonchi, clear to auscultation bilateral limited anterior exam, pt in restraints, coarse b/l ventilator sounds Cardiovascular: RRR, no significant murmur, no rub Gastrointestinal: soft, positive bowel sounds Musculoskeletal: pulses present Dx/Plan - Plan (1) Oligouria post code blue/ ACLS protocol apprec nephrology c/s continue to monitor I/O (2) Acute kidney failure see above had mild CLIFTON on admission which has markedly progressed post ACLS protocol does have continued UOP albeit less than prior to code event (3) Chronic respiratory failure with hypoxia and hypercapnia apprec pulmonary critical care c/s currently intubated and sedated on ventilator support plan for possible trach and peg apprec surg c/s (4) COPD (chronic obstructive pulmonary disease) see above IV methylprednisolone, SSI (5) Pneumonia empiric piperacillin-tazobactam (6) Diabetes mellitus type 2 in obese SSI persistent hyperglycemia, increased long acting insulin (7) Hypertension continue to monitor for hemodynamic stability (8) Morbid obesity (9) S/P ablation of ventricular arrhythmia apprec card c/s - Plan * overall very guarded prognosis diet: TF activity: bedbound 2/2 ventilator support, restraints in place dvt ppx Review of Systems - Medications/Allergies Allergies/Adverse Reactions: Allergies Allergy/AdvReac Type Severity Reaction Status Date / Time No Known Allergies Allergy Verified 03/11/18 11:01 Medications: Current Medications Acetaminophen (Tylenol) 650 mg PO Q4H PRN PRN Reason: Headache/Fever or Pain Last Admin: 03/20/18 05:07 Dose: 650 mg Acetazolamide (Diamox) 250 mg PO DAILY [facility] Last Admin: 03/20/18 09:26 Dose: 250 mg Albuterol/Ipratropium (Duoneb) 3 ml NEB [id number] [facility] Last Admin: 03/20/18 07:10 Dose: 3 ml Amiodarone HCl (Cordarone) 200 mg PO DAILY [facility] Last Admin: 03/20/18 09:26 Dose: 200 mg Lipase/Protease/[place]ylase ([place] [id number]) 1 cap FS .PER PROTOCOL PRN PRN Reason: TUBE OCCLUSION PROTOCOL Artificial Tears (Tears Naturale) 2 drop EA EYE Q4H PRN PRN Reason: Dry Eyes Aspirin (Ecotrin) 81 mg PO HS [facility] Last Admin: 03/19/18 20:47 Dose: 81 mg Dextrose/Water (Dextrose 50%) 25 gm SLOW IVP PRN PRN PRN Reason: Hypoglycemia Docusate Sodium (Colace) 100 mg PO BID [facility] Last Admin: 03/20/18 09:26 Dose: 100 mg Enoxaparin Sodium (Lovenox) 40 mg SC 0900 [facility] Last Admin: 03/20/18 09:27 Dose: 40 mg Fluconazole (Diflucan) 10 mg PO 1200 [facility] Last Admin: 03/19/18 12:11 Dose: 10 mg Furosemide (Lasix) 40 mg SLOW IVP 0400,1600 [facility] Last Admin: 03/20/18 05:06 Dose: 40 mg Glucagon (Glucagon) 1 mg IM PRN PRN PRN Reason: Hypoglycemia Dextrose/Water (D5w) 1,000 mls @ 0 mls/hr IV .Q0M PRN; As Directed PRN Reason: Hypoglycemia Fentanyl Citrate 2,000 mcg/ (Sodium Chloride) 100 mls @ 0 mls/hr IV INF [facility]; Per Protocol PRN Reason: Protocol Stop: 04/14/18 03:43 Last Admin: 03/19/18 11:52 Dose: 100 mls Fentanyl Citrate (Fentanyl Bolus) 250 mls @ 0 mls/hr IVPB PRN PRN; As Directed PRN Reason: Breakthrough pain/agitation Stop: 04/14/18 03:43 Piperacillin Sod/Tazobactam (Sod 3.375 gm/ Sodium Chloride) 100 mls @ 200 mls/ hr IVPB Q6HR [facility] Last Admin: 03/20/18 05:06 Dose: 100 mls Norepinephrine Bitartrate (Levophed) 250 mls @ 0 mls/hr IVPB INF PRN; Protocol ; Titrate PRN Reason: Blood Pressure Last Admin: 03/15/18 12:07 Dose: 250 mls Insulin Detemir 25 units/ (Miscellaneous Medication) 0.25 mls @ 0.25 mls/hr SC QAM [facility] PRN Reason: 25 UNITS/HR Last Admin: 03/20/18 09:31 Dose: 0.25 mls Insulin Human Lispro (Humalog) 0 units SC .MILD SLIDING SCALE PRN PRN Reason: Mild Correctional Scale Last Admin: 03/20/18 05:11 Dose: 4 unit Lorazepam (Ativan) 2 mg SLOW IVP Q1H PRN PRN Reason: Breakthrough agitation Stop: 04/14/18 03:43 Last Admin: 03/16/18 19:38 Dose: 2 mg Lovastatin (Mevacor) 20 mg PO HS [facility] Last Admin: 03/19/18 20:47 Dose: 20 mg Methylprednisolone Sodium Succinate (Solu-Medrol) 20 mg IVP BID [facility] Last Admin: 03/20/18 09:27 Dose: 20 mg Morphine Sulfate (Morphine) 2 mg SLOW IVP Q1H PRN PRN Reason: breakthrough pain/agitation Stop: 04/14/18 03:43 Pantoprazole Sodium (Protonix) 40 mg IVP DAILY [facility] Last Admin: 03/20/18 09:27 Dose: 40 mg Propofol (Diprivan) 1,000 mg IV INF PRN; Protocol PRN Reason: TO ACHIEVE GOAL RASS Stop: 04/14/18 03:43 Last Admin: 03/19/18 11:55 Dose: 1,000 mg Propofol (Diprivan Bolus) 20 mg IV Q5MIN PRN PRN Reason: BREAKTHROUGH AGITATION Stop: 04/14/18 03:43 Risperidone (Risperidone) 0.25 mg PO HS [facility] Sodium Bicarbonate (Bicarbonate, Sodium) 650 mg PER TUBE .PER PROTOCOL PRN PRN Reason: ENTERAL TUBE OCCLUSION Sodium Chloride (Flush - Normal Saline) 10 ml IVF Q12HR [facility] Last Admin: 03/19/18 20:47 Dose: 10 ml Sodium Chloride (Flush - Normal Saline) 10 ml IVF PRN PRN PRN Reason: Saline Flush
[2018-03-20] MEDS: Acetaminophen 325 MG TAB PO PRN ×2 (00:22→05:07)
[2018-03-20] MEDS: Piperacillin/Tazobactam 3.375 GM in Sodium Chloride 0.9% 100 ML IVPB SCH ×4 (05:06→23:14)
[2018-03-20] MEDS: Furosemide 40 MG/4 ML VIAL SLOW IVP SCH ×2 (05:06→18:33)
[2018-03-20] MEDS: HumaLOG 300 UNITS/3 ML VIAL SC PRN ×4 (05:11→23:17)
[2018-03-20 05:15] LABS: BUN (Urea Nitrogen) 77 mg/dL (8.4-25.7); Calc. Creatinine Clearance 58 mL/min (70-130); Estimated GFR-MDRD 28; Glucose 274 mg/dL (83-110)
[2018-03-20 05:25] LABS: #Lymphocytes 0.4 thou/uL (1.20-3.40); #Monocytes 0.3 thou/uL (0.11-0.59); #Neutrophils 3.7 thou/uL (1.40-6.50); %Basophils 0.1 % (0.0-1.0); %Eosinophils 0.8 % (0.0-10.0); %Lymphocytes 9.4 % (21.0-51.0); %Monocytes 7.3 % (0.0-10.0); %Neutrophils 82.4 % (42.0-75.0); Anion Gap 17 mmol/L (10-20); Carbon Dioxide 36 mmol/L (23-31); Chloride 99 mmol/L (98-107); Hemoglobin 9.5 g/dL (14.0-18.0); Mean Corpuscular Hemoglobin 28.7 pg (27.0-31.0); Mean Corpuscular Volume 92.5 fl (80.0-94.0); Mean Platelet Volume 6.6 fL (7.4-10.4); Platelet Count 100 thou/uL (130-400); Potassium 4.1 mmol/L (3.5-5.1); RBC Distribution Width 15.2 % (11.5-14.5); Red Blood Cell (RBC) Count 3.31 mill/uL (4.70-6.10); Sodium 148 mmol/L (136-145); White Blood Cell (WBC) Count 4.5 thou/uL (4.8-10.8)
--- NOTE | 2018-03-20 07:49 | PRG ---
DATE OF SERVICE: 03/20/2018 Mr. Brady remains intubated on the ventilator. REVIEW OF SYSTEMS: Not available. There is consideration being given for tracheostomy. PHYSICAL EXAMINATION: VITAL SIGNS: Blood pressure 136/58, pulse 60, sinus. LUNGS: Clear. CARDIAC: Normal S1, S2. ASSESSMENT: 1. Right heart failure, mostly due to obesity hypoventilation and obstructive sleep apnea. 2. Respiratory failure. 3. Pleural effusion. PLAN: 1. Consideration for tracheostomy being given. 2. The pleural effusion is improved. 3. There does appear to be some pulmonary vascular congestion on the chest x-ray. 4. The patient is on Diamox. 5. Furosemide twice a day. 6. Continue current medical regimen. Prognosis is guarded to poor.
[2018-03-20 07:51] LABS: Base Excess (BEa) 15.3 mEq/L (0 (+/-) 2.5); Hematocrit-ABG 30.1 % (42.0-52.0); O2 Tension (PaO2) 70.3 mmHg (80.0-100.0); pH, Arterial 7.42 (7.35-7.45)
[2018-03-20 07:52] LABS: Calcium, Ionized 1.1 mmol/L (1.12-1.30); Hemoglobin (Hb) 9.3 g/dL (14.0-18.0); Puncture Site LR
--- NOTE | 2018-03-20 09:00 | RAD ---
PORTABLE AP CHEST XRAY: DATE: 03/20/18. HISTORY: On ventilator. Followup evaluation. COMPARISON: 03/19/18. FINDINGS: Endotracheal tube and right subclavian central venous catheter remain in place and unchanged in posit ion. There appears to be a nasogastric tube in place but the tube is not well imaged on this exam. Cardiac silhouette remains enlarged. There are bilateral pleural effusions which appear increased fr om the prior exam with associated passive atelectasis. The interstitial and alveolar opacities do ap pear mildly improved from the prior exam but do persist and the findings may be related to asymmetric pulmonary edema. Thoracic aorta remains ectatic. IMPRESSION: 1. Cardiomegaly with bilateral pleural effusions and atelectasis. Pleural effusions may be mildly i ncreased from prior exam. 2. Mild prominence of the perihilar interstitial densities, particularly on the right, which could b e related to an element of mild asymmetric pulmonary edema. 3. Ectasia of thoracic aorta. 4. Lines and tubes stable in position. POS: [facility]
[2018-03-20] MEDS: AcetaZOLAMIDE 250 MG TAB PO SCH (09:26)
[2018-03-20] MEDS: Docusate 100 MG CAP PO SCH ×2 (09:26→19:54)
[2018-03-20] MEDS: Amiodarone 200 MG TAB PO SCH (09:26)
[2018-03-20] MEDS: Pantoprazole 40 MG VIAL IVP SCH (09:27)
[2018-03-20] MEDS: Enoxaparin Sodium 40 MG/0.4 ML SYRINGE SC SCH (09:27)
[2018-03-20] MEDS: Insulin Detemir 100 UNITS/ML 25 UNITS in Pre-Filled Syringe 1 EACH SC SCH (09:31)
--- NOTE | 2018-03-20 10:02 | PDOC.PN ---
- Subjective Encounter Start Date: 03/20/18 Encounter Start Time: 10:01 -: non-verbal Subjective: intubated, light sedation, nods/ shakes head appropriately and follows -: commands - Objective Resuscitation Status: Resuscitation Status FULL:Full Resuscitation Vital Signs & Weight: Vital Signs (12 hours) Temp Pulse Resp BP Pulse Ox 03/20/18 08:00 99.2 F 03/20/18 07:10 59 L 136/58 L 03/20/18 06:00 13 03/20/18 04:00 100.3 F H 13 03/20/18 02:00 18 03/20/18 00:00 100.8 F H 14 03/19/18 23:31 62 15 95 Weight Admit Weight 314 lb Weight 314 lb 6.4 oz Most Recent Monitor Data Heart Rate from ECG 59 NIBP 134/63 NIBP BP-Mean 72 Respiration from ECG 17 SpO2 96 I&O: 03/19/18 03/20/18 03/21/18 06:59 06:59 06:59 Intake Total 1665 2078.4 Output Total 4785 5530 520 Balance -3120 -3451.6 -520 Result Diagrams: 03/20/18 04:15 03/20/18 04:15 Additional Labs: Accuchecks 03/20/18 03/19/18 03/19/18 05:12 22:01 16:21 POC Glucose 259 H 207 H 250 H 03/19/18 09:59 POC Glucose 172 H Phys Exam - Physical Examination Constitutional: NAD lying in hospital bed, soft restraints off HEENT: moist MMs, sclera anicteric, oral pharynx no lesions ETT in place Respiratory: no wheezing, no rales, no rhonchi coarse b/l ventilator sounds Cardiovascular: RRR, no rub Gastrointestinal: soft, non-tender, positive bowel sounds Guardado draining yellow urine Musculoskeletal: no edema, pulses present Dx/Plan - Plan (1) Oligouria post code blue/ ACLS protocol apprec nephrology c/s continue to monitor I/O (2) Acute kidney failure see above had mild CLIFTON on admission which has markedly progressed post ACLS protocol does have continued UOP albeit less than prior to code event (3) Chronic respiratory failure with hypoxia and hypercapnia apprec pulmonary critical care c/s currently intubated and sedated on ventilator support decision by family to hold off on trach and peg and re-assess patient's progress over the weekend - they are also contemplating comfort care as an option apprec surg c/s (4) COPD (chronic obstructive pulmonary disease) see above IV methylprednisolone, SSI (5) Pneumonia empiric piperacillin-tazobactam (6) Diabetes mellitus type 2 in obese SSI persistent hyperglycemia, increased long acting insulin (7) Hypertension continue to monitor for hemodynamic stability (8) Morbid obesity (9) S/P ablation of ventricular arrhythmia apprec card c/s - Plan * overall very guarded prognosis diet: TF activity: bedbound 2/2 ventilator support dvt ppx Review of Systems - Medications/Allergies Allergies/Adverse Reactions: Allergies Allergy/AdvReac Type Severity Reaction Status Date / Time No Known Allergies Allergy Verified 03/11/18 11:01 Medications: Current Medications Acetaminophen (Tylenol) 650 mg PO Q4H PRN PRN Reason: Headache/Fever or Pain Last Admin: 03/20/18 05:07 Dose: 650 mg Acetazolamide (Diamox) 250 mg PO DAILY [facility] Last Admin: 03/20/18 09:26 Dose: 250 mg Albuterol/Ipratropium (Duoneb) 3 ml NEB [id number] [facility] Last Admin: 03/20/18 07:10 Dose: 3 ml Amiodarone HCl (Cordarone) 200 mg PO DAILY [facility] Last Admin: 03/20/18 09:26 Dose: 200 mg Lipase/Protease/Amylase ([place] [id number]) 1 cap FS .PER PROTOCOL PRN PRN Reason: TUBE OCCLUSION PROTOCOL Artificial Tears (Tears Naturale) 2 drop EA EYE Q4H PRN PRN Reason: Dry Eyes Aspirin (Ecotrin) 81 mg PO HS [facility] Last Admin: 03/19/18 20:47 Dose: 81 mg Dextrose/Water (Dextrose 50%) 25 gm SLOW IVP PRN PRN PRN Reason: Hypoglycemia Docusate Sodium (Colace) 100 mg PO BID [facility] Last Admin: 03/20/18 09:26 Dose: 100 mg Enoxaparin Sodium (Lovenox) 40 mg SC 0900 [facility] Last Admin: 03/20/18 09:27 Dose: 40 mg Fluconazole (Diflucan) 10 mg PO 1200 MARTA Last Admin: 03/19/18 12:11 Dose: 10 mg Furosemide (Lasix) 40 mg SLOW IVP 0400,1600 [facility] Last Admin: 03/20/18 05:06 Dose: 40 mg Glucagon (Glucagon) 1 mg IM PRN PRN PRN Reason: Hypoglycemia Dextrose/Water (D5w) 1,000 mls @ 0 mls/hr IV .Q0M PRN; As Directed PRN Reason: Hypoglycemia Fentanyl Citrate 2,000 mcg/ (Sodium Chloride) 100 mls @ 0 mls/hr IV INF MARTA; Per Protocol PRN Reason: Protocol Stop: 04/14/18 03:43 Last Admin: 03/19/18 11:52 Dose: 100 mls Fentanyl Citrate (Fentanyl Bolus) 250 mls @ 0 mls/hr IVPB PRN PRN; As Directed PRN Reason: Breakthrough pain/agitation Stop: 04/14/18 03:43 Piperacillin Sod/Tazobactam (Sod 3.375 gm/ Sodium Chloride) 100 mls @ 200 mls/ hr IVPB Q6HR [facility] Last Admin: 03/20/18 05:06 Dose: 100 mls Norepinephrine Bitartrate (Levophed) 250 mls @ 0 mls/hr IVPB INF PRN; Protocol ; Titrate PRN Reason: Blood Pressure Last Admin: 03/15/18 12:07 Dose: 250 mls Insulin Detemir 25 units/ (Miscellaneous Medication) 0.25 mls @ 0.25 mls/hr [facility] PRN Reason: 25 UNITS/HR Last Admin: 03/20/18 09:31 Dose: 0.25 mls Insulin Human Lispro (Humalog) 0 units SC .MILD SLIDING SCALE PRN PRN Reason: Mild Correctional Scale Last Admin: 03/20/18 05:11 Dose: 4 unit Lorazepam (Ativan) 2 mg SLOW IVP Q1H PRN PRN Reason: Breakthrough agitation Stop: 04/14/18 03:43 Last Admin: 03/16/18 19:38 Dose: 2 mg Lovastatin (Mevacor) 20 mg PO HS [facility] Last Admin: 03/19/18 20:47 Dose: 20 mg Methylprednisolone Sodium Succinate (Solu-Medrol) 20 mg IVP BID [facility] Last Admin: 03/20/18 09:27 Dose: 20 mg Morphine Sulfate (Morphine) 2 mg SLOW IVP Q1H PRN PRN Reason: breakthrough pain/agitation Stop: 04/14/18 03:43 Pantoprazole Sodium (Protonix) 40 mg IVP DAILY [facility] Last Admin: 03/20/18 09:27 Dose: 40 mg Propofol (Diprivan) 1,000 mg IV INF PRN; Protocol PRN Reason: TO ACHIEVE GOAL RASS Stop: 04/14/18 03:43 Last Admin: 03/19/18 11:55 Dose: 1,000 mg Propofol (Diprivan Bolus) 20 mg IV Q5MIN PRN PRN Reason: BREAKTHROUGH AGITATION Stop: 04/14/18 03:43 Risperidone (Risperidone) 0.25 mg PO HS MARTA Sodium Bicarbonate (Bicarbonate, Sodium) 650 mg PER TUBE .PER PROTOCOL PRN PRN Reason: ENTERAL TUBE OCCLUSION Sodium Chloride (Flush - Normal Saline) 10 ml IVF Q12HR [facility] Last Admin: 03/19/18 20:47 Dose: 10 ml Sodium Chloride (Flush - Normal Saline) 10 ml IVF PRN PRN PRN Reason: Saline Flush
--- NOTE | 2018-03-20 10:29 | PRG ---
DATE OF SERVICE: 03/20/2018 SUBJECTIVE: This morning, he is awake, alert and responsive. OBJECTIVE: VITAL SIGNS: Blood pressure 136/58, pulse is 69, he is afebrile, temperature 100.3. Low grade I's a nd O's are 1665 in and 478 out. Cultures so far negative. CHEST: Decreased breath sounds without any wheezing. CARDIAC: Normal S1, S2, no gallops. ABDOMEN: Distended, massive. EXTREMITIES: Reveal trace edema. LABORATORY DATA: His white count is 4.5, H&H is 9 and 30, platelet count is 100. PO2 of 70, pCO2 77 , FiO2 40%, PEEP of 7. Creatinine is 2.2, BUN 77. IMPRESSION: Acute on chronic respiratory failure, diastolic dysfunction, bilateral pleural effusion, morbid obesity, encephalopathy. PLAN: and his two children are deciding about ongoing care including trach versus comfort care. Surgery was consulted. At this stage, long-term prognosis is grave. X-ray shows persistent large pl eural effusion. In spite of getting aggressive diuretics, we noticed that his BUN and creatinine are gradually increasing. The family understands clearly his prognosis is poor. Once he has a trach and a PEG, he will have to go to an LTAC facility. We are going to continue PT. We will follow. One-half hour critical care time.
[2018-03-20] MEDS: Fluconazole 10 mg/ml Oral Suspension PO SCH (12:00)
--- NOTE | 2018-03-20 16:03 | CON ---
DATE OF CONSULTATION: 03/20/2018 CHIEF COMPLAINT: Inability to wean from ventilator. HISTORY: A 72-year-old male who has multiple serious medical problems, who was admitted with dyspnea and CHF exacerbation on 03/07/2018. He required mechanical ventilation and also had a thoracentesis on the , 1.1 liters were removed from his right chest. Post-procedure, he had a code blue and r equired CPR, eventually was resuscitated. They are unable to get him off the ventilator. He needs a tracheostomy and a PEG in order to be accepted into the long-term acute care center. He has been on Lovenox daily. His last dose was this morning. PAST MEDICAL HISTORY: Morbid obesity, diastolic dysfunction, respiratory failure, chronic obstructiv e pulmonary disease, sleep apnea, renal failure, colon cancer, diabetes Staph sepsis, ventricular tac hycardia. PAST SURGICAL HISTORY: He has had a colon resection. He has been intubated several times in the [facility] t. MEDICATIONS: Amiodarone, insulin, gabapentin, Lasix, Pepcid, hydrocodone, nebulizers, hydralazine. ALLERGIES: No known drug allergies. SOCIAL HISTORY: He is , lives at home. PHYSICAL EXAMINATION: VITAL SIGNS: He is afebrile, pulse 71, blood pressure 156/57. GENERAL: He is a morbidly obese male. He is lethargic. He is awake. He is on the ventilator. NECK: He has had a lot of adipose but the trachea is easily palpable. No tumors or masses. LUNGS: Clear. He has got a central line in the right subclavian. ABDOMEN: Soft, nondistended, obese. EXTREMITIES: He has got a lot of venous stasis changes to the lower extremities. Poor pulses. ASSESSMENT: Respiratory failure, poor nutrition. PLAN: Percutaneous endoscopic gastrostomy and tracheostomy in the morning. CONSENT: I have discussed the planned procedure with him and his . They understand the risk of bleeding, infection, loss of airway, injury to colon or small bowel and gave informed consent.
[2018-03-20] MEDS ORDERED: Bupivacaine HCl 0.5%/Epinephrine 1:200,000/PF 30 ml Vial ONE (19:45)
[2018-03-20] MEDS: Aspirin 81 mg Enteric Coated Tablet PO SCH (19:54)
[2018-03-20] MEDS: Lovastatin 20 MG TAB PO SCH (19:54)
[2018-03-20] MEDS: risperiDONE 0.25 MG TAB PO SCH (19:54)
[2018-03-21 04:40] LABS: #Lymphocytes 0.6 thou/uL (1.20-3.40); #Monocytes 0.5 thou/uL (0.11-0.59); #Neutrophils 3.6 thou/uL (1.40-6.50); %Lymphocytes 11.9 % (21.0-51.0); %Monocytes 10.1 % (0.0-10.0); %Neutrophils 77.1 % (42.0-75.0); Hemoglobin 9.9 g/dL (14.0-18.0); Mean Corpuscular HGB CONC 31.7 g/dL (32.0-36.0); Mean Corpuscular Hemoglobin 29.5 pg (27.0-31.0); Mean Platelet Volume 6.4 fL (7.4-10.4); Platelet Count 87 thou/uL (130-400); RBC Distribution Width 14.9 % (11.5-14.5); Red Blood Cell (RBC) Count 3.37 mill/uL (4.70-6.10); White Blood Cell (WBC) Count 4.7 thou/uL (4.8-10.8)
[2018-03-21] MEDS: Furosemide 40 MG/4 ML VIAL SLOW IVP SCH (04:53)
[2018-03-21] MEDS: Piperacillin/Tazobactam 3.375 GM in Sodium Chloride 0.9% 100 ML IVPB SCH (04:54)
[2018-03-21] MEDS: HumaLOG 300 UNITS/3 ML VIAL SC PRN ×3 (05:01→15:53)
[2018-03-21 05:06] LABS: BUN (Urea Nitrogen) 90 mg/dL (8.4-25.7); Calc. Creatinine Clearance 61 mL/min (70-130); Calcium 9.2 mg/dL (7.8-10.44); Estimated GFR-MDRD 30; Glucose 309 mg/dL (83-110)
[2018-03-21 05:17] LABS: Anion Gap 17 mmol/L (10-20); Carbon Dioxide 35 mmol/L (23-31); Chloride 102 mmol/L (98-107); Potassium 3.8 mmol/L (3.5-5.1); Sodium 150 mmol/L (136-145)
[2018-03-21 06:52] LABS: Base Excess (BEa) 13.6 mEq/L (0 (+/-) 2.5); CO2 Tension 62.3 mmHg (35.0-45.0); Hemoglobin (Hb) 9.8 g/dL (14.0-18.0); O2 Tension (PaO2) 71.7 mmHg (80.0-100.0); pH, Arterial 7.43 (7.35-7.45)
[2018-03-21 06:53] LABS: ALV-art Gradient 135.625 (0-20); Calcium, Ionized 1.2 mmol/L (1.12-1.30); Puncture Site RRA
--- NOTE | 2018-03-21 07:35 | PRG ---
DATE OF SERVICE: 03/21/2018 SERVICE: Pulmonary Medicine. INTERVAL HISTORY: The patient is doing fine from a respiratory standpoint. He has no complaints. There were no overnight events. He is on schedule for tracheostomy first thing this morning and we will facilitate weaning afterwards. He cannot provide any additional elements of the history, because he is currently intubated. He is not on any sedation and is comfortable. PHYSICAL EXAMINATION: VITAL SIGNS: Afebrile, pulse 65, blood pressure 107/55, respirations 14, saturation 100% on 27% FIO2 and a PEEP of 5. GENERAL: Patient is awake, alert, in no apparent distress. LUNGS: Decent air entry. Dependent crackles are minimal. No prolonged expiratory phase or wheezing is appreciated. HEART: Normal rate, regular. ABDOMEN: Soft, nontender, nondistended. Bowel sounds are positive. MUSCULOSKELETAL: No cyanosis or clubbing. No pitting in the bilateral lower extremities. NEUROLOGIC: Grossly nonfocal. LABORATORY DATA: WBC 4.7, hemoglobin 9.9, platelets 87,000. PH 7.43, pCO2 62, pO2 71. Creatinine 2.16 and roughly stable. BUN 90, bicarbonate 35. Sodium 150 and up trending. Blood cultures x2 and urine culture are negative to date. Body fluid culture from the thoracentesis is unremarkable. IMAGING: Chest x-ray demonstrates right-sided effusion. There is likely a left -sided effusion as well, though the base is cut off. The endotracheal tube terminates roughly 5 cm above the level of the letty. Cardiac silhouette is quite enlarged. There is a right-sided subclavian central venous catheter that terminates in excellent position. ASSESSMENT: 1. Acute hypoxic respiratory failure. 2. Pleural effusions. 3. Acute on chronic systolic and diastolic heart failure. 4. Obstructive sleep apnea. PLAN: We will back off on diuretics just a touch. I will give him some free water for the hypernatremia. He will go down for his tracheostomy today. When he returns, we will work on weaning him off of the ventilator on to a trach collar. Pulmonary and Critical Care will continue to follow along. CRITICAL CARE TIME: 30 minutes. LINETTE
[2018-03-21] MEDS ORDERED: Fentanyl 250 MCG/5 ML VIAL ONE (07:42)
[2018-03-21] MEDS ORDERED: Midazolam HCl 2 mg/2 ml Vial ONE (07:42)
[2018-03-21] MEDS ORDERED: Bupivacaine HCl 0.5%/Epinephrine 1:200,000/PF 30 ml Vial ONE (07:44)
[2018-03-21] MEDS: Docusate 100 MG CAP PO SCH ×2 (08:34→20:15)
[2018-03-21] MEDS: Insulin Detemir 100 UNITS/ML 25 UNITS in Pre-Filled Syringe 1 EACH SC SCH (08:35)
[2018-03-21] MEDS: Amiodarone 200 MG TAB PO SCH (08:35)
[2018-03-21] MEDS: Heparin 5,000 UNITS/ML VIAL SC SCH ×3 (08:35→20:08)
--- NOTE | 2018-03-21 08:35 | RAD ---
PORTABLE CHEST: DATE: 03/21/18. PROVIDED CLINICAL HISTORY: Respiratory insufficiency. FINDINGS: Comparison 03/20/18. There has been interval improvement in aeration of the lung parenchyma, notably the upper and mid lung zones. Improvement in pulmonary vascular congestion. Persistent bibasilar pl eural parenchymal opacity. Endotracheal tube, subclavian central line, and enteric catheter are agai n seen. The enteric catheter is poorly visualized due to patient body habitus. IMPRESSION: Improved findings of congestive failure/volume overload. POS: [facility]
[2018-03-21] MEDS: Pantoprazole 40 MG VIAL IVP SCH (08:36)
--- NOTE | 2018-03-21 10:47 | RAD ---
PORTABLE CHEST: DATE: 03/21/18. PROVIDED CLINICAL HISTORY: Postop tracheostomy placement. FINDINGS: Comparison 03/21/18 at 5:14 a.m. Cardiac silhouette remains enlarged. Right subclavian central line is again seen in similar position. Interval removal of endotracheal tube and enteric catheter. Inte rval placement of tracheostomy appliance, the tip of which projects in the region of the thoracic inl et. Bibasilar pleural parenchymal opacities appear stable. No evidence for pneumothorax. IMPRESSION: 1. Persistent bibasilar pleural parenchymal opacities. 2. Interval tracheostomy placement. POS: [facility]
[2018-03-21] MEDS: Fluconazole 10 mg/ml Oral Suspension PO SCH (13:26)
--- NOTE | 2018-03-21 14:07 | OP ---
PREOPERATIVE DIAGNOSES: Respiratory failure, malnutrition. SURGEON: Fabian Mckee M.D. PROCEDURES PERFORMED: Tracheostomy, percutaneous endoscopic gastrostomy placement. INDICATIONS: The patient is a 72-year-old male with severe COPD and cardiomyopathy who has been unab le to be weaned from the ventilator, needed tracheostomy for LTAC placement. Also, he is unable to c onsume calories enough to maintain his nutrition and asked to place a PEG tube as well. FINDINGS: A #8 cuffed Shiley tracheostomy tube was placed. DESCRIPTION OF PROCEDURE: After informed consent was obtained from his family, the patient was taken to the operating room where he underwent general endotracheal anesthesia. He was placed in the reve rse Trendelenburg position. His neck extended, neck prepped and draped in usual fashion. Local anes thesia infiltrated subcutaneously and deep, and a transverse cervical incision was performed 2 cm abo ve the base of the sternal notch. The subcu divided sharply. The strap muscles were divided in the midline and retracted laterally. The thyroid was visualized but just below the thyroid isthmus. The trachea was exposed. Two stay sutures of 0 Prolene placed either side of midline. The midline was incised with an 11 blade and unfortunately once the trachea was incised, he got quite a bit of bleedi ng from the tracheal edge. Oxygen had been stopped and he was just on air. This was cauterized with significant reduction in blood flow, but there was still some oozing in the area. The endotracheal tube was slowly being retracted under vision and what appeared to be the tip was encountered and the tracheostomy tube then inserted into the lower trachea. The balloon inflated, we got CO2 but signifi cant air leak, it turned out that the mayonnaise mixer had not fully removed the endotracheal tube. The c uff was then deflated and the endotracheal tube was fully removed. Then, the tracheostomy cuff was r einflated with good seal and good CO2. There was still a little bit of oozing, so Surgicel was then inserted around the edge of the tracheostomy tube for complete hemostasis. A sterile bandage and a c ervical collar was applied. Then, his abdomen was prepped and draped in usual fashion. The video en doscope inserted under direct vision and advanced into the stomach. The stomach insufflated with air maximally. Because of his obesity, we could not actually visualize the light, but we had very brisk indentation of the stomach with the digital palpation. The introducer needle was inserted directly through the skin into the stomach. The inner cannula removed and the J-wire inserted, this was then grasped with a snare and brought out to the mouth. It was connected to the gastrostomy tube and then the gastrostomy tube was brought retrograde through the stomach through the skin secured. The endos cope was reintroduced and the balloon was inspected. There was no bleeding, it was in good placement . Stomach decompressed. Scope removed. The skin flange was inserted over the tube to the skin to s ecure it. The tube was cut. The clip was placed and then the end flange placed. Sterile bandage ap plied. The patient tolerated the procedure well and was transferred to ICU in fair condition.
[2018-03-21] MEDS ORDERED: PHENYLEPHRINE-NS 100 MCG/ML 10 ML SYRINGE ONE (16:38)
[2018-03-21] MEDS ORDERED: Glycopyrrolate 0.2 MG/ML 5 ML SYRINGE ONE (16:38)
[2018-03-21] MEDS ORDERED: ePHEDrine/0.9% NaCl/PF SYRINGE 50 mg/10 ml ONE (16:38)
--- NOTE | 2018-03-21 17:11 | PDOC.PN ---
- Subjective Encounter Start Date: 03/21/18 Encounter Start Time: 17:09 -: non-verbal Subjective: intubated, sedated, trach and peg completed yesterday - Objective Resuscitation Status: Resuscitation Status FULL:Full Resuscitation Vital Signs & Weight: Vital Signs (12 hours) Temp Pulse Resp Pulse Ox 03/21/18 16:00 98.7 F 21 H 03/21/18 15:44 114 H 03/21/18 14:00 17 03/21/18 13:27 109 H 03/21/18 12:00 98.6 F 19 03/21/18 10:16 89 03/21/18 10:00 19 03/21/18 08:00 17 03/21/18 07:29 98.4 F 64 19 92 L 03/21/18 07:00 98.4 F 03/21/18 06:41 65 03/21/18 06:00 16 Weight Admit Weight 314 lb Weight 314 lb 6.4 oz Most Recent Monitor Data Heart Rate from ECG 85 NIBP 98/53 NIBP BP-Mean 67 Respiration from ECG 23 SpO2 90 I&O: 03/20/18 03/21/18 03/22/18 06:59 06:59 06:59 Intake Total 2078.4 1576 0 Output Total 5530 4270 1200 Balance -3451.6 -2694 -1200 Result Diagrams: 03/21/18 04:32 03/21/18 04:32 Additional Labs: Accuchecks 03/21/18 03/21/18 03/21/18 15:54 09:55 04:31 POC Glucose 218 H 258 H 289 H 03/20/18 03/20/18 23:18 18:06 POC Glucose 330 H 317 H Phys Exam - Physical Examination Constitutional: NAD intubated, sedated, lying in hospital bed HEENT: PERRLA, sclera anicteric, oral pharynx no lesions dry mm, ETT in place Respiratory: no wheezing, no rales, no rhonchi b/l coarse ventilator sounds throughout Cardiovascular: RRR, no rub Gastrointestinal: soft, positive bowel sounds PEG site c/d/i. Guardado draining light yellow urine Musculoskeletal: pulses present Dx/Plan - Plan (1) Oligouria post code blue/ ACLS protocol apprec nephrology c/s continue to monitor I/O (2) Acute kidney failure see above had mild CLIFTON on admission which has markedly progressed post ACLS protocol does have continued UOP albeit less than prior to code event (3) Chronic respiratory failure with hypoxia and hypercapnia apprec pulmonary critical care c/s currently intubated and sedated on ventilator support apprec pulm CCM c/s s/p trach and peg apprec surg c/s (4) COPD (chronic obstructive pulmonary disease) see above IV methylprednisolone, SSI (5) Pneumonia empiric piperacillin-tazobactam (6) Diabetes mellitus type 2 in obese SSI persistent hyperglycemia, increased long acting insulin (7) Hypertension continue to monitor for hemodynamic stability (8) Morbid obesity (9) S/P ablation of ventricular arrhythmia apprec card c/s - Plan * overall very guarded prognosis diet: TF activity: bedbound 2/2 ventilator support dvt ppx will need placement Review of Systems - Medications/Allergies Allergies/Adverse Reactions: Allergies Allergy/AdvReac Type Severity Reaction Status Date / Time No Known Allergies Allergy Verified 03/11/18 11:01 Medications: Current Medications Acetaminophen (Tylenol) 650 mg PO Q4H PRN PRN Reason: Headache/Fever or Pain Last Admin: 03/20/18 05:07 Dose: 650 mg Albuterol/Ipratropium (Duoneb) 3 ml NEB [id number] MARTA Last Admin: 03/21/18 13:26 Dose: 3 ml Amiodarone HCl (Cordarone) 200 mg PO DAILY [facility] Last Admin: 03/21/18 08:35 Dose: 200 mg Lipase/Protease/Amylase ([place] [id number]) 1 cap FS .PER PROTOCOL PRN PRN Reason: TUBE OCCLUSION PROTOCOL Artificial Tears (Tears Naturale) 2 drop EA EYE Q4H PRN PRN Reason: Dry Eyes Aspirin (Ecotrin) 81 mg PO HS [facility] Last Admin: 03/20/18 19:54 Dose: 81 mg Dextrose/Water (Dextrose 50%) 25 gm SLOW IVP PRN PRN PRN Reason: Hypoglycemia Docusate Sodium (Colace) 100 mg PO BID [facility] Last Admin: 03/21/18 08:34 Dose: 100 mg Fluconazole (Diflucan) 10 mg PO 1200 MARTA Last Admin: 03/21/18 13:26 Dose: Not Given Furosemide (Lasix) 40 mg SLOW IVP 0600 MARTA Glucagon (Glucagon) 1 mg IM PRN PRN PRN Reason: Hypoglycemia Heparin Sodium (Porcine) (Heparin) 5,000 units SC TID MARTA Last Admin: 03/21/18 13:26 Dose: Not Given Dextrose/Water (D5w) 1,000 mls @ 0 mls/hr IV .Q0M PRN; As Directed PRN Reason: Hypoglycemia Fentanyl Citrate 2,000 mcg/ (Sodium Chloride) 100 mls @ 0 mls/hr IV INF MARTA; Per Protocol PRN Reason: Protocol Stop: 04/14/18 03:43 Last Admin: 03/19/18 11:52 Dose: 100 mls Insulin Detemir 25 units/ (Miscellaneous Medication) 0.25 mls @ 0.25 mls/hr SC QAM MARTA PRN Reason: 25 UNITS/HR Last Admin: 03/21/18 08:35 Dose: 0.25 mls Insulin Human Lispro (Humalog) 0 units SC .MILD SLIDING SCALE PRN PRN Reason: Mild Correctional Scale Last Admin: 03/21/18 15:53 Dose: 3 unit Lovastatin (Mevacor) 20 mg PO HS M[facility]A Last Admin: 03/20/18 19:54 Dose: 20 mg Pantoprazole Sodium (Protonix) 40 mg IVP DAILY [facility] Last Admin: 03/21/18 08:36 Dose: 40 mg Risperidone (Risperidone) 0.25 mg PO HS [facility]A Last Admin: 03/20/18 19:54 Dose: 0.25 mg Sodium Bicarbonate (Bicarbonate, Sodium) 650 mg PER TUBE .PER PROTOCOL PRN PRN Reason: ENTERAL TUBE OCCLUSION Sodium Chloride (Flush - Normal Saline) 10 ml IVF Q12HR [facility]ARTA Last Admin: 03/21/18 08:36 Dose: 10 ml Sodium Chloride (Flush - Normal Saline) 10 ml IVF PRN PRN PRN Reason: Saline Flush
[2018-03-21] MEDS: Lovastatin 20 MG TAB PO SCH (20:14)
[2018-03-21] MEDS: Aspirin 81 mg Enteric Coated Tablet PO SCH (20:14)
[2018-03-21] MEDS: risperiDONE 0.25 MG TAB PO SCH (20:15)
[2018-03-21] MEDS: Acetaminophen 650 MG in Premix Bag 1 BAG IVPB PRN (22:58)
[2018-03-22 04:31] LABS: #Eosinphils 0.1 thou/uL (0.0-0.7); #Monocytes 0.6 thou/uL (0.11-0.59); #Neutrophils 7.2 thou/uL (1.40-6.50); %Basophils 0.2 % (0.0-1.0); %Eosinophils 0.6 % (0.0-10.0); %Lymphocytes 10.9 % (21.0-51.0); %Monocytes 7.3 % (0.0-10.0); Hemoglobin 11.2 g/dL (14.0-18.0); Mean Corpuscular HGB CONC 31.1 g/dL (32.0-36.0); Mean Corpuscular Hemoglobin 28.9 pg (27.0-31.0); Mean Corpuscular Volume 92.8 fl (80.0-94.0); Mean Platelet Volume 7.3 fL (7.4-10.4); Platelet Count 127 thou/uL (130-400); RBC Distribution Width 15.4 % (11.5-14.5); Red Blood Cell (RBC) Count 3.86 mill/uL (4.70-6.10); White Blood Cell (WBC) Count 8.8 thou/uL (4.8-10.8)
[2018-03-22 04:58] LABS: Anion Gap 16 mmol/L (10-20); BUN (Urea Nitrogen) 89 mg/dL (8.4-25.7); Calc. Creatinine Clearance 57 mL/min (70-130); Calcium 9.2 mg/dL (7.8-10.44); Carbon Dioxide 36 mmol/L (23-31); Chloride 105 mmol/L (98-107); Estimated GFR-MDRD 28; Glucose 269 mg/dL (83-110); Potassium 3.3 mmol/L (3.5-5.1); Sodium 154 mmol/L (136-145)
[2018-03-22] MEDS: fentaNYL Citrate/PF 2,000 MCG in Sodium Chloride 0.9% 60 ML IV SCH (04:59)
[2018-03-22] MEDS: Acetaminophen 650 MG in Premix Bag 1 BAG IVPB PRN ×3 (05:07→22:41)
[2018-03-22] MEDS: Furosemide 40 MG/4 ML VIAL SLOW IVP SCH (05:08)
[2018-03-22] MEDS: Heparin 5,000 UNITS/ML VIAL SC SCH ×3 (09:49→20:30)
[2018-03-22] MEDS: Pantoprazole 40 MG VIAL IVP SCH (09:49)
[2018-03-22] MEDS: Amiodarone 200 MG TAB PO SCH (09:49)
[2018-03-22] MEDS: Docusate 100 MG CAP PO SCH ×2 (09:49→20:30)
[2018-03-22] MEDS: Dextrose 5% in Water 1,000 ML IV SCH ×2 (09:50→20:31)
[2018-03-22] MEDS: Insulin Detemir 100 UNITS/ML 25 UNITS in Pre-Filled Syringe 1 EACH SC SCH (09:53)
[2018-03-22] MEDS: HumaLOG 300 UNITS/3 ML VIAL SC PRN ×3 (09:57→22:32)
--- NOTE | 2018-03-22 10:28 | PDOC.PN ---
- Subjective Encounter Start Date: 03/22/18 Encounter Start Time: 10:27 CC: Fever Sub: Pt had fever last night - Objective Resuscitation Status: Resuscitation Status FULL:Full Resuscitation Vital Signs & Weight: Vital Signs (12 hours) Temp Pulse Resp BP Pulse Ox 03/22/18 09:17 117 H 03/22/18 08:00 101.8 F H 03/22/18 06:42 108 H 03/22/18 06:00 101.7 F H 28 H 03/22/18 05:00 102.6 F H 03/22/18 04:00 28 H 03/22/18 03:43 110 H 03/22/18 02:00 100.7 F H 23 H 03/22/18 00:50 100 125/69 94 L 03/22/18 00:00 102.2 F H 28 H 03/21/18 23:06 114 H Weight Admit Weight 314 lb Weight 314 lb 6.4 oz Most Recent Monitor Data Heart Rate from ECG 110 NIBP 133/72 NIBP BP-Mean 93 Respiration from ECG 23 SpO2 90 I&O: 03/21/18 03/22/18 03/23/18 06:59 06:59 06:59 Intake Total 1576 627.3 Output Total 4270 2565 730 Balance -2694 -1937.7 -730 Result Diagrams: 03/22/18 03:34 03/22/18 03:34 Additional Labs: Accuchecks 03/21/18 03/21/18 23:44 15:54 POC Glucose 224 H 218 H Dx/Plan - Plan onstitutional: NAD intubated, sedated, lying in hospital bed HEENT: PERRLA, sclera anicteric, oral pharynx no lesions dry mm, ETT in place Respiratory: no wheezing, no rales, positive rhonchi, on ventilator support Cardiovascular: RRR, no rub, no murmur, no gallop Gastrointestinal: soft, positive bowel sounds PEG site c/d/i. Guardado draining light yellow urine Musculoskeletal: pulses present Dx/Plan - Plan (1) Oligouria post code blue/ ACLS protocol apprec nephrology c/s continue to monitor I/O (2) Acute kidney failure see above had mild CLIFTON on admission which has markedly progressed post ACLS protocol creatinine appears plateaued strict I&O AVOID NSAID, CONTRAST, NEPHROTOXIC MEDICATIONS (3) Chronic respiratory failure with hypoxia and hypercapnia apprec pulmonary critical care c/s currently intubated and sedated on ventilator support apprec pulm CCM c/s s/p trach and peg apprec surg c/s (4) COPD (chronic obstructive pulmonary disease) see above IV methylprednisolone, SSI (5) Pneumonia empiric piperacillin-tazobactam check blood cultures (6) Diabetes mellitus type 2 in obese SSI persistent hyperglycemia, increased long acting insulin (7) Hypertension continue to monitor for hemodynamic stability (8) Morbid obesity (9) S/P ablation of ventricular arrhythmia apprec card c/s - Plan * overall very guarded prognosis diet: TF activity: bedbound 2/2 ventilator support dvt ppx will need placement d/w pt & Pt
[2018-03-22] MEDS ORDERED: Vancomycin HCl 1.5 GM in Sodium Chloride 0.9% 250 ML 300 ML IVPB SCH (10:30)
[2018-03-22] MEDS: Piperacillin/Tazobactam 3.375 GM in Sodium Chloride 0.9% 100 ML IVPB SCH ×3 (11:06→22:28)
[2018-03-22] MEDS ORDERED: Piperacillin/Tazobactam 3.375 GM in Sodium Chloride 0.9% 100 ML IVPB SCH (12:00)
[2018-03-22] MEDS: Fluconazole 10 mg/ml Oral Suspension PO SCH (14:14)
[2018-03-22] MEDS: risperiDONE 0.25 MG TAB PO SCH (20:30)
[2018-03-22] MEDS: Lovastatin 20 MG TAB PO SCH (20:30)
[2018-03-22] MEDS: Aspirin 81 mg Enteric Coated Tablet PO SCH (20:30)
[2018-03-23 04:38] LABS: #Eosinphils 0.1 thou/uL (0.0-0.7); #Monocytes 0.7 thou/uL (0.11-0.59); #Neutrophils 7.2 thou/uL (1.40-6.50); %Basophils 0.3 % (0.0-1.0); %Eosinophils 0.6 % (0.0-10.0); %Lymphocytes 11.3 % (21.0-51.0); %Monocytes 8.2 % (0.0-10.0); %Neutrophils 79.7 % (42.0-75.0); Hemoglobin 10.5 g/dL (14.0-18.0); Mean Corpuscular HGB CONC 31.2 g/dL (32.0-36.0); Mean Corpuscular Hemoglobin 29.3 pg (27.0-31.0); Mean Platelet Volume 7.6 fL (7.4-10.4); Platelet Count 114 thou/uL (130-400); RBC Distribution Width 15.3 % (11.5-14.5); Red Blood Cell (RBC) Count 3.57 mill/uL (4.70-6.10)
[2018-03-23] MEDS: Piperacillin/Tazobactam 3.375 GM in Sodium Chloride 0.9% 100 ML IVPB SCH (05:10)
[2018-03-23] MEDS: Furosemide 40 MG/4 ML VIAL SLOW IVP SCH (05:10)
[2018-03-23 05:12] LABS: Anion Gap 14 mmol/L (10-20); BUN (Urea Nitrogen) 106 mg/dL (8.4-25.7); Calc. Creatinine Clearance 47 mL/min (70-130); Calcium 8.4 mg/dL (7.8-10.44); Carbon Dioxide 34 mmol/L (23-31); Chloride 108 mmol/L (98-107); Estimated GFR-MDRD 22; Glucose 419 mg/dL (83-110); Sodium 153 mmol/L (136-145)
[2018-03-23] MEDS: Dextrose 5% in Water 1,000 ML IV SCH (05:16)
[2018-03-23 05:18] LABS: Potassium 2.9 mmol/L (3.5-5.1)
[2018-03-23] MEDS: HumaLOG 300 UNITS/3 ML VIAL SC PRN (05:21)
[2018-03-23] MEDS: Amiodarone 200 MG TAB PO SCH (08:38)
[2018-03-23] MEDS: Insulin Detemir 100 UNITS/ML 25 UNITS in Pre-Filled Syringe 1 EACH SC SCH (08:39)
[2018-03-23] MEDS: Heparin 5,000 UNITS/ML VIAL SC SCH ×3 (08:39→20:14)
[2018-03-23] MEDS ORDERED: Dextrose 50% Abboject 50 ML SYRINGE SLOW IVP PRN (08:39)
[2018-03-23] MEDS ORDERED: Dextrose 5% in Water 1,000 ML IV PRN (08:39)
[2018-03-23] MEDS: Docusate 100 MG CAP PO SCH ×2 (08:39→20:14)
[2018-03-23] MEDS: Pantoprazole 40 MG VIAL IVP SCH (08:40)
[2018-03-23] MEDS ORDERED: DC Sedation Protocol FS ONE (08:42)
--- NOTE | 2018-03-23 08:55 | PRG ---
DATE OF SERVICE: 03/23/2018 This morning he is awake, responsive, on the vent, still somewhat lethargic, but arousable. PHYSICAL EXAMINATION: VITAL SIGNS: Blood pressure is 114/67, pulse 80, respiration rate 18. I's and O's 627 in, 2565 out. LABORATORY AND X-RAYS: Last chest x-ray shows small pleural effusion. White count 9000, H&H 10 and 30, platelet count is 114. Creatinine is 2.8, BUN is 106, potassium 2.9, glucose 331. All cultures are negative. IMPRESSION: 1. Respiratory failure. 2. Diastolic dysfunction. 3. Morbid obesity. 4. Sleep apnea. 5. Renal failure. PLAN: Antibiotics can be discontinued. No evidence of any infection at this time. Continue nutrition, PT. Eventually placement. is at the bedside. I discussed with her at mike th. He is status post trach and PEG. One-half hour critical care time.
[2018-03-23] MEDS: Pot Chloride/Pot Bicarb/Cit Ac 25 mEq Effervescent Tablet PO SCH (09:00)
[2018-03-23] MEDS: Artificial Tears 18 DROP/0.9 ML EA EYE PRN (09:01)
[2018-03-23] MEDS ORDERED: Insulin Regular 300 UNITS/3 ML VIAL ONE (09:04)
[2018-03-23] MEDS: Insulin Regular 300 UNITS/3 ML VIAL SC PRN ×3 (09:04→22:23)
--- NOTE | 2018-03-23 11:33 | PRG ---
DATE OF SERVICE: 03/23/2018 HISTORY: Mr. Brady has undergone tracheostomy as well as gastrostomy placement. He is resting c omfortably. PHYSICAL EXAMINATION: VITAL SIGNS: Blood pressure 113/72, pulse is in the 80-90, it is irregular. LUNGS: Some rhonchi. CARDIAC: Irregular. . ABDOMEN: Soft, nontender. EXTREMITIES: Mild edema. PERTINENT LABORATORY DATA: Sodium is 153. Potassium is 2.9, glucose 419. Blood gas reveals pCO2 62 , pH 7.43. ASSESSMENT: 1. Chronic CO2 retention. 2. Atrial fibrillation. 3. Hypernatremia. 4. Hypokalemia. 5. Some blood specks in the NG aspirate. PLAN: 1. He is on low dose Lovenox. I do not think it would be feasible to give him full anticoagulation, would likely have bleeding. 2. He is getting free water. 3. Replete potassium. 4. Low dose amiodarone. I will continue to follow with you. Prognosis alf is guarded to poor.
--- NOTE | 2018-03-23 13:53 | PRG ---
DATE OF SERVICE: 03/22/2018 SERVICE: Pulmonary Medicine. INTERVAL HISTORY: The patient is doing poorly from a respiratory standpoint. His oxygen requirements have improved a little bit, though was increasingly tachypneic. He is spiking some fevers. He denies any current chest pain, nausea or vomiting. Otherwise, there has been no overnight events. PHYSICAL EXAMINATION VITAL SIGNS: T-max 101.8, pulse 108, blood pressure 133/72, respirations 23, saturation 90% on 3 L nasal cannula. GENERAL: The patient is intubated and sedated. Tracheostomy is in good position. HEENT: Normocephalic, atraumatic. Sclerae are white. Conjunctivae pink. Oral and nasal mucosa is moist without lesions. LUNGS: Decent air entry. Rhonchi and crackles are both present. HEART: Normal rate, regular. ABDOMEN: Soft, nontender, nondistended. Bowel sounds are positive. MUSCULOSKELETAL: No cyanosis or clubbing. There is 2+ pitting in the bilateral lower extremities. NEUROLOGIC: Grossly nonfocal. LABORATORY DATA: WBC 8.8, hemoglobin 11.2, platelets 127,000. Creatinine is 2.31 and gently up trending. BUN 89, sodium 150, and potassium 3.3. Urinalysis from the was unremarkable. Thoracentesis fluid was a weak exudate. All culture results including urine culture, blood cultures x2, and body fluid culture have been unremarkable to date. IMAGING: Chest x-ray demonstrates bibasilar pleural parenchymal opacities. Interval tracheostomy placement is there. There is a subclavian central venous catheter on the right, which terminates in good position. ASSESSMENT 1. Acute hypoxic respiratory failure. 2. Pleural effusions, bilateral. 3. Acute on chronic systolic and diastolic heart failure. 4. Obstructive sleep apnea. 5. Severe sepsis, suspected. PLAN: We will once again repeat a gutiérrez culture. Empiric antibiotics will be escalated. I will increase his free water. I will replace potassium today and we will repeat electrolytes tomorrow morning. We will continue to make efforts at diuresing him if he tolerates it. Pulmonary Critical Care will continue to follow along. Critical care time: 30 minutes. [facility]
--- NOTE | 2018-03-23 19:22 | PDOC.PN ---
- Subjective Encounter Start Date: 03/23/18 Encounter Start Time: 19:20 Subjective: f/u for acute/chronic hypoxic/hypercapnic resp failure with Trach collar -: and PEG tube feeds. Tolerating current TF's with plans to transition to -: Nepro, increase free-H2O. - Objective Resuscitation Status: Resuscitation Status FULL:Full Resuscitation MAR Reviewed: Yes Vital Signs & Weight: Vital Signs (12 hours) Temp Pulse Pulse Pulse Resp BP BP 03/23/18 17:00 98.4 F 03/23/18 12:41 83 26 H 03/23/18 12:00 99.4 F 03/23/18 09:54 97 90 120/66 124/60 03/23/18 08:48 03/23/18 08:00 99.6 F 101 H 23 H Pulse Ox Pulse Ox Pulse Ox 03/23/18 17:00 03/23/18 12:41 96 03/23/18 12:00 03/23/18 09:54 97 94 L 03/23/18 08:48 90 L 03/23/18 08:00 96 Weight Admit Weight 314 lb Weight 314 lb 6.4 oz Most Recent Monitor Data Heart Rate from ECG 87 NIBP 133/71 NIBP BP-Mean 86 Respiration from ECG 34 SpO2 91 I&O: 03/22/18 03/23/18 03/24/18 06:59 06:59 06:59 Intake Total 627.3 4971.3 1787 Output Total 2565 2625 1565 Balance -1937.7 2346.3 222 Result Diagrams: 03/23/18 04:20 03/23/18 04:20 Additional Labs: Accuchecks 03/23/18 03/23/18 03/22/18 14:46 09:01 22:33 POC Glucose 398 H 382 H 333 H Microbiology 03/19/18 13:00 Urine broderick catheter Urine Culture - Final NO GROWTH AT 48 HOURS 03/22/18 10:55 Urine broderick catheter Urine Culture - Preliminary NO GROWTH AT 24 HOURS 03/22/18 10:55 Sputum Respiratory Culture - Preliminary 03/22/18 09:55 Venous blood - Right Hand Blood Culture - Preliminary Specimen has been received and culture in progress. No Growth to date. 03/22/18 09:55 Central Line - Right Subclavian Vein Blood Culture - Preliminary Specimen has been received and culture in progress. No Growth to date. Laboratory Tests 03/19/18 03/20/18 03/20/18 03:30 04:15 04:15 Plt Count 100 L Neutrophils % 82.4 H Sodium 144 148 H Potassium 4.1 Creatinine 2.28 H 03/21/18 03/21/18 03/22/18 04:32 04:32 03:34 Plt Count 87 L Neutrophils % 77.1 H Sodium 150 H 154 H Potassium 3.8 3.3 L Creatinine 2.16 H 2.31 H 03/22/18 03/23/18 03:34 04:20 Plt Count 127 L Neutrophils % 81.0 H 79.7 H Sodium Potassium Creatinine Radiology Reviewed by me: Yes (PCXR 03/21 - bibasilar infiltrates) EKG Reviewed by me: Yes (Tele - A-fib in 's) Phys Exam - Physical Examination sedate on Trach collar HEENT: sclera anicteric, oral pharynx no lesions trach collar in place Neck: no nodes, no JVD, supple diminished in bases Respiratory: no wheezing, no rales, no rhonchi, clear to auscultation bilateral S1, S2 Cardiovascular: no significant murmur, no rub, irregular PEG site CDI Gastrointestinal: soft, non-tender, no distention, positive bowel sounds Musculoskeletal: pulses present, edema present sedate Skin: normal turgor, cap refill <2 seconds Dx/Plan (1) Acute kidney failure Status: Acute Comment: Persistent with minimal improvement, ? new baseline eGFR, avoid nephrotoxic insult and limit contrast exposure, increase free-H2O (2) RILEY (obstructive sleep apnea) Code(s): G47.33 - OBSTRUCTIVE SLEEP APNEA (ADULT) (PEDIATRIC) Status: Chronic Comment: Severe, s/p tracheostomy, BiPAP nocturnally (3) Pneumonia Code(s): J18.9 - PNEUMONIA, UNSPECIFIED ORGANISM Status: Acute Comment: bibasilar infiltrates, s/p broad-spectrum abx, continue pulmonary supportive measures, Duonebs (4) Acute respiratory failure with hypoxia and hypercapnia Code(s): J96.01 - ACUTE RESPIRATORY FAILURE WITH HYPOXIA; J96.02 - ACUTE RESPIRATORY FAILURE WITH HYPERCAPNIA Status: Resolved Comment: Trach-collar , continue to monitor resp status (5) Acute hypernatremia Code(s): E87.0 - HYPEROSMOLALITY AND HYPERNATREMIA Status: Acute Comment: Increase free-H2O replacement, avoid diuretics (6) Hypokalemia Code(s): E87.6 - HYPOKALEMIA Status: Acute Comment: KCL replacement per CCU protocol - Plan PT/OT, social sciences research scientist, speech therapy, respiratory therapy, DVT proph w/SCDs continue pulmonary support -: Trach collar with close monitoring of resp status -: Duonebs q4h -: Nutritional support with TF's Vital High Protein, transition to Nepro -: AM lab: BMP * .
[2018-03-23] MEDS: Aspirin 81 mg Enteric Coated Tablet PO SCH (20:14)
[2018-03-23] MEDS: Lovastatin 20 MG TAB PO SCH (20:14)
[2018-03-24] MEDS: Piperacillin/Tazobactam 3.375 GM in Sodium Chloride 0.9% 100 ML IVPB SCH (01:56)
[2018-03-24 05:06] LABS: Anion Gap 15 mmol/L (10-20); BUN (Urea Nitrogen) 116 mg/dL (8.4-25.7); Calc. Creatinine Clearance 55 mL/min (70-130); Calcium 8.1 mg/dL (7.8-10.44); Carbon Dioxide 32 mmol/L (23-31); Chloride 111 mmol/L (98-107); Estimated GFR-MDRD 26; Glucose 338 mg/dL (83-110); Potassium 3.1 mmol/L (3.5-5.1); Sodium 155 mmol/L (136-145)
[2018-03-24] MEDS: Insulin Regular 300 UNITS/3 ML VIAL SC PRN ×4 (05:55→21:19)
--- NOTE | 2018-03-24 08:42 | PRG ---
DATE OF SERVICE: 03/24/2018 SUBJECTIVE: Mr. Brady is resting. He has had a tracheostomy. He is breathing comfortably. PHYSICAL EXAMINATION: VITAL SIGNS: Blood pressure 141/57, pulse is 100 and irregular. LUNGS: Clear. CARDIAC: Irregular, irregular. ASSESSMENT: 1. Status post tracheostomy. 2. Atrial fibrillation, paroxysmal, now back in atrial fibrillation. 3. I do not think he can be fully anticoagulated at this time, he still has some blood in the respir atory secretions. PLAN: 1. The patient is on aspirin. 2. He is on amiodarone. 3. He is on subcutaneous heparin. 4. At some point, consider full dose anticoagulation. 5. For now will increase the amiodarone dose.
[2018-03-24] MEDS: Heparin 5,000 UNITS/ML VIAL SC SCH ×3 (09:27→21:18)
[2018-03-24] MEDS: Pot Chloride/Pot Bicarb/Cit Ac 25 mEq Effervescent Tablet PO SCH (09:27)
[2018-03-24] MEDS: Docusate 100 MG CAP PO SCH ×2 (09:27→19:35)
[2018-03-24] MEDS: Amiodarone 200 MG TAB PO SCH ×2 (09:27→21:19)
[2018-03-24] MEDS: Pantoprazole 40 MG GRANULES PACKET PER TUBE SCH (09:28)
[2018-03-24] MEDS: Insulin Detemir 100 UNITS/ML 25 UNITS in Pre-Filled Syringe 1 EACH SC SCH (10:00)
[2018-03-24] MEDS: Dextrose 5% in Water 1,000 ML IV SCH (10:01)
[2018-03-24] MEDS ORDERED: Vancomycin HCl 1 GM in Premix Bag 1 BAG IVPB SCH (13:45)
[2018-03-24] MEDS ORDERED: Cefepime 1 GM in Sodium Chloride 0.9% 100 ML IVPB SCH (14:00)
[2018-03-24] MEDS: Cefepime 1 GM, Admixture Fee 1 EACH in Sterile Water 10 ML SLOW IVP SCH (15:07)
[2018-03-24] MEDS: Acetaminophen 650 MG/20.3 ML UDCUP PER TUBE PRN (15:07)
--- NOTE | 2018-03-24 18:48 | PRG ---
DATE OF SERVICE: 03/24/2018 SUBJECTIVE: Tiffani Brady remains in the ICU. Trach and PEG in place. OBJECTIVE: VITAL SIGNS: Sats about 92 to 90%, pulse 108, blood pressure 140/61, respiration 33. He said he is feeling better. He is weak, slightly dehydrated. CHEST: Decreased breath sounds with bilateral rhonchi. CARDIAC: Normal S1 and S2. No gallop. ABDOMEN: Distended. EXTREMITIES: No edema. NEUROLOGIC: Encephalopathic. LABORATORY DATA: Blood culture is growing gram positive rods and it is probably contamination. BUN and creatinine now 116 and 2.42 with sodium of 155 and potassium 3.1 suggesting that he is prerenal. PLAN: Slow hydration, tube feedings, supportive care. Continue observation in the ICU. Eventually placement. One and half hour critical care time.
--- NOTE | 2018-03-24 20:28 | PDOC.PN ---
- Subjective Encounter Start Date: 03/24/18 Encounter Start Time: 19:25 Subjective: f/u for acute/chronic hypercapnic/hypoxic resp failure on T-collar. -: Tolerating TF's with Nepro at 40ml/h. Remains lethargic, Tmax 101.6 -: and restarted on Vancomycin and Cefepime. - Objective Resuscitation Status: Resuscitation Status FULL:Full Resuscitation MAR Reviewed: Yes Vital Signs & Weight: Vital Signs (12 hours) Temp Pulse Pulse Pulse Resp BP BP 03/24/18 19:00 98.6 F 03/24/18 18:44 91 32 H 03/24/18 16:00 100.7 F H 03/24/18 12:56 111 H 34 H 03/24/18 12:00 101.6 F H 03/24/18 10:36 103 H 111 H 125/56 L 143/70 H Pulse Ox Pulse Ox Pulse Ox 03/24/18 19:00 03/24/18 18:44 94 L 03/24/18 16:00 03/24/18 12:56 95 03/24/18 12:00 03/24/18 10:36 98 98 Weight Admit Weight 314 lb Weight 314 lb 6.4 oz Most Recent Monitor Data Heart Rate from ECG 91 NIBP 109/50 NIBP BP-Mean 65 Respiration from ECG 32 SpO2 95 I&O: 03/23/18 03/24/18 03/25/18 06:59 06:59 06:59 Intake Total 4971.3 2597 1465 Output Total 2625 2795 1125 Balance 2346.3 -198 340 Result Diagrams: 03/23/18 04:20 03/24/18 04:23 Additional Labs: Accuchecks 03/24/18 03/24/18 03/23/18 16:42 11:36 22:21 POC Glucose 376 H 348 H 328 H Microbiology 03/19/18 13:00 Urine broderick catheter Urine Culture - Final NO GROWTH AT 48 HOURS 03/22/18 10:55 Urine broderick catheter Urine Culture - Preliminary NO GROWTH AT 24 HOURS 03/22/18 10:55 Sputum Respiratory Culture - Preliminary 03/22/18 09:55 Venous blood - Right Hand Blood Culture - Preliminary Specimen has been received and culture in progress. No Growth to date. 03/22/18 09:55 Central Line - Right Subclavian Vein Blood Culture - Preliminary Specimen has been received and culture in progress. No Growth to date. Laboratory Tests 03/19/18 03/20/18 03/20/18 03:30 04:15 04:15 Plt Count 100 L Neutrophils % 82.4 H Sodium 144 148 H Potassium 4.1 Creatinine 2.28 H 03/21/18 03/21/18 03/22/18 04:32 04:32 03:34 Plt Count 87 L Neutrophils % 77.1 H Sodium 150 H 154 H Potassium 3.8 3.3 L Creatinine 2.16 H 2.31 H 03/22/18 03/23/18 03/23/18 03:34 04:20 04:20 Plt Count 127 L Neutrophils % 81.0 H 79.7 H Sodium 153 H Potassium 2.9 L* Creatinine 2.81 H EKG Reviewed by me: Yes (Tele - Sinus tachycardia in low 100's) Phys Exam - Physical Examination Constitutional: NAD lethargic on T-collar HEENT: PERRLA, moist MMs, sclera anicteric, oral pharynx no lesions Trach collar in place Neck: no nodes, no JVD, supple diminished in bases bilaterally Respiratory: no wheezing, no rhonchi, clear to auscultation bilateral tachycardic S1, S2 Cardiovascular: no significant murmur, no rub, gallop PEG site CDI Gastrointestinal: soft, non-tender, no distention, positive bowel sounds Musculoskeletal: pulses present, edema present moves R hand intermittently lethargic Skin: no rash, normal turgor, cap refill <2 seconds Dx/Plan (1) Acute kidney failure Status: Acute Comment: Persistent with minimal improvement, ? new baseline eGFR, avoid nephrotoxic insult and limit contrast exposure, increase free-H2O, creatinine in am (2) RILEY (obstructive sleep apnea) Code(s): G47.33 - OBSTRUCTIVE SLEEP APNEA (ADULT) (PEDIATRIC) Status: Chronic Comment: Severe, s/p tracheostomy, BiPAP nocturnally (3) Pneumonia Code(s): J18.9 - PNEUMONIA, UNSPECIFIED ORGANISM Status: Acute Comment: bibasilar infiltrates, s/p broad-spectrum abx, continue pulmonary supportive measures, Duonebs (4) Acute respiratory failure with hypoxia and hypercapnia Code(s): J96.01 - ACUTE RESPIRATORY FAILURE WITH HYPOXIA; J96.02 - ACUTE RESPIRATORY FAILURE WITH HYPERCAPNIA Status: Resolved Comment: Trach-collar @ 8L/min, continue to monitor resp status (5) Acute hypernatremia Code(s): E87.0 - HYPEROSMOLALITY AND HYPERNATREMIA Status: Acute Comment: Increase free-H2O replacement, avoid diuretics, no improving (6) Hypokalemia Code(s): E87.6 - HYPOKALEMIA Status: Acute Comment: KCL replacement per CCU protocol, mild improvement (7) Fever Code(s): R50.9 - FEVER, UNSPECIFIED Status: Acute Comment: Exact etiology unclear however pulmonary source suspicious, continue Vancomycin and Cefepime, monitor trend - Plan continue antibiotics, PT/OT, home health care social worker, speech therapy, respiratory therapy, DVT proph w/SCDs Continue supportive mgmt -: Nutritional support with Nepro @ 40ml/h via PEG tube -: Continue Vancomycin and Cefepime -: Duonebs q6h prn -: CM assisting with LTAC options * AM lab: BMP * PCXR in am
[2018-03-24] MEDS: Lovastatin 20 MG TAB PO SCH (21:19)
[2018-03-24] MEDS: Aspirin 81 mg Enteric Coated Tablet PO SCH (21:19)
[2018-03-25] MEDS: Cefepime 1 GM, Admixture Fee 1 EACH in Sterile Water 10 ML SLOW IVP SCH (02:28)
[2018-03-25] MEDS: Insulin Regular 300 UNITS/3 ML VIAL SC PRN ×4 (05:03→20:47)
[2018-03-25] MEDS: Dextrose 5% in Water 1,000 ML IV SCH ×3 (05:03→21:00)
[2018-03-25 05:53] LABS: Anion Gap 13 mmol/L (10-20); BUN (Urea Nitrogen) 117 mg/dL (8.4-25.7); Calc. Creatinine Clearance 54 mL/min (70-130); Calcium 8.2 mg/dL (7.8-10.44); Carbon Dioxide 32 mmol/L (23-31); Chloride 110 mmol/L (98-107); Estimated GFR-MDRD 26; Glucose 389 mg/dL (83-110); Potassium 3.1 mmol/L (3.5-5.1); Sodium 152 mmol/L (136-145)
--- NOTE | 2018-03-25 08:16 | PRG ---
DATE OF SERVICE: 03/25/2018 He remains awake, alert, responsive, he said he was thirsty. Sats are 94% trach collar, temperature is low grade 98. He has been on antibiotics for over a month. I would not restart antibiotics unless there is an obvious source of infection. Urine is being cultu red today. Neurologically he is awake. Extremities; no edema. Minimally encephalopathic. PHYSICAL EXAMINATION: VITAL SIGNS: Blood pressure 128/51. His respirations are 32. His I's and O's are 2597 in, 2795 out . He is not getting any diuretics. CHEST: Chest reveals decreased breath sounds, minimal rhonchi. CARDIAC: Normal S1-S2. No gallops. ABDOMEN: Soft, no masses. LABORATORY: Blood sugar is elevated at 346, creatinine is 2.4, BUN is 117. Sodium 152, potassium 3. 1. IMPRESSION: 1. Respiratory failure. 2. Diastolic dysfunction. 3. Azotemia, prerenal. 4. Acute on chronic respiratory failure. PLAN: I will discontinue antibiotics unless there is a reason or an obvious infection. Will try and switch his insulin to b.i.d. to better control his blood sugar. He is off steroids. I am going to increase IV to 100 mL today until we get his sodium and BUN improv ed. LTAC declined his admission, makes absolutely no sense why they declined. We will try and appeal thi s again. I will follow. He is too unstable to be transferred out. One-half hour critical care time.
[2018-03-25] MEDS: Heparin 5,000 UNITS/ML VIAL SC SCH ×3 (08:30→20:39)
[2018-03-25] MEDS: Pot Chloride/Pot Bicarb/Cit Ac 25 mEq Effervescent Tablet PO SCH (08:30)
[2018-03-25] MEDS: Docusate 100 MG CAP PO SCH ×2 (08:30→20:59)
[2018-03-25] MEDS: Amiodarone 200 MG TAB PO SCH ×2 (08:30→20:39)
[2018-03-25] MEDS: Pantoprazole 40 MG GRANULES PACKET PER TUBE SCH (08:31)
[2018-03-25] MEDS: Insulin Detemir 100 UNITS/ML 25 UNITS in Pre-Filled Syringe 1 EACH SC SCH ×3 (08:32→20:40)
[2018-03-25] MEDS: Artificial Tears 18 DROP/0.9 ML EA EYE PRN ×2 (08:40→22:31)
--- NOTE | 2018-03-25 09:11 | RAD ---
CHEST 1 VIEW: HISTORY: A 72-year-old male with a history of respiratory failure. COMPARISON: 03/21/18. FINDINGS: There is rotation to the left. Tracheostomy tube in place. Cardiomegaly with bilateral vascular con gestion and bilateral pleural effusions greater on the right side. IMPRESSION: Cardiomegaly with bilateral vascular congestion and bilateral pleural effusions greater on the right side with little change from prior study. Continued short-term followup. POS: OFF
[2018-03-25] MEDS ORDERED: Potassium Chloride 20 MEQ TAB PO SCH (13:15)
--- NOTE | 2018-03-25 13:37 | PRG ---
DATE OF SERVICE: 03/25/2018 SUBJECTIVE: Mr. Brady is up in the neuro chair. He is awake. OBJECTIVE: VITAL SIGNS: His pulse is in the 80-100 range. It is in atrial fibrillation. LUNGS: Clear. CARDIAC: Irregular. ABDOMEN: Soft, nontender. EXTREMITIES: Mild edema. ASSESSMENT: 1. Respiratory failure, mostly due to obstructive sleep apnea. 2. Diastolic heart failure. 3. Atrial fibrillation, recurrent. 4. Also hypokalemic. 5. Hypernatremic. PLAN: 1. Replete potassium. 2. Free water. 3. We will continue amiodarone orally. 4. Consideration for higher level of anticoagulation tomorrow if there is no evidence of any bleedin g.
[2018-03-25 17:38] LABS: pH, Arterial 7.33 (7.35-7.45)
[2018-03-25 17:39] LABS: Actual Bicarbonate (HCO3a) 37.6 mEq/L (22-26); Base Excess (BEa) 9.4 mEq/L (0 (+/-) 2.5); CO2 Tension 73.7 mmHg (35.0-45.0); Hematocrit-ABG 34.2 % (42.0-52.0); Hemoglobin (Hb) 10.9 g/dL (14.0-18.0); O2 Tension (PaO2) 51.2 mmHg (80.0-100.0)
[2018-03-25 17:40] LABS: ALV-art Gradient 141.875 (0-20); Calcium, Ionized 1.2 mmol/L (1.12-1.30); Puncture Site RRA
--- NOTE | 2018-03-25 18:28 | PRG ---
DATE OF SERVICE: 03/25/2018 CRITICAL CARE PROGRESS NOTE 30 minutes critical care time. I was informed by the respiratory therapist around 5:15 p.m. that the patient has developed respirato ry distress with desaturation. His ABG showed stable hypercapnia, but a pO2 of 51. I came and evalu ated the patient and found him to be in profound respiratory distress with shallow respirations and a ltered mental status. He was having ectopy on the cardiac cath technologist. Based on that, I went ahead and placed him back on mechanical ventilation, for which he will remain on overnight.
--- NOTE | 2018-03-25 19:41 | PDOC.PN ---
- Subjective Encounter Start Date: 03/25/18 Encounter Start Time: 14:00 Subjective: f/u for acute/chronic hypoxic resp failure s/p trach/PEG on prior -: T-collar. Increased secretions from trach per nursing. Nutritional support -: with Nepro with increased free-H2O. - Objective Resuscitation Status: Resuscitation Status FULL:Full Resuscitation MAR Reviewed: Yes Vital Signs & Weight: Vital Signs (12 hours) Temp Pulse Pulse Pulse Resp BP BP 03/25/18 18:11 89 17 03/25/18 18:00 100.5 F H 03/25/18 17:30 92 18 03/25/18 14:00 98.0 F 03/25/18 13:39 103 H 35 H 03/25/18 11:03 100 95 148/73 H 112/67 03/25/18 08:00 99.3 F 101 H 38 H Pulse Ox Pulse Ox Pulse Ox 03/25/18 18:11 98 03/25/18 18:00 03/25/18 17:30 03/25/18 14:00 03/25/18 13:39 95 03/25/18 11:03 89 L 89 L 03/25/18 08:00 94 L Weight Admit Weight 314 lb Weight 314 lb 6.4 oz Most Recent Monitor Data Heart Rate from ECG 97 NIBP 88/58 NIBP BP-Mean 62 Respiration from ECG 39 SpO2 97 I&O: 03/24/18 03/25/18 03/26/18 06:59 06:59 06:59 Intake Total 2597 3396 45360 Output Total 2795 2125 695 Balance -198 1271 23339 Result Diagrams: 03/23/18 04:20 03/25/18 05:02 Additional Labs: Accuchecks 03/25/18 03/25/18 03/24/18 14:47 05:03 21:18 POC Glucose 284 H 346 H 334 H Radiology Reviewed by me: Yes (PCXR - R>L pleural effusion, cardiomegaly) EKG Reviewed by me: Yes (Tele - A-fib in low 100's) Phys Exam - Physical Examination somnolent HEENT: PERRLA, moist MMs, sclera anicteric, oral pharynx no lesions Trach in place with T-collar Neck: no nodes, no JVD, supple diminished in bilat lung nicole, scattered rhonchi Respiratory: no wheezing tachycardic Cardiovascular: no significant murmur, no rub, gallop, irregular PEG site intact Gastrointestinal: soft, non-tender, no distention, positive bowel sounds Musculoskeletal: pulses present, edema present lethargic, not following commands Skin: no rash, normal turgor, cap refill <2 seconds Dx/Plan (1) Acute kidney failure Status: Acute Comment: Persistent with minimal improvement, ? new baseline eGFR, avoid nephrotoxic insult and limit contrast exposure, increase free-H2O, creatinine in am (2) RILEY (obstructive sleep apnea) Code(s): G47.33 - OBSTRUCTIVE SLEEP APNEA (ADULT) (PEDIATRIC) Status: Chronic Comment: Severe, s/p tracheostomy,? mech vent nocturnally (3) Pneumonia Code(s): J18.9 - PNEUMONIA, UNSPECIFIED ORGANISM Status: Acute Comment: bibasilar infiltrates, s/p broad-spectrum abx, continue pulmonary supportive measures, Duonebs, abx d/c'd currently (4) Acute respiratory failure with hypoxia and hypercapnia Code(s): J96.01 - ACUTE RESPIRATORY FAILURE WITH HYPOXIA; J96.02 - ACUTE RESPIRATORY FAILURE WITH HYPERCAPNIA Status: Resolved Comment: Trach-collar @ 8L/min, continue to monitor resp status with high propensity for decompensation (5) Acute hypernatremia Code(s): E87.0 - HYPEROSMOLALITY AND HYPERNATREMIA Status: Acute Comment: Increase free-H2O replacement, avoid diuretics, minimal improvement (6) Hypokalemia Code(s): E87.6 - HYPOKALEMIA Status: Acute Comment: KCL replacement per CCU protocol, mild improvement (7) Fever Code(s): R50.9 - FEVER, UNSPECIFIED Status: Acute Comment: Exact etiology unclear however pulmonary source suspicious, abx d/c'd - Plan long term care social worker, speech therapy, respiratory therapy, DVT proph w/SCDs continue pulmonary supportive measures -: Free-H2O replacement, H2O flushes with TF's -: Nutritional support Nepro 40ml/h with minimal residuals -: CM assisting with LTAC options but lack of approval for transfer currently -: PCXR in am * AM lab: BMP
[2018-03-25] MEDS: Aspirin 81 mg Enteric Coated Tablet PO SCH (20:39)
[2018-03-25] MEDS: Lovastatin 20 MG TAB PO SCH (20:39)
[2018-03-26 04:46] LABS: Anion Gap 11 mmol/L (10-20); Calc. Creatinine Clearance 55 mL/min (70-130); Carbon Dioxide 33 mmol/L (23-31); Chloride 108 mmol/L (98-107); Estimated GFR-MDRD 26; Glucose 378 mg/dL (83-110); Sodium 149 mmol/L (136-145)
[2018-03-26 04:57] LABS: BUN (Urea Nitrogen) 112 mg/dL (8.4-25.7)
[2018-03-26] MEDS: Dextrose 5% in Water 1,000 ML IV SCH ×2 (06:17→08:49)
[2018-03-26] MEDS: Insulin Regular 300 UNITS/3 ML VIAL SC PRN ×4 (06:18→21:14)
[2018-03-26] MEDS: Docusate 100 MG CAP PO SCH ×2 (08:15→21:08)
[2018-03-26] MEDS: Heparin 5,000 UNITS/ML VIAL SC SCH ×3 (08:15→21:08)
[2018-03-26] MEDS: Amiodarone 200 MG TAB PO SCH ×2 (08:15→21:08)
[2018-03-26] MEDS: Pot Chloride/Pot Bicarb/Cit Ac 25 mEq Effervescent Tablet PO SCH ×3 (08:16→16:03)
[2018-03-26] MEDS: Pantoprazole 40 MG GRANULES PACKET PER TUBE SCH (08:16)
[2018-03-26] MEDS: Insulin Detemir 100 UNITS/ML 30 UNITS in Pre-Filled Syringe 1 EACH SC SCH ×2 (08:50→21:07)
--- NOTE | 2018-03-26 09:11 | RAD ---
SINGLE VIEW OF THE CHEST: COMPARISON: 03/25/18. HISTORY: Respiratory failure. FINDINGS: A single view of the chest shows an enlarged but stable cardiomediastinal silhouette. A tracheostomy is seen in good position overlying the trachea. There is a moderate right pleural effusion, unchang ed. IMPRESSION: Stable right pleural effusion and cardiomegaly. POS: CET
--- NOTE | 2018-03-26 09:13 | PRG ---
DATE OF SERVICE: 03/26/2018 This morning he is awake, alert, responsive. He had respiratory distress last night with marked tach ypnea and tachycardia with multiple ectopy. PHYSICAL EXAMINATION: VITAL SIGNS: Blood pressure 135/56, sats 98, respiration rate 18. GENERAL: He is awake, alert, responsive. His I's and O's have been 3396 in, 2125 out. EXTREMITIES: No edema. CHEST: Chest reveals bilateral rhonchi, crackles. CARDIAC: Normal S1, S2. No gallops. ABDOMEN: Soft, no masses. BUN and creatinine better 120 and 2.42, potassium is 3. X-ray once again shows previously described pleural effusion, right greater than left, but otherwise not much change. No other infiltrates were seen. IMPRESSION: 1. Acute on chronic respiratory failure. 2. Chronic obstructive pulmonary disease. 3. Diastolic dysfunction. 4. Azotemia. 5. Severe deconditioning. PLAN: Clearly, the patient needs to go to a long-term facility for his overall multiple medical issu es. He probably is going to require nocturnal ventilation. I have increased his insulin to 30 twice a day. Decrease IV to 50 since his sodium has improved. Continue nutrition and PT. Try him on a trach collar in the daytime, nighttime vent. I will follow. One-half hour critical care time.
--- NOTE | 2018-03-26 17:37 | PDOC.PN ---
- Subjective Encounter Start Date: 03/26/18 Encounter Start Time: 15:30 Subjective: f/u for acute/chronic resp failure s/p trach with T-collar. Tolerated mech -: vent overnight back on T-piece. Remains agitated per nursing. - Objective Resuscitation Status: Resuscitation Status FULL:Full Resuscitation MAR Reviewed: Yes Vital Signs & Weight: Vital Signs (12 hours) Temp Pulse Pulse Pulse Resp BP BP 03/26/18 16:00 98.4 F 03/26/18 13:10 90 25 H 03/26/18 12:00 99.6 F 03/26/18 11:05 88 91 125/59 L 110/59 L 03/26/18 09:39 03/26/18 08:00 99 F 85 16 03/26/18 06:58 86 03/26/18 06:00 18 Pulse Ox Pulse Ox Pulse Ox 03/26/18 16:00 03/26/18 13:10 96 03/26/18 12:00 03/26/18 11:05 99 99 03/26/18 09:39 93 L 03/26/18 08:00 97 03/26/18 06:58 03/26/18 06:00 Weight Admit Weight 314 lb Weight 314 lb 6.4 oz Most Recent Monitor Data Heart Rate from ECG 109 NIBP 116/82 NIBP BP-Mean 99 Respiration from ECG 17 SpO2 89 I&O: 03/25/18 03/26/18 03/27/18 06:59 06:59 06:59 Intake Total 3396 50861 200 Output Total 2125 1320 810 Balance 1271 34178 -610 Result Diagrams: 03/23/18 04:20 03/26/18 03:32 Additional Labs: Accuchecks 03/26/18 03/26/18 03/25/18 16:01 08:45 20:46 POC Glucose 219 H 353 H 343 H Microbiology 03/19/18 13:00 Urine broderick catheter Urine Culture - Final NO GROWTH AT 48 HOURS 03/22/18 10:55 Urine broderick catheter Urine Culture - Preliminary NO GROWTH AT 24 HOURS 03/22/18 10:55 Sputum Respiratory Culture - Preliminary 03/22/18 09:55 Venous blood - Right Hand Blood Culture - Preliminary Specimen has been received and culture in progress. No Growth to date. 03/22/18 09:55 Central Line - Right Subclavian Vein Blood Culture - Preliminary Specimen has been received and culture in progress. No Growth to date. Laboratory Tests 03/19/18 03/20/18 03/20/18 03:30 04:15 04:15 Plt Count 100 L Neutrophils % 82.4 H Sodium 144 148 H Potassium 4.1 Creatinine 2.28 H 03/21/18 03/21/18 03/22/18 04:32 04:32 03:34 Plt Count 87 L Neutrophils % 77.1 H Sodium 150 H 154 H Potassium 3.8 3.3 L Creatinine 2.16 H 2.31 H 03/22/18 03/23/18 03/23/18 03:34 04:20 04:20 Plt Count 127 L Neutrophils % 81.0 H 79.7 H Sodium 153 H Potassium 2.9 L* Creatinine 2.81 H 03/24/18 03/25/18 04:23 05:02 Plt Count Neutrophils % Sodium 155 H 152 H Potassium 3.1 L Creatinine Microbiology 03/25/18 08:00 Urine voided Urine Culture - Preliminary NO GROWTH AT 24 HOURS Radiology Reviewed by me: Yes (PCXR - right pleural effusion) EKG Reviewed by me: Yes (Tele - A-fib in 90's) Phys Exam - Physical Examination Constitutional: NAD alert, nods to questions, moves all extremities HEENT: PERRLA, moist MMs, sclera anicteric, oral pharynx no lesions trach in place with T-piece Neck: no nodes, no JVD, supple diminished bilat bases Respiratory: no rales, no rhonchi, clear to auscultation bilateral S1, S2 Cardiovascular: no significant murmur, no rub, gallop, irregular PEG intact Gastrointestinal: soft, non-tender, no distention, positive bowel sounds mild LE edema bilat Musculoskeletal: pulses present confused, agitation noted Neurological: moves all 4 limbs alert, tracks with eyes, nods to questions, points to items on table Skin: no rash, normal turgor, cap refill <2 seconds Dx/Plan (1) Acute kidney failure Status: Acute Comment: ? new baseline eGFR, avoid nephrotoxic insult and limit contrast exposure, increase free-H2O, creatinine in am (2) RILEY (obstructive sleep apnea) Code(s): G47.33 - OBSTRUCTIVE SLEEP APNEA (ADULT) (PEDIATRIC) Status: Chronic Comment: Severe, s/p tracheostomy, mech vent nocturnally (3) Pneumonia Code(s): J18.9 - PNEUMONIA, UNSPECIFIED ORGANISM Status: Acute Comment: bibasilar infiltrates, s/p broad-spectrum abx, continue pulmonary supportive measures, Duonebs, abx d/c'd currently, continues with intermittent fevers (4) Acute respiratory failure with hypoxia and hypercapnia Code(s): J96.01 - ACUTE RESPIRATORY FAILURE WITH HYPOXIA; J96.02 - ACUTE RESPIRATORY FAILURE WITH HYPERCAPNIA Status: Resolved Comment: Trach-collar @ 8L/min, continue to monitor resp status with high propensity for decompensation (5) Acute hypernatremia Code(s): E87.0 - HYPEROSMOLALITY AND HYPERNATREMIA Status: Acute Comment: Increase free-H2O replacement, avoid diuretics, improving (6) Hypokalemia Code(s): E87.6 - HYPOKALEMIA Status: Acute Comment: KCL replacement per CCU protocol, persistent (7) Fever Code(s): R50.9 - FEVER, UNSPECIFIED Status: Acute Comment: Exact etiology unclear however pulmonary source suspicious, abx d/c'd currently, Tmax 101.6 - Plan plan discussed w/ family, PT/OT, social media marketing manager, speech therapy, respiratory therapy, DVT proph w/SCDs Up in Neuro chair daily -: Duonebs q6h prn -: Trach and PEG tube care -: Nocturnal ventilation and T-collar for day use -: PT for mobilization * AM lab: BMP, CBC
[2018-03-26] MEDS: Lovastatin 20 MG TAB PO SCH (21:08)
[2018-03-26] MEDS: Aspirin 81 mg Enteric Coated Tablet PO SCH (21:08)
[2018-03-27 00:08] LABS: Magnesium 2.8 mg/dL (1.6-2.6); Potassium 3.1 mmol/L (3.5-5.1)
[2018-03-27] MEDS: Dextrose 5% in Water 1,000 ML IV SCH (02:42)
[2018-03-27] MEDS: Insulin Regular 300 UNITS/3 ML VIAL SC PRN ×4 (04:16→20:43)
[2018-03-27] MEDS: Acetaminophen 650 MG/20.3 ML UDCUP PER TUBE PRN ×2 (04:33→20:29)
[2018-03-27 05:20] LABS: Anion Gap 12 mmol/L (10-20); BUN (Urea Nitrogen) 110 mg/dL (8.4-25.7); Calc. Creatinine Clearance 65 mL/min (70-130); Calcium 8.1 mg/dL (7.8-10.44); Carbon Dioxide 36 mmol/L (23-31); Chloride 107 mmol/L (98-107); Estimated GFR-MDRD 32; Glucose 267 mg/dL (83-110); Potassium 3.7 mmol/L (3.5-5.1); Sodium 151 mmol/L (136-145)
[2018-03-27 05:37] LABS: Band 5 % (5-11); Hemoglobin 10.1 g/dL (14.0-18.0); Lymphocytes 9 % (21-51); MDiff Complete? YES; Macrocytosis SLIGHT = 6-15 cells (100X) (0-5/hpf); Mean Corpuscular HGB CONC 30.4 g/dL (32.0-36.0); Mean Corpuscular Hemoglobin 28.7 pg (27.0-31.0); Mean Corpuscular Volume 94.5 fl (80.0-94.0); Mean Platelet Volume 9.1 fL (7.4-10.4); Monocytes 2 % (0-10); Neutrophil 84 % (42-75); PLT Morphology Comment Appears Adequate; Platelet Count 152 thou/uL (130-400); Red Blood Cell (RBC) Count 3.52 mill/uL (4.70-6.10); White Blood Cell (WBC) Count 9.5 thou/uL (4.8-10.8)
--- NOTE | 2018-03-27 09:29 | PRG ---
DATE OF SERVICE: 03/27/2018 This morning he is awake, responsive, sitting on a neuro chair. PHYSICAL EXAMINATION: VITAL SIGNS: Temperature is 99, pulse 97, blood pressure 110/64, sats 100% on 2 liters. CHEST: Chest revealed decreased breath sounds, no wheezing. CARDIAC: Normal S1, S2, no gallops. ABDOMEN: Soft, no masses. LABORATORY DATA: White count 9000, H&H N10 and 33, platelet count 152. His creatinine is 2, BUN is 110. IMPRESSION: 1. Acute on chronic respiratory failure. 2. Morbid obesity. 3. Chronic obstructive pulmonary disease. 4. Severe deconditioning. 5. Diastolic dysfunction. PLAN: Will try and get a placement for him. We are going to continue nocturnal ventilation on him. One-half hour critical care time.
[2018-03-27] MEDS: Pantoprazole 40 MG GRANULES PACKET PER TUBE SCH (10:05)
[2018-03-27] MEDS: Pot Chloride/Pot Bicarb/Cit Ac 25 mEq Effervescent Tablet PO SCH ×2 (10:05→16:14)
[2018-03-27] MEDS: Heparin 5,000 UNITS/ML VIAL SC SCH ×3 (10:05→20:30)
[2018-03-27] MEDS: Amiodarone 200 MG TAB PO SCH ×2 (10:05→20:29)
[2018-03-27] MEDS: Docusate 100 MG CAP PO SCH ×2 (10:05→23:14)
[2018-03-27] MEDS: Insulin Detemir 100 UNITS/ML 35 UNITS in Pre-Filled Syringe 1 EACH SC SCH ×2 (10:06→20:29)
[2018-03-27] MEDS: Insulin Detemir 100 UNITS/ML 30 UNITS in Pre-Filled Syringe 1 EACH SC SCH (10:32)
--- NOTE | 2018-03-27 15:29 | PRG ---
DATE OF SERVICE: 03/27/2018 SUBJECTIVE: Mr. Brady is resting comfortably. PHYSICAL EXAMINATION: VITAL SIGNS: His blood pressure is 129/93, pulse in the 80s, atrial fibrillation. LUNGS: Clear. CARDIAC: Irregular. ABDOMEN: Soft, nontender. EXTREMITIES: Mild edema. ASSESSMENT: 1. Right heart failure. 2. Renal insufficiency stage 3, estimated GFR is 32. 3. Morbid obesity. PLAN: 1. He is on amiodarone 200 mg twice a day. 2. He is on heparin 5000 units 3 times a day. 3. When feasible, would change him to Eliquis 2.5 mg twice a day in view of renal failure or Xarelto 15 mg a day. Patient is still on sodium bicarbonate, giving him a significant salt load. Also, the sodium is still high at 151, still getting free water. I will add furosemide 20 mg a day IV, otherw ise, he will probably get volume overloaded.
[2018-03-27] MEDS: Lovastatin 20 MG TAB PO SCH (20:29)
[2018-03-27] MEDS: Aspirin 81 mg Enteric Coated Tablet PO SCH (20:29)
--- NOTE | 2018-03-27 21:04 | PDOC.PN ---
- Subjective Encounter Start Date: 03/27/18 Encounter Start Time: 15:10 Subjective: f/u for resp failure s/p trach with T-collar. Sat in Neuro chair about 3h -: today. No new issues noted per nursing. Has had intermittent mech vent -: and BiPAP. - Objective Resuscitation Status: Resuscitation Status FULL:Full Resuscitation MAR Reviewed: Yes Vital Signs & Weight: Vital Signs (12 hours) Temp Pulse Pulse Pulse Resp BP BP 03/27/18 20:00 97.5 F L 03/27/18 19:22 93 29 H 03/27/18 16:00 99.0 F 03/27/18 15:27 91 93 129/59 L 125/68 03/27/18 12:09 96 33 H 03/27/18 12:00 99.2 F Pulse Ox Pulse Ox Pulse Ox 03/27/18 20:00 03/27/18 19:22 96 03/27/18 16:00 92 L 03/27/18 15:27 90 L 97 03/27/18 12:09 100 03/27/18 12:00 Weight Admit Weight 314 lb Weight 314 lb 6.4 oz Most Recent Monitor Data Heart Rate from ECG 92 NIBP 98/51 NIBP BP-Mean 76 Respiration from ECG 28 SpO2 94 I&O: 03/26/18 03/27/18 03/28/18 06:59 06:59 06:59 Intake Total 25326 2797 1353 Output Total 1320 1660 1068 Balance 76499 1137 285 Result Diagrams: 03/27/18 04:54 03/27/18 04:54 Additional Labs: Accuchecks 03/27/18 03/27/18 03/27/18 20:42 16:23 10:10 POC Glucose 201 H 285 H 333 H 03/27/18 03/26/18 04:09 21:16 POC Glucose 195 H 166 H Microbiology 03/25/18 08:00 Urine voided Urine Culture - Final NO GROWTH AT 48 HOURS 03/19/18 13:00 Urine broderick catheter Urine Culture - Final NO GROWTH AT 48 HOURS 03/25/18 08:00 Urine voided Urine Culture - Preliminary NO GROWTH AT 24 HOURS 03/22/18 10:55 Urine broderick catheter Urine Culture - Preliminary NO GROWTH AT 24 HOURS 03/22/18 10:55 Sputum Respiratory Culture - Preliminary 03/22/18 09:55 Venous blood - Right Hand Blood Culture - Preliminary Specimen has been received and culture in progress. No Growth to date. 03/22/18 09:55 Central Line - Right Subclavian Vein Blood Culture - Preliminary Specimen has been received and culture in progress. No Growth to date. Laboratory Tests 03/19/18 03/20/18 03/20/18 03:30 04:15 04:15 Plt Count 100 L Neutrophils % 82.4 H Sodium 144 148 H Potassium 4.1 Creatinine 2.28 H Magnesium 03/21/18 03/21/18 03/22/18 04:32 04:32 03:34 Plt Count 87 L Neutrophils % 77.1 H Sodium 150 H 154 H Potassium 3.8 3.3 L Creatinine 2.16 H 2.31 H Magnesium 03/22/18 03/23/18 03/23/18 03:34 04:20 04:20 Plt Count 127 L Neutrophils % 81.0 H 79.7 H Sodium 153 H Potassium 2.9 L* Creatinine 2.81 H Magnesium 03/24/18 03/25/18 03/26/18 04:23 05:02 03:32 Plt Count Neutrophils % Sodium 155 H 152 H Potassium 3.1 L Creatinine 2.42 H Magnesium 03/26/18 23:30 Plt Count Neutrophils % Sodium Potassium 3.1 L Creatinine Magnesium 2.8 H Radiology Reviewed by me: Yes (PCXR - no acute infiltrates) EKG Reviewed by me: Yes (Tele - A-fib in low 100's) Phys Exam - Physical Examination agitated, anxious HEENT: PERRLA, moist MMs, sclera anicteric, oral pharynx no lesions trach in place Neck: no nodes, no JVD, supple diminished in bases Respiratory: no wheezing, no rales, no rhonchi S1, S2 Cardiovascular: no significant murmur, no rub, irregular PEG intact Gastrointestinal: soft, non-tender, no distention, positive bowel sounds mild edema LE's Musculoskeletal: pulses present tracks with eyes, nods, moves upper extremities Skin: no rash, normal turgor, cap refill <2 seconds Dx/Plan (1) Acute kidney failure Status: Acute Comment: ? new baseline eGFR, avoid nephrotoxic insult and limit contrast exposure, increase free-H2O, creatinine in am (2) RILEY (obstructive sleep apnea) Code(s): G47.33 - OBSTRUCTIVE SLEEP APNEA (ADULT) (PEDIATRIC) Status: Chronic Comment: Severe, s/p tracheostomy, mech vent nocturnally, pCO2 increasing (3) Pneumonia Code(s): J18.9 - PNEUMONIA, UNSPECIFIED ORGANISM Status: Acute Comment: bibasilar infiltrates, s/p broad-spectrum abx, continue pulmonary supportive measures, Duonebs, abx d/c'd currently, continues with intermittent fevers, no abx per Pulmonary recommendations (4) Acute respiratory failure with hypoxia and hypercapnia Code(s): J96.01 - ACUTE RESPIRATORY FAILURE WITH HYPOXIA; J96.02 - ACUTE RESPIRATORY FAILURE WITH HYPERCAPNIA Status: Resolved Comment: Trach-collar @ 8L/min, continue to monitor resp status with high propensity for decompensation (5) Acute hypernatremia Code(s): E87.0 - HYPEROSMOLALITY AND HYPERNATREMIA Status: Acute Comment: Increase free-H2O replacement, d/c Sodium bicarbonate, D5W gtt (6) Hypokalemia Code(s): E87.6 - HYPOKALEMIA Status: Acute Comment: KCL replacement per CCU protocol, improved (7) Fever Code(s): R50.9 - FEVER, UNSPECIFIED Status: Acute Comment: Exact etiology unclear however pulmonary source suspicious, abx d/c'd currently, Tmax 100.5 - Plan plan discussed w/ family, PT/OT, healthcare social worker, speech therapy, respiratory therapy, DVT proph w/SCDs Continue supportive measures -: D/C Sodium bicarbonate -: Continue D5W IV -: Increase free-H2O intake -: Pulmonary support with local trach care * Nutritional support Nepro 40ml/h via PEG * AM lab: BMP
[2018-03-28] MEDS: Insulin Regular 300 UNITS/3 ML VIAL SC PRN ×2 (04:26→09:48)
[2018-03-28] MEDS: Dextrose 5% in Water 1,000 ML IV SCH ×2 (04:26→15:21)
[2018-03-28 05:02] LABS: Anion Gap 11 mmol/L (10-20); BUN (Urea Nitrogen) 97 mg/dL (8.4-25.7); Calc. Creatinine Clearance 71 mL/min (70-130); Calcium 8.5 mg/dL (7.8-10.44); Carbon Dioxide 37 mmol/L (23-31); Chloride 108 mmol/L (98-107); Estimated GFR-MDRD 35; Glucose 164 mg/dL (83-110); Sodium 153 mmol/L (136-145)
[2018-03-28] MEDS: Furosemide 20 MG/2 ML VIAL SLOW IVP SCH (08:55)
[2018-03-28] MEDS: Amiodarone 200 MG TAB PO SCH ×2 (08:55→21:37)
[2018-03-28] MEDS: Pot Chloride/Pot Bicarb/Cit Ac 25 mEq Effervescent Tablet PO SCH ×2 (08:55→16:58)
[2018-03-28] MEDS: Heparin 5,000 UNITS/ML VIAL SC SCH ×3 (08:56→21:37)
[2018-03-28] MEDS: Insulin Detemir 100 UNITS/ML 35 UNITS in Pre-Filled Syringe 1 EACH SC SCH ×2 (08:58→09:51)
[2018-03-28] MEDS: Docusate 100 MG CAP PO SCH ×2 (09:02→21:39)
[2018-03-28] MEDS: Pantoprazole 40 MG GRANULES PACKET PER TUBE SCH (09:02)
--- NOTE | 2018-03-28 09:03 | PDOC.PN ---
- Subjective Encounter Start Date: 03/28/18 Encounter Start Time: 09:01 Mr. Brady was seen today in follow-up of respiratory failure. He is on a T- piece, and is awake, responsive. . - Objective Resuscitation Status: Resuscitation Status FULL:Full Resuscitation MAR Reviewed: Yes Vital Signs & Weight: Vital Signs (12 hours) Temp Pulse Resp Pulse Ox 03/28/18 07:39 98.6 F 95 22 H 94 L 03/28/18 07:00 98.6 F 03/28/18 06:45 100 03/28/18 06:31 89 20 100 03/28/18 04:00 101.1 F H 03/28/18 02:39 80 14 92 L 03/28/18 00:24 87 18 94 L 03/28/18 00:00 99.6 F 03/27/18 23:35 92 40 H 92 L 03/27/18 22:00 89 29 H 94 L Weight Admit Weight 314 lb Weight 267 lb 13.786 oz Most Recent Monitor Data Heart Rate from ECG 97 NIBP 99/63 NIBP BP-Mean 85 Respiration from ECG 27 SpO2 98 I&O: 03/27/18 03/28/18 03/29/18 06:59 06:59 06:59 Intake Total 2797 2812 150 Output Total 1660 1788 210 Balance 1137 1024 -60 Result Diagrams: 03/27/18 04:54 03/28/18 04:41 Additional Labs: Accuchecks 03/28/18 03/27/18 03/27/18 04:26 20:42 16:23 POC Glucose 170 H 201 H 285 H 03/27/18 10:10 POC Glucose 333 H Phys Exam - Physical Examination HEENT: PERRLA + rhonchi bilaterally no rales, decreased breath sounds at the bases Cardiovascular: RRR, no significant murmur, no rub Gastrointestinal: soft, non-tender, no distention, positive bowel sounds Musculoskeletal: edema present + edema, and chronic venous stasis changes Dx/Plan (1) Acute respiratory failure with hypoxia and hypercapnia Code(s): J96.01 - ACUTE RESPIRATORY FAILURE WITH HYPOXIA; J96.02 - ACUTE RESPIRATORY FAILURE WITH HYPERCAPNIA Status: Resolved Comment: Trach-collar @ 8L/min, continue to monitor resp status with high propensity for decompensation (2) COPD (chronic obstructive pulmonary disease) Status: Chronic Qualifiers: Emphysema type: unspecified (3) RILEY (obstructive sleep apnea) Code(s): G47.33 - OBSTRUCTIVE SLEEP APNEA (ADULT) (PEDIATRIC) Status: Chronic Comment: Severe, s/p tracheostomy, mech vent nocturnally, pCO2 increasing (4) Diabetes mellitus type 2 in obese Code(s): E11.69 - TYPE 2 DIABETES MELLITUS WITH OTHER SPECIFIED COMPLICATION; E66.9 - OBESITY, UNSPECIFIED Status: Chronic (5) Hypertension Code(s): I10 - ESSENTIAL (PRIMARY) HYPERTENSION Status: Chronic Qualifiers: Hypertension type: essential hypertension Qualified Code(s): I10 - Essential (primary) hypertension (6) Morbid obesity Code(s): E66.01 - MORBID (SEVERE) OBESITY DUE TO EXCESS CALORIES Status: Chronic (7) Ventricular tachycardia Code(s): I47.2 - VENTRICULAR TACHYCARDIA Status: Acute (8) Acute hypernatremia Code(s): E87.0 - HYPEROSMOLALITY AND HYPERNATREMIA Status: Acute Comment: Increase free-H2O replacement, d/c Sodium bicarbonate, D5W gtt (9) Acute kidney failure Status: Acute Comment: ? new baseline eGFR, avoid nephrotoxic insult and limit contrast exposure, increase free-H2O, creatinine in am - Plan * Chart received and patient examined- Mr Brady has a history of COPD, morbid obesity, RILEY, DM, diastolic heart failure, and recent hospital admission at our facility for MSSA sepsis with a prolonged hospital stay. [facility] was [facility] to [facility] and was re-admitted after he developed acute respiratory failure due to not receiving his usual CPAP/BiPAP at night. He later decompensated during this admission with the development of a large pleural effusion, and Ventricular Tachycardia. He was intubated, and thorocentesis was performed. Fluid was transudative. He also has suffered with acute renal failure, and recurrent SVT. Due to his co-morbid conditions it has been difficult to wean him from the ventilator, and he has undergone tach and PEG. He has been stabilized and is awaiting placement * Acute on chronic respiratory failure- The patient has a trach, and is receiving nocturnal ventilation. * Acute renal failure- improving * Hypernatremia- continue Hypotonic fluids ( D5W)- and will monitor electrolytes * DM- blood glucose is elevated, primarily in the mornings- will titrate insulin * HTN- blood pressure is stable * VT and SVT- continue Amiodarone * Nutritional support with tube feedings
--- NOTE | 2018-03-28 13:38 | PRG ---
DATE OF SERVICE: 03/28/2018 SUBJECTIVE: He remains on the vent on CPAP this morning. Trach collar. He says he is having no dif ficulty breathing. PHYSICAL EXAMINATION: VITAL SIGNS: Blood pressure 122/76, sats are 99%, respiration 18. I's and O's are 2812 in and 170 o ut. CHEST: Reveals extensive rhonchi. CARDIAC: Normal S1, S2, no gallops. ABDOMEN: Soft. LABORATORY DATA: His potassium is 3. Sodium 153, creatinine is 1.8, better. IMPRESSION: 1. Acute on chronic respiratory failure. 2. End-stage chronic obstructive pulmonary disease. 3. Supraventricular tachycardia. 4. Severe deconditioning. PLAN: His trach and PEG is clearly not weanable at this stage, needs a long-term care. We tried repeated decision. Continue nocturnal ventilation, supportive care, nutrition. One-half hour critical care time.
[2018-03-28] MEDS: Aspirin 81 mg Enteric Coated Tablet PO SCH (21:37)
[2018-03-28] MEDS: Lovastatin 20 MG TAB PO SCH (21:37)
[2018-03-28] MEDS: Insulin Detemir 100 UNITS/ML 40 UNITS in Pre-Filled Syringe 1 EACH SC SCH (21:38)
[2018-03-29] MEDS: Insulin Regular 300 UNITS/3 ML VIAL SC PRN ×2 (04:34→10:31)
[2018-03-29 04:49] LABS: BUN (Urea Nitrogen) 83 mg/dL (8.4-25.7); Calc. Creatinine Clearance 62 mL/min (70-130); Calcium 8.4 mg/dL (7.8-10.44); Estimated GFR-MDRD 36; Glucose 253 mg/dL (83-110)
[2018-03-29 04:58] LABS: Anion Gap 16 mmol/L (10-20); Carbon Dioxide 33 mmol/L (23-31); Chloride 107 mmol/L (98-107); Sodium 153 mmol/L (136-145)
[2018-03-29] MEDS: Pot Chloride/Pot Bicarb/Cit Ac 25 mEq Effervescent Tablet PO SCH ×2 (07:55→16:25)
[2018-03-29] MEDS: Pantoprazole 40 MG GRANULES PACKET PER TUBE SCH (08:19)
[2018-03-29] MEDS: Furosemide 20 MG/2 ML VIAL SLOW IVP SCH (08:19)
[2018-03-29] MEDS: Heparin 5,000 UNITS/ML VIAL SC SCH ×3 (08:19→21:35)
[2018-03-29] MEDS: Amiodarone 200 MG TAB PO SCH ×2 (08:20→21:34)
[2018-03-29] MEDS: Insulin Detemir 100 UNITS/ML 35 UNITS in Pre-Filled Syringe 1 EACH SC SCH (08:20)
[2018-03-29] MEDS: Docusate 100 MG CAP PO SCH ×2 (08:20→21:35)
--- NOTE | 2018-03-29 09:49 | RAD ---
CHEST 1 VIEW: Date: 03/29/18 HISTORY: Dyspnea. Follow-up. COMPARISON: 03/26/18. FINDINGS: Cardiac silhouette is magnified and enlarged. Pulmonary vasculature remains engorged with patchy bila teral infiltrates. Infiltrate at the left base and left pleural fluid have increased. Patient rotated rightward. Tracheostomy appliance partially visualized. IMPRESSION: Increasing left pleural fluid and patchy left basilar infiltrate. Other findings are stable. POS: JOE
--- NOTE | 2018-03-29 11:19 | PDOC.PN ---
- Subjective Encounter Start Date: 03/29/18 Encounter Start Time: 11:18 Mr. Brady was seen today in follow-up. He is awake, and indicates no complaints. - Objective Resuscitation Status: Resuscitation Status FULL:Full Resuscitation MAR Reviewed: Yes Vital Signs & Weight: Vital Signs (12 hours) Temp Pulse Resp Pulse Ox 03/29/18 11:00 98.5 F 03/29/18 08:00 98.5 F 88 26 H 100 03/29/18 07:42 100 03/29/18 07:00 98.5 F 03/29/18 06:29 79 13 100 03/29/18 02:57 87 27 H 100 03/29/18 00:00 98.8 F 03/28/18 23:51 88 38 H 100 Weight Admit Weight 314 lb Weight 270 lb 11.642 oz Most Recent Monitor Data Heart Rate from ECG 77 NIBP 119/61 NIBP BP-Mean 72 Respiration from ECG 20 SpO2 100 I&O: 03/28/18 03/29/18 03/30/18 06:59 06:59 06:59 Intake Total 2812 3812 150 Output Total 1788 1775 235 Balance 1024 2036 Result Diagrams: 03/27/18 04:54 03/29/18 04:25 Additional Labs: Accuchecks 03/29/18 03/29/18 03/28/18 10:27 04:22 21:36 POC Glucose 166 H 271 H 195 H 03/28/18 16:00 POC Glucose 124 H Phys Exam - Physical Examination HEENT: PERRLA + rhonchi - scattered, and some rales at the bases Cardiovascular: RRR, no significant murmur, no rub Gastrointestinal: soft, positive bowel sounds Musculoskeletal: edema present trace edema, with chronic venous stasis changes + hammer toe deformity Dx/Plan (1) Acute respiratory failure with hypoxia and hypercapnia Code(s): J96.01 - ACUTE RESPIRATORY FAILURE WITH HYPOXIA; J96.02 - ACUTE RESPIRATORY FAILURE WITH HYPERCAPNIA Status: Resolved Comment: Trach-collar @ 8L/min, continue to monitor resp status with high propensity for decompensation (2) COPD (chronic obstructive pulmonary disease) Status: Chronic Qualifiers: Emphysema type: unspecified (3) RILEY (obstructive sleep apnea) Code(s): G47.33 - OBSTRUCTIVE SLEEP APNEA (ADULT) (PEDIATRIC) Status: Chronic Comment: Severe, s/p tracheostomy, mech vent nocturnally, pCO2 increasing (4) Diabetes mellitus type 2 in obese Code(s): E11.69 - TYPE 2 DIABETES MELLITUS WITH OTHER SPECIFIED COMPLICATION; E66.9 - OBESITY, UNSPECIFIED Status: Chronic (5) Hypertension Code(s): I10 - ESSENTIAL (PRIMARY) HYPERTENSION Status: Chronic Qualifiers: Hypertension type: essential hypertension Qualified Code(s): I10 - Essential (primary) hypertension (6) Morbid obesity Code(s): E66.01 - MORBID (SEVERE) OBESITY DUE TO EXCESS CALORIES Status: Chronic (7) Ventricular tachycardia Code(s): I47.2 - VENTRICULAR TACHYCARDIA Status: Acute (8) Acute hypernatremia Code(s): E87.0 - HYPEROSMOLALITY AND HYPERNATREMIA Status: Acute Comment: Increase free-H2O replacement, d/c Sodium bicarbonate, D5W gtt (9) Acute kidney failure Status: Acute Comment: ? new baseline eGFR, avoid nephrotoxic insult and limit contrast exposure, increase free-H2O, creatinine in am - Plan * Acute on chronic respiratory failure- patient is requiring nocturnal ventilation, * DM- blood glucose is stable * VT- stable on Amiodarone * Acute renal failure- improved * Nutritional Support- tolerating tube feeds. * Hypernatremia- stable- continue D5W
--- NOTE | 2018-03-29 12:51 | PRG ---
DATE OF SERVICE: 03/29/2018 SUBJECTIVE: Mr. Tiffani Brady remains intubated on the vent. Trach in place. He is more respon sive. OBJECTIVE: VITAL SIGNS: Blood pressure is 120/60, sats are 90% on trach collar, respirations 20. His temperatu re is 98. CHEST: Chest reveals decreased breath sounds without any wheezing. CARDIAC: Normal S1, S2, no gallops. ABDOMEN: Soft without any masses. LABORATORY DATA: Creatinine is decreased to 1.8, BUN is decreased to 83. Sodium is still 153. IMPRESSION: 1. Morbid obesity, sleep apnea, chronic obstructive pulmonary disease, tracheostomy. 2. Bilateral pleural effusion secondary to diastolic dysfunction. 3. Severe deconditioning. 4. Supraventricular tachycardia. PLAN: He is going to require long-term inpatient hospital care. His sodium has gradually improved w ith a slow hydration. Avoid diuretics. Unfortunately, x-ray showing worsening pleural effusion, which I am concerned. Ben n is to eventually get him to a long-term place. Prognosis guarded. Family understands. He still w ants everything to be done. One-half hour critical care time.
[2018-03-29 14:31] VITALS: BP 160/89
[2018-03-29] MEDS: Dextrose 5% in Water 1,000 ML IV SCH (16:25)
[2018-03-29] MEDS: Insulin Detemir 100 UNITS/ML 40 UNITS in Pre-Filled Syringe 1 EACH SC SCH (21:35)
[2018-03-29] MEDS: Aspirin 81 mg Enteric Coated Tablet PO SCH (21:35)
[2018-03-29] MEDS: Lovastatin 20 MG TAB PO SCH (21:36)
[2018-03-30] MEDS: Insulin Regular 300 UNITS/3 ML VIAL SC PRN ×2 (04:22→11:19)
[2018-03-30] MEDS: Dextrose 5% in Water 1,000 ML IV SCH (04:22)
[2018-03-30 04:50] LABS: Anion Gap 13 mmol/L (10-20); BUN (Urea Nitrogen) 67 mg/dL (8.4-25.7); Calc. Creatinine Clearance 72 mL/min (70-130); Calcium 8.3 mg/dL (7.8-10.44); Carbon Dioxide 36 mmol/L (23-31); Chloride 106 mmol/L (98-107); Estimated GFR-MDRD 43; Glucose 243 mg/dL (83-110); Sodium 152 mmol/L (136-145)
[2018-03-30 04:54] LABS: Potassium 2.8 mmol/L (3.5-5.1)
--- NOTE | 2018-03-30 08:44 | PRG ---
DATE OF SERVICE: 03/30/2018 He is awake, alert, responsive, sitting in the bed with a trach collar. PHYSICAL EXAMINATION: VITAL SIGNS: Pulse 79, blood pressure 117/63, sats 96% on 30% trach collar, respirations 32, he is a febrile, temperature 98. CHEST: Chest anterior rhonchi. CARDIAC: Normal S1, S2, no gallops. ABDOMEN: Soft. LABORATORY: Sodium is 152, potassium 2.8. IMPRESSION: 1. Respiratory failure. 2. Bilateral pleural effusion. 3. Diastolic dysfunction. 4. Azotemia. 5. Hyponatremia. 6. Diabetes. PLAN: Continue nocturnal ventilation, supportive care, PT, eventually placement. One-half hour critical care time.
[2018-03-30] MEDS: Insulin Detemir 100 UNITS/ML 35 UNITS in Pre-Filled Syringe 1 EACH SC SCH (08:52)
[2018-03-30] MEDS: Pot Chloride/Pot Bicarb/Cit Ac 25 mEq Effervescent Tablet PO SCH (08:52)
[2018-03-30] MEDS: Furosemide 20 MG/2 ML VIAL SLOW IVP SCH (08:54)
[2018-03-30] MEDS: Amiodarone 200 MG TAB PO SCH (08:54)
[2018-03-30] MEDS: Heparin 5,000 UNITS/ML VIAL SC SCH (08:54)
[2018-03-30] MEDS: Pantoprazole 40 MG GRANULES PACKET PER TUBE SCH (08:54)
[2018-03-30] MEDS: Docusate 100 MG CAP PO SCH (08:54)
[2018-03-30] MEDS ORDERED: Potassium Chloride 20 MEQ TAB PO SCH ×3 (10:00→17:00)
--- NOTE | 2018-03-30 10:11 | PDOC.PN ---
- Subjective Encounter Start Date: 03/30/18 Encounter Start Time: 10:10 Mr. Brady was seen today in follow-up of acute respiratory failure. Does not have any complaints this morning - Objective Resuscitation Status: Resuscitation Status FULL:Full Resuscitation MAR Reviewed: Yes Vital Signs & Weight: Vital Signs (12 hours) Temp Pulse Resp Pulse Ox 03/30/18 08:42 94 L 03/30/18 08:41 87 16 100 03/30/18 08:00 98.5 F 87 16 99 03/30/18 07:00 98.2 F 03/30/18 06:00 22 H 03/30/18 04:00 98.4 F 14 03/30/18 02:50 62 12 100 03/30/18 02:00 14 03/30/18 00:17 75 18 100 03/30/18 00:00 98.4 F 12 03/29/18 22:35 83 26 H 100 Weight Admit Weight 314 lb Weight 264 lb 8.875 oz Most Recent Monitor Data Heart Rate from ECG 65 NIBP 142/78 NIBP BP-Mean 100 Respiration from ECG 31 SpO2 100 I&O: 03/29/18 03/30/18 03/31/18 06:59 06:59 06:59 Intake Total 3812 7323 150 Output Total 1775 1500 200 Balance 2037 5823 -50 Result Diagrams: 03/27/18 04:54 03/30/18 04:32 Additional Labs: Accuchecks 03/30/18 03/30/18 03/29/18 09:08 04:10 21:33 POC Glucose 216 H 224 H 133 H 03/29/18 03/29/18 16:16 10:27 POC Glucose 105 166 H Phys Exam - Physical Examination HEENT: PERRLA Respiratory: no wheezing, no rales, no rhonchi, clear to auscultation bilateral Cardiovascular: RRR, no significant murmur, no rub Gastrointestinal: soft, non-tender, positive bowel sounds Musculoskeletal: no edema Dx/Plan (1) Acute respiratory failure with hypoxia and hypercapnia Code(s): J96.01 - ACUTE RESPIRATORY FAILURE WITH HYPOXIA; J96.02 - ACUTE RESPIRATORY FAILURE WITH HYPERCAPNIA Status: Resolved Comment: Trach-collar @ 8L/min, continue to monitor resp status with high propensity for decompensation (2) COPD (chronic obstructive pulmonary disease) Status: Chronic Qualifiers: Emphysema type: unspecified (3) RILEY (obstructive sleep apnea) Code(s): G47.33 - OBSTRUCTIVE SLEEP APNEA (ADULT) (PEDIATRIC) Status: Chronic Comment: Severe, s/p tracheostomy, mech vent nocturnally, pCO2 increasing (4) Diabetes mellitus type 2 in obese Code(s): E11.69 - TYPE 2 DIABETES MELLITUS WITH OTHER SPECIFIED COMPLICATION; E66.9 - OBESITY, UNSPECIFIED Status: Chronic (5) Hypertension Code(s): I10 - ESSENTIAL (PRIMARY) HYPERTENSION Status: Chronic Qualifiers: Hypertension type: essential hypertension Qualified Code(s): I10 - Essential (primary) hypertension (6) Morbid obesity Code(s): E66.01 - MORBID (SEVERE) OBESITY DUE TO EXCESS CALORIES Status: Chronic (7) Ventricular tachycardia Code(s): I47.2 - VENTRICULAR TACHYCARDIA Status: Acute (8) Acute hypernatremia Code(s): E87.0 - HYPEROSMOLALITY AND HYPERNATREMIA Status: Acute Comment: Increase free-H2O replacement, d/c Sodium bicarbonate, D5W gtt (9) Acute kidney failure Status: Acute Comment: ? new baseline eGFR, avoid nephrotoxic insult and limit contrast exposure, increase free-H2O, creatinine in am - Plan * Acute on chronic respiratory failure- stable * AFIB- his heart rate is stable on Amiodarone, and discussed with Dr. Ruvalcaba- he is receiving Eliquis for stroke prevention. * HTN- blood pressure is stable * DM- blood glucose is slightly elevated- this can continued to be titrated at the [facility] * Hypernatremia- continue to monitor continue D5W * Hypokalemia- replace * Can transfer to [facility]
--- NOTE | 2018-03-30 10:15 | PRG ---
DATE OF SERVICE: 03/30/2018 Mr. Brady is resting, he is going to be transferred today. PHYSICAL EXAMINATION: VITAL SIGNS: Blood pressure 117/60, pulse 70s, it is atrial fibrillation. LUNGS: Clear. CARDIAC: Irregular, irregular. ASSESSMENT: 1. Respiratory failure. 2. Paroxysmal atrial fibrillation, he is maintaining atrial fibrillation. 3. Hypokalemia. 4. He is still hypernatremia. PLAN: 1. Change to potassium chloride instead of sodium bicarbonate with potassium. 2. Give extra potassium now. 3. Start Eliquis. 4. Reduce amiodarone. 5. Ultimately consideration for cardioversion could be given. It would not be unlikely to be succes sful at this point, but if the respiratory rate and overall status improves, cardioversion could cons idered. Prognosis guarded.
[2018-03-30 11:37] VITALS: TEMP 98
--- NOTE | 2018-03-30 12:00 | DIS ---
DATE OF ADMISSION: 03/11/2018 DATE OF DISCHARGE: 03/30/2018 PRIMARY CARE PHYSICIAN: Lisset Hadley M.D. DISCHARGE DISPOSITION: To the long-term care facility. DISCHARGE DIAGNOSES: 1. Acute on chronic respiratory failure secondary to an occluded tracheostomy. 2. Atrial fibrillation. 3. Ventricular tachycardia. 4. Acute renal failure, resolved. 5. Morbid obesity. 6. Diabetes mellitus, type 2. 7. Hyperkalemia. 8. Chronic respiratory failure secondary to chronic obstructive pulmonary disease. DISCHARGE MEDICATIONS: Include amiodarone 200 mg daily, acetaminophen 650 mg q.4 hours as needed, El iquis 5 mg twice daily, aspirin 81 mg daily, docusate 100 mg twice a day, Lasix 20 mg IV daily, Cecil 5/325 q.4 hours as needed, Levemir insulin 35 units in the morning, 40 units in the evening, DuoNebs q. 6h, Altoprev 20 mg daily, Creon 12,000 units per protocol, Protonix 40 mg packet daily, K-Dur 20 mEq twice a day, and Spiriva 18 mcg inhaled daily. CODE STATUS: FULL CODE. ALLERGIES: No known drug allergies. PROCEDURES DONE DURING ADMISSION: The patient had a CT scan of the chest, which showed moderate size d bilateral pleural effusions, larger on the right. There was some bibasilar areas of consolidation and the filling defect in the right lower lobe bronchus could be postobstructive atelectasis or pneum onitis. There was some patchy airspace opacities in the left upper lobe, cardiomegaly, cholelithiasi s and a remote right rib fractures. The patient had a subclavian central line placed. HOSPITAL COURSE: Mr. Brady is a 72-year-old gentleman who has a history of hypertension, COPD, d iabetes mellitus, severe morbid obesity with a BMI of 36.9 who was admitted to the hospital with acut e respiratory failure after he had an occluded tracheostomy. He was admitted and this was repaired. During the course of the admission, he developed acute respiratory failure requiring intubation. He also developed ventricular tachycardia as well as atrial fibrillation. He was seen by Cardiology an d placed on an amiodarone drip. This controlled his heart rate and rhythm and eventually Eliquis was started. He had a prolonged hospital stay primarily due to slow weaning from the ventilator and als o due to awaiting placement at an LTAC and once the placement was obtained, continuing treatment will be provided at the long-term care facility and he will be transferred on 03/30/2018.
[2018-03-30] MEDS ORDERED: Apixaban 5 MG TAB PO SCH (21:00)
[2018-03-31] MEDS ORDERED: Amiodarone 200 MG TAB PO SCH (09:00)
== END 2018-03-30 14:20 | disposition short-term general hospital (02) | DRG 4 ==
LOC: ERS 07:29 → IMCU/EMU 10:08 → 2NO 03-13 17:17 → CCU 03-15 03:08
PROVIDERS: ADMIT Internal Medicine; ATTEND Internal Medicine
PROC: 5A1955Z Respiratory Ventilation, Greater than 96 Consecutive Hours (ICD-10-PCS; 2018-03-15)
PROC: 0W993ZX Drainage of Right Pleural Cavity, Percutaneous Approach, Diagnostic (ICD-10-PCS; 2018-03-15)
PROC: 0BJ08ZZ Inspection of Tracheobronchial Tree, Via Natural or Artificial Opening Endoscopic (ICD-10-PCS; 2018-03-15)
PROC: 0BH17EZ Insertion of Endotracheal Airway into Trachea, Via Natural or Artificial Opening (ICD-10-PCS; 2018-03-15)
PROC: 5A12012 Performance of Cardiac Output, Single, Manual (ICD-10-PCS; 2018-03-15)
PROC: 02HV33Z Insertion of Infusion Device into Superior Vena Cava, Percutaneous Approach (ICD-10-PCS; 2018-03-15)
PROC: 0DH63UZ Insertion of Feeding Device into Stomach, Percutaneous Approach (ICD-10-PCS; principal; 2018-03-21)
PROC: 0B110F4 Bypass Trachea to Cutaneous with Tracheostomy Device, Open Approach (ICD-10-PCS; 2018-03-21)
PROC: 3E0G76Z Introduction of Nutritional Substance into Upper GI, Via Natural or Artificial Opening (ICD-10-PCS; 2018-03-21)
DX: I13.0 Hypertensive heart and chronic kidney disease with heart failure and stage 1 through stage 4 chronic kidney disease, or unspecified chronic kidney disease (principal); J96.21 Acute and chronic respiratory failure with hypoxia; J18.9 Pneumonia, unspecified organism; I46.9 Cardiac arrest, cause unspecified; J96.02 Acute respiratory failure with hypercapnia; I50.32 Chronic diastolic (congestive) heart failure; E87.0 Hyperosmolality and hypernatremia; J90 Pleural effusion, not elsewhere classified; E87.1 Hypo-osmolality and hyponatremia; I47.1 Supraventricular tachycardia; N17.9 Acute kidney failure, unspecified; E66.2 Morbid (severe) obesity with alveolar hypoventilation; E87.2 Acidosis; I42.9 Cardiomyopathy, unspecified; E11.22 Type 2 diabetes mellitus with diabetic chronic kidney disease; N18.3 Chronic kidney disease, stage 3 (moderate); J44.9 Chronic obstructive pulmonary disease, unspecified; I89.0 Lymphedema, not elsewhere classified; Z79.82 Long term (current) use of aspirin; Z79.51 Long term (current) use of inhaled steroids; Z87.891 Personal history of nicotine dependence; G47.33 Obstructive sleep apnea (adult) (pediatric); I48.0 Paroxysmal atrial fibrillation; E87.6 Hypokalemia; Z68.36 Body mass index [BMI] 36.0-36.9, adult; D64.9 Anemia, unspecified; E11.65 Type 2 diabetes mellitus with hyperglycemia; Z85.038 Personal history of other malignant neoplasm of large intestine; Z90.49 Acquired absence of other specified parts of digestive tract
CPT/HCPCS: 36415; 36416; 71045; 71250; 80048; 80053; 81001; 81003; 81015; 82150; 82805; 82945; 83615; 83735; 83880; 84157; 84478; 84484; 85007; 85025; 85027; 85060; 87040; 87070; 87086; 87116; 87205; 87206; 88112; 88305; 89051; 89220; 92950; 93005; 93010; 94002; 94003; 94640; 94660; 94760; A4216; C9113; G8978-GP-CN; G8979-GP-CM; G8996-GN-CN; G8997-GN-CM; J0131; J0171; J0670; J0692; J1644; J1650; J1815; J1940; J2060; J2250; J2543; J2704; J2920; J3010; J3370; J7050; J7506; J7620; P9047

== ENCOUNTER 2018-05-24 22:18 | Inpatient (IN) | payer MEDICARE ==
[2018-05-24 22:53] LABS: #Eosinphils 0.2 thou/uL (0.0-0.7); #Lymphocytes 1.9 thou/uL (1.20-3.40); #Neutrophils 11.1 thou/uL (1.40-6.50); %Basophils 0.2 % (0.0-1.0); %Eosinophils 1.7 % (0.0-10.0); Mean Corpuscular HGB CONC 31.2 g/dL (32.0-36.0); Mean Corpuscular Hemoglobin 28.8 pg (27.0-31.0); Mean Corpuscular Volume 92.3 fL (78.0-98.0); Mean Platelet Volume 6.4 fL (7.4-10.4); Platelet Count 238 thou/uL (130-400); RBC Distribution Width 14.2 % (11.5-14.5); Red Blood Cell (RBC) Count 4.16 mill/uL (4.70-6.10); White Blood Cell (WBC) Count 14.2 thou/uL (4.8-10.8)
[2018-05-24 23:18] LABS: ALT (SGPT) 18 U/L (8-55); AST (SGOT) 20 U/L (5-34); Albumin 3.7 g/dL (3.4-4.8); Alkaline Phosphatase 99 U/L (40-150); Anion Gap 11 mmol/L (10-20); BUN (Urea Nitrogen) 25 mg/dL (8.4-25.7); Bilirubin, Total 0.3 mg/dL (0.2-1.2); CK (CPK) 80 U/L (30-200); Calc. Creatinine Clearance 0 mL/min (70-130); Calcium 8.6 mg/dL (7.8-10.44); Carbon Dioxide 34 mmol/L (23-31); Chloride 100 mmol/L (98-107); Estimated GFR-MDRD 47; Globulin 2.6 g/dL (2.4-3.5); Glucose 147 mg/dL (83-110); Lipase 47 U/L (8-78); Potassium 5.3 mmol/L (3.5-5.1); Protein, Total 6.3 g/dL (5.8-8.1); Sodium 140 mmol/L (136-145)
[2018-05-24 23:40] LABS: CKMB 5.9 ng/mL (0-6.6); Troponin I 0.019 ng/mL (< 0.028)
--- NOTE | 2018-05-24 23:48 | RAD ---
CHEST ONE VIEW: HISTORY: Shortness of breath. Left leg swelling. Heart failure. Dyspnea. COMPARISON: 03/29/2018 FINDINGS: A portable one view chest demonstrates pleural and parenchymal changes in the lung bases, right great er than left. The heart is enlarged. There is no pneumothorax. IMPRESSION: 1. Cardiomegaly. 2. Pleural and parenchymal changes. 3. Congestive heart failure. 4. Superimposed infiltrate in the lung bases cannot be excluded. Continued surveillance is recommend ed. POS: [facility]
[2018-05-25 03:26] LABS: pH, Arterial 7.19 (7.35-7.45)
[2018-05-25 03:27] LABS: Actual Bicarbonate (HCO3a) 34.4 mEq/L (22-28); Base Excess (BEa) 3.4 mEq/L (-2.0 to +3.0); CO2 Tension 97.1 mmHg (35.0-45.0); Hematocrit-ABG 39.9 % (42.0-52.0); Hemoglobin (Hb) 11.2 g/dL (14.0-18.0); O2 Tension (PaO2) 96.5 mmHg (> 70.0)
[2018-05-25 03:28] LABS: ALV-art Gradient 490.125 (0-20); Analyzer IN Cardio ER; Calcium, Ionized 1.2 mmol/L (1.12-1.30); Puncture Site LRA
[2018-05-25] MEDS ORDERED: Furosemide 20 MG/2 ML VIAL ONE (03:46)
[2018-05-25] MEDS ORDERED: Furosemide 40 MG/4 ML VIAL ONE (03:46)
[2018-05-25 06:54] LABS: Actual Bicarbonate (HCO3a) 36.4 mEq/L (22-28); CO2 Tension 119.5 mmHg (35.0-45.0); O2 Tension (PaO2) 51.3 mmHg (> 70.0)
[2018-05-25 06:55] LABS: Base Excess (BEa) 3.3 mEq/L (-2.0 to +3.0); Calcium, Ionized 1.2 mmol/L (1.12-1.30); Hemoglobin (Hb) 12.4 g/dL (14.0-18.0); Puncture Site LRA
[2018-05-25 06:56] LABS: ALV-art Gradient 184.345 (0-20)
[2018-05-25] MEDS ORDERED: Propofol 1,000 MG/100 ML VIAL IV ONE (08:13)
[2018-05-25] MEDS ORDERED: Lorazepam 2 MG/ML VIAL SLOW IVP PRN (08:14)
[2018-05-25] MEDS ORDERED: Fentanyl BOLUS 250 ML IVPB PRN (08:14)
[2018-05-25] MEDS ORDERED: fentaNYL Citrate/PF 2,000 MCG in Sodium Chloride 0.9% 60 ML IV SCH (08:14)
[2018-05-25] MEDS ORDERED: Propofol BOLUS 1,000 MG/100 ML VIAL IV PRN (08:14)
[2018-05-25] MEDS ORDERED: Ventilator Sedation Protocol 1 EACH FS SCH (08:30)
--- NOTE | 2018-05-25 08:33 | HP ---
DATE OF ADMISSION: 05/25/2018 TIME OF SERVICE: 0400 hours. CHIEF COMPLAINT: Shortness of breath. HISTORY OF PRESENT ILLNESS: Mr. Brady is a 72-year-old male well known to our service from multi ple admissions just went home a few weeks ago. The patient developed increased shortness of breath a nd lower extremity edema the day of admission, so was brought to the emergency department for evaluat ion. There, he was found to be hypoxic on arrival, he was placed on nasal cannula and was doing okay, but started becoming more tired and somnolent and he was eventually placed on BiPAP. We were subsequentl y called for admission. D-dimer was abnormal. A CT angiogram was performed that was negative for pulmonary embolus. Lower e xtremity ultrasound was negative for DVT. ABG was done that showed respiratory acidosis with a pH of 7.19 and pCO2 of 97. Biomarkers were otherwise negative. White count was at 14.2. PAST MEDICAL HISTORY: None. PAST SURGICAL HISTORY: None. MEDICATIONS: None. ALLERGIES: None. FAMILY HISTORY: Significant for hypertension and diabetes. SOCIAL HISTORY: Significant for tobacco, quit 15 years ago with a greater than 51-gfpy-flva history. Otherwise negative for habits x2. REVIEW OF SYSTEMS: All systems reviewed and negative except stated as per HPI. PHYSICAL EXAMINATION: VITAL SIGNS: Temperature currently is 98.4, pulse 87, blood pressure 126/76, respiratory rate 24 on BiPAP, satting 90% on 16/7. GENERAL: He is somnolent and minimally arousable. HEENT: Pupils equal, round, reactive to light bilaterally, mucous membranes are moist. There are no visible lesions or thrush. BiPAP mask is in place. NECK: Supple. There is no lymphadenopathy, JVD, or thyromegaly. He has normal carotid upstroke. I do not appreciate bruits. LUNGS: Clear anteriorly, he has decreased breath sounds in the bilateral bases, right more than left . He has no wheezes, no rales, no rhonchi. No prolonged expiratory phase. CARDIOVASCULAR: Normal cardiac and regular. Normal S1 and S2. I do not appreciate murmurs. ABDOMEN: Soft, it is obese, it is nontender. He has got good bowel sounds in all 4 quadrants. EXTREMITIES: Show no cyanosis or clubbing. He has got chronic 2-3+ edema in the bilateral extremiti es to just above the knees. SKIN: Otherwise, warm, moist, and well perfused. He has no other rashes or lesions. He has chronic venous stasis dermatitis. MUSCULOSKELETAL: Normal to inspection. Large joints appear normal. There is no evidence of inflamm ation or palpable effusions. NEUROLOGIC: Not testable due to the patient somnolence. LABORATORY DATA: Sodium 140, potassium 5.3, chloride 100, bicarbonate 34, BUN 25, creatinine 1.46, g lucose 147, calcium 8.6. Liver function completely within normal limits. CBC showed white count of 14.2, hemoglobin 12.0, hematocrit 38.4 and platelet count was 238,000. IMAGING: CT angiogram was negative for pulmonary embolus, but did show right moderate sized pleural effusion and small left-sided pleural effusion. Chest x-ray showed right greater than left effusions and bilateral lower extremity ultrasound negative for DVT. ASSESSMENT AND PLAN: 1. Acute hypoxemic and hypercapnic respiratory failure, combined. The patient is on BiPAP. He has gotten Lasix in the ER with minimal output. I do not think he is fluid overloaded, but I think he schumacher s had inadequate gas exchange due to his effusion. We will consult Pulmonary and Critical Care. In the meantime, we will continue on BiPAP as needed. 2. Diabetes mellitus type 2, insulin-dependent. We will continue long-acting insulin and sliding sc luis fernando insulin with Humalog. 3. Chronic kidney disease stage 3. Creatinine 1.46, which is probably his baseline. 4. Hypertension, essential. 5. Chronic diastolic congestive heart failure without acute exacerbation. 6. Chronic lymphedema, stable. 7. Obstructive sleep apnea. The patient will be placed on inpatient. He will be in the ICU on BiPAP. We will wean him off as to lerated, but we will need to repeat ABG later. If he does not improve, may need to be intubated. Ad ditionally, he has had his trach taken out recently.
--- NOTE | 2018-05-25 08:59 | ULT ---
PRELIMINARY REPORT/[facility]/EMERGENT[facility] AFTER-HOURS PROCEDURE US Duplex Bilateral Lower Extremity Veins CLINICAL HISTORY: 72 years old, male; Signs and symptoms; Swelling of limb; Lower extremity, bilateral TECHNIQUE: Real-time duplex ultrasound scan of the bilateral lower extremity veins integrating B-mode two dimens ional vascular structure, Doppler spectral analysis, color flow Doppler imaging and compression. COMPARISON: No relevant prior studies available. FINDINGS: Right deep veins: Unremarkable. No DVT in the right common femoral, femoral, proximal deep femoral or popliteal veins. The veins demonstrate normal color flow, are normally compressible, with normal pha sic flow and/or augmentation response. Right superficial veins: Unremarkable. No thrombus in the visualized right great saphenous vein. Left deep veins: Unremarkable. No DVT in the left common femoral, femoral, proximal deep femoral or p opliteal veins. The veins demonstrate normal color flow, are normally compressible, with normal phasi c flow and/or augmentation response. Left superficial veins: Unremarkable. No thrombus in the visualized left great saphenous vein. Soft tissues: No acute findings. No popliteal cyst. IMPRESSION: Normal bilateral lower extremity duplex venous ultrasound. Thank you for allowing us to participate in the care of your patient. Dictated and Authenticated by: London Serrano MD 05/25/2018 2:52 AM Central Time ([place] & [place]) FINAL REPORT BILATERAL LOWER EXTREMITY VENOUS DOPPLER ULTRASOUND: I agree with the preliminary report given by Dr. London Serrano of [facility]. POS: [facility]
--- NOTE | 2018-05-25 09:01 | CT ---
PRELIMINARY REPORT/[facility]/EMERGENTY AFTER-HOURS PROCEDURE CT Angiography Chest With Intravenous Contrast CLINICAL HISTORY: 72 years old, male; Signs and symptoms; Dyspnea and shortness of breath; Patient HX: 72m C/O SOB and increased rle edema today. Denies any cp, cough, diaphoresis, n/v/d or rash. D-dimer 3.99 TECHNIQUE: Axial computed tomographic angiography images of the chest with intravenous contrast using CT angiogr aphy protocol. MIP reconstructed images were created and reviewed. COMPARISON: No relevant prior studies available. FINDINGS: Pulmonary arteries: Evaluation of the distal segmental and subsegmental pulmonary arteries is limited by artifact. Otherwise, no evidence of PE. Aorta: Atherosclerotic aorta. No aneurysm or acute aortic syndrome. Lungs: Complete compressive atelectasis of the entire right lung. No evidence of pneumonia or pulmona ry edema. Pleural space: Large right pleural effusion opacifying almost the entire right hemithorax. Small left pleural effusion. Heart: Aortic valve calcification. Cardiomegaly. Mediastinum: Esophagus is unremarkable. Bones/joints: Multiple healing bilateral rib fractures. Acute versus subacute fracture of the postero lateral right ninth rib. Healing fracture of the sternum. Soft tissues: Unremarkable. Lymph nodes: Unremarkable. No enlarged lymph nodes. Intraperitoneal space: Ascites. IMPRESSION: 1. Aortic valve calcification may indicate aortic valve stenosis. RECOMMEND correlation with echocardiography. 2. Large right pleural effusion opacifying almost the entire right hemithorax. 3. Complete compressive atelectasis of the entire right lung. 4. Small left pleural effusion. 5. Acute versus subacute fracture of the posterolateral right ninth rib. 6. Ascites. Thank you for allowing us to participate in the care of your patient. Dictated and Authenticated by: London Serrano MD 05/25/2018 3:17 AM Central Time ([place] & [place]) FINAL REPORT CTA CHEST WITH IV CONTRAST AND 3D POSTPROCESSING: I agree with the preliminary report given by Dr. London Serrano of [facility]. POS: [facility]
--- NOTE | 2018-05-25 09:14 | CON ---
DATE OF CONSULTATION: 05/25/2018 HISTORY: This is a morbidly obese gentleman who was discharged on 03/30/2018 to an LTAC because of p ermanent trach, failure to wean. Apparently three weeks ago, according to his , the physician at the LTAC removed the trach and ap parently he was discharged home. He had been walking according to his , but as of the last al days he became lethargic, obtunded, in respiratory distress. He was brought in last night to the hospital with severe respiratory failure [place] [address]. His baseline problem is morbid obesity, sleep apnea, severe deconditioning. He has had previous issu es with his tracheostomy, which has been occluded in the past. He can barely even walk 20-30 feet without getting markedly short of breath. PAST MEDICAL HISTORY: Extensively well outlined in our institution including atrial fibrillation and ventricular tachycardia, renal failure, morbid obesity, diabetes, hyperkalemia, COPD, severe stasis edema. DISCHARGE MEDICATIONS: His discharge medicines have remained basically unchanged including Protonix 40, nebulizer, Eliquis 5 twice a day, Cordarone 20 a day, potassium, insulin 35 units twice a day, La six 20 a day, aspirin, nebulizer, trach. His extensive other history is well outlined in his multiple medical records which has included a pre vious trach, previous emergency bronchoscopy, colon resection. Multiple intubations in the past. ALLERGIES: None. REVIEW OF SYSTEMS: Unobtainable. PHYSICAL EXAMINATION: GENERAL: He is clearly lethargic, obtunded, cyanotic, marked edema. VITAL SIGNS: Sats in the 80s. Pulse 100, blood pressure 130/80. CHEST: Extensive rhonchi. CARDIAC: Sinus tachycardia. ABDOMEN: Massive. EXTREMITIES: Edema. LABORATORY DATA: His labs shows a pCO2 was 119, pH 7.10, pCO2 of 51 on a BiPAP, 80% FiO2. White cou nt 14,000, H&H 12 and 38, platelet count 238, and his chemistry profile shows creatinine 1.46. BNP 3 30. X-ray shows a large right pleural effusion. Atelectasis. IMPRESSION: 1. Acute on chronic respiratory failure. 2. Morbid obesity. 3. Retained secretions. 4. Large right pleural effusion, chronic. 5. Diastolic dysfunction. 6. Cardiac arrhythmias, ventricular supraventricular. I brought his to the bedside. I discussed with her at length that the patient had never removed the trach. She tells me the doctor said he was ready to have the trach removed. I told her multipl e times, he has had several intubations, it is very unlikely he would do well without a trach. Other nunez, he was a DNR. insists that he is not a DNR. He wants to be intubated. Bite block was pl aced in, a 7.5 endotracheal tube was passed over the bronchoscope. Copious amounts of pus was seen i n the trachea. Large volume of pus was seen in both lungs, particularly the right lung which was suc tioned and lavaged until clear. The endotracheal tube was placed above the letty. Cuff was inflate d. He was bagged. Sats improved, an adaptor was placed over the endotracheal tube. Bronchoscopy la vage was performed because of his extensive retained secretions. Both lungs were inspected. A large amount of pus was aspirated and removed. Thereafter, both lungs inspected. No endobronchial obstru ction was seen in the right upper, right middle lobe and left lung also left upper and left lower rosamaria g, no blood was seen. Connected to warm cycle respirator. Washings will be sent for Gram stain and C&S. IMPRESSION: 1. Acute and chronic respiratory failure, recently trach was removed 3 weeks ago. 2. Morbid obesity. 3. Large right pleural effusion. 4. Renal failure. 5. Ventricular and supraventricular arrhythmias. PLAN: Antibiotics, neb treatments, steroids is being initiated. I discussed with his at length . His prognosis is grave. He is not to have his trach removed. He is going to have another trach p laced in the next several days after discussion with the family. This is a 45 minute critical time, exclusive of the bronchoscopy and intubation.
[2018-05-25 09:34] LABS: Base Excess (BEa) 1.1 mEq/L (-2.0 to +3.0); CO2 Tension 71.6 mmHg (35.0-45.0); Hemoglobin (Hb) 11.6 g/dL (14.0-18.0); O2 Tension (PaO2) 75.9 mmHg (> 70.0); pH, Arterial 7.24 (7.35-7.45)
[2018-05-25 09:35] LABS: Calcium, Ionized 1.1 mmol/L (1.12-1.30); Peep/CPAP 7.5 cmH2O; Puncture Site LRA
[2018-05-25] MEDS: Amiodarone 200 MG TAB PO SCH (10:37)
[2018-05-25] MEDS: Apixaban 5 MG TAB PO SCH ×2 (10:37→19:54)
[2018-05-25] MEDS: cefTRIAXone\\ROCEPHIN 2 GM in Sodium Chloride 0.9% 100 ML IVPB SCH (10:37)
[2018-05-25] MEDS: Pantoprazole 40 MG GRANULES PACKET PER TUBE SCH (10:37)
[2018-05-25] MEDS ORDERED: ISOVUE-370 76%-LOCM 1 ML ONE (13:44)
[2018-05-25] MEDS: Propofol 1,000 MG/100 ML VIAL IV PRN ×2 (15:11→21:00)
[2018-05-26] MEDS: Propofol 1,000 MG/100 ML VIAL IV PRN ×7 (01:30→23:00)
[2018-05-26 05:14] LABS: #Lymphocytes 0.4 thou/uL (1.20-3.40); #Monocytes 0.2 thou/uL (0.11-0.59); #Neutrophils 6.7 thou/uL (1.40-6.50); %Eosinophils 0.1 % (0.0-10.0); %Lymphocytes 5.1 % (21.0-51.0); %Monocytes 2.2 % (0.0-10.0); %Neutrophils 92.6 % (42.0-75.0); Hemoglobin 9.8 g/dL (14.0-18.0); Mean Corpuscular HGB CONC 31.7 g/dL (32.0-36.0); Mean Corpuscular Hemoglobin 28.7 pg (27.0-31.0); Mean Corpuscular Volume 90.6 fL (78.0-98.0); Mean Platelet Volume 7.1 fL (7.4-10.4); Platelet Count 149 thou/uL (130-400); RBC Distribution Width 14.5 % (11.5-14.5); Red Blood Cell (RBC) Count 3.41 mill/uL (4.70-6.10); White Blood Cell (WBC) Count 7.2 thou/uL (4.8-10.8)
[2018-05-26 05:21] LABS: Anion Gap 15 mmol/L (10-20); BUN (Urea Nitrogen) 41 mg/dL (8.4-25.7); Calc. Creatinine Clearance 80 mL/min (70-130); Calcium 8.6 mg/dL (7.8-10.44); Carbon Dioxide 29 mmol/L (23-31); Chloride 102 mmol/L (98-107); Estimated GFR-MDRD 39; Glucose 217 mg/dL (83-110); Sodium 140 mmol/L (136-145)
[2018-05-26 06:46] LABS: Actual Bicarbonate (HCO3a) 32.2 mEq/L (22-28); Base Excess (BEa) 8.1 mEq/L (-2.0 to +3.0); CO2 Tension 42.8 mmHg (35.0-45.0); O2 Tension (PaO2) 59.8 mmHg (> 70.0); pH, Arterial 7.49 (7.35-7.45)
[2018-05-26 06:47] LABS: Calcium, Ionized 1.1 mmol/L (1.12-1.30); Hemoglobin (Hb) 10.5 g/dL (14.0-18.0); Peep/CPAP 7.5 cmH2O; Puncture Site RRA
--- NOTE | 2018-05-26 08:30 | PRG ---
DATE OF SERVICE: 05/26/2018 This morning the patient is intubated, agitated. PHYSICAL EXAMINATION: VITAL SIGNS: Blood pressure 110/70, sats are 93%, temperature 98, respiration 20. His I's and O's have been 489 in, 110 out. CHEST: Chest revealed decreased breath sounds, bilateral rhonchi. CARDIAC: Sinus tachycardia. ABDOMEN: Massive. EXTREMITIES: Stasis edema. LABORATORY AND X-RAY FINDINGS: PO2 is 59, pCO2 42, pH 7.49, rate of 20, 50%, 7.5 of PEEP. White count 10,000, H&H 9 and 30, platelet count 149. His BUN and creatinine are 41 and 0.74. Pretty much at his baseline. X-ray shows large right-sided pleural effusion. IMPRESSION: 1. Respiratory failure. 2. Retained secretions. 3. Sleep apnea. 4. Morbid obesity. 5. Extensive tracheal bronchitis. 6. Cardiac arrhythmias. 7. Encephalopathy, metabolic. PLAN: From a pulmonary standpoint of view at this stage I am not going to try and wean. I am going to discuss with the . He needs a permanent trach. Clearly his long-term prognosis is grave. It is very unlikely he is weanable, dobt would ever come off unless he lost a significant amount of weight. I discussed this at length with his . In the meantime, start nutrition, PT. A low dose Risperidone for his agitation. One-half hour for critical care time. MTDD
[2018-05-26] MEDS: risperiDONE 0.25 MG TAB PO SCH ×2 (08:42→20:01)
[2018-05-26] MEDS: cefTRIAXone\\ROCEPHIN 2 GM in Sodium Chloride 0.9% 100 ML IVPB SCH (08:42)
[2018-05-26] MEDS: Amiodarone 200 MG TAB PO SCH (08:42)
[2018-05-26] MEDS: Apixaban 5 MG TAB PO SCH ×2 (08:42→20:01)
[2018-05-26] MEDS: Pantoprazole 40 MG GRANULES PACKET PER TUBE SCH (08:42)
--- NOTE | 2018-05-26 09:33 | RAD ---
TANIA ONE VIEW: History: Dyspnea. Intubated. Follow up. Comparison: 05-24-18 FINDINGS: Cardiac silhouette remains magnified and enlarged. Pulmonary vasculature is more engorged from the pr ior study with interval increase in patchy bilateral upper lobe infiltrates. Bibasilar infiltrates ar e again demonstrated. Right pleural fluid has changed position slightly. Mediastinum is midline. Tip of an endotracheal catheter overlies the thoracic inlet. Nasogastric tube is partially visualized, no t seen beyond the midesophagus. solar engineer leads overlie the chest. IMPRESSION: 1. Worsening pulmonary edema. 2. Endotracheal catheter in good radiographic position. 3. Incomplete visualization of nasogastric tube. POS: [facility]
--- NOTE | 2018-05-26 11:00 | PDOC.PN ---
- Subjective Encounter Start Date: 05/26/18 Encounter Start Time: 10:40 Subjective: f/u for acute/chronic resp failure with mech vent. Remains on sedation -: with Propofol and SIMV. Not weanable and likely will need trach. - Objective MAR Reviewed: Yes Vital Signs & Weight: Vital Signs (12 hours) Temp Pulse Resp BP Pulse Ox 05/26/18 09:01 89 104/69 05/26/18 08:00 20 05/26/18 07:38 98.7 F 92 20 98 05/26/18 07:35 92 115/68 05/26/18 07:00 98.7 F 05/26/18 06:00 20 05/26/18 04:00 99.0 F 20 05/26/18 02:55 101 H 108/65 05/26/18 02:00 20 05/26/18 00:00 99 F 20 05/25/18 23:47 88 20 97 Weight Admit Weight 330 lb 11.094 oz Weight 330 lb 11.094 oz Most Recent Monitor Data Heart Rate from ECG 99 NIBP 110/73 NIBP BP-Mean 83 Respiration from ECG 14 SpO2 93 I&O: 05/25/18 05/26/18 05/27/18 06:59 06:59 06:59 Intake Total 489 Output Total 1110 55 Balance -621 -55 Result Diagrams: 05/26/18 04:35 05/26/18 04:35 Additional Labs: Accuchecks 05/26/18 05/25/18 05:02 20:28 POC Glucose 220 H 156 H Microbiology 05/25/18 08:30 Bronchial Washing Respiratory Culture - Preliminary Laboratory Tests 05/24/18 05/24/18 05/24/18 22:49 22:49 22:49 WBC 14.2 H Hgb 12.0 L Neutrophils % 78.0 H Potassium 5.3 H Carbon Dioxide 34 H Creatinine 1.46 H B-Natriuretic Peptide 330.4 H 05/26/18 04:35 WBC Hgb Neutrophils % 92.6 H Potassium Carbon Dioxide Creatinine B-Natriuretic Peptide Radiology Reviewed by me: Yes (PCXR - increased upper lobe edema, ETT in place) EKG Reviewed by me: Yes (Tele - A-fib in 80's) Phys Exam - Physical Examination sedate on mech vent, ETT in place HEENT: sclera anicteric, oral pharynx no lesions Neck: no nodes, no JVD, supple Diminished air flow in bases, bibasilar crackles Respiratory: no wheezing S1, S2 Cardiovascular: no significant murmur, no rub, gallop, irregular obese, landmarks difficult to palpate Gastrointestinal: soft, non-tender, positive bowel sounds Musculoskeletal: pulses present, edema present sedate, moves to stimuli on LE's Skin: no rash, normal turgor, cap refill <2 seconds Deviation from normal: Guardado with dark, pan urine Dx/Plan (1) Acute respiratory failure with hypoxia and hypercapnia Code(s): J96.01 - ACUTE RESPIRATORY FAILURE WITH HYPOXIA; J96.02 - ACUTE RESPIRATORY FAILURE WITH HYPERCAPNIA Status: Resolved Comment: Continue SIMV , may need to consider trach in context of co-morbid status, recurrent resp failure and severe RILEY with morbid obesity, multifactorial failure (2) Hyperkalemia Code(s): E87.5 - HYPERKALEMIA Status: Acute Comment: Kayexalate 30gm PT x 1 today, serial K+ monitoring (3) Acute kidney failure Status: Acute Comment: Likely multifactorial and component of cardiorenal syndrome, follow renal function closely, avoid nephrotoxic meds and limit contrast exposure (4) Diabetes Code(s): E11.9 - TYPE 2 DIABETES MELLITUS WITHOUT COMPLICATIONS Status: Chronic Qualifiers: Diabetes mellitus type: type 2 Diabetes mellitus complication status: with kidney complications Diabetes mellitus complication detail: with chronic kidney disease Chronic kidney disease stage: stage 3 (moderate) Comment: Add ISS, serial accuchecks, labile due to Solumedrol (5) Morbid obesity Code(s): E66.01 - MORBID (SEVERE) OBESITY DUE TO EXCESS CALORIES Status: Chronic (6) RILEY (obstructive sleep apnea) Code(s): G47.33 - OBSTRUCTIVE SLEEP APNEA (ADULT) (PEDIATRIC) Status: Chronic Comment: Likely will need to consider trach placement with prior hx of trach in recent past - Plan continue antibiotics, PT/OT, social media coordinator, respiratory therapy Continue mech ventilation with SIMV -: Duonebs, add Spiriva HS -: Continue Solumedrol 40mg IV q6h -: Add ISS for glucose mgmt -: AM lab: BMP, CBC, ABG * PCXR in am * Kayexalate 30gm x 1 dose today
[2018-05-26] MEDS: Sodium Chloride 0.9% 1,000 ML IV SCH (11:04)
[2018-05-26] MEDS ORDERED: Dextrose 5% in Water 1,000 ML IV PRN (11:12)
[2018-05-26] MEDS ORDERED: Dextrose 50% Abboject 50 ML SYRINGE SLOW IVP PRN (11:12)
[2018-05-26] MEDS: HumaLOG 300 UNITS/3 ML VIAL SC PRN ×3 (12:05→20:10)
[2018-05-27] MEDS: HumaLOG 300 UNITS/3 ML VIAL SC PRN ×3 (00:49→14:00)
[2018-05-27] MEDS: Propofol 1,000 MG/100 ML VIAL IV PRN ×5 (02:04→19:54)
[2018-05-27 05:08] LABS: #Lymphocytes 0.3 thou/uL (1.20-3.40); #Monocytes 0.4 thou/uL (0.11-0.59); %Eosinophils 0.1 % (0.0-10.0); %Lymphocytes 3.8 % (21.0-51.0); %Monocytes 5.3 % (0.0-10.0); %Neutrophils 90.8 % (42.0-75.0); Hemoglobin 10.2 g/dL (14.0-18.0); Mean Corpuscular HGB CONC 31.7 g/dL (32.0-36.0); Mean Corpuscular Hemoglobin 28.5 pg (27.0-31.0); Mean Corpuscular Volume 89.9 fL (78.0-98.0); Mean Platelet Volume 6.9 fL (7.4-10.4); Platelet Count 180 thou/uL (130-400); RBC Distribution Width 14.4 % (11.5-14.5); Red Blood Cell (RBC) Count 3.58 mill/uL (4.70-6.10); White Blood Cell (WBC) Count 7.7 thou/uL (4.8-10.8)
[2018-05-27 05:24] LABS: Anion Gap 14 mmol/L (10-20); BUN (Urea Nitrogen) 58 mg/dL (8.4-25.7); Calc. Creatinine Clearance 84 mL/min (70-130); Calcium 8.7 mg/dL (7.8-10.44); Carbon Dioxide 29 mmol/L (23-31); Chloride 103 mmol/L (98-107); Estimated GFR-MDRD 41; Glucose 246 mg/dL (83-110); Potassium 5.7 mmol/L (3.5-5.1); Sodium 140 mmol/L (136-145)
[2018-05-27] MEDS: Sodium Chloride 0.9% 1,000 ML IV SCH (06:38)
[2018-05-27 07:16] LABS: Actual Bicarbonate (HCO3a) 31.7 mEq/L (22-28); Base Excess (BEa) 6.5 mEq/L (-2.0 to +3.0); CO2 Tension 48.4 mmHg (35.0-45.0); Calcium, Ionized 1.1 mmol/L (1.12-1.30); Hemoglobin (Hb) 10.5 g/dL (14.0-18.0); O2 Tension (PaO2) 72.5 mmHg (> 70.0); Peep/CPAP 7.5 cmH2O; Puncture Site LRA; pH, Arterial 7.43 (7.35-7.45)
--- NOTE | 2018-05-27 09:16 | RAD ---
PORTABLE CHEST 1 VIEW: Date: 05/27/18 Time: 0441 hours HISTORY: Respiratory failure. FINDINGS/IMPRESSION: No significant interval change is seen since the previous day's exam. POS: JOE
[2018-05-27] MEDS: cefTRIAXone\\ROCEPHIN 2 GM in Sodium Chloride 0.9% 100 ML IVPB SCH (09:23)
[2018-05-27] MEDS: Apixaban 5 MG TAB PO SCH ×2 (09:24→20:10)
[2018-05-27] MEDS: Pantoprazole 40 MG GRANULES PACKET PER TUBE SCH (09:24)
[2018-05-27] MEDS: Amiodarone 200 MG TAB PO SCH (09:24)
[2018-05-27] MEDS: risperiDONE 0.25 MG TAB PO SCH ×2 (09:24→20:10)
[2018-05-27] MEDS ORDERED: Furosemide 40 MG/4 ML VIAL SLOW IVP SCH (10:00)
[2018-05-27] MEDS ORDERED: Acetylcysteine 20% 200 MG/ML 30 ML VIAL ONE (10:00)
[2018-05-27] MEDS ORDERED: Benzocaine 20% Spray 60 ML CAN ONE (10:00)
[2018-05-27] MEDS ORDERED: Lidocaine 2% Jelly 5 ML TUBE ONE (10:00)
--- NOTE | 2018-05-27 10:09 | PRG ---
DATE OF SERVICE: 05/27/2018 SERVICE: Pulmonary Medicine. INTERVAL HISTORY: The patient is doing great from a respiratory standpoint. He has no complaints. He is a little bit heavily sedated right now and so he is not waking up. That being said, earlier he underwent a sedation holiday and it is my understanding that he was following commands appropriately and moving all 4 extremities. There were no overnight events. PHYSICAL EXAMINATION: VITAL SIGNS: Afebrile, pulse 114, blood pressure 129/71, respirations 30, saturation 96% on 40% FiO2 and a PEEP of 5. GENERAL: Patient is intubated and sedated. HEENT: Normocephalic, atraumatic. Sclerae are white. Conjunctivae pink. Oral mucosa is moist without lesions. LUNGS: Decent air entry. There is no prolonged expiratory phase or wheezing present. HEART: Normal rate and regular. ABDOMEN: Soft, nontender, nondistended. Bowel sounds are positive. MUSCULOSKELETAL: No cyanosis or clubbing. There is diffuse 1-2+ pitting throughout. GENITOURINARY: Guardado catheter in place. NEUROLOGIC: Grossly nonfocal. LABORATORY DATA: WBC 7.7, hemoglobin 10.2, platelets 180,000. D-dimer 3.99, pH 7.43, pCO2 48, pO2 72. Creatinine 1.66 and roughly stable. BUN 58. Basic metabolic profile is otherwise unremarkable. IMAGING DATA: Chest x-ray demonstrates bilateral pleural effusions, cardiomegaly, widened carinal angle, consistent with volume overload. Endotracheal tube is present. There is an enteric catheter that courses below the level of the diaphragm. Overall, there is not much of a significant interval change. ASSESSMENT: 1. Acute on chronic hypoxic and hypercapnic respiratory failure. 2. Morbid obesity. 3. Obstructive sleep apnea. 4. Multiple intubations followed by recent tracheostomy with subsequent decannulation. DISCUSSION AND PLAN: We will continue to diurese the patient until he returns to euvolemia. It is my understanding that he will be going down for tracheostomy once again. Pulmonary or Critical Care will continue to follow along while he remains in this location. Critical care time: 30 minutes. [facility]
[2018-05-27] MEDS: Dextrose 5% in Water 1,000 ML IV SCH (14:08)
--- NOTE | 2018-05-27 18:11 | PDOC.PN ---
- Subjective Encounter Start Date: 05/27/18 Encounter Start Time: 14:00 Subjective: f/u for acute/chronic hypoxic/hypercapnic resp failure on mech vent. -: Unable to wean and will need trach. - Objective MAR Reviewed: Yes Vital Signs & Weight: Vital Signs (12 hours) Temp Pulse Resp BP Pulse Ox 05/27/18 18:01 72 139/83 05/27/18 15:07 85 05/27/18 14:00 99.5 F 05/27/18 13:00 91 05/27/18 12:59 92 29 H 97 05/27/18 12:00 24 H 05/27/18 11:10 89 05/27/18 11:00 99 F 05/27/18 10:00 21 H 05/27/18 08:00 98.3 F 89 24 H 95 05/27/18 07:00 99.2 F 05/27/18 06:27 91 119/60 05/27/18 06:24 91 17 98 Weight Admit Weight 330 lb 11.094 oz Weight 330 lb 11.094 oz Most Recent Monitor Data Heart Rate from ECG 74 NIBP 122/67 NIBP BP-Mean 85 Respiration from ECG 19 SpO2 91 I&O: 05/26/18 05/27/18 05/28/18 06:59 06:59 06:59 Intake Total 489 2326 Output Total 1110 1185 355 Balance -621 1141 -355 Result Diagrams: 05/27/18 04:38 05/27/18 04:38 Additional Labs: Accuchecks 05/27/18 05/27/18 05/27/18 12:08 04:40 00:44 POC Glucose 223 H 240 H 240 H Microbiology 05/25/18 08:30 Bronchial Washing Respiratory Culture - Preliminary Laboratory Tests 05/24/18 05/24/18 05/24/18 22:49 22:49 22:49 WBC 14.2 H Hgb 12.0 L Neutrophils % 78.0 H Potassium 5.3 H Carbon Dioxide 34 H Creatinine 1.46 H B-Natriuretic Peptide 330.4 H 05/26/18 04:35 WBC Hgb Neutrophils % 92.6 H Potassium Carbon Dioxide Creatinine B-Natriuretic Peptide Radiology Reviewed by me: Yes (PCXR - no significant change from 05/26/18) EKG Reviewed by me: Yes (Tele - A-fib in 80's) Phys Exam - Physical Examination sedate on mech vent, ETT in place HEENT: sclera anicteric, oral pharynx no lesions Neck: no nodes, no JVD, supple, full ROM diminished in bases, occasional rhonchi Respiratory: no wheezing S1, S2 Cardiovascular: no significant murmur, no rub, gallop, irregular obese, landmarks difficult to palpate Gastrointestinal: soft, non-tender, no distention, positive bowel sounds Musculoskeletal: pulses present, edema present sedate on mech vent, withdraws to painful stimulus Skin: no rash, normal turgor, cap refill <2 seconds Deviation from normal: Guardado with dark pan urine Dx/Plan (1) Acute respiratory failure with hypoxia and hypercapnia Code(s): J96.01 - ACUTE RESPIRATORY FAILURE WITH HYPOXIA; J96.02 - ACUTE RESPIRATORY FAILURE WITH HYPERCAPNIA Status: Resolved Comment: Continue SIMV , may need to consider trach in context of co-morbid status, recurrent resp failure and severe RILEY with morbid obesity, multifactorial failure (2) Hyperkalemia Code(s): E87.5 - HYPERKALEMIA Status: Acute Comment: Repeat Kayexalate 30gm PT x 1 today, serial K+ monitoring (3) Acute kidney failure Status: Acute Comment: Likely multifactorial and component of cardiorenal syndrome, follow renal function closely, avoid nephrotoxic meds and limit contrast exposure (4) Diabetes Code(s): E11.9 - TYPE 2 DIABETES MELLITUS WITHOUT COMPLICATIONS Status: Chronic Qualifiers: Diabetes mellitus type: type 2 Diabetes mellitus complication status: with kidney complications Diabetes mellitus complication detail: with chronic kidney disease Chronic kidney disease stage: stage 3 (moderate) Comment: Add ISS, serial accuchecks, labile due to Solumedrol (5) Morbid obesity Code(s): E66.01 - MORBID (SEVERE) OBESITY DUE TO EXCESS CALORIES Status: Chronic (6) RILEY (obstructive sleep apnea) Code(s): G47.33 - OBSTRUCTIVE SLEEP APNEA (ADULT) (PEDIATRIC) Status: Chronic Comment: Likely will need to consider trach placement with prior hx of trach in recent past - Plan continue antibiotics, PT/OT, social services coordinator, speech therapy, respiratory therapy, DVT proph w/SCDs Continue critical support -: Continue Rocephin 2mg IV q24h -: Solumedrol 40mg IV daily -: Duonebs, mech ventilatory support -: Plan for Tracheostomy * AM lab: BMP, CBC * PCXR in am
[2018-05-28 05:34] LABS: #Basophils 0.1 thou/uL (0.0-0.2); #Lymphocytes 0.8 thou/uL (1.20-3.40); #Monocytes 0.7 thou/uL (0.11-0.59); #Neutrophils 7.2 thou/uL (1.40-6.50); %Basophils 0.8 % (0.0-1.0); %Eosinophils 0.2 % (0.0-10.0); %Lymphocytes 9.4 % (21.0-51.0); %Monocytes 7.9 % (0.0-10.0); %Neutrophils 81.7 % (42.0-75.0); Hemoglobin 10.1 g/dL (14.0-18.0); Mean Corpuscular Hemoglobin 27.8 pg (27.0-31.0); Mean Corpuscular Volume 89.6 fL (78.0-98.0); Mean Platelet Volume 6.9 fL (7.4-10.4); Platelet Count 174 thou/uL (130-400); RBC Distribution Width 14.3 % (11.5-14.5); Red Blood Cell (RBC) Count 3.64 mill/uL (4.70-6.10); White Blood Cell (WBC) Count 8.9 thou/uL (4.8-10.8)
[2018-05-28 05:57] LABS: Anion Gap 13 mmol/L (10-20); BUN (Urea Nitrogen) 56 mg/dL (8.4-25.7); Calc. Creatinine Clearance 95 mL/min (70-130); Calcium 8.5 mg/dL (7.8-10.44); Carbon Dioxide 31 mmol/L (23-31); Chloride 102 mmol/L (98-107); Estimated GFR-MDRD 47; Glucose 173 mg/dL (83-110); Potassium 5.2 mmol/L (3.5-5.1); Sodium 141 mmol/L (136-145)
[2018-05-28 07:26] LABS: Actual Bicarbonate (HCO3a) 31.2 mEq/L (22-28); Base Excess (BEa) 6.6 mEq/L (-2.0 to +3.0); CO2 Tension 44.5 mmHg (35.0-45.0); Calcium, Ionized 1.1 mmol/L (1.12-1.30); Hemoglobin (Hb) 10.2 g/dL (14.0-18.0); O2 Tension (PaO2) 67.3 mmHg (> 70.0); Puncture Site LRA; pH, Arterial 7.46 (7.35-7.45)
[2018-05-28 07:27] LABS: ALV-art Gradient 105.235 (0-20)
--- NOTE | 2018-05-28 07:44 | RAD ---
CHEST 1 VIEW: HISTORY: Dyspnea. Chest pain. Followup. COMPARISON: 05/27/18. FINDINGS: Cardiac silhouette remains magnified and enlarged. Pulmonary vasculature remains engorged with bilat eral perihilar and bibasilar infiltrates. Bilateral pleural fluid is again demonstrated. The patien t is slightly rotated rightward. Lines and tubes appear unchanged in position. classroom monitor lead s overlie the chest. IMPRESSION: Cardiomegaly, pulmonary vascular congestion, pleural fluid, and other findings are stable. POS: JOE
--- NOTE | 2018-05-28 07:51 | PRG ---
DATE OF SERVICE: 05/28/2018 He remains intubated on the vent, sedated, appears to be less agitated. PHYSICAL EXAMINATION: VITAL SIGNS: Blood pressure 137/40, pulse 80, sats are 96%, respiration rate 18. His I's and O's ar e 2326 in, 1185 out. CHEST: Chest reveals decreased breath sounds, no wheezing. CARDIAC: Normal S1, S2, no gallops. ABDOMEN: Massive. EXTREMITIES: Stasis edema. LABORATORY DATA: White count 8.9, H&H 10 and 32, platelet count 174, pO2 is 67, pCO2 41.46, 32% FiO2 . Creatinine is 1.4, BUN is 56, potassium 5.2. IMPRESSION: 1. Acute and chronic respiratory failure. 2. Chronic obstructive pulmonary disease. 3. Sleep apnea. 4. Morbid obesity. 5. Status post trach. 6. Cardiac arrhythmias. PLAN: Discuss with the when she arrives the need to do a trach. He is clearly not weanable. W e are not able to try and wean him at this stage. Continue supportive care, PT, nutrition. One-half hour critical care time.
[2018-05-28] MEDS: cefTRIAXone\\ROCEPHIN 2 GM in Sodium Chloride 0.9% 100 ML IVPB SCH (08:30)
[2018-05-28] MEDS: Furosemide 40 MG/4 ML VIAL SLOW IVP SCH (09:25)
[2018-05-28] MEDS: Amiodarone 200 MG TAB PO SCH (09:29)
[2018-05-28] MEDS: Apixaban 5 MG TAB PO SCH (09:29)
[2018-05-28] MEDS: Pantoprazole 40 MG GRANULES PACKET PER TUBE SCH (09:29)
[2018-05-28] MEDS: Gabapentin 300 MG CAP PO SCH ×3 (09:29→20:59)
[2018-05-28] MEDS: risperiDONE 0.25 MG TAB PO SCH ×2 (09:30→20:59)
[2018-05-28] MEDS: HumaLOG 300 UNITS/3 ML VIAL SC PRN ×2 (13:18→16:35)
--- NOTE | 2018-05-28 15:11 | HP ---
HISTORY OF PRESENT ILLNESS: Mr. Tiffani Brady is a 72-year-old male, morbidly obese, 5 foot 11, 330 pounds, recently admitted for respiratory failure. Admitted on 05/25/2018 after being at home le ss than a week, transferred there from [facility] tracheostomy was removed. He last ed less than a week prior to being readmitted for dyspnea. He required reintubation and Dr. Mccauley ask ed me to see him regarding placement of tracheostomy. ALLERGIES: None. TOBACCO: None. Tobacco cessation 15 years ago. ALCOHOL: None. HOME MEDICATIONS: Mobic, Victoza, ProAir, tramadol, Spiriva, Altoprev, Levemir, aspirin, DuoNeb, Aimee jade. Note, Eliquis is being given this hospitalization. PAST MEDICAL HISTORY: Atrial fibrillation, V-tach, chronic kidney disease, morbid obesity, diabetes, metabolic syndrome, COPD, venous stasis, mobility problems, diastolic dysfunction, history of multip le intubations, multiple ventilatory support, sleep apnea, deconditioning, CO2 retention. PHYSICAL EXAMINATION: VITAL SIGNS: 5 foot 11, 330 pounds. LUNGS: Clear to auscultation. CARDIAC: Regular rate and rhythm. ABDOMEN: Soft, obese. EXTREMITIES: Venous stasis disease. Mild ankle edema. NEUROLOGIC: The patient is awake, opens eyes to voice and responds appropriately when I tell him rey t we will plan a tracheostomy tomorrow. He is not in agreement. LABORATORY DATA: Hemoglobin 10, white count 8, BUN 56, creatinine 1.47, potassium 5.2. ASSESSMENT AND PLAN: 1. Respiratory failure, morbid obesity, sleep apnea, metabolic syndrome. Plan tracheostomy. He ricky l need long-term tracheostomy. This should not be removed. He has obesity hypoventilation syndrome. 2. Metabolic syndrome. 3. Obesity. 4. Sleep apnea. 5. Hypertension. 6. Atrial fibrillation on anticoagulation, hold his anticoagulation for now.
[2018-05-28] MEDS: Dextrose 5% in Water 1,000 ML IV SCH (16:36)
--- NOTE | 2018-05-28 18:09 | PDOC.PN ---
- Subjective Encounter Start Date: 05/28/18 Encounter Start Time: 17:00 Subjective: f/u for acute/chronic hypoxic/hypercapnic resp failure with plans for trach -: Remains vent dependent. - Objective MAR Reviewed: Yes Vital Signs & Weight: Vital Signs (12 hours) Temp Pulse Resp BP Pulse Ox 05/28/18 16:00 99.6 F 05/28/18 14:22 108 H 135/87 05/28/18 13:01 79 142/85 H 05/28/18 13:00 91 19 92 L 05/28/18 12:00 98.7 F 05/28/18 10:17 91 164/79 H 05/28/18 07:00 98.9 F 05/28/18 06:25 80 137/40 L 05/28/18 06:22 89 19 97 Weight Admit Weight 330 lb 11.094 oz Weight 330 lb 11.094 oz Most Recent Monitor Data Heart Rate from ECG 84 NIBP 145/98 NIBP BP-Mean 110 Respiration from ECG 18 SpO2 99 I&O: 05/27/18 05/28/18 05/29/18 06:59 06:59 06:59 Intake Total 2326 250 Output Total 1188 2580 2705 Balance 4925 -8577 -4449 Result Diagrams: 05/28/18 05:22 05/28/18 05:22 Additional Labs: Accuchecks 05/28/18 05/28/18 05/27/18 16:33 12:21 23:05 POC Glucose 230 H 223 H 196 H 05/27/18 18:43 POC Glucose 206 H Microbiology 05/25/18 08:30 Bronchial Washing Respiratory Culture - Preliminary Laboratory Tests 05/24/18 05/24/18 05/24/18 22:49 22:49 22:49 WBC 14.2 H Hgb 12.0 L Neutrophils % 78.0 H Potassium 5.3 H Carbon Dioxide 34 H Creatinine 1.46 H B-Natriuretic Peptide 330.4 H 05/26/18 04:35 WBC Hgb Neutrophils % 92.6 H Potassium Carbon Dioxide Creatinine B-Natriuretic Peptide Radiology Reviewed by me: Yes (PCXR - cardiomegaly, pulm edema, lines/tubes in place) EKG Reviewed by me: Yes (Tele - A-fib in 80's) Phys Exam - Physical Examination sedate on mech vent ETT in place HEENT: sclera anicteric, oral pharynx no lesions Neck: no nodes, no JVD, supple diminished in bases, bibasilar crackles exp wheezes S1, S2 Cardiovascular: no significant murmur, no rub, irregular Gastrointestinal: soft, non-tender, no distention, positive bowel sounds Musculoskeletal: pulses present, edema present Skin: no rash, normal turgor, cap refill <2 seconds Deviation from normal: Guardado with pan urine Dx/Plan (1) Acute respiratory failure with hypoxia and hypercapnia Code(s): J96.01 - ACUTE RESPIRATORY FAILURE WITH HYPOXIA; J96.02 - ACUTE RESPIRATORY FAILURE WITH HYPERCAPNIA Status: Resolved Comment: Continue SIMV , plan for tracheostomy in context of co-morbid status, recurrent resp failure and severe RILEY with morbid obesity, multifactorial failure (2) Hyperkalemia Code(s): E87.5 - HYPERKALEMIA Status: Acute Comment: Repeat Kayexalate 30gm PT x 1 today, serial K+ monitoring (3) Acute kidney failure Status: Acute Comment: Likely multifactorial and component of cardiorenal syndrome, follow renal function closely, avoid nephrotoxic meds and limit contrast exposure (4) Diabetes Code(s): E11.9 - TYPE 2 DIABETES MELLITUS WITHOUT COMPLICATIONS Status: Chronic Qualifiers: Diabetes mellitus type: type 2 Diabetes mellitus complication status: with kidney complications Diabetes mellitus complication detail: with chronic kidney disease Chronic kidney disease stage: stage 3 (moderate) Comment: Add ISS, serial accuchecks, labile due to Solumedrol (5) Morbid obesity Code(s): E66.01 - MORBID (SEVERE) OBESITY DUE TO EXCESS CALORIES Status: Chronic (6) RILEY (obstructive sleep apnea) Code(s): G47.33 - OBSTRUCTIVE SLEEP APNEA (ADULT) (PEDIATRIC) Status: Chronic Comment: Plan for trach placement 05/29/18 - Plan continue antibiotics, PT/OT, director of social media marketing, speech therapy, respiratory therapy, DVT proph w/SCDs Continue mech vent as pt unable to wean off -: Plan for tracheostomy in am -: Continue Rocephin 2gm IV daily -: Continue Solumedrol and Duonebs -: Lasix 40mg IV daily * AM lab: BMP, CBC * PCXR in am
[2018-05-29 05:04] LABS: #Eosinphils 0.1 thou/uL (0.0-0.7); #Monocytes 0.7 thou/uL (0.11-0.59); #Neutrophils 5.8 thou/uL (1.40-6.50); %Basophils 0.1 % (0.0-1.0); %Lymphocytes 12.6 % (21.0-51.0); %Monocytes 9.5 % (0.0-10.0); %Neutrophils 76.8 % (42.0-75.0); Hemoglobin 10.5 g/dL (14.0-18.0); Mean Corpuscular HGB CONC 31.8 g/dL (32.0-36.0); Mean Corpuscular Hemoglobin 28.4 pg (27.0-31.0); Mean Corpuscular Volume 89.1 fL (78.0-98.0); Mean Platelet Volume 6.9 fL (7.4-10.4); Platelet Count 163 thou/uL (130-400); RBC Distribution Width 14.2 % (11.5-14.5); Red Blood Cell (RBC) Count 3.71 mill/uL (4.70-6.10); White Blood Cell (WBC) Count 7.6 thou/uL (4.8-10.8)
[2018-05-29 05:16] LABS: Anion Gap 12 mmol/L (10-20); BUN (Urea Nitrogen) 44 mg/dL (8.4-25.7); Calc. Creatinine Clearance 122 mL/min (70-130); Calcium 8.5 mg/dL (7.8-10.44); Carbon Dioxide 31 mmol/L (23-31); Chloride 102 mmol/L (98-107); Estimated GFR-MDRD 63; Glucose 161 mg/dL (83-110); Potassium 4.3 mmol/L (3.5-5.1); Sodium 141 mmol/L (136-145)
--- NOTE | 2018-05-29 07:54 | PRG ---
DATE OF SERVICE: 05/29/2018 SUBJECTIVE: This morning, much more awake and responsive. He is off sedation and getting low dose o f risperidone. OBJECTIVE: VITAL SIGNS: Sats are 95%, blood pressure 130/87. He is afebrile. His I's and O's have been good. NEUROLOGIC: He is awake, moves all 4 extremities. EXTREMITIES: A 2+ edema. CHEST: Decreased breath sounds without any wheezing. CARDIAC: Normal S1, S2, no gallops. ABDOMEN: Soft, no masses. LABORATORY DATA: His creatinine is 1.4, BUN is 44. White count 10,000, platelet count is normal. IMPRESSION: Morbid obesity, sleep apnea, chronic obstructive pulmonary disease, right-sided pleural effusion, chronic diastolic dysfunction, cardiac arrhythmia. PLAN: I never trach today, eventually he wants to go home with his . We will tap his chest foll owing the trach. One-half hour critical care time.
[2018-05-29 08:34] LABS: Actual Bicarbonate (HCO3a) 31.5 mEq/L (22-28); Base Excess (BEa) 7.2 mEq/L (-2.0 to +3.0); CO2 Tension 43.6 mmHg (35.0-45.0); Hemoglobin (Hb) 11.3 g/dL (14.0-18.0); O2 Tension (PaO2) 61.2 mmHg (> 70.0); pH, Arterial 7.48 (7.35-7.45)
[2018-05-29 08:35] LABS: Calcium, Ionized 1.1 mmol/L (1.12-1.30); Puncture Site LRA
[2018-05-29] MEDS: cefTRIAXone\\ROCEPHIN 2 GM in Sodium Chloride 0.9% 100 ML IVPB SCH (09:00)
[2018-05-29] MEDS: Furosemide 40 MG/4 ML VIAL SLOW IVP SCH (09:30)
[2018-05-29] MEDS: Pantoprazole 40 MG GRANULES PACKET PER TUBE SCH (09:30)
[2018-05-29] MEDS: Amiodarone 200 MG TAB PO SCH (09:30)
[2018-05-29] MEDS: Gabapentin 300 MG CAP PO SCH ×3 (09:30→20:48)
[2018-05-29] MEDS: HumaLOG 300 UNITS/3 ML VIAL SC PRN ×2 (09:35→16:40)
[2018-05-29] MEDS: Dextrose 5% in Water 1,000 ML IV SCH ×2 (10:00→20:48)
[2018-05-29] MEDS ORDERED: PROPOFOL 200 MG/20 ML VIAL ONE (13:57)
[2018-05-29] MEDS ORDERED: Lidocaine 1% PF 5 ML VIAL ONE (13:57)
[2018-05-29] MEDS ORDERED: Bupivacaine HCl 0.5%/Epinephrine 1:200,000/PF 30 ml Vial ONE (17:04)
[2018-05-29] MEDS ORDERED: Lidocaine 2% 10 ML INJ ONE (17:04)
[2018-05-29] MEDS ORDERED: Fentanyl 100 MCG/2 ML VIAL ONE (17:30)
[2018-05-29] MEDS ORDERED: Midazolam HCl 2 mg/2 ml Vial ONE (17:30)
[2018-05-29] MEDS: risperiDONE 0.25 MG TAB PO SCH (20:48)
--- NOTE | 2018-05-29 21:48 | PDOC.PN ---
- Subjective Encounter Start Date: 05/29/18 Encounter Start Time: 18:30 Subjective: f/u for acute/chronic hypoxic/hypercapnic resp failure on mech vent -: Awaiting trach placement. - Objective MAR Reviewed: Yes Vital Signs & Weight: Vital Signs (12 hours) Temp Pulse Resp BP Pulse Ox 05/29/18 20:00 20 05/29/18 19:00 98.6 F 05/29/18 18:54 98 05/29/18 18:53 105 H 15 96 05/29/18 16:00 99.7 F H 05/29/18 15:21 83 20 93 L 05/29/18 12:46 88 132/84 05/29/18 12:00 98.7 F 18 05/29/18 10:00 17 Weight Admit Weight 330 lb 11.094 oz Weight 330 lb 11.094 oz Most Recent Monitor Data Heart Rate from ECG 86 NIBP 126/74 NIBP BP-Mean 92 Respiration from ECG 21 SpO2 95 I&O: 05/28/18 05/29/18 05/30/18 06:59 06:59 06:59 Intake Total 1209 577 Output Total 2470 4690 2955 [facility]9473 -3484 -1358 Result Diagrams: 05/29/18 04:30 05/29/18 04:30 Additional Labs: Accuchecks 05/29/18 05/29/18 05/29/18 21:04 16:09 12:03 POC Glucose 165 H 220 H 197 H 05/29/18 05/29/18 05/26/18 09:06 00:13 20:11 POC Glucose 172 H 187 H 221 H Microbiology 05/25/18 08:30 Bronchial Washing Respiratory Culture - Preliminary Laboratory Tests 05/24/18 05/24/18 05/24/18 22:49 22:49 22:49 WBC 14.2 H Hgb 12.0 L Neutrophils % 78.0 H Potassium 5.3 H Carbon Dioxide 34 H Creatinine 1.46 H B-Natriuretic Peptide 330.4 H 05/26/18 04:35 WBC Hgb Neutrophils % 92.6 H Potassium Carbon Dioxide Creatinine B-Natriuretic Peptide EKG Reviewed by me: Yes (Tele - A-fib in 80's) Phys Exam - Physical Examination awake, follows commands ETT in place HEENT: PERRLA, sclera anicteric, oral pharynx no lesions Neck: no nodes, no JVD, supple, full ROM diminished in bases S1, S2 Cardiovascular: no significant murmur, no rub, gallop, irregular obese Gastrointestinal: soft, non-tender, no distention Musculoskeletal: no edema, pulses present Neurological: normal sensation, moves all 4 limbs Skin: no rash, normal turgor, cap refill <2 seconds Dx/Plan (1) Acute respiratory failure with hypoxia and hypercapnia Code(s): J96.01 - ACUTE RESPIRATORY FAILURE WITH HYPOXIA; J96.02 - ACUTE RESPIRATORY FAILURE WITH HYPERCAPNIA Status: Chronic Comment: Continue SIMV , plan for tracheostomy in context of co-morbid status, recurrent resp failure and severe RILEY with morbid obesity, multifactorial failure (2) Hyperkalemia Code(s): E87.5 - HYPERKALEMIA Status: Acute Comment: Resolving, serial K+ monitoring (3) Acute kidney failure Status: Acute Comment: Likely multifactorial and component of cardiorenal syndrome, follow renal function closely, avoid nephrotoxic meds and limit contrast exposure (4) Diabetes Code(s): E11.9 - TYPE 2 DIABETES MELLITUS WITHOUT COMPLICATIONS Status: Chronic Qualifiers: Diabetes mellitus type: type 2 Diabetes mellitus complication status: with kidney complications Diabetes mellitus complication detail: with chronic kidney disease Chronic kidney disease stage: stage 3 (moderate) Comment: Add ISS, serial accuchecks, labile due to Solumedrol (5) Morbid obesity Code(s): E66.01 - MORBID (SEVERE) OBESITY DUE TO EXCESS CALORIES Status: Chronic (6) RILEY (obstructive sleep apnea) Code(s): G47.33 - OBSTRUCTIVE SLEEP APNEA (ADULT) (PEDIATRIC) Status: Chronic Comment: Plan for trach placement - Plan continue antibiotics, PT/OT, psychiatric social worker, respiratory therapy, DVT proph w/ SCDs Continue pulmonary support -: Trach placement pending -: Nutritional support -: Continue Lasix 40mg IV daily -: AM lab: BMP, CBC * .
[2018-05-30 05:26] LABS: #Eosinphils 0.2 thou/uL (0.0-0.7); #Lymphocytes 0.9 thou/uL (1.20-3.40); #Monocytes 0.7 thou/uL (0.11-0.59); #Neutrophils 7.1 thou/uL (1.40-6.50); %Basophils 0.1 % (0.0-1.0); %Eosinophils 1.9 % (0.0-10.0); %Monocytes 8.2 % (0.0-10.0); %Neutrophils 79.8 % (42.0-75.0); Mean Corpuscular HGB CONC 31.7 g/dL (32.0-36.0); Mean Corpuscular Hemoglobin 28.2 pg (27.0-31.0); Mean Platelet Volume 6.5 fL (7.4-10.4); Platelet Count 158 thou/uL (130-400); RBC Distribution Width 14.3 % (11.5-14.5); Red Blood Cell (RBC) Count 3.89 mill/uL (4.70-6.10); White Blood Cell (WBC) Count 8.8 thou/uL (4.8-10.8)
[2018-05-30 05:27] LABS: Anion Gap 11 mmol/L (10-20); BUN (Urea Nitrogen) 37 mg/dL (8.4-25.7); Calc. Creatinine Clearance 117 mL/min (70-130); Calcium 8.8 mg/dL (7.8-10.44); Carbon Dioxide 35 mmol/L (23-31); Chloride 101 mmol/L (98-107); Estimated GFR-MDRD 60; Glucose 135 mg/dL (83-110); Sodium 143 mmol/L (136-145)
[2018-05-30] MEDS: Gabapentin 300 MG CAP PO SCH ×3 (08:30→20:57)
[2018-05-30] MEDS: Furosemide 40 MG/4 ML VIAL SLOW IVP SCH (08:31)
[2018-05-30] MEDS: Pantoprazole 40 MG GRANULES PACKET PER TUBE SCH (08:31)
[2018-05-30] MEDS: cefTRIAXone\\ROCEPHIN 2 GM in Sodium Chloride 0.9% 100 ML IVPB SCH (08:33)
[2018-05-30] MEDS: Amiodarone 200 MG TAB PO SCH (09:00)
[2018-05-30 11:01] LABS: CO2 Tension 49.1 mmHg (35.0-45.0); pH, Arterial 7.44 (7.35-7.45)
[2018-05-30 11:02] LABS: Actual Bicarbonate (HCO3a) 32.2 mEq/L (22-28); Base Excess (BEa) 6.9 mEq/L (-2.0 to +3.0); Hemoglobin (Hb) 11.8 g/dL (14.0-18.0)
[2018-05-30 11:03] LABS: ALV-art Gradient 163.825 (0-20); Calcium, Ionized 1.1 mmol/L (1.12-1.30); Puncture Site RRA
[2018-05-30] MEDS: HumaLOG 300 UNITS/3 ML VIAL SC PRN ×2 (12:34→16:05)
--- NOTE | 2018-05-30 15:13 | OP ---
PREOPERATIVE DIAGNOSES: Respiratory failure, obesity, hypoventilation, trach removed prematurely, __ ___. POSTOPERATIVE DIAGNOSES: Respiratory failure, obesity, hypoventilation, trach removed prematurely, _ ____. PROCEDURE: #8 Shiley low pressure cuff tracheostomy tube. SURGEON: Dr. Kelton Flores. ANESTHESIA: General. Local 0.25% Marcaine with epinephrine 30 mL mixed with . PROCEDURE IN DETAIL: The patient was taken to the operating room where under general anesthesia, nec k was extended and prepared with ChloraPrep, draped in routine fashion. Local anesthetic infiltrated into skin and subcutaneous tissue. Incision made through the old scar through the skin and subcutan eous tissue using the cautery, identifying the trachea and strap sutures of 3-0 Prolene placed on eit her side air knots tied. Dissection carried down anterior window of the trachea over three-cartilagi nous rings made and the endotracheal tube withdrawn under direct visualization and #8 Shiley low pres sure cuff tracheostomy tube placed under direct visualization of the trachea, balloon inflated, to the ventilator. Good hemostasis had been obtained with the cautery. Skin approximated outside w ith 3-0 Prolene. Tracheostomy appliance secured to skin with 3-0 Prolene. Sterile dressings applied . Patient tolerated the procedure well.
--- NOTE | 2018-05-30 15:26 | PRG ---
DATE OF SERVICE: 05/30/2018 PHYSICAL EXAMINATION: GENERAL: He is awake and alert. He nods appropriately. VITAL SIGNS: Blood pressure 135/79, heart rate 73, . LUNGS: Clear anteriorly. HEART: Regular rhythm. ABDOMEN: Soft and nontender. EXTREMITIES: Without clubbing, cyanosis, asymmetry or edema. NEUROLOGIC: Grossly nonfocal. LABORATORY DATA: White count 8.8, hemoglobin 11.0, platelets 158. Sodium 143, potassium 4, chloride 101, bicarbonate 34, BUN 37, creatinine 1.19. A pH 7.44, pCO2 of 49, pO2 of 60. Intake and output is negative 2862. IMAGING DATA: Chest x-ray 2 days ago showed right greater than left pleural effusion, he is now on d aily IV Lasix. IMPRESSION: 1. Status post tracheostomy. 2. Chronic obstructive pulmonary disease combined with obesity hypoventilation syndrome. 3. Obesity. 4. Chronic diastolic dysfunction. 5. Atrial fibrillation. 6. History of tracheostomy again explained as Dr. Russell asked to that his tracheostomy should ne kristin be removed. He is wide awake. I suspect he will wean relatively quickly. We will start gradually turned down hi s mechanical ventilation. Work towards getting him on a C-collar in the morning. Critical care time was 30 minutes. I met with the and answered all of her questions.
--- NOTE | 2018-05-30 15:41 | PRG ---
DATE OF SERVICE: 05/30/2018 Tiffani Brady remains on the vent. He had a tracheostomy yesterday. His tracheostomy site is he althy. At this point, he appears to be doing well. I will see as needed. Please call if needed.
[2018-05-30] MEDS: risperiDONE 0.25 MG TAB PO SCH (20:57)
[2018-05-31 05:49] LABS: #Eosinphils 0.2 thou/uL (0.0-0.7); #Lymphocytes 1.1 thou/uL (1.20-3.40); #Monocytes 0.5 thou/uL (0.11-0.59); #Neutrophils 5.8 thou/uL (1.40-6.50); %Eosinophils 2.2 % (0.0-10.0); %Monocytes 7.2 % (0.0-10.0); %Neutrophils 76.6 % (42.0-75.0); Hemoglobin 10.6 g/dL (14.0-18.0); Mean Corpuscular HGB CONC 30.7 g/dL (32.0-36.0); Mean Corpuscular Hemoglobin 27.2 pg (27.0-31.0); Mean Corpuscular Volume 88.8 fL (78.0-98.0); Mean Platelet Volume 6.8 fL (7.4-10.4); Platelet Count 138 thou/uL (130-400); RBC Distribution Width 14.3 % (11.5-14.5); White Blood Cell (WBC) Count 7.5 thou/uL (4.8-10.8)
[2018-05-31 06:05] LABS: Anion Gap 9 mmol/L (10-20); BUN (Urea Nitrogen) 33 mg/dL (8.4-25.7); Calc. Creatinine Clearance 118 mL/min (70-130); Calcium 8.3 mg/dL (7.8-10.44); Carbon Dioxide 36 mmol/L (23-31); Chloride 99 mmol/L (98-107); Estimated GFR-MDRD 66; Glucose 171 mg/dL (83-110); Potassium 3.7 mmol/L (3.5-5.1); Sodium 140 mmol/L (136-145)
[2018-05-31] MEDS: Furosemide 40 MG/4 ML VIAL SLOW IVP SCH (09:12)
[2018-05-31] MEDS: Pantoprazole 40 MG GRANULES PACKET PER TUBE SCH (09:12)
[2018-05-31] MEDS: Amiodarone 200 MG TAB PO SCH (09:12)
[2018-05-31] MEDS: Gabapentin 300 MG CAP PO SCH ×3 (09:12→21:41)
[2018-05-31] MEDS: cefTRIAXone\\ROCEPHIN 2 GM in Sodium Chloride 0.9% 100 ML IVPB SCH (09:24)
[2018-05-31] MEDS: Dextrose 5% in Water 1,000 ML IV SCH (09:43)
--- NOTE | 2018-05-31 11:56 | RAD ---
ONE VIEW CHEST: HISTORY: Ventilated patient. COMPARISON: 05/28/18. FINDINGS: Interval placement of a tracheostomy. NG tube is redemonstrated. Evaluation of the distal tip is li mited. Dedicated abdomen radiograph is recommended. There is persistent opacification due to pleural effusion and parenchymal changes. Cardiomegaly is a gain noted. No pneumothorax. IMPRESSION: 1. Interval placement of tracheostomy. 2. Persistent cardiomegaly and bilateral pleural and parenchymal changes. 3. Inadequate visualization of the nasogastric tube. Confirmation of the position of the nasogastri c tube should be performed clinically. Consider abdomen radiograph for radiographic verification. Results of the study discussed with Dave, the patient's nurse, 05/31/18 at 11:39 a.m. CODE CR POS: [facility]
[2018-05-31] MEDS: HumaLOG 300 UNITS/3 ML VIAL SC PRN ×2 (14:40→16:57)
--- NOTE | 2018-05-31 18:07 | PRG ---
DATE OF SERVICE: 05/31/2018 SUBJECTIVE: Tiffani Brady was doing well off mechanical ventilation. OBJECTIVE: VITAL SIGNS: Heart rates in the 80s, blood pressure 126/81, respiratory rate 20, oximetry is 94 on 2 liters. LUNGS: Clear. HEART: Regular rhythm. ABDOMEN: Soft. EXTREMITIES: Without asymmetry. NEUROLOGIC: Nonfocal. Intake and output was negative 3063. Chest radiograph reviewed by me still shows a right pleural ef fusion. LABORATORY DATA: White count 7.5, hemoglobin 10.6, platelets 138. Sodium 140, potassium 3.7, chloride 99, bicarbonate 36, BUN 33, creatinine 1.1. IMPRESSION: 1. Respiratory failure. 2. Obesity hypoventilation. 3. Chronic obstructive pulmonary disease. 4. Status post tracheostomy. Note the answered all her questions. I have again explained to him that should never have his t korin removed. Other issues include atrial fibrillation, chronic diastolic dysfunction. We will cont inue supportive care. We will leave him off of mechanical ventilation unless he has some respiratory distress.
--- NOTE | 2018-05-31 18:30 | PDOC.PN ---
- Subjective Encounter Start Date: 05/31/18 Encounter Start Time: 17:25 Subjective: f/u for acute/chronic hypoxic/hypercapnic resp failure s/p trach. -: Remains on O2 at 2-3L with trach in place. Tolerating TF's currently. - Objective MAR Reviewed: Yes Vital Signs & Weight: Vital Signs (12 hours) Temp Pulse Resp BP Pulse Ox 05/31/18 18:26 100 21 H 91 L 05/31/18 12:32 88 20 05/31/18 12:00 98 F 94 L 05/31/18 10:40 99 05/31/18 10:00 20 05/31/18 08:00 97.9 F 90 20 100 05/31/18 07:20 78 108/59 L Weight Admit Weight 330 lb 11.094 oz Weight 302 lb 11.115 oz Most Recent Monitor Data Heart Rate from ECG 87 NIBP 135/79 NIBP BP-Mean 98 Respiration from ECG 27 SpO2 94 I&O: 05/30/18 05/31/18 06/01/18 06:59 06:59 06:59 Intake Total 858 1137 100 Output Total 3720 4200 1410 Balance -2862 -3063 -1310 Result Diagrams: 05/31/18 05:15 05/31/18 05:15 Additional Labs: Accuchecks 05/31/18 05/31/18 05/31/18 16:55 12:22 05:20 POC Glucose 215 H 219 H 158 H 05/30/18 20:58 POC Glucose 172 H Microbiology 05/25/18 08:30 Bronchial Washing Respiratory Culture - Preliminary Laboratory Tests 05/24/18 05/24/18 05/24/18 22:49 22:49 22:49 WBC 14.2 H Hgb 12.0 L Neutrophils % 78.0 H Potassium 5.3 H Carbon Dioxide 34 H Creatinine 1.46 H B-Natriuretic Peptide 330.4 H 05/26/18 04:35 WBC Hgb Neutrophils % 92.6 H Potassium Carbon Dioxide Creatinine B-Natriuretic Peptide Radiology Reviewed by me: Yes (PCXR - trach in place, bilat chronic changes) EKG Reviewed by me: Yes (Tele - A-fib in 80's) Phys Exam - Physical Examination Constitutional: NAD NGT in place HEENT: PERRLA, sclera anicteric, oral pharynx no lesions Trach in place Neck: no nodes, no JVD, supple, full ROM diminished in bases bilat Respiratory: no wheezing, no rales S1, S2 Cardiovascular: no significant murmur, no rub, gallop, irregular Obese Gastrointestinal: soft, non-tender, no distention, positive bowel sounds Musculoskeletal: no edema, pulses present Neurological: non-focal, normal sensation, moves all 4 limbs Skin: no rash, normal turgor, cap refill <2 seconds Dx/Plan (1) Acute respiratory failure with hypoxia and hypercapnia Code(s): J96.01 - ACUTE RESPIRATORY FAILURE WITH HYPOXIA; J96.02 - ACUTE RESPIRATORY FAILURE WITH HYPERCAPNIA Status: Chronic Comment: s/p tracheostomy POD #2, recurrent resp failure and severe RILEY with morbid obesity, multifactorial failure (2) Hyperkalemia Code(s): E87.5 - HYPERKALEMIA Status: Acute Comment: Resolving, serial K+ monitoring (3) Acute kidney failure Status: Acute Comment: Likely multifactorial and component of cardiorenal syndrome, follow renal function closely, avoid nephrotoxic meds and limit contrast exposure, resolving (4) Diabetes Code(s): E11.9 - TYPE 2 DIABETES MELLITUS WITHOUT COMPLICATIONS Status: Chronic Qualifiers: Diabetes mellitus type: type 2 Diabetes mellitus complication status: with kidney complications Diabetes mellitus complication detail: with chronic kidney disease Chronic kidney disease stage: stage 3 (moderate) Comment: Add ISS, serial accuchecks, labile due to Solumedrol (5) Morbid obesity Code(s): E66.01 - MORBID (SEVERE) OBESITY DUE TO EXCESS CALORIES Status: Chronic (6) RILEY (obstructive sleep apnea) Code(s): G47.33 - OBSTRUCTIVE SLEEP APNEA (ADULT) (PEDIATRIC) Status: Chronic Comment: Trach placement POD #2, lifetime need for tracheostomy - Plan continue antibiotics, PT/OT, social insurance analyst, speech therapy, respiratory therapy, DVT proph w/SCDs Stable currently -: PT consult for ROM excercises in bed -: TF's for nutritional support -: LOADING UNIT OPERATOR SEATING for dysphagia screening -: LTAC/SNF options * AM lab: BMP, CBC
[2018-05-31] MEDS: risperiDONE 0.25 MG TAB PO SCH (21:41)
[2018-06-01 04:41] LABS: #Eosinphils 0.2 thou/uL (0.0-0.7); #Lymphocytes 0.9 thou/uL (1.20-3.40); #Monocytes 0.5 thou/uL (0.11-0.59); #Neutrophils 6.5 thou/uL (1.40-6.50); %Basophils 0.2 % (0.0-1.0); %Eosinophils 2.2 % (0.0-10.0); %Lymphocytes 10.9 % (21.0-51.0); %Neutrophils 80.8 % (42.0-75.0); Hemoglobin 11.2 g/dL (14.0-18.0); Mean Corpuscular HGB CONC 31.4 g/dL (32.0-36.0); Mean Corpuscular Hemoglobin 28.1 pg (27.0-31.0); Mean Corpuscular Volume 89.3 fL (78.0-98.0); Mean Platelet Volume 6.8 fL (7.4-10.4); Platelet Count 152 thou/uL (130-400); RBC Distribution Width 14.5 % (11.5-14.5); Red Blood Cell (RBC) Count 3.98 mill/uL (4.70-6.10)
[2018-06-01 04:57] LABS: BUN (Urea Nitrogen) 33 mg/dL (8.4-25.7); Calc. Creatinine Clearance 124 mL/min (70-130); Calcium 8.6 mg/dL (7.8-10.44); Estimated GFR-MDRD 71; Glucose 150 mg/dL (83-110)
[2018-06-01 05:06] LABS: Anion Gap 15 mmol/L (10-20); Carbon Dioxide 33 mmol/L (23-31); Chloride 99 mmol/L (98-107); Potassium 3.9 mmol/L (3.5-5.1); Sodium 143 mmol/L (136-145)
--- NOTE | 2018-06-01 08:42 | PRG ---
DATE OF SERVICE: 06/01/2018 SUBJECTIVE: This morning, he is awake, alert and responsive. He is better. He is off of the vent f or 2 days. Trach collar. OBJECTIVE: VITAL SIGNS: Sats are 95%, respiration 21, pulse 75, blood pressure is 127/80. GENERAL: He is awake, alert, responsive. CHEST: Chest reveals decreased breath sounds, no wheezing. CARDIAC: Normal S1, S2, no gallops. ABDOMEN: Soft without any masses. LABORATORY DATA: Electrolytes are normal. White count 8000, H&H is 11 and 35. IMPRESSION: 1. Chronic obstructive pulmonary disease evaluation, bronchitis. 2. Sleep apnea status post trach with severe deconditioning, morbid obesity. PLAN: We are going to get Speech to see the patient today, probably we will switch him to oral medic ation and if he passed the Speech, transferred out of the MICU. PT, eventually home as per his . One-half hour critical care time.
[2018-06-01] MEDS: cefTRIAXone\\ROCEPHIN 2 GM in Sodium Chloride 0.9% 100 ML IVPB SCH (09:25)
[2018-06-01] MEDS: Pantoprazole 40 MG GRANULES PACKET PER TUBE SCH (09:28)
[2018-06-01] MEDS: Amiodarone 200 MG TAB PO SCH (09:29)
[2018-06-01] MEDS: Gabapentin 300 MG CAP PO SCH ×3 (09:29→20:31)
[2018-06-01] MEDS: Furosemide 40 MG/4 ML VIAL SLOW IVP SCH (09:29)
[2018-06-01] MEDS: Dextrose 5% in Water 1,000 ML IV SCH (10:05)
[2018-06-01] MEDS ORDERED: Apixaban 5 MG TAB PO SCH (10:45)
[2018-06-01] MEDS: HumaLOG 300 UNITS/3 ML VIAL SC PRN ×3 (11:51→20:31)
[2018-06-01] MEDS: Apixaban 5 MG TAB PO SCH (20:31)
--- NOTE | 2018-06-01 21:48 | PDOC.PN ---
- Subjective Encounter Start Date: 06/01/18 Encounter Start Time: 14:20 Subjective: f/u for acute/chronic resp failure, severe RILEY s/p trach off vent x 48h. -: Tolerating trach collar. - Objective MAR Reviewed: Yes Vital Signs & Weight: Vital Signs (12 hours) Temp Pulse Resp BP Pulse Ox 06/01/18 19:41 98.7 F 89 22 H 120/65 95 06/01/18 18:23 80 18 92 L 06/01/18 15:36 98.2 F 94 26 H 119/67 92 L 06/01/18 15:19 98.1 F 80 19 94 L 06/01/18 13:52 80 19 93 L 06/01/18 12:00 98.6 F Weight Admit Weight 330 lb 11.094 oz Weight 274 lb 14.663 oz Most Recent Monitor Data Heart Rate from ECG 84 NIBP 149/85 NIBP BP-Mean 119 Respiration from ECG 19 SpO2 91 I&O: 05/31/18 06/01/18 06/02/18 06:59 06:59 06:59 Intake Total 1137 1588 620 Output Total 4200 8525 2550 Balance -3063 -887 -1930 Result Diagrams: 06/01/18 03:55 06/01/18 03:55 Additional Labs: Accuchecks 06/01/18 06/01/18 06/01/18 20:06 17:17 11:47 POC Glucose 277 H 294 H 239 H 06/01/18 05/31/18 03:58 23:59 POC Glucose 143 H 130 H EKG Reviewed by me: Yes (Tele - A-fib in 80's) Phys Exam - Physical Examination Constitutional: NAD HEENT: PERRLA, sclera anicteric, oral pharynx no lesions Trach in place Neck: no JVD, supple, full ROM diminished in bases few coarse sounds S1, S2 Cardiovascular: no significant murmur, no rub, gallop, irregular Gastrointestinal: soft, non-tender, no distention, positive bowel sounds Musculoskeletal: no edema, pulses present Neurological: moves all 4 limbs Psychiatric: normal affect Skin: no rash, normal turgor, cap refill <2 seconds Dx/Plan (1) Acute respiratory failure with hypoxia and hypercapnia Code(s): J96.01 - ACUTE RESPIRATORY FAILURE WITH HYPOXIA; J96.02 - ACUTE RESPIRATORY FAILURE WITH HYPERCAPNIA Status: Chronic Comment: s/p tracheostomy POD #3, recurrent resp failure and severe RILEY with morbid obesity, multifactorial failure, Trach collar (2) Hyperkalemia Code(s): E87.5 - HYPERKALEMIA Status: Acute Comment: Resolving, serial K+ monitoring (3) Acute kidney failure Status: Acute Comment: Likely multifactorial and component of cardiorenal syndrome, follow renal function closely, avoid nephrotoxic meds and limit contrast exposure, resolving (4) Diabetes Code(s): E11.9 - TYPE 2 DIABETES MELLITUS WITHOUT COMPLICATIONS Status: Chronic Qualifiers: Diabetes mellitus type: type 2 Diabetes mellitus complication status: with kidney complications Diabetes mellitus complication detail: with chronic kidney disease Chronic kidney disease stage: stage 3 (moderate) Comment: Add ISS, serial accuchecks, labile due to Solumedrol (5) Morbid obesity Code(s): E66.01 - MORBID (SEVERE) OBESITY DUE TO EXCESS CALORIES Status: Chronic (6) RILEY (obstructive sleep apnea) Code(s): G47.33 - OBSTRUCTIVE SLEEP APNEA (ADULT) (PEDIATRIC) Status: Chronic Comment: Trach placement POD #3, lifetime need for tracheostomy - Plan continue antibiotics, PT/OT, healthcare social worker, speech therapy, respiratory therapy, DVT proph w/SCDs Continue supportive mgmt -: Trach collar with trach care -: Family wishing for pt to return home with services(Guard[facility]) -: PT for mobilization -: Initiating po intake ADA * .
[2018-06-02] MEDS ORDERED: cefTRIAXone\\ROCEPHIN 2 GM, Admixture Fee 1 EACH in Sodium Chloride 0.9% 100 ML IVPB SCH (08:30)
[2018-06-02] MEDS: Furosemide 40 MG/4 ML VIAL SLOW IVP SCH (08:39)
[2018-06-02] MEDS: Pantoprazole 40 MG GRANULES PACKET PER TUBE SCH (08:40)
[2018-06-02] MEDS: Amiodarone 200 MG TAB PO SCH (08:40)
[2018-06-02] MEDS: Apixaban 5 MG TAB PO SCH ×2 (08:40→20:43)
[2018-06-02] MEDS: Gabapentin 300 MG CAP PO SCH ×3 (08:40→20:43)
--- NOTE | 2018-06-02 09:19 | PRG ---
DATE OF SERVICE: 06/02/2018 This morning he is awake, alert, responsive. He was transferred out of the ICU. He is eating on his own without any distress. PHYSICAL EXAMINATION: VITAL SIGNS: Blood pressure 136/81. Sats 95% on trach collar, respirations 22, temperature 97. CHEST: Chest reveals decreased breath sounds without any wheezing. CARDIAC: Normal S1, S2, no gallops. ABDOMEN: Soft, no masses. IMPRESSION: 1. Congestive heart failure. 2. Diastolic dysfunction. 3. Respiratory failure. 4. Morbid obesity. 5. Status post trach. PLAN: Consider doing a thoracentesis. Eventually placement with family. Long-term prognosis remain s guarded.
[2018-06-02] MEDS: Cefdinir 300 MG CAP PO SCH ×2 (09:34→20:43)
[2018-06-02] MEDS: predniSONE 20 MG TAB PO SCH (09:34)
[2018-06-02] MEDS: Dextrose 5% in Water 1,000 ML IV SCH (09:43)
--- NOTE | 2018-06-02 10:47 | RAD ---
AP CHEST: Date: 06-02-18 Comparison: 05-31-18 History: Pleural effusion. FINDINGS: AP chest demonstrates a tracheostomy tube in place. Cardiomegaly is noted. Bilateral pleural effusion s are seen, larger on the right than on the left. Cardiomegaly and pulmonary vascular congestion note d. IMPRESSION: 1. Cardiomegaly and pulmonary vascular congestion. 2. No significant interval change is seen. 3. Bilateral pleural effusions. POS: [facility]
[2018-06-02] MEDS: HumaLOG 300 UNITS/3 ML VIAL SC PRN ×3 (11:42→20:43)
[2018-06-02] MEDS ORDERED: Lidocaine 1% (PF) 30 ML VIAL ONE (12:41)
[2018-06-02 14:01] LABS: BF Color Yellow; Body Fluid Source THORACENTESIS FLD; Clarity Hazy (Clear); Tube # EDTA; WBC/NonHematic-Auto 279 /cumm
[2018-06-02 14:06] LABS: Fluid, Triglycerides 17 mg/dL (Not Available); Pleural Fluid, Amylase Less than 30 U/L (Not Available); Pleural Fluid, Glucose 266 mg/dL; Pleural Fluid, LDH 108 U/L (Not Available); Pleural Fluid, Protein 2.1 g/dL
--- NOTE | 2018-06-02 14:18 | RAD ---
AP VIEW CHEST: HISTORY: A 72-year-old with a history of pleural effusions. FINDINGS: AP view chest demonstrates a tracheostomy tube in place. There is a small right-sided pleural effusion. This appears to be slightly smaller than on the previ ous comparison exam from earlier in the day. No evidence of right-sided pneumothorax is seen. The l eft lung is well aerated. IMPRESSION: Small right-sided pleural effusion, possibly slightly smaller than on the previous comparison examina tion. POS: [facility]
[2018-06-02 15:08] LABS: BF RBC Count - Manual 2038 /cumm
[2018-06-02 15:09] LABS: BF Segmented Neutrophils 25 %; Cell Count Non Hematic 55 %; Lymphocytes 20 %
--- NOTE | 2018-06-02 20:53 | OP ---
PROCEDURE: Thoracentesis. INDICATIONS: Pleural effusion. PROCEDURE IN DETAIL: After informed consent, the right posterior thorax was cleaned with chlorhexidine. A 1% Xylocaine infiltrated into the right and left intercostal space midscapular area 20 ml pale yellow fluid was removed. Thereafter, using an 8 Turkmen catheter, a total of 1400 mL were removed, turbid yellow without difficulty. _Fluid sent for all studies including cytology and culture. Patient tolerated the procedure well. MTDD
--- NOTE | 2018-06-02 22:09 | PDOC.PN ---
- Subjective Encounter Start Date: 06/02/18 Encounter Start Time: 16:30 Reports he is doing generally well. Was able to eat today. - Objective Vital Signs & Weight: Vital Signs (12 hours) Temp Pulse Pulse Pulse Resp BP BP 06/02/18 19:24 97.9 F 75 25 H 06/02/18 18:42 75 18 06/02/18 15:12 98.0 F 76 23 H 06/02/18 15:02 67 82 141/74 H 126/85 06/02/18 14:17 80 20 06/02/18 11:34 98.5 F 82 24 H BP Pulse Ox Pulse Ox Pulse Ox 06/02/18 19:24 129/85 95 06/02/18 18:42 06/02/18 15:12 126/85 94 L 06/02/18 15:02 98 97 06/02/18 14:17 97 06/02/18 11:34 140/82 94 L Weight Admit Weight 330 lb 11.094 oz Weight 279 lb 15.793 oz Most Recent Monitor Data Heart Rate from ECG 84 NIBP 149/85 NIBP BP-Mean 119 Respiration from ECG 19 SpO2 91 I&O: 06/01/18 06/02/18 06/03/18 06:59 06:59 06:59 Intake Total 1588 1760 871 Output Total 2475 3300 2200 Balance -756 -4755 -1134 Result Diagrams: 06/01/18 03:55 06/01/18 03:55 Additional Labs: Accuchecks 06/02/18 06/02/18 06/02/18 19:59 16:40 10:38 POC Glucose 236 H 293 H 243 H 06/02/18 05:42 POC Glucose 115 H Phys Exam - Physical Examination Constitutional: NAD Borderline tachypneic Neck: no JVD, supple Respiratory: no wheezing, no rales, no rhonchi Decreased BS both bases. Cardiovascular: RRR, no significant murmur Gastrointestinal: soft, non-tender, no distention, positive bowel sounds Musculoskeletal: no edema Psychiatric: normal affect, A&O x 3 Dx/Plan (1) Chronic respiratory failure with hypoxia and hypercapnia Code(s): J96.11 - CHRONIC RESPIRATORY FAILURE WITH HYPOXIA; J96.12 - CHRONIC RESPIRATORY FAILURE WITH HYPERCAPNIA Status: Acute (2) COPD (chronic obstructive pulmonary disease) Status: Chronic Qualifiers: Emphysema type: unspecified (3) Acute kidney failure Status: Acute Comment: Likely multifactorial and component of cardiorenal syndrome, follow renal function closely, avoid nephrotoxic meds and limit contrast exposure, resolving (4) Diabetes Code(s): E11.9 - TYPE 2 DIABETES MELLITUS WITHOUT COMPLICATIONS Status: Chronic Qualifiers: Diabetes mellitus type: type 2 Diabetes mellitus complication status: with kidney complications Diabetes mellitus complication detail: with chronic kidney disease Chronic kidney disease stage: stage 3 (moderate) Comment: Add ISS, serial accuchecks, labile due to Solumedrol (5) Hypertension Code(s): I10 - ESSENTIAL (PRIMARY) HYPERTENSION Status: Chronic Qualifiers: Hypertension type: essential hypertension Qualified Code(s): I10 - Essential (primary) hypertension (6) Morbid obesity Code(s): E66.01 - MORBID (SEVERE) OBESITY DUE TO EXCESS CALORIES Status: Chronic (7) RILEY (obstructive sleep apnea) Code(s): G47.33 - OBSTRUCTIVE SLEEP APNEA (ADULT) (PEDIATRIC) Status: Chronic Comment: Trach placement POD #3, lifetime need for tracheostomy (8) Pleural effusion Code(s): J90 - PLEURAL EFFUSION, NOT ELSEWHERE CLASSIFIED Status: Acute - Plan * Continue to work with PT. He reports that he has been through some rehab without a lot of benefit. * Pulmonary considering thoracentesis.
[2018-06-03] MEDS: HumaLOG 300 UNITS/3 ML VIAL SC PRN ×3 (06:21→19:00)
--- NOTE | 2018-06-03 09:01 | PDOC.EVN ---
Event Note - Event Note Event Note: Patient is doing well. Tolerated thoracentesis well. DW Dr. Russell. Fluid was transudate likely secondary to diastolic dysfunction. He feels he is on appropriate meds now and can be discharged. I will DC the [facility]. I will discuss with CM to ensure they are prepared for the discharge at home.
[2018-06-03] MEDS: Gabapentin 300 MG CAP PO SCH ×3 (10:04→21:20)
[2018-06-03] MEDS: Pantoprazole 40 MG GRANULES PACKET PER TUBE SCH (10:04)
[2018-06-03] MEDS: Amiodarone 200 MG TAB PO SCH (10:04)
[2018-06-03] MEDS: Furosemide 20 MG TAB PO SCH (10:04)
[2018-06-03] MEDS: Cefdinir 300 MG CAP PO SCH ×2 (10:04→21:20)
[2018-06-03] MEDS: predniSONE 20 MG TAB PO SCH (10:04)
[2018-06-03] MEDS: Apixaban 5 MG TAB PO SCH ×2 (10:05→21:20)
--- NOTE | 2018-06-03 11:07 | PRG ---
DATE OF SERVICE: 06/03/2018 SUBJECTIVE: This morning, he is awake, alert, and responsive. Sitting on the side of the bed, in no distress. OBJECTIVE: VITAL SIGNS: 93% sats on trach collar, temperature 98, blood pressure 118/67. CHEST: Reveals decreased breath sounds, no wheezing. CARDIAC: Normal S1 and S2, no gallops. ABDOMEN: Soft, no masses. His pleural effusion is a transudate with total protein of 2.1. IMPRESSION: 1. Recurrent right pleural effusion, probably diastolic dysfunction, status post thoracentesis. 2. End-stage chronic obstructive pulmonary disease. 3. Sleep apnea with recurrent obstruction, failure to wear CPAP. He has a tracheostomy in place. He is eating on his own. Plan is to probably let him go home with h is . Supportive care and PT. A low dose Lasix. We will follow.
--- NOTE | 2018-06-03 20:23 | PDOC.PN ---
- Subjective Encounter Start Date: 06/03/18 Encounter Start Time: 16:00 Saw the patient several times today. As stated earlier, Dr. Russell felt the patient was medically stabilized and prepared for discharge. I asked CM to talk to patient and family about their preparedness for discharge. The patient had made it 100% clear that he would not consider going to a rehab. Stated it had done him no good in the past and he wanted to go home. The patient's communicated through the CM that she wanted to have orders for HH, Home PT/OT/ ST and trach supplies. The patient's came to the hospital in the late afternoon. She and the patient were in a heated argument. She did not feel the patient was prepared to go home because he was too weak and she did not have everything set up at home. He was insistent that he was going home. They asked for the CM and me to come to the room. I got permission from the patient to speak to his about the situation. She was extremely angry with everyone , including her , but particularly with me for some reason. I reinforced that I was there to help them get the best disposition for the patient and was wanting to work with them to accomplish that. I explained that we were at the point that we had maximized the medical therapy. I did not disagree that the patient was weak and would be challenged at home without significant help. I think he would benefit from some rehab time, but hat was not an option. The hospital is not well positioned to perform the rehab role once the patient is medically stable. The patient's became angry again and started packing his things and said she would just take him out of the hospital. The CM and I were able to convince them that it would be better to stay one more day to allow the HH to be set up and the trach collar supplies. The patient had already taken off his leads and hit the call button to have the nurse come take out his IV will all of this was playing out. He did ultimately agree to stay one more day, but insisted that he would leave tomorrow. - Objective Vital Signs & Weight: Vital Signs (12 hours) Temp Pulse Resp BP BP Pulse Ox 06/03/18 19:35 98.6 F 81 20 168/95 H 100 06/03/18 18:01 96 18 93 L 06/03/18 12:58 88 20 93 L 06/03/18 11:41 97.5 F L 78 17 126/69 95 Weight Admit Weight 330 lb 11.094 oz Weight 275 lb 8 oz Most Recent Monitor Data Heart Rate from ECG 84 NIBP 149/85 NIBP BP-Mean 119 Respiration from ECG 19 SpO2 91 I&O: 06/02/18 06/03/18 06/04/18 06:59 06:59 06:59 Intake Total 1760 1831 960 Output Total 3300 2775 1000 Balance -1540 -944 -40 Result Diagrams: 06/01/18 03:55 06/01/18 03:55 Additional Labs: Accuchecks 06/03/18 06/03/18 06/03/18 18:35 12:40 05:33 POC Glucose 265 H 261 H 185 H 06/02/18 19:59 POC Glucose 236 H Phys Exam - Physical Examination Constitutional: NAD Neck: no JVD, supple Decreased BS at right base. Cardiovascular: RRR, no significant murmur Gastrointestinal: soft, non-tender, no distention Musculoskeletal: no edema Dx/Plan (1) Chronic respiratory failure with hypoxia and hypercapnia Code(s): J96.11 - CHRONIC RESPIRATORY FAILURE WITH HYPOXIA; J96.12 - CHRONIC RESPIRATORY FAILURE WITH HYPERCAPNIA Status: Acute (2) COPD (chronic obstructive pulmonary disease) Status: Chronic Qualifiers: Emphysema type: unspecified (3) Acute kidney failure Status: Acute Comment: Likely multifactorial and component of cardiorenal syndrome, follow renal function closely, avoid nephrotoxic meds and limit contrast exposure, resolving (4) Diabetes Code(s): E11.9 - TYPE 2 DIABETES MELLITUS WITHOUT COMPLICATIONS Status: Chronic Qualifiers: Diabetes mellitus type: type 2 Diabetes mellitus complication status: with kidney complications Diabetes mellitus complication detail: with chronic kidney disease Chronic kidney disease stage: stage 3 (moderate) Comment: Add ISS, serial accuchecks, labile due to Solumedrol (5) Hypertension Code(s): I10 - ESSENTIAL (PRIMARY) HYPERTENSION Status: Chronic Qualifiers: Hypertension type: essential hypertension Qualified Code(s): I10 - Essential (primary) hypertension (6) Morbid obesity Code(s): E66.01 - MORBID (SEVERE) OBESITY DUE TO EXCESS CALORIES Status: Chronic (7) RILEY (obstructive sleep apnea) Code(s): G47.33 - OBSTRUCTIVE SLEEP APNEA (ADULT) (PEDIATRIC) Status: Chronic Comment: Trach placement POD #3, lifetime need for tracheostomy (8) Pleural effusion Code(s): J90 - PLEURAL EFFUSION, NOT ELSEWHERE CLASSIFIED Status: Acute (9) Diastolic heart failure Code(s): I50.30 - UNSPECIFIED DIASTOLIC (CONGESTIVE) HEART FAILURE Status: Acute - Plan * Patient has chronic respiratory failure requiring trach. He had a transudative effusion tapped yesterday. Dr. Russell believes this is secondary to diastolic dysfunction and the patient is maximized on his medical therapy. He believes he is ready to go home. I believe he would benefit from rehab, but that has been declined vehemently. CM will work aggressively to get everything set up for the patient to go home tomorrow.
[2018-06-04 05:36] VITALS: BMI 38.7
--- NOTE | 2018-06-04 08:58 | PRG ---
DATE OF SERVICE: 06/04/2018 This morning he is awake, alert, responsive, has a trach collar. PHYSICAL EXAMINATION: VITAL SIGNS: Sats 95%, temperature 97, blood pressure 151/81. CHEST: Decreased breath sounds without wheezing. CARDIAC: Normal S1-S2. No gallops. ABDOMEN: Soft. No masses. IMPRESSION: 1. Chronic obstructive pulmonary disease, status post respiratory failure. 2. Sleep apnea. 3. Pleural effusion. 4. Severe deconditioning. 5. Stasis edema. 6. Cardiac arrhythmias. PLAN: He can be discharged home on present treatment. Follow up with his primary care physician. Masoud muñoz can see me in the office in several weeks to change his trach to a cuffless trach. In the meantime , continue neb treatments, supportive care and PT.
[2018-06-04] MEDS: predniSONE 20 MG TAB PO SCH (09:26)
[2018-06-04] MEDS: Pantoprazole 40 MG GRANULES PACKET PER TUBE SCH (09:26)
[2018-06-04] MEDS: Apixaban 5 MG TAB PO SCH (09:26)
[2018-06-04] MEDS: Amiodarone 200 MG TAB PO SCH (09:26)
[2018-06-04] MEDS: Gabapentin 300 MG CAP PO SCH (09:26)
[2018-06-04] MEDS: Furosemide 20 MG TAB PO SCH (09:26)
[2018-06-04] MEDS: Cefdinir 300 MG CAP PO SCH (09:26)
[2018-06-04 11:21] VITALS: BP 147/91; TEMP 97.7
== END 2018-06-04 14:06 | disposition home health service (06) | DRG 4 ==
LOC: ERS 22:18 → CCU 05-25 04:43 → IMCU/EMU 06-01 13:12
PROVIDERS: ADMIT Internal Medicine Infectious Disease; ATTEND Internal Medicine Infectious Disease
PROC: 5A1955Z Respiratory Ventilation, Greater than 96 Consecutive Hours (ICD-10-PCS; principal; 2018-05-25)
PROC: 0BH17EZ Insertion of Endotracheal Airway into Trachea, Via Natural or Artificial Opening (ICD-10-PCS; 2018-05-25)
PROC: 0B110F4 Bypass Trachea to Cutaneous with Tracheostomy Device, Open Approach (ICD-10-PCS; 2018-05-29)
PROC: 0W993ZZ Drainage of Right Pleural Cavity, Percutaneous Approach (ICD-10-PCS; 2018-06-02)
DX: J96.21 Acute and chronic respiratory failure with hypoxia (principal); I50.33 Acute on chronic diastolic (congestive) heart failure; G93.41 Metabolic encephalopathy; I13.0 Hypertensive heart and chronic kidney disease with heart failure and stage 1 through stage 4 chronic kidney disease, or unspecified chronic kidney disease; E87.2 Acidosis; N17.9 Acute kidney failure, unspecified; E66.2 Morbid (severe) obesity with alveolar hypoventilation; J90 Pleural effusion, not elsewhere classified; J96.22 Acute and chronic respiratory failure with hypercapnia; E11.22 Type 2 diabetes mellitus with diabetic chronic kidney disease; N18.3 Chronic kidney disease, stage 3 (moderate); J44.9 Chronic obstructive pulmonary disease, unspecified; E87.5 Hyperkalemia; I48.91 Unspecified atrial fibrillation; Z68.38 Body mass index [BMI] 38.0-38.9, adult; Z79.4 Long term (current) use of insulin; Z87.891 Personal history of nicotine dependence; Z79.01 Long term (current) use of anticoagulants; Z79.82 Long term (current) use of aspirin
CPT/HCPCS: 32554; 36415; 36416; 51702; 71045; 71275; 80048; 80053; 82150; 82553; 82805; 82945; 83615; 83690; 83880; 84157; 84478; 84484; 85025; 85060; 85379; 87070; 87116; 87205; 87206; 88112; 88305; 89051; 93005; 93970; 94002; 94003; 94640; 94660; 96374; A4216; G8978-GP-CM; G8979-GP-CJ; G8996-GN-CN; G8997-GN-CM; J0670; J0696; J1642; J1940; J2001; J2250; J2270; J2704; J2920; J3010; J7050; J7506; J7608; J7620